=== PATIENT | male | born 1945 | race Caucasian/White ===

== ENCOUNTER 2024-07-29 13:04 | Inpatient (IN) | payer MEDICARE, SELFPAY ==
[2024-07-28] VITALS (9 sets, daily range): BP systolic 107–131; BP diastolic 69–103; BMI 25.0; BMI 24.4
[2024-07-28 13:55] LABS: % Basophils 0.5 % (0-2); % Eosinophils 0.5 % (0-6); % Immature Granulocytes 0.3 % (0-0.5); % Lymphocytes 13.1 % (20.5-51.1); % Monocytes 8.3 % (1.7-9.3); % Neutrophils 77.3 % (42.2-75.2); Absolute Lymphocytes 0.9 10^3/uL (1.2-3.4); Absolute Monocytes 0.6 10^3/uL (0.1-0.6); Absolute Neutrophils 5.1 10^3/uL (1.4-6.5); Hematocrit 48.7 % (39.0-52.0); Hemoglobin 15.8 g/dL (13.0-18.0); Mean Corp Hgb Conc. 32.4 g/dL (33.0-37.0); Mean Corpuscular Hgb 30.2 pg (27.0-31.0); Mean Corpuscular Volume 92.9 fL (80.0-94.0); Mean Platelet Volume 10.1 fL (7.4-10.4); Nucleated Red Blood Cells % 0 % (-); Platelet Count 141 10^3/uL (130-400); Red Blood Cell Count 5.24 10^6/uL (4.70-6.10); Red Cell Dist. Width 15.9 % (11.5-14.5); White Blood Cell Count 6.6 10^3/uL (4.8-10.8)
[2024-07-28 14:07] LABS: ALT (SGPT) 29 U/L (0-50); AST (SGOT) 38 U/L (17-59); Albumin 4.6 g/dl (3.5-5.0); Alkaline Phosphatase 102 U/L (38-126); Blood Urea Nitrogen 45 mg/dl (9-20); Calcium 9.7 mg/dl (8.4-10.2); Carbon Dioxide 32 mmol/L (22-30); Chloride 100 mmol/L (98-107); Estimated Creatinine Clearance 43 ml/min; Glucose 91 mg/dl (70-99); Potassium 4.6 mmol/L (3.5-5.1); Sodium 143 mmol/L (135-145); Total Bilirubin 2.6 mg/dl (0.2-1.3); Total Protein 7.2 g/dl (6.3-8.2); eGFR 51.13
[2024-07-28 14:10] LABS: Urine Albumin Trace (Neg - Trace); Urine Bilirubin Negative (Negative); Urine Character Slightly Cloudy (Clear); Urine Color Yellow; Urine Glucose Negative (Negative); Urine Ketone Negative (Negative); Urine Leukocyte 2+ (Negative); Urine Nitrite Negative (Negative); Urine Occult Blood 2+ (Negative); Urine Urobilinogen 1+ (Neg - 1+); Urine pH 6.5 (5.0-9.0)
[2024-07-28 14:17] LABS: Urine Bacteria Few (Negative); Urine Squamous Cell 0-2 /LPF (Few); Urine White Cell 60-70 /HPF (0-5)
--- NOTE | 2024-07-28 15:31 | ED.GENMED ---
History of Present Illness
General
Chief Complaint: Urinary Symptoms
Source: patient and physician
Exam Limitations: none
Time Seen by Provider: 07/28/24 13:41
History of Present Illness
History of Present Illness:
79-year-old male with a history of COPD, pulm hypertension who presents from his doctor after he has failed outpatient treatment with antibiotics for urinary tract infection. Patient states that he only has very minimal symptoms at rest and does
not really have symptoms when he urinates. He does have a little bit of discomfort in the genitourinary area. No fevers. No vomiting. No back pain. Patient has been on Keflex and amoxicillin without improvement. His urine culture tested
positive for Enterococcus. He was sent by his doctor for IV antibiotics
Past History
Past History
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
therapy.)
ED Past Surgical History: Other (Nephrectomy, hernia with mesh)
Patient has exhibited threatening behavior?: No
PSI?: No
Social History
Tobacco: Former smoker
Alcohol: Occasional
Personal:
Living: with roommate
Family History
Family History: Asthma
Phy Exam
Physical Exam
Physical Exam:
CONSTITUTIONAL Vital signs reviewed, Patient alert and oriented to person, place and time. Well-appearing
HEAD atraumatic, normocephalic.
EYES eyelids normal to inspection, Extraocular muscles intact, Conjunctiva normal, Sclera normal.
NECK normal range of motion, Trachea midline, no jugular venous distention.
RESP no respiratory distress
BACK No obvious deformities
Abdomen ventral hernia noted. Abdomen nontender
UPPER EXTREMITY Gross Range of motion normal, gross motor strength normal
LOWER EXTREMITY Gross range of motion normal, Gross motor strength normal
NEURO Speech normal, No focal motor deficits include, Isauro coma scale 15, Memory normal, Cranial Nerves intact to screening exam.
SKIN Skin warm, dry, and normal in color.
PSYCHIATRIC Patient oriented to person place and time, Normal affect.
Course
Orders/Labs/Results
Orders:
Orders
07/28/24 13:44
Complete Blood Count/With Diff Urgent
Comprehensive Metabolic Panel Urgent
Urinalysis Reflex To Culture Urgent
Date Specimen was Collected: 07/28/24
Time Specimen was Collected: 13:43
Urine Microscopic Reflex Cult Urgent
Urine Culture Urgent
ROYM Source: U
Specimen Description:
Date Specimen was Collected: 07/28/24
Time Specimen was Collected: 13:43
07/28/24 15:31
Vancomycin 1 Gram/200 ml [Vancocin] 1 gram in 200 ml IV NOW
Abnormal Lab Results
07/28/24
13:44
MCHC 32.4 L g/dL
(33.0-37.0)
RDW 15.9 H %
(11.5-14.5)
Absolute Lymphs (auto) 0.9 L 10^3/uL
(1.2-3.4)
Neutrophils % 77.3 H %
(42.2-75.2)
Lymphocytes % 13.1 L %
(20.5-51.1)
Carbon Dioxide 32 H mmol/L
(22-30)
BUN 45 H mg/dl
(9-20)
Creatinine 1.4 H mg/dL
(0.7-1.3)
Total Bilirubin 2.6 H mg/dl
(0.2-1.3)
Ur Occult Blood Reflex 2+ A
(Negative)
Leukocyte Esterase Rfl 2+ A
(Negative)
Urine RBC 3-6 A /HPF
(0-2)
Urine WBC (Reflex) 60-70 A /HPF
(0-5)
Urine Bacteria (Reflex) Few A
(Negative)
07/28/24 13:44
07/28/24 13:44
Vital Signs
Initial and Last Documented VS:
Initial Vital Signs
Temp Pulse Resp BP Pulse Ox
97.6 F 80 16 107/70 96
07/28/24 13:24 07/28/24 13:24 07/28/24 13:24 07/28/24 13:24 07/28/24 13:24
Last Documented Vital Signs
Temp Pulse Resp BP Pulse Ox
97.6 F 77 22 131/90 93
07/28/24 13:24 07/28/24 15:15 07/28/24 14:00 07/28/24 15:00 07/28/24 15:15
MDM/Problems Addressed
MDM/Problems Addressed:
Outpatient antibiotic failure, UTI
*Pulse Oximetry
Patient hypoxic: no
*Critical Care Note
Total Time (30-74mins, 75-104mins- exclusive of procedures): Not Applicable
Data Reviewed
Source: patient
Further Testing Considered But Not Given:
Consider blood cultures but does not appear septic
Patient Management
Discussion with other providers: Hospitalist
Escalation/DeEscalation of care consider admission/obs:
79-year-old male with persistence of genitourinary symptoms, albeit mild, with outpatient urinary culture positive for Enterococcus. Patient had Enterococcus in the past in his urine. PCP concerned because his culture still positive despite
outpatient oral antibiotics. Outpatient culture reviewed showing Enterococcus.
ED Attending Note
-
Portions of this chart may have been created with voice recognition software.� Occasional wrong word or��sound alike� substitutions may have occurred due to the inherent limitations of voice recognition software.
Discharge Plan
Departure
Patient Disposition: Home (Routine Discharge)
Date of Disposition: 07/28/24
Time of Disposition: 15:34
Admit to: Med/Surg
Patient with high blood pressure during this ER visit?: No
Discharge Problem:
Outpatient antibiotic failure, Urinary tract infection
Prescriptions:
No Action
fluticasone propionate 1 SPRAY spray,suspension
2 spray intranasal DAILY
loratadine 10 MG tablet
10 mg PO QPM
terazosin 1 MG capsule
1 mg PO HS
dofetilide 125 MCG capsule
125 mcg PO Q12H Qty: 60 3RF
budesonide-formoterol [Symbicort] 1 PUFF HFA aerosol inhaler
2 puff inhalation R BID
acetaminophen [Tylenol Extra Strength] 500 MG tablet
500 mg PO Q4HPRN PRN (Reason: mild pain)
magnesium oxide 500 MG capsule
500 mg PO DAILY
albuterol sulfate 1 PUFF HFA aerosol inhaler
2 puff inhalation R Q4HPRN PRN (Reason: sob)
furosemide [Lasix] 40 mg Tablet
40 mg PO BID
warfarin 2 mg Tablet
2 mg PO SUTUTH
warfarin 2 mg Tablet
4 mg PO MOWEFRSA
escitalopram oxalate [Lexapro] 20 mg Tablet
20 mg PO QPM
metoprolol tartrate 25 mg tablet
12.5 mg PO BID
Refresh Optive 0.5-0.9 % Drops
1 drp BOTH EYES BID
guaifenesin [Mucinex] 600 mg Tablet Extended Release 12hr
600 mg PO BID
montelukast 10 MG tablet
10 mg PO DAILY
Referrals:
Casey De Los Santos MD [Family Provider] -
Interventions
Interventions:
*Risk Screen - Suicide Last Done: 07/28/24 13:26
*General Assessment Last Done: 07/28/24 13:34
*Neglect/Abuse Screening Last Done: 07/28/24 13:26
ED- Fall Risk Assessment Last Done: 07/28/24 13:34
ED-Male Genitourinary Assessment Last Done: 07/28/24 13:34
Discharge Date and Time
Print Language: YORUBA
[2024-07-28] MEDS: VANCOCIN 200 IV ×2 (15:43→20:56)
--- NOTE | 2024-07-28 16:04 | HPS.HSE ---
Family Physician
-
Family Physician: Casey De Los Santos
Chief Complaint
-
Suprapubic discomfort
History of Present Illness
79-year-old male complaining of discomfort in lower suprapubic area. He was referred to the hospital by his PCP after failing 2 courses of antibiotics Keflex and amoxicillin for Enterococcus in his urine culture. He states his urine culture was
repeated 1 week ago after finishing amoxicillin. He currently denies discomfort in his suprapubic area states he does not want to stay overnight in the hospital. I did have a discussion with him that we need to repeat his urine culture and make
sure it is resolved. Given his history of CKD and Solo kidney I advised him we will consult infectious disease in the a.m. to look at oral antibiotic alternatives.
He denies fever, chills, flank pain, suprapubic tenderness chest pain, palpitations, shortness with, cough, nausea, vomiting, diarrhea.
He has past medical history of BPH, renal cancer with nephrectomy 2010, SVT, A-fib, duodenal ulcer bleed, GERD, diverticulosis, hemorrhoids asthma, chronic systolic CHF, COPD, chronic benign lung nodules pulm HTN, former smoker, ascending aorta 8.6
cm on echo 01/11/2023, endocarditis Hx, chronic ambulatory dysfunction, vitreous hemorrhage with transient blindness left eye March 2018, anxiety, depression, migraines optic with floaters claustrophobia, idiopathic hypersomnia per sleep study
Medical History
Past Medical History
Past Medical History: Reports Other
Additional Past Medical History:
BPH
renal cancer with nephrectomy 2010
SVT
A-fib/ablation Hx
chronic systolic CHF
Endocarditis Hx
COPD
Former smoker
Chronic benign lung nodules with biopsy 2018
Asthma
Pulm HTN
Ascending aorta 8.6 cm on echo 01/11/2023
Duodenal ulcer bleed Hx cauterizations
GERD
diverticulosis
hemorrhoids
Anxiety/ depression
Chronic ambulatory dysfunction
vitreous hemorrhage with transient blindness left eye March 2018,
migraines optic with floaters claustrophobia
idiopathic hypersomnia per sleep study
Past Surgical History: Reports Other
Additional Past Surgical History:
Umbilical hernia repair x 3
TURP
Left nephrectomy 2011 secondary to renal cancer
Tonsillectomy
Ventral hernia repair
Bilateral cataract extraction
Duodenal ulcer cauterization
Cataract surgery
AVR April 2018
Lung biopsy benign nodules 2018
Cardiac ablation�A-fib
Social History
Tobacco: Former Smoker (Quit age 40)
Alcohol: Occasional
Drug: None
Living: With Family
Employment: Retired
Family History
Family History: Not pertinent
Allergies / Home Medications
Allergies reflects when Allergies were last updated in [employer].
Home Medications with original date entered in [employer]
Allergy/Medication List:
Allergies
Allergy/AdvReac Type Severity Reaction Status Date / Time
adhesive Allergy Rash Verified 07/28/24 13:27
lisinopril Allergy Anaphylaxis Verified 07/28/24 13:27
/ANGIOEDEMA
morphine Allergy HALLUCINATI Verified 07/28/24 13:27
ONS
protamine Allergy Anaphylaxis/pulmonary Verified 07/28/24 13:27
HTN
Home Medications
fluticasone propionate 50 mcg/actuation nasal spray,suspension 2 spray intranasal DAILY Congestion 02/12/18
dofetilide 125 mcg capsule 125 mcg PO Q12H #60 caps 03/17/20
acetaminophen 500 mg tablet (Tylenol Extra Strength) 500 mg PO Q4HPRN PRN mild pain 07/08/20
albuterol sulfate 90 mcg/actuation aerosol inhaler 2 puff inhalation R Q4HPRN PRN sob 07/08/20
magnesium oxide 500 mg capsule 500 mg PO DAILY 07/08/20
carboxymethylcellulose 0.5 %-glycerin 0.9 % eye drops (Refresh Optive) 1 drp BOTH EYES BID 01/13/23
escitalopram oxalate 20 mg tablet (Lexapro) 20 mg PO QPM 01/13/23
furosemide 40 mg tablet (Lasix) 40 mg PO BID 01/13/23
montelukast 10 mg tablet 10 mg PO DAILY 01/13/23
budesonide-formoterol HFA 160 mcg-4.5 mcg/actuation aerosol inhaler (Symbicort) 2 puff inhalation R BID 07/28/24
lorazepam 0.5 mg tablet 0.5 mg PO HSPRN PRN sleep/anxiety 07/28/24
metolazone 2.5 mg tablet 2.5 mg PO DAILYPRN PRN swelling 07/28/24
metoprolol succinate 25 mg tablet,extended release 24 hr 25 mg PO DAILY 07/28/24
prednisone 10 mg tablet 5 mg PO DAILY 07/28/24
warfarin 4 mg tablet (Jantoven) 2 mg PO MOTUWEFRSA 07/28/24
warfarin 4 mg tablet (Jantoven) 4 mg PO SUTH 07/28/24
Review of Systems
-
History Source: Patient
A 12 point ROS was completed and negative except as noted: Yes
Constitutional: Denies Fever or Chills
EENT: Denies Sore Throat or Runny Nose
Respiratory: Denies Cough or Trouble Breathing
Cardiac: Denies Chest Pain, Diaphoresis, Palpitations or Syncope
Abdomen/GI: Denies Abdominal Pain, Nausea, Vomiting or Diarrhea
: Denies Dysuria, Frequency, Flank Pain, Incontinence, Difficulty Voiding, Urgency or Bleeding
Musculoskeletal: Reports Edema (+1-2); Denies Joint Pain
Skin: Denies Itching or Rash
Neurological: Denies Dizzy, Headache or Weakness
Endocrine: Reports No Symptoms
Hematologic/Lymphatic: Reports No Symptoms
Psych: Reports Calm
Physical Exam
Vital Signs
Vital Signs
Temp Pulse Resp BP Pulse Ox
97.6 F 80 16 131/90 93
07/28/24 13:24 07/28/24 15:30 07/28/24 16:00 07/28/24 15:00 07/28/24 15:45
Physical Exam
General: Comfortable and Conversant; No Fever or Chills
HEENT: NormoCephalic, Anicteric, Moist mucous membranes, PERRLA, [place] Conjunctivae and No Ptosis
Respiratory: Clear; No Wheezes or Rales
Cardiac: S1/S2, Murmur (Systolic 2/6) and Peripheral Edema (+1-2 lower extremities); No Rub or Gallop
Breast: Deferred by me
GI: Soft, Non Tender, Non Distended, Normal Bowel Sounds, No Hepatosplenomegaly and Other (Lower ventral hernia soft nontender)
Rectal: Deferred by Provider
Genito-urinary: No costovertebral tender
Musculoskeletal: No Clubbing, No Cyanosis, Edema, Left Lower Extremity (+1-2 lower ankles/feet) and Edema, Right Lower Extremity (+1-2 lower ankles/feet); No Edema, Left Upper Extremity or Edema, Right Upper Extremity
Skin: Warm and Dry; No Rash
Neuro: AO x 3, No Motor Deficits, Nonfocal/grossly intact and No Sensory Deficits; No Slurred Speech, Facial Droop or Tremors
Psych: Calm
Laboratory Results
-
07/28/24 13:44
07/28/24 13:44
Laboratory Results
Total Bilirubin 2.6 mg/dl (0.2-1.3) H 07/28/24 13:44
AST 38 U/L (17-59) 07/28/24 13:44
ALT 29 U/L (0-50) 07/28/24 13:44
Alkaline Phosphatase 102 U/L (38-126) 07/28/24 13:44
Data Reviewed
-
Lab Data: Labs Reviewed by me
Impression/Plan
-
Impression/plan:
Observation telemetry
#Symptomatic UTI(Enterococcus)�failed outpatient treatment
#Hx Enterococcus faecalis urine November 12, 2022
-Recent treatment with Keflex and amoxicillin as urine culture outpatient was positive for Enterococcus
-UA +2 leukocyte, WBC 60-70, few bacteria
-Follow repeat urine culture
-IV vancomycin
-Consult infectious disease given failure outpatient treatment, CKD, solo kidney, Tikosyn
#Chronic systolic CHF
-I/O, daily weights
-Follows with [facility]
2D echo 2022: EF 45 to 50%, apical lateral and anterolateral hypokinesis, severely dilated left and right atrium, bioprosthetic valve peak mean gradient 16/9 mmHg. Severe TR, pulm arterial pressure 40 mmHg, IVC severely dilated ascending aorta
measures 8.6 cm
#CKD 3B/ solo kidney LEFT
#Renal cancer with nephrectomy 2010
#BPH
Creat 1.4 his baseline from 2022
-Follow BMP
#SVT
#Afib/ablation Hx
cont Tikosyn 125 mcg Q12, metoprolol succinate 25 mg daily
-Continue Coumadin
-Check INR
#Chronic systolic CHF
i/o daily weight
-Continue Lasix 40 mg twice daily
#Endocarditis Hx
#COPD hx on chronic steroids
#Former smoker quit age 40
#Chronic benign lung nodules with biopsy 2018
-Continue prednisone 5 mg daily
#Asthma- no acute exacerbation
#Pulm HTN
#Ascending aorta 8.6 cm on echo 01/11/2023
#Duodenal ulcer bleed Hx cauterizations
#GERD
#Anxiety/ depression
-Continue Lexapro 20 mg every afternoon
#Chronic ambulatory dysfunction
Consult PT
#Idiopathic hypersomnia per sleep study
-Continue lorazepam 0.5 mg at bedtime as needed
Other PMH:
Diverticulosis
Hemorrhoids
Vitreous hemorrhage with transient blindness left eye March 2018,
Migraines optic with floaters claustrophobia
DVT prophylaxis
Continue GREY GOODS EXAMINER Coumadin
Full code patient's son David is his emergency contact
--- NOTE | 2024-07-28 17:01 | W.PN.UPDATE ---
Update Note
Progress Note Update
This is an addendum to the H&P written by Janette Santos on 07/28/2024. Patient seen and examined independently with PROJECT DEVELOPMENT ENGINEER.
79-year-old male past medical history of atrial fibrillation/flutter status post ablation, aortic stenosis status post bioprosthetic aortic valve replacement, severe mitral regurgitation, HFpEF, BPH, CKD, right renal cell carcinoma status post right
nephrectomy, aortic dissection, COPD, pulmonary hypertension, with recent urinary symptoms diagnosed with UTI treated with 2 failed courses of antibiotics with Keflex and amoxicillin for Enterococcus UTI. Urine culture repeated showed persistent
Enterococcus and he was advised to come to the hospital for IV antibiotics.
Patient denies any symptoms at this time. Vancomycin started. Check urine culture. ID consulted.
[2024-07-28 17:39] LABS: INR 2.74; PT 28.9 Sec (11.4-14.6)
[2024-07-28] MEDS: SYMBICORT 160/4.5 MCG INHALER 2 PUFF INH (20:36)
[2024-07-28] MEDS: COUMADIN 2 MG PO (20:44)
[2024-07-28] MEDS: LEXAPRO 20 MG PO (20:48)
[2024-07-28] MEDS: LASIX 40 MG PO (20:53)
[2024-07-28] MEDS: TIKOSYN 125 MCG PO (20:56)
[2024-07-28] MEDS: REFRESH EYE DROPS (PF) 1 DROPS BOTH EYES (20:56)
--- NOTE | 2024-07-28 22:25 | PHA.VAN.IN ---
Assessment
- Assessment
Renal Function: Appears similar to baseline (Baseline Scr 1.3-1.8)
AUC Dosing Plan
- Dosing Variables
Dosing Weight (kg): 75
Dosing CrCl (ml/min): 43
Vd coefficient (L/kg): 0.7
- Empiric Dosing
Initial / Loading Dose: Vancomycin 2000mg as split loading dose (1000mg at 1600,2100)
Maintenance Regimen: Vancomycin 1000mg IV Q24h- start 07/29 at 1200 and work back to 0600
Estimated AUC (mcg*h/mL): 489
Estimated Peak (mcg*h/mL): 30.8
Estimated Trough (mcg/ml): 12.5
Estimated Half Life (H): 17.3
- Monitoring
No levels ordered at this time: Will f/u and order levels closer to steady state.
Pharmacokinetics Vancomycin I
- -
Patient Age: 79
Patient Sex: Male
Vancomycin Day #: 1
Indication: Genito-Urinary Tract
Requesting Provider: SOURAV Multani
Pertinent Antimicrobial Allergies:
No pertinent antibiotic allergies
Height / Weight:
Height 5 ft 9 in
Actual Weight 75.041 kg
Pertinent Past Medical History: Recent course cephelexin and amox for enterococcal UTI, CKD-nephrectomy '11
- Vital Signs / Lab Results
Temp Pulse Resp BP Pulse Ox
97.7 F 81 16 107/69 96
07/28/24 19:00 07/28/24 20:53 07/28/24 20:41 07/28/24 20:53 07/28/24 20:41
Lab Results - Hematology
07/28/24
13:44
WBC 6.6
Lab Results - Chemistry
07/28/24
13:44
BUN 45 H
Creatinine 1.4 H
Estimated Creat Clear 43
Albumin 4.6
Lab Results - Urine
07/28/24
13:44
Urine Nitrite (Reflex) Negative
Leukocyte Esterase Rfl 2+ A
Urine WBC (Reflex) 60-70 A
Ur Squamous Epith Cells 0-2
Urine Bacteria (Reflex) Few A
[2024-07-28] MEDS: ATIVAN 0.5 MG PO (23:58)
[2024-07-29] VITALS (7 sets, daily range): BP systolic 97–121; BP diastolic 68–77; PULSE 80; BMI 24.4; BMI 24.5
[2024-07-29] MEDS: HYDROCORTISONE 1% CREAM 1 APPLIC TOPICAL (00:02)
[2024-07-29 07:00] LABS: % Basophils 1.1 % (0-2); % Eosinophils 1.7 % (0-6); % Immature Granulocytes 0.4 % (0-0.5); % Lymphocytes 23.9 % (20.5-51.1); % Monocytes 11.2 % (1.7-9.3); % Neutrophils 61.7 % (42.2-75.2); Absolute Basophils 0.1 10^3/uL (0-0.2); Absolute Eosinophils 0.1 10^3/uL (0-0.7); Absolute Lymphocytes 1.1 10^3/uL (1.2-3.4); Absolute Monocytes 0.5 10^3/uL (0.1-0.6); Absolute Neutrophils 2.9 10^3/uL (1.4-6.5); Hematocrit 43.8 % (39.0-52.0); Hemoglobin 14.2 g/dL (13.0-18.0); Mean Corp Hgb Conc. 32.4 g/dL (33.0-37.0); Mean Corpuscular Hgb 29.8 pg (27.0-31.0); Nucleated Red Blood Cells % 0 % (-); Platelet Count 121 10^3/uL (130-400); Red Blood Cell Count 4.76 10^6/uL (4.70-6.10); Red Cell Dist. Width 15.6 % (11.5-14.5); White Blood Cell Count 4.7 10^3/uL (4.8-10.8)
[2024-07-29 07:02] LABS: INR 2.54; PT 27.2 Sec (11.4-14.6)
[2024-07-29 07:24] LABS: ALT (SGPT) 25 U/L (0-50); AST (SGOT) 32 U/L (17-59); Albumin 3.7 g/dl (3.5-5.0); Alkaline Phosphatase 78 U/L (38-126); Blood Urea Nitrogen 37 mg/dl (9-20); Carbon Dioxide 29 mmol/L (22-30); Chloride 101 mmol/L (98-107); Estimated Creatinine Clearance 50 ml/min; Glucose 86 mg/dl (70-99); Potassium 4.1 mmol/L (3.5-5.1); Sodium 139 mmol/L (135-145); Total Protein 6.1 g/dl (6.3-8.2); eGFR > 60.00
[2024-07-29] MEDS: SYMBICORT 160/4.5 MCG INHALER 2 PUFF INH ×2 (08:01→18:19)
[2024-07-29] MEDS: TOPROL XL 25 MG PO (08:26)
[2024-07-29] MEDS: LASIX 40 MG PO ×2 (08:26→16:27)
[2024-07-29] MEDS: REFRESH EYE DROPS (PF) 1 DROPS BOTH EYES ×2 (08:27→20:05)
[2024-07-29] MEDS: TIKOSYN 125 MCG PO ×2 (08:27→20:05)
[2024-07-29] MEDS: DELTASONE 5 MG PO (08:30)
--- NOTE | 2024-07-29 08:38 | PHA.VAN.FU ---
Vancomycin Assessment / Plan
- Assessment
Renal Function: SCR Decreasing (1.4->1.2)
WBC's are: Trending Down
In the past 24 hrs, patient has been: Afebrile
Concomitant Antimicrobials: none
- Dosing Plan
Continue: vanc 1000 mg daily ( split LD 07/28 - start maint dose 07/29)
- Monitoring Plan
No level(s) ordered at this time: order levels closer to steady state
- Follow Up
Pharmacy will continue to follow.
Vancomycin Follow UP
- -
Patient Age: 79
Patient Sex: Male
Vancomycin Day #: 2
Indication: Genito-Urinary Tract
Requesting Provider: SOURAV Multani
Pertinent Antimicrobial Allergies:
No pertinent antibiotic allergies
Height / Weight:
Height 5 ft 9 in
Actual Weight 75.16 kg
Pertinent Past Medical History: Recent course cephelexin and amox for enterococcal UTI, CKD-nephrectomy '11
- Vital Signs / Lab Results
Temp Pulse Resp BP Pulse Ox
97.7 F 76 16 110/77 91
07/29/24 07:00 07/29/24 08:10 07/29/24 08:10 07/29/24 07:00 07/29/24 08:10
Lab Results - Hematology
07/28/24 07/29/24
13:44 06:10
WBC 6.6 4.7 L
Lab Results - Chemistry
07/28/24 07/29/24
13:44 06:10
BUN 45 H 37 H
Creatinine 1.4 H 1.2
Estimated Creat Clear 43 50
Albumin 4.6 3.7
Lab Results - Urine
07/28/24
13:44
Urine Nitrite (Reflex) Negative
Leukocyte Esterase Rfl 2+ A
Ur Squamous Epith Cells 0-2
--- NOTE | 2024-07-29 10:37 | W.PN.HOSP.TC ---
Today's Communication/Plan
-
c/w IV Abx
c/w Lasix BID
Assessment / Plan
Assessment / Plan
Physical Exam
General: Comfortable and Conversant; No Fever or Chills
HEENT: Normocephalic, Anicteric, Moist mucous membranes, PERRLA, [place] Conjunctivae and No Ptosis
Respiratory: Clear; No Wheezes or Rales
Cardiac: S1/S2, Murmur (Systolic 2/6) and Peripheral Edema (+1-2 lower extremities); No Rub or Gallop
GI: Soft, Non Tender, Non Distended, Normal Bowel Sounds, (Lower ventral hernia soft nontender)
Genito-urinary: No costovertebral tender
Musculoskeletal: No Clubbing, No Cyanosis, Edema, Lower Extremities.
Skin: Warm and Dry; No Rash
Neuro: AO x 3, No Motor Deficits, Nonfocal/grossly intact and No Sensory Deficits; No Slurred Speech, Facial Droop or Tremors
Psych: Calm
#Symptomatic UTI(Enterococcus)�failed outpatient treatment
#Hx Enterococcus faecalis urine November 12, 2022
-Recent treatment with Keflex and amoxicillin as urine culture outpatient was positive for Enterococcus
-UA +2 leukocyte, WBC 60-70, few bacteria
-Follow repeat urine culture
-IV vancomycin
-Consult infectious disease given failure outpatient treatment.
#Chronic systolic CHF
No sob
No hypoxia
-I/O, daily weights
-Follows with [facility] cardiology
2D echo 2022: EF 45 to 50%, apical lateral and anterolateral hypokinesis, severely dilated left and right atrium, bioprosthetic valve peak mean gradient 16/9 mmHg. Severe TR, pulm arterial pressure 40 mmHg, IVC severely dilated ascending aorta
measures 8.6 cm
#AIDA, resolving
CKD 3B/ solo kidney LEFT
#Renal cancer with nephrectomy 2010
#BPH
-Follow BMP
#SVT
#Afib/ablation Hx
cont Tikosyn 125 mcg Q12, metoprolol succinate 25 mg daily
-Continue Coumadin
-Check INR. 2.54
#Chronic systolic CHF
i/o daily weight
-Continue Lasix 40 mg twice daily
- PRN metolazone
#Endocarditis Hx
#COPD hx on chronic steroids
#Former smoker quit age 40
#Chronic benign lung nodules with biopsy 2018
-Continue prednisone 5 mg daily
#Asthma- no acute exacerbation
#Pulm HTN
#Ascending aorta 8.6 cm on echo 01/11/2023
#Duodenal ulcer bleed Hx cauterizations
#GERD
#Anxiety/ depression
-Continue Lexapro 20 mg every afternoon
#Chronic ambulatory dysfunction
Consult PT
#Idiopathic hypersomnia per sleep study
-Continue lorazepam 0.5 mg at bedtime as needed
Other PMH:
Diverticulosis
Hemorrhoids
Vitreous hemorrhage with transient blindness left eye March 2018,
Migraines optic with floaters claustrophobia
DVT prophylaxis
Continue CHIEF SCIENCE OFFICER Coumadin
Total time spent to see the patient, examine the patient on the floor, review data and lab results, discuss treatment plan with patient, nursing staff around 55 minutes
Anticipated Discharge: 24 - 48 hours
Subjective/Interval History
-
Date of Service: July 29, 2024
He feels less dysuria
No chest pain
No sob
Objective Data
-
Labs:
Laboratory Results
07/29/24
06:10
WBC 4.7 L
Hgb 14.2
Hct 43.8
Plt Count 121 L
PT 27.2 H
INR 2.54
Sodium 139
Potassium 4.1
Chloride 101
Carbon Dioxide 29
BUN 37 H
Creatinine 1.2
Glucose 86
Calcium 9.0
Total Bilirubin 3.0 H
AST 32
ALT 25
Alkaline Phosphatase 78
Vital Signs:
Vital Signs
Temp Pulse Resp BP Pulse Ox
97.7 F 76 16 110/77 91
07/29/24 07:00 07/29/24 08:10 07/29/24 08:10 07/29/24 07:00 07/29/24 08:10
I&O
07/28/24 07/29/24 07/30/24
06:59 06:59 06:59
Intake Total 1320 / 1320
Output Total 200 / 200
Balance 1120 / 1120
[2024-07-29] MEDS: VANCOCIN 200 IV (12:24)
--- NOTE | 2024-07-29 14:21 | CON.ID ---
Consultation
-
Date/Time Consultation Requested: 07/28/2024 1647
Date/Time Consultation Performed: 07/29/2024 1420
Requesting Provider: Dr. Renee Steel
Performing Provider: Dr. Alexa Lake
Reason for Consultation: UTI
Chief Complaint / Past History
Chief Complaint
Sent by PCP for UTI
History of Present Illness
History obtained from the patient as well as review of outside records. 79-year-old male with history of A-fib on Tikosyn, renal cancer status post left nephrectomy, BPH status post TURP, bladder neck contracture requiring dilation in the past who
was sent to the ER July 28 for UTI that 'failed' outpatient cephalexin and amoxicillin. Patient reports he has chronic intermittent slight discomfort sensation in the middle of the urethra not associated with voiding. 05/18/24 urine culture
grew 50-100K Enterococcus faecalis for which she was treated with 7 days of nitrofurantoin. He had repeat urine culture June 18 with urine culture positive for 10-49K Enterococcus faecium, sensitive to ampicillin for which he was treated with
amoxicillin 875 mg twice daily. Again he had repeat urine culture on July 23 which grew 50-100K Enterococcus faecalis. Patient sent to ED due to concern for abx failure. He is started on Vancomycin. Pt reports no urgency, pain with
urination, or flank pain. No supra-pubic pain. He reports able to urinate without difficulty. Denies urinary retention. He feels slightly better today.
Past History
Additional Past Medical History:
COPD/asthma
Afib s/p ablation, on Tikosyn
Renal cancer s/p left nephrectomy 2010
BPH/TURP
Bladder neck contracture s/p dilation x 1
HFrEF
bio-AVR
Lung nodules
pulm HTN
hx endocarditis
Anxiety/depression
Type A aortic dissection
Migraines
Claustrophobia
GIB s/p cauterization of duodenal ulcer
Left eye vitreous hemorrhage
Umbilical hernia repair
Ventral hernia repair
Allergy History:
adhesive Allergy (Verified 07/28/24 13:27)
Rash
lisinopril Allergy (Verified 07/28/24 13:27)
Anaphylaxis/ANGIOEDEMA
morphine Allergy (Verified 07/28/24 13:27)
HALLUCINATIONS
protamine Allergy (Verified 07/28/24 13:27)
Anaphylaxis/pulmonary HTN
Medications Reviewed: Yes
Current Antibiotics:
Vancomycin
Social History
Tobacco: Former Smoker
Alcohol: Occasional
Drug: None
Family History
Family History: Not Pertinent
Review of Systems
Review of Systems
General: Negative Fever, Chills or Change in Appetite
HEENT: Negative Stiff Neck, Sinus Problems or Pharyngitis
Cardiovascular: Negative Chest Pain or Dyspnea
Respiratory: Negative Dyspnea or Cough
Gasteroenterology: Other (no diarrhea); Negative Nausea or Vomiting
Genital / Urological: Negative Hematuria or Flank Pain
Endocrine: Negative Weakness
Skin / Hair / Nails: Negative Rash
Neurological: Negative Dizziness
All systems: All other systems were reviewed and were negative
Vital Signs
Temp Pulse Resp BP Pulse Ox
98.4 F 58 18 100/73 98
07/29/24 11:24 07/29/24 11:24 07/29/24 11:24 07/29/24 11:24 07/29/24 11:24
Physical Exam
Physical Exam
Constitutional: No Acute Distress and Comfortable
Eyes: No Conjunctival Hemorrhage and Sclera Anicteric
Cardiovascular: Regular Rate and S1/S2
Pulmonary: Clear
Gastrointestinal: Soft, Non Tender, Non Distended and Normal Bowel Sounds
Genito-Urinary: Negative [place], Suprapubic Tenderness or CVA Tenderness
Extremities: Negative Edema
Neurological: AO x 3
Lab / Diagnostic Study Results
07/29/24 06:10
07/29/24 06:10
Abs Immat Gran (auto) 0.0 10^3/uL (0-0.05) 07/29/24 06:10
Absolute Neuts (auto) 2.9 10^3/uL (1.4-6.5) 07/29/24 06:10
Absolute Lymphs (auto) 1.1 10^3/uL (1.2-3.4) L 07/29/24 06:10
Absolute Monos (auto) 0.5 10^3/uL (0.1-0.6) 07/29/24 06:10
Absolute Basos (auto) 0.1 10^3/uL (0-0.2) 07/29/24 06:10
Immature Gran % 0.4 % (0-0.5) 07/29/24 06:10
Neutrophils % 61.7 % (42.2-75.2) 07/29/24 06:10
Lymphocytes % 23.9 % (20.5-51.1) 07/29/24 06:10
Monocytes % 11.2 % (1.7-9.3) H 07/29/24 06:10
Eosinophils % 1.7 % (0-6) 07/29/24 06:10
Basophils % 1.1 % (0-2) 07/29/24 06:10
PT 27.2 Sec (11.4-14.6) H 07/29/24 06:10
INR 2.54 07/29/24 06:10
Ur Squamous Epith Cells 0-2 /LPF (Few) 07/28/24 13:44
Microbiology Results
Micro:
07/28/24 13:44 Urine Culture - Preliminary
Urine Enterococcus species
Assessment / Plan
# Recurrent Enterococcus bacteruria, tx'd with nitrofurantoin (sensitive) in 05/2024, then amoxicillin 06/18/24
# hx bladder neck contracture s/p dilation x 1
# hx BPH s/p TURP
- Pt's chronic symptoms of mid urethral discomfort unlikely UTI sxs. Symptoms occur at any time whether voiding or not.
-Ordered renal US with bladder to check anatomy.
-De-escalate Vancomycin to amoxicillin 500mg po tid x 10d
Pt did not 'fail' amoxicillin. His urine is colonized with Enterococcus which is difficult to eradicate completely.
One should never repeat UA/Ucx as test of cure.
In the future, check UA/Ucx and treat only if he has new urinary sxs.
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
COPD/asthma
Afib s/p ablation, on Tikosyn
Renal cancer s/p left nephrectomy 2010
BPH/TURP
Bladder neck contracture s/p dilation x 1
HFrEF
bio-AVR
Lung nodules
pulm HTN
hx endocarditis
Anxiety/depression
Type A aortic dissection
Migraines
Claustrophobia
GIB s/p cauterization of duodenal ulcer
Left eye vitreous hemorrhage
Umbilical hernia repair
Ventral hernia repair
--- NOTE | 2024-07-29 15:17 | CM ---
met with patient at bedside.patient lives with 2 friends(one is a nurse) in a house with 3 jaye,his bed and bath is on second level.he amb with a cane and is I with his adl.he has never had a vn or been to ip rehab in past.
PCP: [facility]
PMH: uti,afib,chf,bph,copd,htn,ckd stage 3,chronic dissection of thoracic aorta,endocarditis
DME: cane,home o2 with [employer] at 2 liters nc o2-use at night and prn during day.
Patient signed obs letter and form in chart.
Patient is adm with enteroccus uti,on po zithomax,iv vanco,cont 2 liters nc o2.patient has declined home care.Plan:home with no needs.
[2024-07-29] MEDS: AMOXIL 500 MG PO ×2 (16:27→23:04)
[2024-07-29] MEDS: ProAIR HFA INHALER 2 PUFF INH (18:19)
[2024-07-29] MEDS: LEXAPRO 20 MG PO (18:27)
[2024-07-29] MEDS: COUMADIN 4 MG PO (20:50)
[2024-07-29] MEDS: FLEET PHOSPHATE ENEMA-ADULT 118 ML RECTAL (20:50)
[2024-07-29] MEDS: ATIVAN 0.5 MG PO (22:15)
[2024-07-30 03:00] VITALS: BP 106/67
[2024-07-30 06:00] VITALS: BMI 24.4
[2024-07-30 06:35] LABS: % Basophils 0.8 % (0-2); % Eosinophils 1.7 % (0-6); % Immature Granulocytes 0.2 % (0-0.5); % Lymphocytes 23.6 % (20.5-51.1); % Monocytes 11.3 % (1.7-9.3); % Neutrophils 62.4 % (42.2-75.2); Absolute Eosinophils 0.1 10^3/uL (0-0.7); Absolute Lymphocytes 1.1 10^3/uL (1.2-3.4); Absolute Monocytes 0.5 10^3/uL (0.1-0.6); Hemoglobin 14.7 g/dL (13.0-18.0); Mean Corp Hgb Conc. 32.7 g/dL (33.0-37.0); Mean Corpuscular Hgb 30.1 pg (27.0-31.0); Mean Platelet Volume 9.8 fL (7.4-10.4); Nucleated Red Blood Cells % 0 % (-); Platelet Count 118 10^3/uL (130-400); Red Blood Cell Count 4.89 10^6/uL (4.70-6.10); Red Cell Dist. Width 15.3 % (11.5-14.5); White Blood Cell Count 4.8 10^3/uL (4.8-10.8)
[2024-07-30 06:41] LABS: INR 2.56; PT 27.4 Sec (11.4-14.6)
[2024-07-30 07:03] LABS: ALT (SGPT) 23 U/L (0-50); AST (SGOT) 30 U/L (17-59); Albumin 3.7 g/dl (3.5-5.0); Alkaline Phosphatase 73 U/L (38-126); Blood Urea Nitrogen 41 mg/dl (9-20); Calcium 8.9 mg/dl (8.4-10.2); Carbon Dioxide 26 mmol/L (22-30); Chloride 99 mmol/L (98-107); Estimated Creatinine Clearance 54 ml/min; Glucose 81 mg/dl (70-99); Potassium 3.9 mmol/L (3.5-5.1); Sodium 138 mmol/L (135-145); eGFR > 60.00
[2024-07-30] MEDS: SYMBICORT 160/4.5 MCG INHALER 2 PUFF INH (08:00)
[2024-07-30 08:11] VITALS: BP 117/81
[2024-07-30] MEDS: AMOXIL 500 MG PO ×2 (08:14→15:41)
[2024-07-30] MEDS: TOPROL XL 25 MG PO (08:14)
[2024-07-30] MEDS: LASIX 40 MG PO ×2 (08:14→15:41)
[2024-07-30] MEDS: DELTASONE 5 MG PO (08:14)
[2024-07-30] MEDS: TIKOSYN 125 MCG PO (08:14)
[2024-07-30] MEDS: REFRESH EYE DROPS (PF) 1 DROPS BOTH EYES (08:17)
--- NOTE | 2024-07-30 08:21 | W.PN.HOSP.TC ---
Today's Communication/Plan
-
Antibiotic. Renal ultrasound. Discharge planning in progress.
Assessment / Plan
Assessment / Plan
Physical Exam
General: Comfortable and Conversant; No Fever or Chills
HEENT: Normocephalic, Anicteric, Moist mucous membranes, PERRLA, [place] Conjunctivae and No Ptosis
Respiratory: Clear; No Wheezes or Rales
Cardiac: S1/S2, Murmur (Systolic 2/6) and Peripheral Edema (+1-2 lower extremities); No Rub or Gallop
GI: Soft, Non Tender, Non Distended, Normal Bowel Sounds, (Lower ventral hernia soft nontender)
Genito-urinary: No costovertebral tender
Musculoskeletal: No Clubbing, No Cyanosis, Edema, Lower Extremities.
Skin: Warm and Dry; No Rash
Neuro: AO x 3, No Motor Deficits, Nonfocal/grossly intact and No Sensory Deficits; No Slurred Speech, Facial Droop or Tremors
Psych: Calm
A/P:
Enterococcus urinary tract infection/bacteriuria:
ID consult appreciated
ID noticed chronic colonization
On amoxicillin 500 mg p.o. 3 times daily to complete a 10-day course
Kidney ultrasound pending
Plan to discharge home today if ultrasound unremarkable
#Chronic systolic CHF
No sob
No hypoxia
-I/O, daily weights
-Follows with [facility] cardiology
2D echo 2022: EF 45 to 50%, apical lateral and anterolateral hypokinesis, severely dilated left and right atrium, bioprosthetic valve peak mean gradient 16/9 mmHg. Severe TR, pulm arterial pressure 40 mmHg, IVC severely dilated ascending aorta
measures 8.6 cm
#AIDA, resolving
CKD 3B/ solo kidney LEFT
#Renal cancer with nephrectomy 2010
#BPH
-Follow BMP, creatinine 1.4--> 1.1
#SVT
#Afib/ablation Hx
cont Tikosyn 125 mcg Q12, metoprolol succinate 25 mg daily
-Continue Coumadin
-Check INR. 2.56
#Chronic systolic CHF
i/o daily weight
-Continue Lasix 40 mg twice daily
- PRN metolazone
#Endocarditis Hx
#COPD hx on chronic steroids
#Former smoker quit age 40
#Chronic benign lung nodules with biopsy 2018
-Continue prednisone 5 mg daily
#Asthma- no acute exacerbation
#Pulm HTN
#Ascending aorta 8.6 cm on echo 01/11/2023
#Duodenal ulcer bleed Hx cauterizations
#GERD
#Anxiety/ depression
-Continue Lexapro 20 mg every afternoon
#Chronic ambulatory dysfunction
Consult PT
#Idiopathic hypersomnia per sleep study
-Continue lorazepam 0.5 mg at bedtime as needed
Other PMH:
Diverticulosis
Hemorrhoids
Vitreous hemorrhage with transient blindness left eye March 2018,
Migraines optic with floaters claustrophobia
DVT prophylaxis
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
Anticipated Discharge: Today
Subjective/Interval History
-
Date of Service: July 30, 2024
Patient denies any new complaints. Afebrile
Objective Data
-
Labs:
Laboratory Results
07/30/24
06:21
WBC 4.8
Hgb 14.7
Hct 45.0
Plt Count 118 L
PT 27.4 H
INR 2.56
Sodium 138
Potassium 3.9
Chloride 99
Carbon Dioxide 26
BUN 41 H
Creatinine 1.1
Glucose 81
Calcium 8.9
Total Bilirubin 3.0 H
AST 30
ALT 23
Alkaline Phosphatase 73
Vital Signs:
Vital Signs
Temp Pulse Resp BP Pulse Ox
98.2 F 76 20 117/81 94
07/30/24 08:11 07/30/24 08:14 07/30/24 08:14 07/30/24 08:14 07/30/24 08:14
I&O
07/29/24 07/30/24 07/31/24
06:59 06:59 06:59
Intake Total 1320 / 1320 1600 / 1600
Output Total 200 / 200 1750 / 1750
Balance 1120 / 1120 -150 / -150
[2024-07-30 09:44] VITALS: BP 117/63; PULSE 73; O2SAT 93
--- NOTE | 2024-07-30 09:50 | PTOTSP ---
pt currently demonstrates ability to complete simple ADLs, functional transfers, ambulation with supervision to no assistance. no acute OT needs identified at this time, will sign off.
--- NOTE | 2024-07-30 11:00 | WOUNDNOTE ---
LEGS AND ANKLES
--- NOTE | 2024-07-30 11:00 | WOUNDNOTE ---
L MEDIAL ANKLE/HEEL
--- NOTE | 2024-07-30 11:01 | WOUNDNOTE ---
[facility] RN note: Patient admitted with UTI
See H&P for complete history.
PMH: COPD,AAA,CHF,HTN,GI bleed, renal cancer-nephrectomy 2010, cardiac ablation, ex smoker.
Wound Location and type/assessment: Patient admitted with: Healed suspected old venous ulcer on R lateral ankle, dry intact scab. L medial lower ankle/heel with dry crusty patch of skin, abrasion vs healed venous ulcer, no drainage. Skin on legs
and feet dry. + 1 edema mainly in feet-lower legs. Patient states he wears knee high compression stockings at home. Heels blanchable red.
Appetite: Good.
Pressure redistribution devices in place: Accumax, ad adolph.
Plan: applied A&D ointment to legs. Recommended to patient to moisturize legs daily then resume own compression stockings when home. Encouraged leg elevation when sitting. Also recommended to patient he follow up with a foot Dr. to manage toe nails.
Will confirm orders with hospitalist and updated nurse.
Updated care plan and will sign off unless needed.
Note to case management of equipment requested for discharge: None.
[2024-07-30 11:03] VITALS: BP 101/82
--- NOTE | 2024-07-30 12:14 | W.PN.ID1 ---
Date of Service
Date of Service: July 30, 2024
Today's Communication
- Continue amoxicillin 500mg po tid (d2) x 10d
- If Renal US unremarkable, can dc home.
Assessment / Plan
# Recurrent Enterococcus bacteruria, tx'd with nitrofurantoin (sensitive) in 05/2024, then amoxicillin 06/18/24. 07/23/24 Ucx E. faecalis, amp-sensitive
# hx bladder neck contracture s/p dilation x 1
# hx BPH s/p TURP
- Pt's chronic symptoms of mid urethral discomfort unlikely UTI sxs. Symptoms occur at any time whether voiding or not.
-Ordered renal US with bladder to check anatomy.
- Pt did not 'fail' amoxicillin. His urine is colonized with Enterococcus which is difficult to eradicate completely.
One should never repeat UA/Ucx as test of cure.
In the future, check UA/Ucx and treat only if he has new urinary sxs.
- Continue amoxicillin 500mg po tid (d2) x 10d
- If Renal US unremarkable, can dc home.
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
COPD/asthma
Afib s/p ablation, on Tikosyn
Renal cancer s/p left nephrectomy 2010
BPH/TURP
Bladder neck contracture s/p dilation x 1
HFrEF
bio-AVR
Lung nodules
pulm HTN
hx endocarditis
Anxiety/depression
Type A aortic dissection
Migraines
Claustrophobia
GIB s/p cauterization of duodenal ulcer
Left eye vitreous hemorrhage
Umbilical hernia repair
Ventral hernia repair
Subjective / Review of Systems
Feels better.
Urine flow better.
Chronic urethral discomfort present but slightly improved.
Vital Signs / Physical Exam
Vital Signs
Vital Signs
Temp Pulse Resp BP Pulse Ox
98.1 F 76 16 101/82 90
07/30/24 11:03 07/30/24 11:03 07/30/24 11:03 07/30/24 11:03 07/30/24 11:03
Physical Exam
Constitutional: No Acute Distress
Pulmonary: Clear
Gastrointestinal: Soft, Non Tender and Non Distended
Genito-Urinary: Negative CVA Tenderness
Neurological: AO x 3
Objective Data
Lab Data
Lab Results
07/30/24 06:21
07/30/24 06:21
PT 27.4 Sec (11.4-14.6) H 07/30/24 06:21
INR 2.56 07/30/24 06:21
Estimated Creat Clear 54 ml/min 07/30/24 06:21
Total Bilirubin 3.0 mg/dl (0.2-1.3) H 07/30/24 06:21
AST 30 U/L (17-59) 07/30/24 06:21
ALT 23 U/L (0-50) 07/30/24 06:21
Alkaline Phosphatase 73 U/L (38-126) 07/30/24 06:21
Most recent labs reviewed.
Micro Results:
07/28/24 13:44 Urine Culture - Preliminary
Urine Enterococcus species
[2024-07-30 15:00] VITALS: BP 147/76
--- NOTE | 2024-07-30 15:24 | W.DCSUMMARY ---
Discharge Summary
Discharge Data
Date of Admission: 07/29/24
Date of Discharge: 07/30/24
-
Pending Results: No
Hospital Course
Patient is 79 years old male with complicated past medical history some of which include COPD, A-fib, renal cancer status post left nephrectomy, BPH, CHF, pulmonary hypertension, type aortic dissection, among other, presented to the hospital with
UTI. Patient reports chronic intermittent sensation in the middle of the urethra not associated with voiding and his urine culture has grown Enterococcus faecalis multiple times. Last urine culture from July 23 grew Enterococcus faecalis and
due to concerns of antibiotic failure he was started on vancomycin and ID consulted. ID did not feel this was a failure from antibiotics. ID also felt that he was colonized with Enterococcus and recommended not to repeat urine and urine culture as
a test of cure and only test when he has new urinary symptoms. Patient had a renal ultrasound unremarkable for acute findings aside for some kidney cyst that can follow-up as outpatient. ID recommended to continue amoxicillin to complete a 10 days
course. He has been afebrile. He is hemodynamically stable. He will be discharged in stable condition today.
Discharge duration: 35 minutes
Discharge Plan
-
Patient Disposition: Home (Routine Discharge)
Discharge Diagnosis/Procedures: Enterococcus urinary tract infection. Acute kidney injury. Chronic systolic congestive heart failure.
Diet: Low Cholesterol
Activity: As tolerated
Blood Work: Please PCP to order CBC, BMP within 1 week.
Activity Restrictions/Additional Instructions:
Wound Care Instructions
legs: moisturize daily,(Aquaphor cream recommended)
resume compression stockings when home.
Leg elevation when sitting.
Referrals:
Casey De Los Santos MD [Family Provider] - in less than 1 week
Prescriptions:
New
amoxicillin 500 mg Capsule
500 mg PO Q8H 8 Days Qty: 24 0RF
Continued
fluticasone propionate 1 SPRAY spray,suspension
2 spray intranasal DAILY
dofetilide 125 MCG capsule
125 mcg PO Q12H Qty: 60 3RF
acetaminophen [Tylenol Extra Strength] 500 MG tablet
500 mg PO Q4HPRN PRN (Reason: mild pain)
magnesium oxide 500 MG capsule
500 mg PO DAILY
albuterol sulfate 1 PUFF HFA aerosol inhaler
2 puff inhalation R Q4HPRN PRN (Reason: sob)
furosemide [Lasix] 40 mg Tablet
40 mg PO BID@,16
escitalopram oxalate [Lexapro] 20 mg Tablet
20 mg PO QPM
Refresh Optive 0.5-0.9 % Drops
1 drp BOTH EYES BID
montelukast 10 MG tablet
10 mg PO DAILY
metolazone 2.5 mg tablet
2.5 mg PO DAILYPRN PRN (Reason: swelling)
prednisone 10 mg tablet
5 mg PO DAILY
warfarin [Jantoven] 4 mg tablet
4 mg PO SUTH
warfarin [Jantoven] 4 mg tablet
2 mg PO MOTUWEFRSA
lorazepam 0.5 mg tablet
0.5 mg PO HSPRN PRN (Reason: sleep/anxiety)
Patient Comments:
07/28/2024: last filled 06/19/24, 30 tabs for 30 days from [facility]
metoprolol succinate 25 mg tablet extended release 24 hr
25 mg PO DAILY
budesonide-formoterol [Symbicort] 160-4.5 mcg/actuation HFA aerosol inhaler
2 puff INHALATION R BID
Fleet Enema 19-7 gram/118 mL Enema
118 ml FL PRN PRN (Reason: constipation)
Discharge Orders:
Discharge Patient (As Directed); Ordered 07/30/24
Ordered By: Red Hancock
Discharge Date and Time
Discharge Date/Time: 07/30/24 17:40
Print Language: IRISH
[2024-07-30] MEDS: LEXAPRO 20 MG PO (17:11)
[2024-07-30] MEDS: COUMADIN 2 MG PO (17:11)
== END 2024-07-30 17:40 | disposition home or self-care (01) | DRG 690 ==
LOC: 3 WEST ACU 13:04
PROVIDERS: Clinical Nurse Specialist Family Health; Nurse Practitioner Family; ADMITTING PHYSICIAN Hospitalist; ATTENDING PHYSICIAN Hospitalist; CONSULT PHYSICIAN Internal Medicine Infectious Disease; EMERGENCY PHYSICIAN Emergency Medicine; FAMILY PHYSICIAN Family Medicine
DX: N39.0 Urinary tract infection, site not specified (principal); I50.22 Chronic systolic (congestive) heart failure; N17.9 Acute kidney failure, unspecified; I47.10 Supraventricular tachycardia, unspecified; N18.32 Chronic kidney disease, stage 3b; I48.91 Unspecified atrial fibrillation; J44.89 Other specified chronic obstructive pulmonary disease; F32.A Depression, unspecified; B95.2 Enterococcus as the cause of diseases classified elsewhere
CPT/HCPCS: 76770; 80053; 81003; 81015; 85025; 85610; 87077; 87086; 87186; 94640; 96365; 97162; 97165; 99284

== ENCOUNTER → 2024-08-21 10:45 | Outpatient (REF) | payer MEDICARE, SELFPAY | LOC: RCS 10:45 | PROVIDERS: ATTENDING PHYSICIAN Internal Medicine Cardiovascular Disease; FAMILY PHYSICIAN Family Medicine | DX: Z95.2 Presence of prosthetic heart valve (principal) | CPT/HCPCS: 93306 ==

== ENCOUNTER → 2024-08-23 10:03 | Outpatient (REF) | payer MEDICARE, SELFPAY | LOC: HWRAD 10:03 | PROVIDERS: ATTENDING PHYSICIAN Thoracic Surgery (Cardiothoracic Vascular Surgery); FAMILY PHYSICIAN Family Medicine | DX: I71.20 Thoracic aortic aneurysm, without rupture, unspecified (principal); Z81.0 Family history of intellectual disabilities | CPT/HCPCS: 71275; 74174; Q9967 ==

== ENCOUNTER 2024-12-03 23:21 | Inpatient (IN) | payer MEDICARE, SELFPAY ==
[2024-12-03] VITALS (7 sets, daily range): BP systolic 96–123; BP diastolic 65–97; BMI 23.1
[2024-12-03 17:29] LABS: % Basophils 0.7 % (0-2); % Eosinophils 0.2 % (0-6); % Immature Granulocytes 0.7 % (0-0.5); % Lymphocytes 10.8 % (20.5-51.1); % Neutrophils 75.6 % (42.2-75.2); Absolute Lymphocytes 0.6 10^3/uL (1.2-3.4); Absolute Monocytes 0.7 10^3/uL (0.1-0.6); Absolute Neutrophils 4.4 10^3/uL (1.4-6.5); Hematocrit 44.3 % (39.0-52.0); Hemoglobin 14.4 g/dL (13.0-18.0); Mean Corp Hgb Conc. 32.5 g/dL (33.0-37.0); Mean Corpuscular Hgb 30.8 pg (27.0-31.0); Mean Corpuscular Volume 94.9 fL (80.0-94.0); Mean Platelet Volume 10.6 fL (7.4-10.4); Nucleated Red Blood Cells % 0 % (-); Platelet Count 120 10^3/uL (130-400); Red Blood Cell Count 4.67 10^6/uL (4.70-6.10); Red Cell Dist. Width 14.4 % (11.5-14.5); White Blood Cell Count 5.8 10^3/uL (4.8-10.8)
[2024-12-03 17:43] LABS: ALT (SGPT) 18 U/L (0-50); AST (SGOT) 30 U/L (17-59); Albumin 4.2 g/dl (3.5-5.0); Alkaline Phosphatase 122 U/L (38-126); Blood Urea Nitrogen 59 mg/dl (9-20); Calcium 9.1 mg/dl (8.4-10.2); Carbon Dioxide 28 mmol/L (22-30); Chloride 96 mmol/L (98-107); Estimated Creatinine Clearance 32 ml/min; Glucose 114 mg/dl (70-99); Potassium 4.2 mmol/L (3.5-5.1); Sodium 135 mmol/L (135-145); Total Bilirubin 4.2 mg/dl (0.2-1.3); Total Protein 6.9 g/dl (6.3-8.2); eGFR 35.44
[2024-12-03 17:54] LABS: NT-proBNP 1920 pg/ml; Troponin I 0.033 ng/ml
--- NOTE | 2024-12-03 18:25 | ED.GENMED ---
History of Present Illness
General
Chief Complaint: Change in Mental Status
Source: patient
Time Seen by Provider: 12/03/24 17:57
History of Present Illness
History of Present Illness:
79-year-old male brought to the emergency room by EMS due to confusion. Patient noted by family to be hallucinating. Patient also noted to be hypoxic by paramedics. Patient has an extensive medical history including COPD for which he uses oxygen
on a as needed basis. Family states he typically does not use it at all during the day and just sometimes at night. He has had a left nephrectomy due to renal cell carcinoma. He had a extensive aortic dissection which was treated medically. He
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 Given his extensive COPD he is not a surgical candidate. Patient's had endocarditis in the past. Patient has not had a fever. He has a chronic cough which may be a
little bit more frequent than normal. He denies any abdominal pain, nausea vomiting or diarrhea. He denies any urinary symptoms. Patient has noticed that his peripheral neuropathy seems much more significant recently.
Past History
Past History
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
therapy.)
ED Past Surgical History: Other (Nephrectomy, hernia with mesh)
Patient has exhibited threatening behavior?: No
PSI?: No
Social History
Tobacco: Former smoker
Alcohol: Occasional
Personal:
Living: with roommate
Family History
Family History: Asthma
Phy Exam
Physical Exam
Physical Exam:
General: Awake, Alert, Oriented X3. Patient peers chronically ill with stigmata of COPD, no acute respiratory distress
Vitals: unremarkable
Head: Atraumatic
Eyes: Pupils equal, EOMI
Throat: Airway intact, no exudates, dry mucosa
Neck: Trachea midline
Lungs: Markedly decreased breath sounds throughout
Heart: Regular rate, no murmurs
Abd: Soft, Nontender, No pulsatile mass
Neuro: Nonfocal
Skin: Warm, dry, no rash
Extremities: pulses equal b/l, no edema, very sensitive to light palpation bilateral lower extremities
Sepsis
Sepsis Screening
Sepsis Assessment: Sepsis
Sepsis Screen
Sepsis Screen: Sepsis
Date: 12/03/24
Time: 22:38
Course
Orders/Labs/Results
Orders:
Orders
12/03/24 17:02
Electrocardiogram (*1) Urgent
Reason for Study: Other
Other Reason for Exam: Respiratory Distress
Cardiac Monitoring- Treatment ONCE
EKG- Treatment ONCE
IV Insert/Care/Rem.- Treatment PRN
CR Chest - 2 Views Urgent
Comment:
Reason For Exam: respiratory distress
O2 Therapy [RESP] Urgent
Titrate/Wean O2 to maintain O2 sat greater than (%): 93
Special Instructions: TO MAINTAIN CONTINUOUS O2 SATS >/= 93%
Pulse Ox/cont/shift [RESP] Urgent
Quantity: 1
Special Instructions: continuous pulse ox
12/03/24 17:10
Comprehensive Metabolic Panel Urgent
NT-proBNP Urgent
Troponin I Urgent
12/03/24 17:14
CBC/With Diff [Complete Blood Count/With Diff] Urgent
12/03/24 18:21
0.9% Sodium Chloride 500 ml [Nss] 500 ml IV BOLUS
12/03/24 18:24
CT Head W/o Iv Contrast Urgent
Comment:
Reason For Exam: altered mental status
12/03/24 19:01
COVID-19 Antigen Urgent
Source: Nasal Swab
Urinalysis Reflex To Culture Urgent
Date Specimen was Collected: 12/03/24
Time Specimen was Collected: 18:56
Urine Microscopic Reflex Cult Urgent
Influenza A+B Rapid Molecular Urgent
ROMY Source: Nasal Swab
Specimen Description:
Urine Culture Urgent
ROMY Source: U
Specimen Description:
Date Specimen was Collected: 12/03/24
Time Specimen was Collected: 18:56
12/03/24 19:03
Ondansetron Injectable [Zofran] 4 mg IV NOW STA
12/03/24 19:09
Venous Blood Gas Urgent
%Oxygen/Room Air: 32
12/03/24 20:46
Ipratropium/Albuterol Sulfate [Duoneb] 3 ml INH R NOW STA
12/03/24 20:48
Dexamethasone Sod Phosphate [Decadron] 10 mg IV NOW STA
LevoFLOXacin 500 MG/100 ML [Levaquin] 500 mg in 100 ml IV NOW
12/03/24 20:50
Prothrombin Time Urgent
Abnormal Lab Results
12/03/24 12/03/24 12/03/24
17:10 17:14 19:01
RBC 4.67 L 10^6/uL
(4.70-6.10)
MCV 94.9 H fL
(80.0-94.0)
MCHC 32.5 L g/dL
(33.0-37.0)
Plt Count 120 L 10^3/uL
(130-400)
MPV 10.6 H fL
(7.4-10.4)
Absolute Lymphs (auto) 0.6 L 10^3/uL
(1.2-3.4)
Absolute Monos (auto) 0.7 H 10^3/uL
(0.1-0.6)
Immature Gran % 0.7 H %
(0-0.5)
Neutrophils % 75.6 H %
(42.2-75.2)
Lymphocytes % 10.8 L %
(20.5-51.1)
Monocytes % 12.0 H %
(1.7-9.3)
PT
VBG pO2
VBG HCO3
Chloride 96 L mmol/L
(98-107)
BUN 59 H mg/dl
(9-20)
Creatinine 1.9 H mg/dL
(0.7-1.3)
Glucose 114 H mg/dl
(70-99)
Total Bilirubin 4.2 H mg/dl
(0.2-1.3)
Ur Occult Blood Reflex 3+ A
(Negative)
Leukocyte Esterase Rfl 2+ A
(Negative)
Urine RBC 3-6 A /HPF
(0-2)
Urine WBC (Reflex) 26-30 A /HPF
(0-5)
Urine Bacteria (Reflex) Many A
(Negative)
12/03/24 12/03/24
19:09 20:50
RBC
MCV
MCHC
Plt Count
MPV
Absolute Lymphs (auto)
Absolute Monos (auto)
Immature Gran %
Neutrophils %
Lymphocytes %
Monocytes %
PT 39.0 H Sec
(11.4-14.6)
VBG pO2 54 H mmHg
(30-50)
VBG HCO3 30.5 H mmol/L
(22-27)
Chloride
BUN
Creatinine
Glucose
Total Bilirubin
Ur Occult Blood Reflex
Leukocyte Esterase Rfl
Urine RBC
Urine WBC (Reflex)
Urine Bacteria (Reflex)
12/03/24 17:14
12/03/24 17:10
Vital Signs
Initial and Last Documented VS:
Initial Vital Signs
Temp Pulse Resp BP Pulse Ox
98.7 F 70 18 118/87 80
12/03/24 16:53 12/03/24 16:53 12/03/24 16:53 12/03/24 16:53 12/03/24 16:53
Last Documented Vital Signs
Temp Pulse Resp BP Pulse Ox
99.6 F 63 20 106/65 97
12/03/24 19:52 12/03/24 19:15 12/03/24 19:15 12/03/24 19:00 12/03/24 19:25
MDM/Problems Addressed
Differential Diagnosis Includes:
hypoxia, hypercarbia, copd exacerbation, pneumonia, renal failure, electrolyte abn, subdural
MDM/Problems Addressed:
Patient presents with multiple complaints including falls, confusion, hallucinating. Patient found to be hypoxic. Workup here reveals a normal white count and hemoglobin. Chemistries show an elevated BUN and creatinine above his baseline.
Bilirubin is significantly elevated at 4.2 though no other liver function tests are normal. Urinalysis is suggestive of a urinary tract infection with 26-30 WBCs per high-power field with no squames. There are many bacteria. Leukocyte Estrace is
positive. A venous blood gas shows a normal pCO2. CT of the head shows no acute abnormalities. Chest x-ray shows significant changes of the mediastinum due to a known thoracic aneurysm and thoracic dissection. This appears grossly unchanged to
my evaluation. However it is difficult to tell if there might be a subtle infiltrate given all the anatomical changes on the chest x-ray. Given increased work of breathing, hypoxia with known COPD as well as a urinary tract infection
broad-spectrum antibiotics initiated. I looked the patient's previous urine culture results which show that the patient grew Enterococcus that was sensitive to Levaquin, ampicillin, nitrofurantoin.
Chronic conditions affecting care: COPD and Other (CHF, A-fib, aortic aneurysm, thoracic aortic aneurysm and chronic thoracic aortic dissection)
*Radiology
Radiology exam reviewed: preliminary read by ED provider (Significant chronic changes that appear stable. No obvious infiltrate though ability to see an infiltrate limited given the anatomic variations) and radiology read reviewed (CT report)
*Pulse Oximetry
Patient hypoxic: no
*EKG
Interpreted by ED Provider?: Yes
Interpretation: abnormal
Heart Rate: 101
Rate: tachycardiac
Rhythm: sinus tachycardia
[place]: normal axis
Interval: normal interval
QRS Pattern: left vent hypertrophy
Ischemia: non-specific ST changes
*Customer Leader Interpretation
Rate: tachycardiac
Interpretation: abnormal
Rhythm: sinus tachycardia
*Critical Care Note
Total Time (30-74mins, 75-104mins- exclusive of procedures): Not Applicable
Patient Management
Social determinants of health affecting care: Living situation
Discussion with other providers: Hospitalist
ED Attending Note
-
Portions of this chart may have been created with voice recognition software.� Occasional wrong word or��sound alike� substitutions may have occurred due to the inherent limitations of voice recognition software.
Discharge Plan
Departure
Patient Disposition: Admit
Date of Disposition: 12/03/24
Time of Disposition: 20:53
Admit to: Med/Surg
Presentation/result/management discussed w/ accepting MD/DO: Hospitalist
Condition: Fair
Discharge Problem:
Acute UTI, Acute hypoxic respiratory failure, Altered mental state, Acute renal failure (ARF)
Prescriptions:
No Action
fluticasone propionate 1 SPRAY spray,suspension
2 spray intranasal DAILY
dofetilide 125 MCG capsule
125 mcg PO Q12H Qty: 60 3RF
acetaminophen [Tylenol Extra Strength] 500 MG tablet
500 mg PO Q4HPRN PRN (Reason: mild pain)
magnesium oxide 500 MG capsule
500 mg PO DAILY
albuterol sulfate 1 PUFF HFA aerosol inhaler
2 puff inhalation R Q4HPRN PRN (Reason: sob)
furosemide [Lasix] 40 mg Tablet
40 mg PO BID@08,16
escitalopram oxalate [Lexapro] 20 mg Tablet
20 mg PO QPM
Refresh Optive 0.5-0.9 % Drops
1 drp BOTH EYES BID
montelukast 10 MG tablet
10 mg PO DAILY
metolazone 2.5 mg tablet
2.5 mg PO DAILYPRN PRN (Reason: swelling)
prednisone 10 mg tablet
5 mg PO DAILY
warfarin [Jantoven] 4 mg tablet
4 mg PO SUTH
warfarin [Jantoven] 4 mg tablet
2 mg PO MOTUWEFRSA
lorazepam 0.5 mg tablet
0.5 mg PO HSPRN PRN (Reason: sleep/anxiety)
Patient Comments:
07/28/2024: last filled 06/19/24, 30 tabs for 30 days from [facility]
metoprolol succinate 25 mg tablet extended release 24 hr
25 mg PO DAILY
budesonide-formoterol [Symbicort] 160-4.5 mcg/actuation HFA aerosol inhaler
2 puff INHALATION R BID
Fleet Enema 19-7 gram/118 mL Enema
118 ml [place] PRN PRN (Reason: constipation)
amoxicillin 500 mg Capsule
500 mg PO Q8H 8 Days Qty: 24 0RF
Referrals:
Casey De Los Santos MD [Family Provider] -
Interventions
Interventions:
*Risk Screen - Suicide Last Done: 12/03/24 16:53
*General Assessment Last Done: 12/03/24 16:53
*Neglect/Abuse Screening Last Done: 12/03/24 16:53
ED- Fall Risk Assessment Last Done: 12/03/24 19:25
*ED COVID-19 Vaccine History Last Done: 12/03/24 16:53
ED- Pulmonary Assessment Last Done: 12/03/24 19:25
ED- Neurological Assessment Last Done: 12/03/24 19:25
ED- Cardiac Assessment Last Done: 12/03/24 19:25
ED Swallowing Screen Last Done: 12/03/24 19:25
Discharge Date and Time
Print Language: ANGUILLAN
[2024-12-03] MEDS: NSS 500 IV (18:59)
[2024-12-03 19:08] LABS: Urine Albumin Trace (Neg - Trace); Urine Bilirubin Negative (Negative); Urine Character Very Cloudy (Clear); Urine Color Yellow; Urine Glucose Negative (Negative); Urine Ketone Negative (Negative); Urine Leukocyte 2+ (Negative); Urine Nitrite Negative (Negative); Urine Occult Blood 3+ (Negative); Urine Specific Gravity 1.015 (<1.030); Urine Urobilinogen Negative (Neg - 1+)
[2024-12-03] MEDS: ZOFRAN 4 MG IV (19:12)
[2024-12-03 19:18] LABS: Urine Bacteria Many (Negative); Urine Squamous Cell 0-2 /LPF (Few); Urine White Cell 26-30 /HPF (0-5)
[2024-12-03 19:23] LABS: Venous Blood Gas HCO3 30.5 mmol/L (22-27); Venous Blood Gas O2 Sat % 88.9 %; Venous Blood Gas pCO2 47 mmHg (35-48); Venous Blood Gas pH 7.42 (7.32-7.43); Venous Blood Gas pO2 54 mmHg (30-50)
[2024-12-03 19:57] LABS: COVID-19 Antigen Negative (Negative)
[2024-12-03] MEDS: DUONEB 3 ML INH (20:48)
[2024-12-03 21:13] LABS: INR 4.05
--- NOTE | 2024-12-03 21:26 | HPS.HSE ---
Family Physician
-
Family Physician: Casey De Los Santos
Chief Complaint
-
Change in mental status
History of Present Illness
Patient is a 79-year-old male with past medical history for significant for hypertension, hypothyroidism, CKD III, atrial fibrillation, HFmEF, COPD, and depression who presented to [facility] ED for evaluation of change in mental status with
hallucinations. Patient is AAO with noted confusion, son at bedside who assisted with HPI. Patient with nausea for 2 days and today with reported slurred speech and visual hallucinations. EMS called to transfer for evaluation and patient found with
SpO2 80% on RA. Son states patient has seen people in room and walking around when not there. Patient denies any audible hallucinations. Patient utilizes home oxygen at bedtime and PRN at 2L. Patient and son denies fever, chills, shortness of
breath, cough, chest pain, vomiting, diarrhea or urinary symptoms.
Medical History
Past Medical History
Past Medical History: Reports Other
Additional Past Medical History:
hypertension
hypothyroidism
CKD III
atrial fibrillation
HFmEF
COPD
depression
asthma
pulmonary hypertension
anemia
moderate mitral regurgitation
Hx aortic dissection
Hx bacterial endocarditis
mitral valve regurgitation
Past Surgical History: Reports Other
Additional Past Surgical History:
DCCV
right eye cataract
aortic valve replacement (2018)
tonsillectomy
umbilical hernia repair
TURP
aortic valve replacement
cardiac ablation
Social History
Tobacco: Former Smoker (50 pack year history )
Alcohol: Occasional
Drug: None
Living: With Family
Employment: Retired
Family History
Family History: Not pertinent
Allergies / Home Medications
Allergies reflects when Allergies were last updated in [employer].
Home Medications with original date entered in [employer]
Allergy/Medication List:
Allergies
Allergy/AdvReac Type Severity Reaction Status Date / Time
adhesive Allergy Rash Verified 07/28/24 13:27
lisinopril Allergy Anaphylaxis Verified 07/28/24 13:27
/ANGIOEDEMA
morphine Allergy HALLUCINATI Verified 07/28/24 13:27
ONS
protamine Allergy Anaphylaxis/pulmonary Verified 07/28/24 13:27
HTN
Home Medications
fluticasone propionate 50 mcg/actuation nasal spray,suspension 2 spray intranasal DAILY Congestion 02/12/18
dofetilide 125 mcg capsule 125 mcg PO Q12H #60 caps 03/17/20
acetaminophen 500 mg tablet (Tylenol Extra Strength) 500 mg PO Q4HPRN PRN mild pain 07/08/20
albuterol sulfate 90 mcg/actuation aerosol inhaler 2 puff inhalation R Q4HPRN PRN sob 07/08/20
carboxymethylcellulose 0.5 %-glycerin 0.9 % eye drops (Refresh Optive) 1 drp BOTH EYES BID Eye Condition 01/13/23
escitalopram oxalate 20 mg tablet (Lexapro) 20 mg PO QPM Depression 01/13/23
furosemide 40 mg tablet (Lasix) 80 mg PO DAILY Fluid Retention/Swelling 01/13/23
budesonide-formoterol HFA 160 mcg-4.5 mcg/actuation aerosol inhaler (Symbicort) 2 puff inhalation R BID Lung/Breathing Issues 07/28/24
lorazepam 0.5 mg tablet 0.5 mg PO HSPRN PRN sleep/anxiety 07/28/24
metolazone 2.5 mg tablet 2.5 mg PO DAILYPRN PRN swelling 07/28/24
metoprolol succinate 25 mg tablet,extended release 24 hr 25 mg PO DAILY Blood Pressure 07/28/24
prednisone 10 mg tablet 5 mg PO DAILY Lung/Breathing Issues 07/28/24
warfarin 4 mg tablet (Jantoven) 2 mg PO SUTUTH Blood Clot Prevention/Tx 07/28/24
warfarin 4 mg tablet (Jantoven) 4 mg PO MOWEFRSA Blood Clot Prevention/Tx 07/28/24
sodium phosphates 19 gram-7 gram/118 mL enema (Fleet Enema) 118 ml MD PRN PRN constipation 07/29/24
ipratropium 0.5 mg-albuterol 3 mg (2.5 mg base)/3 mL nebulization soln 3 ml inhalation Q4H PRN wheezing/SOB 12/03/24
Review of Systems
-
History Source: Patient
Constitutional: Reports No Symptoms
EENT: Reports No Symptoms
Respiratory: Reports Trouble Breathing (hypoxia)
Cardiac: Reports No Symptoms
Abdomen/GI: Reports Nausea
: Reports No Symptoms
Musculoskeletal: Reports No Symptoms
Skin: Reports No Symptoms
Neurological: Reports No Symptoms
Endocrine: Reports No Symptoms
Hematologic/Lymphatic: Reports No Symptoms
Psych: Reports No Symptoms
Physical Exam
Vital Signs
Vital Signs
Temp Pulse Resp BP Pulse Ox
99.6 F 63 20 106/65 97
12/03/24 19:52 12/03/24 19:15 12/03/24 19:15 12/03/24 19:00 12/03/24 19:25
Physical Exam
General: Well Developed, No Apparent Distress, Comfortable and Conversant
HEENT: NormoCephalic, Moist mucous membranes, Atraumatic, [place] Conjunctivae, Nose Appears Normal and Ears Appear Normal
Respiratory: Clear, Non Labored Respirations and Decreased Breath Sounds
Cardiac: S1/S2 and Regular Rhythm; No Murmur, Rub or Gallop
Breast: Deferred by me
GI: Soft, Non Tender, Non Distended and Normal Bowel Sounds; No Organomegaly
Rectal: Deferred by Provider
Genito-urinary: Deferred by me
Musculoskeletal: No Clubbing, No Cyanosis, Edema, Left Lower Extremity (foot) and Edema, Right Lower Extremity (foot )
Skin: Warm; No Rash
Neuro: Awake, Alert and Nonfocal/grossly intact
Psych: Calm and Confused
Laboratory Results
-
12/03/24 17:14
12/03/24 17:10
Laboratory Results
PT 39.0 Sec (11.4-14.6) H 12/03/24 20:50
INR 4.05 12/03/24 20:50
Total Bilirubin 4.2 mg/dl (0.2-1.3) H 12/03/24 17:10
AST 30 U/L (17-59) 12/03/24 17:10
ALT 18 U/L (0-50) 12/03/24 17:10
Alkaline Phosphatase 122 U/L (38-126) 12/03/24 17:10
Troponin I 0.033 ng/ml 12/03/24 17:10
Data Reviewed
-
CT Scan: Report Reviewed by me (Head: No evidence of acute intracranial abnormality.)
Lab Data: Labs Reviewed by me (BUN 59, Creat 1.9, BNP 1920, trop 0.033, UA positive for UTI, )
Impression/Plan
-
IMPRESSION/PLAN:
#change in mental status with hallucinations
#Acute TME
UA: indicative of UTI
UA C&S: pending
Covid and Influenza: negative
Head CT: No evidence of acute intracranial abnormality.
Chest x-ray: pending
- admit to med/surg
- IVF NSS 80cc/hr for 1 L
- IV Levaquin
- supportive care
#AIDA
#CKD III
BUN 59, Creat 1.9
- monitor BMP
- NSS 80cc/hr for 1 Liter
#COPD
#asthma
#pulmonary hypertension
hypoxic for EMS to 80%
- oxygen to maintain SpO2 >93%
- DuoNeb PRN
- dexamethasone
#benign hypertension
- continue metoprolol
- hold furosemide
#atrial fibrillation
- continue metoprolol
- monitor PT/INR
- hold warfarin tonight for INR 4.05
#HFmEF
BNP 1920
- hold furosemide
- daily weights
#depression
- continue lorazepam PRN
- continue escitalopram
#anemia
hgb 14.4, hct 44.3
- monitor cbc
#moderate mitral regurgitation
#Hx aortic dissection
#Hx bacterial endocarditis
#mitral valve regurgitation
Code status: DNR
DVT Prophylaxis: heparin sq
[2024-12-03] MEDS: DECADRON 10 MG IV (21:47)
[2024-12-03] MEDS: LEVAQUIN 100 IV (21:50)
--- NOTE | 2024-12-03 22:51 | W.PN.UPDATE ---
Addendum entered and electronically signed by Stewart Hyatt MD 12/03/24 22:54:
INR of 4 so hold coumadin.
Original Note:
Update Note
Progress Note Update
This is an addendum to the H&P written by Cally Laughlin on 12/03/2024.� Patient seen and examined independently with OCCUPATIONAL HEALTH AND SAFETY MANAGER.
79-year-old male past medical history of Enterococcus UTI, CHF, CKD 3B, SVT, atrial fibrillation status post ablation, endocarditis, COPD on 2L baseline, former smoker, chronic lung nodules, asthma, pulmonary hypertension, dilated ascending aorta,
thoracic aortic aneurysm, aortic dissection medically treated, duodenal ulcer, GERD, anxiety/depression, chronic amatory dysfunction, peripheral neuropathy, idiopathic hypersomnia, renal cell carcinoma status post left nephrectomy, presenting with
hallucinations and confusion.� Noted to be hypoxic by paramedics slight worsening of chronic cough.
Urinalysis shows 26-30 WBC.� Very cloudy urine.� +2 leukocyte esterase.� COVID and influenza negative.� Chest x-ray pending.
CT head shows no acute abnormality.
Labs show AIDA.� Cardiac BNP of 1900.
Prior urine culture grew Enterococcus.
Patient appears to have metabolic encephalopathy secondary to UTI.� Gentle�IV fluids for AIDA.� Urine culture pending.� Levaquin.
DuoNebs dexamethasone given for COPD exacerbation.� Continue DuoNebs and dexamethasone.
[2024-12-04] VITALS (15 sets, daily range): BP systolic 90–135; BP diastolic 57–92; BMI 23.1
[2024-12-04] MEDS: DUONEB INH (02:35)
[2024-12-04] MEDS: DECADRON 4 MG IV ×3 (03:03→12:55)
[2024-12-04] MEDS: HEPARIN 5000 UNITS SC (03:06)
[2024-12-04] MEDS: DUONEB 3 ML INH ×5 (03:10→19:38)
[2024-12-04] MEDS: NSS 1000 IV (03:14)
[2024-12-04] MEDS: SYMBICORT 160/4.5 MCG INHALER 2 PUFF INH ×2 (07:09→19:38)
[2024-12-04 07:21] LABS: Hematocrit 41.2 % (39.0-52.0); Hemoglobin 13.5 g/dL (13.0-18.0); Mean Corp Hgb Conc. 32.8 g/dL (33.0-37.0); Mean Corpuscular Hgb 31.1 pg (27.0-31.0); Mean Corpuscular Volume 94.9 fL (80.0-94.0); Mean Platelet Volume 10.5 fL (7.4-10.4); Platelet Count 115 10^3/uL (130-400); Red Blood Cell Count 4.34 10^6/uL (4.70-6.10); Red Cell Dist. Width 14.3 % (11.5-14.5); White Blood Cell Count 3.6 10^3/uL (4.8-10.8)
[2024-12-04 07:22] LABS: INR 4.05
[2024-12-04 07:37] LABS: Blood Urea Nitrogen 53 mg/dl (9-20); Calcium 8.5 mg/dl (8.4-10.2); Carbon Dioxide 24 mmol/L (22-30); Chloride 100 mmol/L (98-107); Estimated Creatinine Clearance 40 ml/min; Glucose 141 mg/dl (70-99); Potassium 4.5 mmol/L (3.5-5.1); Sodium 138 mmol/L (135-145); eGFR 47.06
[2024-12-04] MEDS: TOPROL XL 25 MG PO (09:18)
[2024-12-04] MEDS: HEPARIN SC ×2 (09:18→12:57)
[2024-12-04] MEDS: TIKOSYN 125 MCG PO ×2 (09:19→20:27)
[2024-12-04] MEDS: REFRESH CELLUVISC GEL 1 DROPS BOTH EYES ×2 (09:19→20:50)
--- NOTE | 2024-12-04 11:51 | PTCARENOTE ---
Patient anxious and repeatedly calling nurse to call his son. RN tried multiple times to call son from patient's room. A voice mail was left. Patient also wanted his friend called. RN called friend and gave phone to patient. Patient concerned about
what happens next. RN explained plan of care: O2, Nebs, steroids. Patient verbalized understanding.
--- NOTE | 2024-12-04 13:24 | W.PN.HOSP.TC ---
Today's Communication/Plan
-
Monitor vitals
See plan
Decrease Decadron
Monitor renal function closely
Continue to hold Coumadin
Monitor renal function, hold Lasix at this time and monitor
Called son, left voicemail
Assessment / Plan
Assessment / Plan
General: Well Developed, No Apparent Distress, Comfortable and Conversant
HEENT: NormoCephalic, Moist mucous membranes, Atraumatic
Respiratory: Clear, Non Labored Respirations and Decreased Breath Sounds
Cardiac: S1/S2 and Regular Rhythm; No Murmur, Rub or Gallop
GI: Soft, Non Tender, Non Distended and Normal Bowel Sounds
Musculoskeletal: Edema, Left Lower Extremity (foot) and Edema, Right Lower Extremity (foot )
Neuro: Awake, Alert and Nonfocal/grossly intact
Psych: Calm and Confused
change in mental status with hallucinations suspect secondary to acute TME likely secondary to UTI
Urine culture previously with E faecalis sensitive to penicillin
Urine culture pending
Continue with Levaquin for now, monitor QTc
Covid and Influenza: negative
Head CT: No evidence of acute intracranial abnormality.
Chest x-ray with marked enlargement of ascending aorta which appears stable from previous examination compatible with ascending aortic aneurysm. Small right pleural effusion. No signs of pneumonia
Monitor mental status
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
Solo kidney left
Renal cancer with nephrectomy
BPH
Bladder scan
Monitor creatinine
Hold Lasix and metolazone at this time and closely monitor
#COPD
Asthma, appears to be in exacerbation
Continue Decadron, decrease to 4 every 12
Continue nebs
On chronic steroids
Thrombocytopenia
Monitor
Pulmonary hypertension
Monitor
#benign hypertension
- continue metoprolol
- hold furosemide
# Paroxysmal atrial fibrillation
Status post ablation
Continue Tikosyn
- continue metoprolol
- monitor PT/INR
- hold warfarin for INR 4
History of CHF with reduced EF, does not appear to be in exacerbation
Hold Lasix at this time
Monitor volume status closely
#depression
- continue lorazepam PRN
- continue escitalopram
History of duodenal ulcer
History GERD
Anxiety/depression
#moderate mitral regurgitation
#Hx aortic dissection
#Hx bacterial endocarditis
#mitral valve regurgitation
Code status: DNR
DVT Prophylaxis: SCD's
I spent a total of 52 minutes with the patient or on the floor. More than 50% of this time involved counseling and coordination of care.
Anticipated Discharge: > 48 hours
Subjective/Interval History
-
Date of Service: December 04, 2024
denies pain
Objective Data
-
Labs:
Laboratory Results
12/04/24
06:48
WBC 3.6 L
Hgb 13.5
Hct 41.2
Plt Count 115 L
PT 39.0 H
INR 4.05
Sodium 138
Potassium 4.5
Chloride 100
Carbon Dioxide 24
BUN 53 H
Creatinine 1.5 H
Glucose 141 H
Calcium 8.5
Vital Signs:
Vital Signs
Temp Pulse Resp BP Pulse Ox
99.6 F 72 20 105/83 92
12/03/24 19:52 12/04/24 10:58 12/04/24 10:58 12/04/24 06:50 12/04/24 10:58
I&O
12/03/24 12/04/24 12/05/24
06:59 06:59 06:59
Output Total 300 / 300
Balance -300 / -300
--- NOTE | 2024-12-04 15:49 | PTCARENOTE ---
Patient sitting up and repositioning self on stretcher. Patient states, 'I have not been able to stand. My legs are very painful.'
[2024-12-04] MEDS: LEXAPRO 20 MG PO (17:04)
--- NOTE | 2024-12-04 17:42 | PTCARENOTE ---
Patient arrived to unit. VSS. patient remains on 3LNC O2 sat 90% patient reports this is his baseline. Patient AAOx3. patient tolerated walking from stretcher to bed with walker and stand by assist. Patient free from falls. call barkley in reach.
safety maintained. will continue to monitor.
[2024-12-04] MEDS: LEVAQUIN 50 IV (21:25)
[2024-12-04] MEDS: TYLENOL 500 MG PO (22:09)
[2024-12-04] MEDS: MIRALAX 17 GRAMS PO (22:09)
[2024-12-04] MEDS: ATIVAN 0.5 MG PO (22:09)
[2024-12-04] MEDS: ANESTHETIC LOZENGE 1 LOZENGE PO (22:46)
[2024-12-04] MEDS: TESSALON PERLES 100 MG PO (22:46)
[2024-12-05] VITALS (10 sets, daily range): BP systolic 96–121; BP diastolic 57–83; PULSE 109–117; O2SAT 92–93
[2024-12-05] MEDS: DECADRON 4 MG IV ×2 (00:05→12:23)
[2024-12-05] MEDS: DUONEB 3 ML INH ×6 (00:42→19:29)
[2024-12-05 07:21] LABS: INR 4.92; PT 45.1 Sec (11.4-14.6)
--- NOTE | 2024-12-05 07:26 | PTCARENOTE ---
On rounds this am, pt noted to have bleeding from his LT hand, gushing blood. Multiple attempts to stop the bleeding, steri strips applied, adaptic, silicone border foam and then ABD and pressure dressing with ice pack. Shin wrap to be applied after
multiple attempts to stop bleeding. Dr to be made aware.
[2024-12-05 07:37] LABS: Blood Urea Nitrogen 59 mg/dl (9-20); Calcium 9.2 mg/dl (8.4-10.2); Carbon Dioxide 28 mmol/L (22-30); Chloride 98 mmol/L (98-107); Estimated Creatinine Clearance 40 ml/min; Glucose 152 mg/dl (70-99); Potassium 4.3 mmol/L (3.5-5.1); Sodium 136 mmol/L (135-145); eGFR 47.06
[2024-12-05 07:42] LABS: % Immature Granulocytes 0.6 % (0-0.5); % Lymphocytes 4.8 % (20.5-51.1); % Monocytes 5.8 % (1.7-9.3); % Neutrophils 88.8 % (42.2-75.2); Absolute Lymphocytes 0.2 10^3/uL (1.2-3.4); Absolute Monocytes 0.3 10^3/uL (0.1-0.6); Absolute Neutrophils 4.4 10^3/uL (1.4-6.5); Hematocrit 42.6 % (39.0-52.0); Hemoglobin 13.7 g/dL (13.0-18.0); Mean Corp Hgb Conc. 32.2 g/dL (33.0-37.0); Mean Corpuscular Hgb 30.5 pg (27.0-31.0); Mean Corpuscular Volume 94.9 fL (80.0-94.0); Mean Platelet Volume 10.2 fL (7.4-10.4); Nucleated Red Blood Cells % 0 % (-); Platelet Count 128 10^3/uL (130-400); Red Blood Cell Count 4.49 10^6/uL (4.70-6.10); Red Cell Dist. Width 14.4 % (11.5-14.5)
--- NOTE | 2024-12-05 08:05 | W.PN.UPDATE ---
Update Note
Progress Note Update
Asked by Dr. Ferguson to come see pt for ongoing bleeding. Brought Dr. Power, PGY-2 to observe. Patient apparently picked at scab which appeared to overlie a hand vein. Patient started bleeding since 7:05 and has not stopped. Arrived at bedside,
every time dressing removed, hand bleeds. Patient on Coumadin for atrial fibrillation. INR 4.9. Coumadin has been on hold. Ordered 10 mg of subcu vitamin K now. Placed general surgery consult to see if patient might need a stitch. However, may
need to correct coagulopathy first. Spoke with Dr. Rodriguez. He is on his way to see the patient. Hemoglobin stable at 13.7. Will check H&H at noon.
[2024-12-05] MEDS: AQUAMEPHYTON 10 MG SC (08:09)
[2024-12-05] MEDS: SYMBICORT 160/4.5 MCG INHALER 2 PUFF INH ×2 (08:21→19:29)
--- NOTE | 2024-12-05 08:23 | CON.GS ---
Consultation
-
Requesting Provider: Sylvia
Performing Provider: Jennifer
Reason for Consultation: bleeding wound left hand
Medical History
-
Chief Complaint: bleeding wound left hand
History of Present Illness:
79M admitted for AMS change with supratherapeutic INR of 4.92 picked a scab on left hand and developed bleeding. HD stable. His Hb was 13.7 this am. He has mild thrombocytopenia 128K. His pain is controlled.
Past Medical History
Past Medical History: Other (hypertension, hypothyroidism, CKD III, atrial fibrillation, HFmEF, COPD, and depression, pulmonary hypertension anemia moderate mitral regurgitation Hx aortic dissection Hx bacterial endocarditis mitral valve
regurgitation)
Past Surgical History: Other (DCCV right eye cataract aortic valve replacement (2018) tonsillectomy umbilical hernia repair TURP aortic valve replacement cardiac ablation)
Social History
Tobacco: Former Smoker
Alcohol: Occasional
Drug: None
Living: With Family
Employment: Retired
Family History
Family History: Reviewed & Noncontributory
Allergies / Home Medications
Allergy/AdvReac Type Severity Reaction Status Date / Time
adhesive Allergy Rash Verified 07/28/24 13:27
lisinopril Allergy Anaphylaxis Verified 07/28/24 13:27
/ANGIOEDEMA
morphine Allergy HALLUCINATI Verified 07/28/24 13:27
ONS
protamine Allergy Anaphylaxis/pulmonary Verified 07/28/24 13:27
HTN
�Medication �Instructions �Recorded �Confirmed �Type
fluticasone propionate 50 2 spray intranasal DAILY Congestion 02/12/18 12/03/24 History
mcg/actuation nasal
spray,suspension
dofetilide 125 mcg capsule 125 mcg PO Q12H #60 caps 03/17/20 12/03/24 Rx
acetaminophen 500 mg tablet 500 mg PO Q4HPRN PRN mild pain 07/08/20 12/03/24 History
(Tylenol Extra Strength)
albuterol sulfate 90 mcg/actuation 2 puff inhalation R Q4HPRN PRN sob 07/08/20 12/03/24 History
aerosol inhaler
carboxymethylcellulose 0.5 1 drp BOTH EYES BID Eye Condition 01/13/23 12/03/24 History
%-glycerin 0.9 % eye drops
(Refresh Optive)
escitalopram oxalate 20 mg tablet 20 mg PO QPM Depression 01/13/23 12/03/24 History
(Lexapro)
furosemide 40 mg tablet (Lasix) 80 mg PO DAILY Fluid 01/13/23 12/03/24 History
Retention/Swelling
budesonide-formoterol HFA 160 2 puff inhalation R BID 07/28/24 12/03/24 History
mcg-4.5 mcg/actuation aerosol Lung/Breathing Issues
inhaler (Symbicort)
lorazepam 0.5 mg tablet 0.5 mg PO HSPRN PRN sleep/anxiety 07/28/24 12/03/24 History
metolazone 2.5 mg tablet 2.5 mg PO DAILYPRN PRN swelling 07/28/24 12/03/24 History
metoprolol succinate 25 mg 25 mg PO DAILY Blood Pressure 07/28/24 12/03/24 History
tablet,extended release 24 hr
prednisone 10 mg tablet 5 mg PO DAILY Lung/Breathing Issues 07/28/24 12/03/24 History
warfarin 4 mg tablet (Jantoven) 2 mg PO SUTUTH Blood Clot 07/28/24 12/03/24 History
Prevention/Tx
warfarin 4 mg tablet (Jantoven) 4 mg PO MOWEFRSA Blood Clot 07/28/24 12/03/24 History
Prevention/Tx
sodium phosphates 19 gram-7 118 ml WV PRN PRN constipation 07/29/24 12/03/24 History
gram/118 mL enema (Fleet Enema)
ipratropium 0.5 mg-albuterol 3 mg 3 ml inhalation Q4H PRN 12/03/24 12/03/24 History
(2.5 mg base)/3 mL nebulization wheezing/SOB
soln
Review of Systems
-
A 10 point review of systems was completed, and was negative except as per HPI.
Physical Exam
Vital Signs
Temp Pulse Resp BP Pulse Ox
97.7 F 86 16 109/82 93
12/05/24 08:04 12/05/24 08:22 12/05/24 08:22 12/05/24 08:04 12/05/24 08:22
12/04/24 12/05/24 12/06/24
06:59 06:59 06:59
Actual Weight 71 kg
Body Mass Index (BMI) 23.1
Lab Results
12/05/24 06:45
12/05/24 06:45
WBC 5.0 10^3/uL (4.8-10.8) 12/05/24 06:45
Hgb 13.7 g/dL (13.0-18.0) 12/05/24 06:45
Hct 42.6 % (39.0-52.0) 12/05/24 06:45
Plt Count 128 10^3/uL (130-400) L 12/05/24 06:45
Abs Immat Gran (auto) 0.0 10^3/uL (0-0.05) 12/05/24 06:45
Neutrophils % 88.8 % (42.2-75.2) H 12/05/24 06:45
Physical Exam
General: Well Developed, Well Nourished and No Apparent Distress
Skin: Other (left hand 4mm skin tear with persistent slow ooze, no pulsatile bleeding)
Neuro: AO x 3
Psych: Calm
Data Reviewed
-
Labs: Labs Reviewed by me and Discussed with Physician
Assessment / Plan
-
79M with left hand bleeding wound in setting of supratherapeutic INR
AFVSS, pain controlled
4mm skin tear to dorsal left hand with slow ooze, no pulastile bleeding
Vit K given
INR 4.92
Hb 13.7
Plt 128K
Hemostatic gauze (surgicel) placed over wound and pressure dressing applied with 4x4 and rula wrap. After placement, good sensation and ROM in fingers and thumb, denies paraesthesias
Will re-assess in about 60 min. If bleeding continues this may require a suture.
Will follow
[2024-12-05] MEDS: TOPROL XL PO (09:23)
[2024-12-05] MEDS: TIKOSYN 125 MCG PO ×2 (09:23→19:43)
[2024-12-05] MEDS: REFRESH CELLUVISC GEL 1 DROPS BOTH EYES ×2 (09:23→19:42)
--- NOTE | 2024-12-05 13:32 | W.PN.UPDATE ---
Update Note
Progress Note Update
After about 40 mins with pressure dressing and no strikethrough, dressing taken down. No immediate signs of bleeding. Hand rewrapped without pressure. Received notice from nursing that about 5 mins later the wound was bleeding again.
Given his supratherapeutic INR, a suture may not prove hemostatic. I recommend reversing INR with FFP. D/w Hospitalist.
Plan to re-eval later today after FFP administered.
--- NOTE | 2024-12-05 13:38 | W.PN.HOSP.TC ---
Today's Communication/Plan
-
Monitor vital signs see plan
Switch antibiotics to amoxicillin
Vitamin K given this morning for bleeding, initially bleeding stopped however then restarted. Ordered FFP
Blood consented
Discussed with son at bedside
PT/OT, recommended SNF
Assessment / Plan
Assessment / Plan
General: Well Developed, No Apparent Distress, Comfortable and Conversant
HEENT: NormoCephalic, Moist mucous membranes, Atraumatic
Respiratory: Clear, Non Labored Respirations and Decreased Breath Sounds
Cardiac: S1/S2 and Regular Rhythm; No Murmur, Rub or Gallop
GI: Soft, Non Tender, Non Distended and Normal Bowel Sounds
Musculoskeletal: Edema, Left Lower Extremity (foot) and Edema, Right Lower Extremity (foot )
Neuro: Awake, Alert and Nonfocal/grossly intact
Psych: Calm and Confused
change in mental status with hallucinations suspect secondary to acute TME likely secondary to UTI
Urine culture previously with E faecalis sensitive to penicillin
Urine culture with Aerococcus. Switch antibiotics to amoxicillin
Covid and Influenza: negative
Head CT: No evidence of acute intracranial abnormality.
Chest x-ray with marked enlargement of ascending aorta which appears stable from previous examination compatible with ascending aortic aneurysm. Small right pleural effusion. No signs of pneumonia
Monitor mental status
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
Solo kidney left
Renal cancer with nephrectomy
BPH
Bladder scan
Monitor creatinine
Hold Lasix and metolazone at this time and closely monitor
Ongoing bleeding from scab
Supratherapeutic INR with coagulopathy
Vitamin K given, initially bleeding stopped however now continued to bleed again. Spoke with general surgery. Ordered FFP. Blood consented
Continue to monitor
Recheck hemoglobin and INR later today
#COPD
Asthma, appears to be in exacerbation
Continue Decadron, decrease to 4 every 12
Continue nebs
On chronic steroids
Thrombocytopenia
Monitor
Pulmonary hypertension
Monitor
#benign hypertension
- continue metoprolol
- hold furosemide
# Paroxysmal atrial fibrillation
Status post ablation
Continue Tikosyn
- continue metoprolol
- monitor PT/INR
- hold warfarin for INR 4.9
History of CHF with reduced EF, does not appear to be in exacerbation
Hold Lasix at this time
Monitor volume status closely
#depression
- continue lorazepam PRN
- continue escitalopram
History of duodenal ulcer
History GERD
Anxiety/depression
#moderate mitral regurgitation
#Hx aortic dissection
#Hx bacterial endocarditis
#mitral valve regurgitation
Code status: DNR
DVT Prophylaxis: SCD's
I spent a total of 53 minutes with the patient or on the floor. More than 50% of this time involved counseling and coordination of care.
Anticipated Discharge: 24 - 48 hours
Subjective/Interval History
-
Date of Service: December 05, 2024
had episode of bleeding after picked a scab this morning
Objective Data
-
Labs:
Laboratory Results
12/05/24 12/05/24
06:45 20:00
WBC 5.0
Hgb 13.7 Pending
Hct 42.6 Pending
Plt Count 128 L
PT 45.1 H Pending
INR 4.92 Pending
Sodium 136
Potassium 4.3
Chloride 98
Carbon Dioxide 28
BUN 59 H
Creatinine 1.5 H
Glucose 152 H
Calcium 9.2
Vital Signs:
Vital Signs
Temp Pulse Resp BP Pulse Ox
98 F 88 16 104/70 94
12/05/24 10:57 12/05/24 11:33 12/05/24 11:33 12/05/24 10:57 12/05/24 10:57
I&O
0112/05/24 12/06/24
06:59 06:59 06:59
Intake Total 930 / 930
Output Total 300 / 300 875 / 875
Balance -300 / -300
[2024-12-05] MEDS: AMOXIL 500 MG PO ×2 (15:11→21:17)
--- NOTE | 2024-12-05 16:08 | CM ---
Pt seen bedside. Initial assessment completed. Admitted for change in mental status.
Pt reports he lives w/ his son and [id number] in a 2STH w/ an attic- 4 steps to enter the home
Pt uses a cane but also has a walking stick that he uses more often
Denies SNF/VN/PT. Pt stated he engaged in OP therapy at
Address, point of contact and insurance verified
PCP: Dr. De Los Santos
Pharmacy: [facility]
PT/OT evaluated pt and is currently recommending skilled rehab at this time. Hospitalist stated pt's son is agreeable to rehab and anticipate a 24-48 hour d/c. Pt stated for CM to discuss SNF w/ son but would like options in [place].
CM spoke w/ son, David, regarding d/c plan for pt. Per David, pt has been living w/ him for the past 7 weeks as where he was prev living was not safe. David stated pt was living w/ someone, maybe significant other, of 25 years and she was not
taking care of him. David stated he didn't realize how bad pt was. David stated since pt has been residing w/ him for the past 7 weeks, it's gotten more 'dangerous' as pt has been falling, not taking his medication, unable to perform personal care
independently. 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 David stated he got the M-59 form completed for him to be able to be eligible to admit to
a SNF, David stated he is preferring [facility] and [facility] but is open to other facilities in the [place] and [place] areas. David stated he got pt approved for [facility] and [employer] (Medicaid), pt also has Medicare as well.
Referrals sent to [facility]
Plan: SNF w/ transition to LTC; pending accepting facility
--- NOTE | 2024-12-05 16:32 | W.PN.UPDATE ---
Update Note
Progress Note Update
Pt seen and re-evaluated at bedside. Now mild strikethrough bleeding to the left hand rula wrap. Pt reports it has been stable a few hours and is not increasing. He denies paraesthesias to his fingers and has good ROM and sensation. Would maintain
dressing for now, per Hospitalist plan for FFP for INR reversal. I expect this will ultimately provide hemostasis. GS will follow.
--- NOTE | 2024-12-05 16:46 | PN.CDI ---
CDI
- -
CDI:
Physician Documentation Request
Admit Date: 12/03/24 23:21
Dear Doctor Marty,
Please review the following and provide your response in the progress notes.
Clinical Indicators:
Pt admitted with TME 2/2 UTI/COPD exacerbation /Acute Hypoxic Respiratory failure
Pt was on levofloxacin now on amoxicillin
On admission HR 112, Respirations 25
Please clarify which of the following most accurately describes the status of the patient's infection:
Sepsis-POA
- Systemic manifestations of infection, with 2 or more SIRS criteria which include:
- Fever >100.4 degrees F or hypothermia < 96.8 degrees F
- Leukocytosis - WBC > 12,000 or leukopenia - WBC < 4,000 or > 10% bands
- Tachycardia > 90 beats per minute
- Tachypnea - RR > 20 breaths per minute or PaCO2 , 32mmHg
Source: Merck Manual 2013
UTI only , Without Systemic Illness
Other ( please specify)
Use of terms such as suspected, likely, concern for, or probable (associated with a specific diagnosis that is being evaluated, monitored, or treated as if it exists) are acceptable and can be coded in the inpatient setting, when documented at the
time of discharge.
Thank you,
Mila Tinsley RN
CDI Specialist
[place] [facility]
Please use your independent medical judgment in providing your response.
[2024-12-05] MEDS: LEXAPRO 20 MG PO (18:02)
[2024-12-05] MEDS: ANESTHETIC LOZENGE 1 LOZENGE PO ×2 (19:43→22:09)
[2024-12-05] MEDS: TESSALON PERLES 100 MG PO (19:43)
[2024-12-05 20:18] LABS: Hematocrit 41.5 % (39.0-52.0); Hemoglobin 13.5 g/dL (13.0-18.0)
[2024-12-05 20:35] LABS: INR 2.59; PT 28.2 Sec (11.4-14.6)
[2024-12-05] MEDS: TYLENOL 500 MG PO (21:17)
[2024-12-05] MEDS: ATIVAN 0.5 MG PO (21:17)
[2024-12-05] MEDS: DUONEB INH (23:30)
[2024-12-06] MEDS: ANESTHETIC LOZENGE 1 LOZENGE PO ×3 (00:17→10:52)
[2024-12-06] MEDS: DECADRON 4 MG IV ×2 (00:17→13:19)
[2024-12-06] MEDS: DUONEB INH (03:09)
[2024-12-06 03:10] VITALS: BP 105/67
[2024-12-06] MEDS: AMOXIL 500 MG PO ×2 (04:59→13:19)
[2024-12-06 06:00] VITALS: BMI 23.5
[2024-12-06 06:52] LABS: % Immature Granulocytes 0.7 % (0-0.5); % Lymphocytes 2.9 % (20.5-51.1); % Monocytes 6.5 % (1.7-9.3); % Neutrophils 89.9 % (42.2-75.2); Absolute Lymphocytes 0.2 10^3/uL (1.2-3.4); Absolute Monocytes 0.4 10^3/uL (0.1-0.6); Hematocrit 42.4 % (39.0-52.0); Hemoglobin 13.5 g/dL (13.0-18.0); Mean Corp Hgb Conc. 31.8 g/dL (33.0-37.0); Mean Corpuscular Hgb 30.4 pg (27.0-31.0); Mean Corpuscular Volume 95.5 fL (80.0-94.0); Mean Platelet Volume 10.3 fL (7.4-10.4); Nucleated Red Blood Cells % 0 % (-); Platelet Count 136 10^3/uL (130-400); Red Blood Cell Count 4.44 10^6/uL (4.70-6.10); Red Cell Dist. Width 14.4 % (11.5-14.5); White Blood Cell Count 5.5 10^3/uL (4.8-10.8)
[2024-12-06 07:00] LABS: INR 2.18; PT 24.7 Sec (11.4-14.6)
[2024-12-06 07:09] LABS: Blood Urea Nitrogen 57 mg/dl (9-20); Calcium 8.9 mg/dl (8.4-10.2); Carbon Dioxide 29 mmol/L (22-30); Chloride 98 mmol/L (98-107); Estimated Creatinine Clearance 46 ml/min; Glucose 143 mg/dl (70-99); Potassium 4.7 mmol/L (3.5-5.1); Sodium 136 mmol/L (135-145); eGFR 55.88
[2024-12-06] MEDS: SYMBICORT 160/4.5 MCG INHALER 2 PUFF INH ×2 (07:25→19:10)
[2024-12-06] MEDS: DUONEB 3 ML INH ×4 (07:25→19:09)
[2024-12-06] MEDS: TOPROL XL 25 MG PO (07:52)
[2024-12-06] MEDS: REFRESH CELLUVISC GEL 1 DROPS BOTH EYES ×2 (07:52→19:33)
[2024-12-06] MEDS: TIKOSYN 125 MCG PO ×2 (07:54→19:33)
[2024-12-06 07:55] VITALS: BP 118/76
[2024-12-06] MEDS: LASIX 80 MG PO (10:51)
--- NOTE | 2024-12-06 10:56 | W.PN.SURGUPD ---
Surgical Update
Surgical Update
Patient seen and examined
Left upper extremity wrap in place.
AFVSS
Dressing taken down. Some edema in the hand but neurovascularly intact.
Skin abrasion hemostatic. No hematoma. No oozing
Hemoglobin 13.5, INR down to 2.18
Assessment/plan: Bleeding right hand skin tear due to supratherapeutic INR now resolved.
Nonadherent gauze dressing over skin tag; wrapped with Shin just with provide support and avoid tape on thin skin which may cause new skin tears.
No further intervention expected to be required
Signing off, please call if can be of further assistance with care
[2024-12-06 11:10] VITALS: BP 121/75
--- NOTE | 2024-12-06 11:51 | CM ---
manager radiation reviewed patient's chart and met with patient this am, patient was sitting on edge of bed, oxygen 94% at 3 liters. Plan is for skilled placement, director of casework reached out to patient's son, David, and referral sent to [facility],
[place] completed in [facility] along with application form for [facility]. Son to drop off forms at [facility] today, director of casework reached out to June Cleveland in admissions at [facility] who will review referral.
Plan; Skilled placement hopefully at [facility].
[2024-12-06 12:02] LABS: NT-proBNP 2660 pg/ml
--- NOTE | 2024-12-06 12:22 | W.PN.HOSP.TC ---
Today's Communication/Plan
-
Monitor vital signs see plan
Restart Coumadin, bleeding stopped
Check chest x-ray
Restart Lasix
Continue antibiotics
Discharge planning
Assessment / Plan
Assessment / Plan
General: Well Developed, No Apparent Distress, Comfortable and Conversant
HEENT: NormoCephalic, Moist mucous membranes, Atraumatic
Respiratory: Clear, Non Labored Respirations and Decreased Breath Sounds
Cardiac: S1/S2 and Regular Rhythm; No Murmur, Rub or Gallop
GI: Soft, Non Tender, Non Distended and Normal Bowel Sounds
Musculoskeletal: Edema, Left Lower Extremity (foot) and Edema, Right Lower Extremity (foot )
Neuro: Awake, Alert and Nonfocal/grossly intact
Psych: Calm and Confused
change in mental status with hallucinations suspect secondary to acute TME likely secondary to UTI
Urine culture previously with E faecalis sensitive to penicillin
Urine culture with Aerococcus. Switched antibiotics to amoxicillin
Covid and Influenza: negative
Head CT: No evidence of acute intracranial abnormality.
Chest x-ray with marked enlargement of ascending aorta which appears stable from previous examination compatible with ascending aortic aneurysm. Small right pleural effusion. No signs of pneumonia
Monitor mental status
UTI only, without systemic illness
Suspect tachycardia and tachypnea was secondary to COPD/asthma
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
Solo kidney left
Renal cancer with nephrectomy
BPH
Bladder scan
Monitor creatinine
Restart Lasix, keep metolazone on hold
Chest x-ray pain
Ongoing bleeding from scab
likely 2/2 Supratherapeutic INR with coagulopathy
Vitamin K and FFP was given. INR now therapeutic. Restart Coumadin. Bleeding stopped. Surgery signed off
Continue to monitor
#COPD
Asthma, appears to be in exacerbation
Continue Decadron, decrease to every 12
Continue nebs
On chronic steroids
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
Thrombocytopenia
Monitor
Pulmonary hypertension
Monitor
#benign hypertension
- continue metoprolol
- hold furosemide
# Paroxysmal atrial fibrillation
Status post ablation
Continue Tikosyn
- continue metoprolol
- monitor PT/INR
- Restart Coumadin
History of CHF with reduced EF, does not appear to be in exacerbation
restart lasix
Monitor volume status closely
CXR pending
#depression
- continue lorazepam PRN
- continue escitalopram
History of duodenal ulcer
History GERD
Anxiety/depression
#moderate mitral regurgitation
#Hx aortic dissection
#Hx bacterial endocarditis
#mitral valve regurgitation
Code status: DNR
DVT Prophylaxis: SCD's, coumadin
I spent a total of 51 minutes with the patient or on the floor. More than 50% of this time involved counseling and coordination of care.
Anticipated Discharge: Within 24 hours
Subjective/Interval History
-
Date of Service: December 06, 2024
denies pain
Objective Data
-
Labs:
Laboratory Results
12/06/24
06:28
WBC 5.5
Hgb 13.5
Hct 42.4
Plt Count 136
PT 24.7 H
INR 2.18
Sodium 136
Potassium 4.7
Chloride 98
Carbon Dioxide 29
BUN 57 H
Creatinine 1.3
Glucose 143 H
Calcium 8.9
Vital Signs:
Vital Signs
Temp Pulse Resp BP Pulse Ox
97.9 F 72 18 121/75 94
12/06/24 11:10 12/06/24 11:37 12/06/24 11:37 12/06/24 11:10 12/06/24 11:37
I&O
12/05/24 12/06/24 12/07/24
06:59 06:59 06:59
Intake Total 930 / 930 1292 / 1292
Output Total 875 / 875 400 / 400
Balance 55 892 / 892
[2024-12-06 15:04] VITALS: BP 114/76
[2024-12-06] MEDS: MUCINEX 1200 MG PO (15:59)
[2024-12-06] MEDS: ZOSYN 50 IV ×2 (15:59→21:52)
[2024-12-06] MEDS: COUMADIN 3 MG PO (18:33)
[2024-12-06] MEDS: LEXAPRO 20 MG PO (18:33)
[2024-12-06 19:00] VITALS: BP 103/65
[2024-12-06] MEDS: MUCINEX PO ×2 (21:51→21:55)
[2024-12-06] MEDS: ATIVAN 0.5 MG PO (21:56)
[2024-12-06 23:05] VITALS: BP 118/69
[2024-12-07] VITALS (7 sets, daily range): BP systolic 93–118; BP diastolic 59–79; O2SAT 93–95
[2024-12-07] MEDS: DECADRON 4 MG IV ×2 (00:09→12:21)
[2024-12-07] MEDS: ZOSYN 50 IV ×4 (04:38→21:17)
[2024-12-07 06:50] LABS: % Immature Granulocytes 0.2 % (0-0.5); % Lymphocytes 3.9 % (20.5-51.1); % Monocytes 7.9 % (1.7-9.3); Absolute Lymphocytes 0.2 10^3/uL (1.2-3.4); Absolute Monocytes 0.4 10^3/uL (0.1-0.6); Absolute Neutrophils 4.5 10^3/uL (1.4-6.5); Hematocrit 43.1 % (39.0-52.0); Mean Corp Hgb Conc. 32.5 g/dL (33.0-37.0); Mean Corpuscular Hgb 31.1 pg (27.0-31.0); Mean Corpuscular Volume 95.8 fL (80.0-94.0); Nucleated Red Blood Cells % 0 % (-); Platelet Count 127 10^3/uL (130-400); Red Cell Dist. Width 14.4 % (11.5-14.5); White Blood Cell Count 5.1 10^3/uL (4.8-10.8)
[2024-12-07 06:57] LABS: INR 1.67; PT 20.2 Sec (11.4-14.6)
[2024-12-07 07:02] LABS: Blood Urea Nitrogen 59 mg/dl (9-20); Calcium 8.8 mg/dl (8.4-10.2); Carbon Dioxide 31 mmol/L (22-30); Chloride 98 mmol/L (98-107); Estimated Creatinine Clearance 46 ml/min; Glucose 137 mg/dl (70-99); Potassium 4.5 mmol/L (3.5-5.1); Sodium 138 mmol/L (135-145); eGFR 55.88
[2024-12-07] MEDS: SYMBICORT 160/4.5 MCG INHALER 2 PUFF INH ×2 (07:11→20:49)
[2024-12-07] MEDS: DUONEB 3 ML INH ×4 (07:11→20:49)
[2024-12-07 07:19] LABS: Procalcitonin 0.14 ng/ml (0.0-0.25)
[2024-12-07] MEDS: LASIX 80 MG PO (09:18)
[2024-12-07] MEDS: TIKOSYN 125 MCG PO ×2 (09:18→20:25)
[2024-12-07] MEDS: TOPROL XL 25 MG PO (09:19)
[2024-12-07] MEDS: REFRESH CELLUVISC GEL 1 DROPS BOTH EYES ×2 (09:19→20:25)
[2024-12-07] MEDS: MUCINEX 1200 MG PO (09:19)
--- NOTE | 2024-12-07 14:18 | W.PN.HOSP.TC ---
Today's Communication/Plan
-
Monitor vitals
See plan
Continue with Coumadin
Son updated at bedside
Continue with antibiotics
Continue Decadron
PT/OT; need SNF
Assessment / Plan
Assessment / Plan
General: Well Developed, No Apparent Distress, Comfortable and Conversant
HEENT: NormoCephalic, Moist mucous membranes, Atraumatic
Respiratory: Clear, Non Labored Respirations and Decreased Breath Sounds
Cardiac: S1/S2 and Regular Rhythm; No Murmur, Rub or Gallop
GI: Soft, Non Tender, Non Distended and Normal Bowel Sounds
Musculoskeletal: Edema, Left Lower Extremity (foot) and Edema, Right Lower Extremity (foot )
Neuro: Awake, Alert and Nonfocal/grossly intact
Psych: Calm and Confused
change in mental status with hallucinations suspect secondary to acute TME likely secondary to UTI
Urine culture previously with E faecalis sensitive to penicillin
Urine culture with Aerococcus.
Chest x-ray of 12/06 with possible pneumonia. Given his shortness of breath we will treat. Currently on Zosyn. Once improving then will transition to Augmentin.
Covid and Influenza: negative
Head CT: No evidence of acute intracranial abnormality.
Chest x-ray with marked enlargement of ascending aorta which appears stable from previous examination compatible with ascending aortic aneurysm. Small right pleural effusion. No signs of pneumonia
Monitor mental status
UTI only, without systemic illness
Suspect tachycardia and tachypnea was secondary to COPD/asthma
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
Solo kidney left
Renal cancer with nephrectomy
BPH
Bladder scan
Monitor creatinine
Restarted Lasix, keep metolazone on hold
Chest x-ray pain
Ongoing bleeding from scab
likely 2/2 Supratherapeutic INR with coagulopathy
Vitamin K and FFP was given. INR now therapeutic. Restart Coumadin. Bleeding stopped. Surgery signed off
Continue to monitor
#COPD
Asthma, appears to be in exacerbation
Continue Decadron, decrease to every 12
Continue nebs
On chronic steroids
CXR 12/06 noted
Thrombocytopenia
Monitor
Pulmonary hypertension
Monitor
#benign hypertension
- continue metoprolol
# Paroxysmal atrial fibrillation
Status post ablation
Continue Tikosyn
- continue metoprolol
- monitor PT/INR
- Restarted Coumadin
History of CHF with reduced EF, does not appear to be in exacerbation
restart lasix
Monitor volume status closely
#depression
- continue lorazepam PRN
- continue escitalopram
History of duodenal ulcer
History GERD
Anxiety/depression
#moderate mitral regurgitation
#Hx aortic dissection
#Hx bacterial endocarditis
#mitral valve regurgitation
Code status: DNR
DVT Prophylaxis: SCD's, coumadin
PT/OT rec SNF
Anticipated Discharge: Within 24 hours
Subjective/Interval History
-
Date of Service: December 07, 2024
Denies pain
Objective Data
-
Labs:
Laboratory Results
12/07/24
06:42
WBC 5.1
Hgb 14.0
Hct 43.1
Plt Count 127 L
PT 20.2 H
INR 1.67
Sodium 138
Potassium 4.5
Chloride 98
Carbon Dioxide 31 H
BUN 59 H
Creatinine 1.3
Glucose 137 H
Calcium 8.8
Vital Signs:
Vital Signs
Temp Pulse Resp BP Pulse Ox
97.8 F 124 18 110/76 96
12/07/24 11:05 12/07/24 11:05 12/07/24 11:05 12/07/24 11:05 12/07/24 11:05
I&O
0112/07/24 12/08/24
06:59 06:59 06:59
Intake Total 1292 / 1292 690 / 690
Output Total 400 / 400 1650 / 1650
Balance 892 / 892 -960 / -960
--- NOTE | 2024-12-07 15:08 | CM ---
Spoke w/ [facility], facility is still reviewing pt to see if he is appropriate.
CM will follow up regarding pt acceptance closer to d/c
Plan: SNF w/ transition to LTC; [facility]
[2024-12-07] MEDS: ROBITUSSIN 200 MG PO ×3 (15:14→21:16)
[2024-12-07 16:51] LABS: Glucose - Point of Care 155 mg/dl (70-99)
[2024-12-07] MEDS: COUMADIN 3 MG PO (17:23)
[2024-12-07] MEDS: LEXAPRO 20 MG PO (17:23)
[2024-12-07] MEDS: ATIVAN 0.5 MG PO (21:16)
[2024-12-08] MEDS: DECADRON 4 MG IV ×2 (01:24→11:57)
[2024-12-08 03:21] VITALS: BP 124/87
[2024-12-08] MEDS: ZOSYN 50 IV ×4 (03:38→21:59)
[2024-12-08 06:00] VITALS: BMI 23.1
[2024-12-08 07:38] VITALS: BP 128/94
[2024-12-08] MEDS: ROBITUSSIN 200 MG PO ×4 (07:43→21:59)
[2024-12-08] MEDS: TIKOSYN 125 MCG PO ×2 (07:44→21:58)
[2024-12-08] MEDS: TOPROL XL 25 MG PO (07:44)
[2024-12-08] MEDS: REFRESH CELLUVISC GEL 1 DROPS BOTH EYES ×2 (07:44→21:59)
[2024-12-08] MEDS: LASIX 80 MG PO (07:44)
[2024-12-08] MEDS: DUONEB 3 ML INH ×4 (07:50→20:01)
[2024-12-08] MEDS: SYMBICORT 160/4.5 MCG INHALER 2 PUFF INH ×2 (07:50→20:02)
[2024-12-08 08:40] LABS: % Immature Granulocytes 0.4 % (0-0.5); % Monocytes 6.5 % (1.7-9.3); % Neutrophils 89.1 % (42.2-75.2); Absolute Lymphocytes 0.2 10^3/uL (1.2-3.4); Absolute Monocytes 0.3 10^3/uL (0.1-0.6); Absolute Neutrophils 4.4 10^3/uL (1.4-6.5); Hematocrit 44.6 % (39.0-52.0); Hemoglobin 14.4 g/dL (13.0-18.0); Mean Corp Hgb Conc. 32.3 g/dL (33.0-37.0); Mean Corpuscular Hgb 30.8 pg (27.0-31.0); Mean Corpuscular Volume 95.5 fL (80.0-94.0); Mean Platelet Volume 10.2 fL (7.4-10.4); Nucleated Red Blood Cells % 0 % (-); Platelet Count 135 10^3/uL (130-400); Red Blood Cell Count 4.67 10^6/uL (4.70-6.10); Red Cell Dist. Width 14.5 % (11.5-14.5)
[2024-12-08 08:46] LABS: INR 1.54; PT 18.7 Sec (11.4-14.6)
[2024-12-08 09:20] LABS: Blood Urea Nitrogen 55 mg/dl (9-20); Calcium 9.2 mg/dl (8.4-10.2); Carbon Dioxide 31 mmol/L (22-30); Chloride 95 mmol/L (98-107); Estimated Creatinine Clearance 46 ml/min; Glucose 123 mg/dl (70-99); Potassium 4.4 mmol/L (3.5-5.1); Sodium 133 mmol/L (135-145); eGFR 55.88
[2024-12-08 11:52] VITALS: BP 96/66
--- NOTE | 2024-12-08 12:32 | W.PN.HOSP.TC ---
Today's Communication/Plan
-
Monitor vital signs see plan
Continue antibiotics
Continue Lasix
Wean oxygen as tolerated
Continue with Coumadin
Per RN, patient had bleeding this morning so would not do IV heparin at this time. Monitor INR with Coumadin
DC planning
Assessment / Plan
Assessment / Plan
General: Well Developed, No Apparent Distress, Comfortable and Conversant
HEENT: NormoCephalic, Moist mucous membranes, Atraumatic
Respiratory: Clear, Non Labored Respirations and Decreased Breath Sounds
Cardiac: S1/S2 and Regular Rhythm; No Murmur, Rub or Gallop
GI: Soft, Non Tender, Non Distended and Normal Bowel Sounds
Musculoskeletal: Edema, Left Lower Extremity (foot) and Edema, Right Lower Extremity (foot )
Neuro: Awake, Alert and Nonfocal/grossly intact
Psych: Calm and Confused
change in mental status with hallucinations suspect secondary to acute TME likely secondary to UTI
Urine culture previously with E faecalis sensitive to penicillin
Urine culture with Aerococcus.
Chest x-ray of 12/06 with possible pneumonia. Given his shortness of breath we will treat. Currently on Zosyn. Once improving then will transition to Augmentin.
Covid and Influenza: negative
Head CT: No evidence of acute intracranial abnormality.
Monitor mental status; now at baseline
UTI only, without systemic illness
Suspect tachycardia and tachypnea was secondary to COPD/asthma
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
Solo kidney left
Renal cancer with nephrectomy
BPH
Bladder scan
Monitor creatinine
Restarted Lasix, keep metolazone on hold
Chest x-ray pain
Ongoing bleeding from scab
Now bleeding stopped
likely 2/2 Supratherapeutic INR with coagulopathy
Vitamin K and FFP was given. INR now subtherapeutic. Restarted Coumadin. Bleeding stopped. Surgery signed off
Per RN, patient had bleeding this morning so will not do IV heparin at this time. Will continue with Coumadin. If patient has no further bleeding then will start IV heparin until INR is therapeutic
Continue to monitor
#COPD
Asthma, appears to be in exacerbation
Continue Decadron, decrease to every 12
Continue nebs
On chronic steroids
CXR 12/06 noted
Thrombocytopenia
Monitor
Pulmonary hypertension
Monitor
#benign hypertension
- continue metoprolol
# Paroxysmal atrial fibrillation
Status post ablation
Continue Tikosyn
- continue metoprolol
- monitor PT/INR
- Restarted Coumadin
History of CHF with reduced EF, does not appear to be in exacerbation
restart lasix
Monitor volume status closely
#depression
- continue lorazepam PRN
- continue escitalopram
History of duodenal ulcer
History GERD
Anxiety/depression
#moderate mitral regurgitation
#Hx aortic dissection
#Hx bacterial endocarditis
#mitral valve regurgitation
Code status: DNR
DVT Prophylaxis: SCD's, coumadin, heparin drip until INR is therapeutic
PT/OT rec SNF; behavioral health case manager working on placement
Anticipated Discharge: 24 - 48 hours
Subjective/Interval History
-
Date of Service: December 08, 2024
denies nausea
Objective Data
-
Labs:
Laboratory Results
12/08/24
06:50
WBC 5.0
Hgb 14.4
Hct 44.6
Plt Count 135
PT 18.7 H
INR 1.54
Sodium 133 L
Potassium 4.4
Chloride 95 L
Carbon Dioxide 31 H
BUN 55 H
Creatinine 1.3
Glucose 123 H
Calcium 9.2
Vital Signs:
Vital Signs
Temp Pulse Resp BP Pulse Ox
97.4 F 70 18 96/66 95
12/08/24 11:52 12/08/24 11:52 12/08/24 11:52 12/08/24 11:52 12/08/24 11:52
I&O
12/07/24 12/08/24 12/09/24
06:59 06:59 06:59
Intake Total 690 / 690 720 / 720
Output Total 1650 / 1650 1330 / 1330
Balance -960 / -960 -610 / -610
[2024-12-08 15:46] VITALS: BP 105/70
[2024-12-08] MEDS: LEXAPRO 20 MG PO (17:24)
[2024-12-08] MEDS: COUMADIN 3 MG PO (17:24)
[2024-12-08 19:15] VITALS: BP 103/65
[2024-12-08] MEDS: FLUSH (NSS) 2 FLUSH IV (22:00)
[2024-12-08] MEDS: ATIVAN 0.5 MG PO (22:12)
[2024-12-08 23:00] VITALS: BP 87/52
[2024-12-09] VITALS (7 sets, daily range): BP systolic 93–129; BP diastolic 60–87; O2SAT 96–98; BMI 23.1
[2024-12-09] MEDS: DECADRON 4 MG IV ×2 (01:43→12:13)
[2024-12-09] MEDS: ZOSYN 50 IV ×2 (03:50→09:52)
[2024-12-09] MEDS: FLUSH (NSS) 2 FLUSH IV (03:51)
[2024-12-09] MEDS: ProAIR HFA INHALER 2 PUFF INH (04:00)
[2024-12-09] MEDS: SYMBICORT 160/4.5 MCG INHALER 2 PUFF INH ×2 (07:35→21:03)
[2024-12-09] MEDS: DUONEB 3 ML INH ×4 (07:35→21:03)
[2024-12-09] MEDS: LASIX 80 MG PO (07:35)
[2024-12-09] MEDS: TIKOSYN 125 MCG PO ×2 (07:35→20:12)
[2024-12-09] MEDS: REFRESH CELLUVISC GEL 1 DROPS BOTH EYES ×2 (07:35→20:11)
[2024-12-09] MEDS: ROBITUSSIN 200 MG PO ×4 (07:35→21:54)
[2024-12-09] MEDS: TOPROL XL 25 MG PO (07:35)
[2024-12-09 08:19] LABS: % Lymphocytes 3.4 % (20.5-51.1); % Monocytes 6.4 % (1.7-9.3); % Neutrophils 89.2 % (42.2-75.2); Absolute Immature Granulocytes 0.1 10^3/uL (0-0.05); Absolute Lymphocytes 0.2 10^3/uL (1.2-3.4); Absolute Monocytes 0.4 10^3/uL (0.1-0.6); Absolute Neutrophils 5.5 10^3/uL (1.4-6.5); Hematocrit 43.5 % (39.0-52.0); Mean Corp Hgb Conc. 32.2 g/dL (33.0-37.0); Mean Corpuscular Hgb 30.7 pg (27.0-31.0); Mean Corpuscular Volume 95.4 fL (80.0-94.0); Nucleated Red Blood Cells % 0 % (-); Platelet Count 145 10^3/uL (130-400); Red Blood Cell Count 4.56 10^6/uL (4.70-6.10); Red Cell Dist. Width 14.3 % (11.5-14.5); White Blood Cell Count 6.1 10^3/uL (4.8-10.8)
[2024-12-09 08:21] LABS: INR 2.01; PT 22.9 Sec (11.4-14.6)
[2024-12-09 08:35] LABS: Blood Urea Nitrogen 52 mg/dl (9-20); Calcium 8.9 mg/dl (8.4-10.2); Carbon Dioxide 33 mmol/L (22-30); Chloride 94 mmol/L (98-107); Estimated Creatinine Clearance 50 ml/min; Glucose 126 mg/dl (70-99); Potassium 4.2 mmol/L (3.5-5.1); Sodium 137 mmol/L (135-145); eGFR > 60.00
--- NOTE | 2024-12-09 12:20 | W.PN.HOSP.TC ---
Addendum entered and electronically signed by Pedro Ferguson MD 12/09/24 14:15:
Switch Decadron to prednisone, decrease by 10 mg every 3 days until reach 5 mg oral daily which patient takes chronically
Original Note:
Today's Communication/Plan
-
Monitor vital signs see plan
Discharge planning, supportive employment case manager notified. Pending placement
INR now therapeutic, continue with Coumadin
Switch antibiotics to oral
Assessment / Plan
Assessment / Plan
General: Well Developed, No Apparent Distress, Comfortable and Conversant
HEENT: NormoCephalic, Moist mucous membranes, Atraumatic
Respiratory: Clear, Non Labored Respirations, + wheezing
Cardiac: S1/S2 and Regular Rhythm; No Murmur, Rub or Gallop
GI: Soft, Non Tender, Non Distended and Normal Bowel Sounds
Musculoskeletal: + edema LE
Neuro: Awake, Alert and Nonfocal/grossly intact
Psych: Calm and Confused
change in mental status with hallucinations suspect secondary to acute TME likely secondary to UTI
Urine culture with Aerococcus.
Chest x-ray of 12/06 with possible pneumonia. symptomatic. switch to PO abx to complete course
Covid and Influenza: negative
Head CT: No evidence of acute intracranial abnormality.
Monitor mental status; now at baseline
UTI only, without systemic illness
Suspect tachycardia and tachypnea was secondary to COPD/asthma
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
Solo kidney left
Renal cancer with nephrectomy
BPH
Bladder scan
Monitor creatinine
Restarted Lasix, keep metolazone on hold
Chest x-ray pain
Ongoing bleeding from scab
Now bleeding stopped
likely 2/2 Supratherapeutic INR with coagulopathy
Vitamin K and FFP was given. Bleeding stopped. Restarted Coumadin. Surgery signed off
INR therapeutic. continue with Coumadin
Continue to monitor
#COPD
Asthma, appears to be in exacerbation
Continue Decadron, decrease to every 12, still with mild wheezing
Continue nebs
On chronic steroids, can go back to 5mg daily once weaned off steroids
CXR 12/06 noted
Thrombocytopenia
Monitor
Pulmonary hypertension
Monitor
#benign hypertension
- continue metoprolol
# Paroxysmal atrial fibrillation
Status post ablation
Continue Tikosyn
- continue metoprolol
- monitor PT/INR
- Restarted Coumadin
History of CHF with reduced EF, does not appear to be in exacerbation
restarted lasix
Monitor volume status closely
#depression
- continue lorazepam PRN
- continue escitalopram
History of duodenal ulcer
History GERD
Anxiety/depression
#moderate mitral regurgitation
#Hx aortic dissection
#Hx bacterial endocarditis
#mitral valve regurgitation
Code status: DNR
DVT Prophylaxis: SCD's, coumadin
PT/OT rec SNF; supportive employment case manager working on placement
Anticipated Discharge: Today
Subjective/Interval History
-
Date of Service: December 09, 2024
Denies pain
Objective Data
-
Labs:
Laboratory Results
12/09/24 12/09/24
06:37 06:38
WBC 6.1
Hgb 14.0
Hct 43.5
Plt Count 145
PT 22.9 H
INR 2.01
Sodium 137
Potassium 4.2
Chloride 94 L
Carbon Dioxide 33 H
BUN 52 H
Creatinine 1.2
Glucose 126 H
Calcium 8.9
Vital Signs:
Vital Signs
Temp Pulse Resp BP Pulse Ox
97.4 F 65 18 116/77 98
12/09/24 11:41 12/09/24 11:41 12/09/24 11:41 12/09/24 11:41 12/09/24 11:56
I&O
12/08/24 12/09/24 12/10/24
06:59 06:59 06:59
Intake Total 720 / 720 420 / 420 340 / 340
Output Total 1330 / 1330 800 / 800 995 / 995
Balance -610 / -610 -380 / -380 -655 / -655
[2024-12-09] MEDS: AUGMENTIN 875 MG/125 MG 1 TABLET PO ×2 (13:32→20:12)
--- NOTE | 2024-12-09 13:57 | CM ---
Spoke w/ pt's son, David, regarding referrals placed for SNF/LTC placement. CM informed that [facility] is still reviewing, David stated he is open to [facility] as well as a back up.
At this time, [facility] not [facility]. CM will follow up w/ [facility] admissions tomorrow.
Updated hospitalist
Plan: SNF w/ transition to LTC; pending accepting facility and bed availability
[2024-12-09] MEDS: LEXAPRO 20 MG PO (17:15)
[2024-12-09] MEDS: COUMADIN 3 MG PO (17:15)
[2024-12-09] MEDS: FLEET PHOSPHATE ENEMA-ADULT RECTAL (17:16)
[2024-12-09] MEDS: FLEET PHOSPHATE ENEMA-ADULT 118 ML RECTAL (19:18)
[2024-12-09] MEDS: ATIVAN 0.5 MG PO (21:56)
[2024-12-10] VITALS (7 sets, daily range): BP systolic 78–110; BP diastolic 48–75; BMI 23.0
[2024-12-10] MEDS: SYMBICORT 160/4.5 MCG INHALER 2 PUFF INH ×2 (07:33→21:17)
[2024-12-10] MEDS: DUONEB 3 ML INH ×4 (07:33→21:17)
[2024-12-10] MEDS: REFRESH CELLUVISC GEL 1 DROPS BOTH EYES ×2 (07:56→19:35)
[2024-12-10] MEDS: AUGMENTIN 875 MG/125 MG 1 TABLET PO ×2 (07:56→19:36)
[2024-12-10] MEDS: TOPROL XL 25 MG PO (07:57)
[2024-12-10] MEDS: LASIX 80 MG PO (07:57)
[2024-12-10] MEDS: DELTASONE 40 MG PO (08:01)
[2024-12-10] MEDS: TIKOSYN 125 MCG PO ×2 (08:01→19:36)
[2024-12-10] MEDS: ROBITUSSIN 200 MG PO ×3 (08:01→17:05)
--- NOTE | 2024-12-10 08:56 | VATNOTE ---
Large ecchymotic area noted below pt's IV site. Pt stated bruising is from a few lab draws that were done earlier in his admission. Will continue to monitor.
[2024-12-10 09:17] LABS: INR 2.26; PT 25.1 Sec (11.4-14.6)
[2024-12-10 09:20] LABS: % Basophils 0.1 % (0-2); % Eosinophils 0.3 % (0-6); % Lymphocytes 7.4 % (20.5-51.1); % Monocytes 9.4 % (1.7-9.3); % Neutrophils 81.8 % (42.2-75.2); Absolute Immature Granulocytes 0.1 10^3/uL (0-0.05); Absolute Lymphocytes 0.6 10^3/uL (1.2-3.4); Absolute Monocytes 0.7 10^3/uL (0.1-0.6); Absolute Neutrophils 6.3 10^3/uL (1.4-6.5); Hematocrit 46.9 % (39.0-52.0); Hemoglobin 14.9 g/dL (13.0-18.0); Mean Corp Hgb Conc. 31.8 g/dL (33.0-37.0); Mean Corpuscular Hgb 30.3 pg (27.0-31.0); Mean Corpuscular Volume 95.5 fL (80.0-94.0); Nucleated Red Blood Cells % 0 % (-); Platelet Count 160 10^3/uL (130-400); Red Blood Cell Count 4.91 10^6/uL (4.70-6.10); Red Cell Dist. Width 14.3 % (11.5-14.5); White Blood Cell Count 7.7 10^3/uL (4.8-10.8)
[2024-12-10 10:03] LABS: Blood Urea Nitrogen 50 mg/dl (9-20); Calcium 9.1 mg/dl (8.4-10.2); Carbon Dioxide 35 mmol/L (22-30); Estimated Creatinine Clearance 46 ml/min; Glucose 75 mg/dl (70-99); eGFR 55.88
[2024-12-10 10:27] LABS: Chloride 93 mmol/L (98-107); Potassium 4.1 mmol/L (3.5-5.1); Sodium 137 mmol/L (135-145)
--- NOTE | 2024-12-10 12:20 | CM ---
Addendum entered by Elise Alonso 12/10/24 15:31:
CM spoke with patients son, David, additional referrals placed in [facility] for SNF.
Original Note:
CM reviewed chart, reached out to Admissions at [facility] to discuss ability to accept patient, awaiting bed availability. CM reviewed with Hospitalist, not stable for discharge at this time. CM will continue to follow for all discharge
planning needs.
Plan; SNF when stable, awaiting bed availability from [facility]
--- NOTE | 2024-12-10 12:52 | PTCARENOTE ---
Patient's BP decreased 78/48, Manual bp while resting in bed. Patient denied any lightheadedness or dizziness, asymptomatic. MD Leos notified. New orders placed. will continue to monitor.
[2024-12-10 14:03] LABS: NT-proBNP 1980 pg/ml
[2024-12-10 14:08] LABS: Procalcitonin 0.13 ng/ml (0.0-0.25)
[2024-12-10 14:48] LABS: D-Dimer 1.16 ug/mlFEU (0.00-0.50)
--- NOTE | 2024-12-10 14:56 | W.PN.HOSP.TC ---
Today's Communication/Plan
-
cont oral Abx - appropriate for d/c. CM is working on rehab
Assessment / Plan
Assessment / Plan
79yo M with PMHx of severe ascendign aortic aneurism, aortic dissection, medically manahed (previously considered high risk for surgical repair), COPD on chronic prednisone, pulmonary HTN, thrombocytopenai, paroxysmal Afib on Coumadin, HTN, HFrEF,
MDD, Hx of endocarditis, moderate MR came with b/l feet pain and swelling and generalized weakness, managed for CAP
Significant comorbidities with gradual deterioration - hospice appropriate.
A/P:
#Acute hypoxic respiratory failure
#RLL pneumonia
#COPD with mild exacerbation on chronic prednisone
#UTI
#Acute metabolic encephalopathy 2/2 infection
Previouslty on 2-3 L nocturmnal O2 only, now 24h
Abx - switched to oral, procal 0.13 - cont augmentin
proBNP 3602-2800 - no concern for worsening CHF
aerococcus in urine - cont amoxicillin
#recurrrent thrombocytopenia
since at least 2016
most likely reactive
#AIDA on CKD 3b
resolved
#Hx of renal CA s/p nephrectomy
#BPH
watch for retention
#bleeding from scab
Now bleeding stopped
likely 2/2 Supratherapeutic INR with coagulopathy
Vitamin K and FFP was given. Bleeding stopped. Restarted Coumadin. Surgery signed off
INR therapeutic. continue with Coumadin
Continue to monitor
#Afib, paroxysmal
#Essential HTN
#MDD
#Moderate MR
#Hx of aortic dissection
#Ascending aortic aneurism
#Pulmonary HTN
cont hoem meds
daily INR
DVT ppx warfarin
DNR/DNI
I have spent at least 38min reviewing chart, test results, communication with consultants and direct patient care
Anticipated Discharge: Within 24 hours
Subjective/Interval History
-
Date of Service: December 10, 2024
Objective Data
-
Labs:
Laboratory Results
12/10/24
06:55
WBC 7.7
Hgb 14.9
Hct 46.9
Plt Count 160
PT 25.1 H
INR 2.26
Sodium 137
Potassium 4.1
Chloride 93 L
Carbon Dioxide 35 H
BUN 50 H
Creatinine 1.3
Glucose 75
Calcium 9.1
Vital Signs:
Vital Signs
Temp Pulse Resp BP Pulse Ox
97.2 F 85 20 107/68 94
12/10/24 12:48 12/10/24 13:33 12/10/24 12:48 12/10/24 13:33 12/10/24 12:48
I&O
12/09/24 12/10/24 12/11/24
06:59 06:59 06:59
Intake Total 420 / 420 1640 / 1640
Output Total 800 / 800 2845 / 2845
Balance -380 / -380 -1205 / -1205
Review of Systems
-
History Source: Patient
All other systems: Reviewed and negative
Physical Exam
-
General: No Apparent Distress
HEENT: Normocephalic
Cardiac: Regular Rhythm
GI: Soft, Nontender and Nondistended
Musculoskeletal: No Clubbing, No Cyanosis, Edema, Right Lower Extrem and Edema, Left Lower Extrem
Skin: Warm
Neuro: Awake, Alert, Oriented and AO x 3
Psych: Calm
[2024-12-10] MEDS: COUMADIN 3 MG PO (17:05)
[2024-12-10] MEDS: LEXAPRO 20 MG PO (17:05)
[2024-12-10] MEDS: TYLENOL 500 MG PO (17:12)
[2024-12-10] MEDS: ROBITUSSIN PO (23:01)
[2024-12-11 03:18] VITALS: BP 112/69
[2024-12-11 06:00] VITALS: BMI 23.0
[2024-12-11] MEDS: SYMBICORT 160/4.5 MCG INHALER 2 PUFF INH (07:24)
[2024-12-11] MEDS: DUONEB 3 ML INH ×2 (07:24→11:09)
[2024-12-11 07:28] VITALS: BP 121/81
[2024-12-11] MEDS: ROBITUSSIN 200 MG PO ×2 (07:47→12:06)
[2024-12-11] MEDS: DELTASONE 40 MG PO (07:49)
[2024-12-11] MEDS: LASIX 80 MG PO (07:49)
[2024-12-11] MEDS: TOPROL XL 25 MG PO (07:49)
[2024-12-11] MEDS: AUGMENTIN 875 MG/125 MG 1 TABLET PO (07:50)
[2024-12-11] MEDS: TIKOSYN 125 MCG PO (07:50)
[2024-12-11] MEDS: REFRESH CELLUVISC GEL 1 DROPS BOTH EYES (07:50)
[2024-12-11 08:18] LABS: INR 2.63; PT 28.1 Sec (11.4-14.6)
--- NOTE | 2024-12-11 09:49 | CM ---
Addendum entered by Luis Garcia 12/11/24 12:33:
Call from [facility], pt has been accepted for both rehab and LTC. Pt is able to d/c today, hospitalist agreeable.
Pt will d/c on 24hr O2, prev only used at night
Pt is WC van appropriate. CM attempted call to son to inform of d/c today and private pay for WC, left message
Transport arranged for 1:30 pm
IMM reviewed, copy provided to pt, copy on chart
June/Marquez updated
[facility]
Report: [phone]

Plan: [facility] w/ transition to LTC
Addendum entered by Luis Garcia 12/11/24 11:07:
Per [facility] is interested in offering pt a bed but will need to speak w/ pt's son to ask some questions
CM updated son, David. David stated he will give June a call today
Original Note:
Spoke w/ Tyler/[facility], requested updated clinicals and PASRR assessment to review and present to her team for poss. acceptance. CM assured when questioned that pt is not experiencing any hallucinations and that pt is AAO x3 at
this time. Tyler stated pt's son dropped off paperwork and wants to review pt w/ her team and follow up w/ CM
[2024-12-11 10:04] LABS: Blood Urea Nitrogen 48 mg/dl (9-20); Calcium 8.9 mg/dl (8.4-10.2); Carbon Dioxide 35 mmol/L (22-30); Chloride 92 mmol/L (98-107); Estimated Creatinine Clearance 50 ml/min; Glucose 89 mg/dl (70-99); Potassium 3.8 mmol/L (3.5-5.1); Sodium 136 mmol/L (135-145); eGFR > 60.00
[2024-12-11] MEDS: FLEET PHOSPHATE ENEMA-ADULT 118 ML RECTAL (10:19)
[2024-12-11 10:55] VITALS: BP 100/67
--- NOTE | 2024-12-11 14:49 | W.PN.HOSP.TC ---
Today's Communication/Plan
-
d/c snf rehab
Assessment / Plan
Assessment / Plan
79yo M with PMHx of severe ascendign aortic aneurism, aortic dissection, medically manahed (previously considered high risk for surgical repair), COPD on chronic prednisone, pulmonary HTN, thrombocytopenai, paroxysmal Afib on Coumadin, HTN, HFrEF,
MDD, Hx of endocarditis, moderate MR came with b/l feet pain and swelling and generalized weakness, managed for CAP
Significant comorbidities with gradual deterioration - hospice appropriate.
#Acute hypoxic respiratory failure
#RLL pneumonia
#COPD with mild exacerbation on chronic prednisone
#UTI
#Acute metabolic encephalopathy 2/2 infection
Previouslty on 2-3 L nocturmnal O2 only, now 24h
Abx - switched to oral, procal 0.13 - cont Augmentin
proBNP [id number] - no concern for worsening CHF
Aerococcus in urine - cont amoxicillin for another 48hrs
#Recurrent thrombocytopenia
since at least 2016
most likely reactive
#AIDA on CKD 3b
resolved
#Hx of renal CA s/p nephrectomy
#BPH
watch for retention
#bleeding from scab
Now bleeding stopped
likely 2/2 Supratherapeutic INR with coagulopathy
Vitamin K and FFP was given. Bleeding stopped. Restarted Coumadin. Surgery signed off
INR therapeutic. continue with Coumadin
Continue to monitor
#Afib, paroxysmal
#Essential HTN
#MDD
#Moderate MR
#Hx of aortic dissection
#Ascending aortic aneurism
#Pulmonary HTN
cont hoem meds
daily INR
DVT ppx warfarin
DNR/DNI
More than 30 minutes spent in discharge including
Final examination of the patient
Summarizing hospital stay
Instructions for continuing care to all relevant caregivers
Preparation of discharge records, prescriptions, and referral forms
Total time spent (in minutes): 40 mins
Anticipated Discharge: Today
Subjective/Interval History
-
Date of Service: December 11, 2024
No new issues overnight
Remains on oxygen through NC
Objective Data
-
Labs:
Laboratory Results
12/11/24 12/11/24
07:06 09:00
PT 28.1 H
INR 2.63
Sodium Cancelled 136
Potassium Cancelled 3.8
Chloride Cancelled 92 L
Carbon Dioxide Cancelled 35 H
BUN Cancelled 48 H
Creatinine Cancelled 1.2
Glucose Cancelled 89
Calcium Cancelled 8.9
Vital Signs:
Vital Signs
Temp Pulse Resp BP Pulse Ox
97.4 F 75 15 100/67 94
12/11/24 10:55 12/11/24 11:12 12/11/24 11:12 12/11/24 10:55 12/11/24 11:12
I&O
12/10/24 12/11/24 12/12/24
06:59 06:59 06:59
Intake Total 1640 / 1640 480 / 480
Output Total 2845 / 2845 1175 / 1175 125 / 125
Balance -1205 / -1205 -695 / -695 -125 / -125
Review of Systems
-
Respiratory: Reports No Symptoms
Cardiac: Reports No Symptoms
Abdomen/GI: Reports No Symptoms
Physical Exam
-
General: No Apparent Distress
HEENT: Oxygen (3L NC)
Cardiac: Regular Rhythm
GI: Soft, Nontender and Nondistended
Musculoskeletal: No Clubbing, No Cyanosis, Edema, Right Lower Extrem and Edema, Left Lower Extrem
Skin: Warm
Neuro: Awake, Alert, Oriented and AO x 3
Psych: Calm
== END 2024-12-11 14:05 | DRG 190 ==
LOC: 4 WEST ACU 23:21
PROVIDERS: General Practice; Internal Medicine; Nurse Practitioner Family; ADMITTING PHYSICIAN Hospitalist; ATTENDING PHYSICIAN Hospitalist; CONSULT PHYSICIAN Surgery; EMERGENCY PHYSICIAN Emergency Medicine; FAMILY PHYSICIAN Family Medicine
PROC: 30233K1 Transfusion of Nonautologous Frozen Plasma into Peripheral Vein, Percutaneous Approach (ICD-10-PCS; 2024-12-05)
DX: J44.1 Chronic obstructive pulmonary disease with (acute) exacerbation (principal); J18.1 Lobar pneumonia, unspecified organism; J18.9 Pneumonia, unspecified organism; J96.01 Acute respiratory failure with hypoxia; N39.0 Urinary tract infection, site not specified; N17.9 Acute kidney failure, unspecified; I13.0 Hypertensive heart and chronic kidney disease with heart failure and stage 1 through stage 4 chronic kidney disease, or unspecified chronic kidney disease; Z87.891 Personal history of nicotine dependence; R41.82 Altered mental status, unspecified; R44.1 Visual hallucinations; N18.30 Chronic kidney disease, stage 3 unspecified; I27.20 Pulmonary hypertension, unspecified; I48.91 Unspecified atrial fibrillation; F32.A Depression, unspecified; D64.9 Anemia, unspecified; Z66 Do not resuscitate; J44.89 Other specified chronic obstructive pulmonary disease; J44.0 Chronic obstructive pulmonary disease with (acute) lower respiratory infection; Z11.52 Encounter for screening for COVID-19
CPT/HCPCS: 70450; 71046; 71275; 80048; 80053; 81003; 81015; 82805; 82962; 83880; 84145; 84484; 85014; 85018; 85025; 85027; 85379; 85610; 86850; 86900; 86901; 87086; 87502; 87811; 93005; 94640; 96365; 96375; 97163; 97167; 97530; 99285; P9059; Q9967

== ENCOUNTER → 2024-12-17 10:25 | Outpatient (REF) | payer MEDICARE, SELFPAY ==
[2024-12-17 11:19] LABS: % Basophils 0.2 % (0-2); % Eosinophils 0.2 % (0-6); % Immature Granulocytes 1.1 % (0-0.5); % Lymphocytes 11.9 % (20.5-51.1); % Monocytes 9.1 % (1.7-9.3); % Neutrophils 77.5 % (42.2-75.2); Absolute Immature Granulocytes 0.1 10^3/uL (0-0.05); Absolute Monocytes 0.7 10^3/uL (0.1-0.6); Absolute Neutrophils 6.2 10^3/uL (1.4-6.5); Hematocrit 44.3 % (39.0-52.0); Hemoglobin 14.4 g/dL (13.0-18.0); Mean Corp Hgb Conc. 32.5 g/dL (33.0-37.0); Mean Corpuscular Hgb 30.6 pg (27.0-31.0); Mean Corpuscular Volume 94.1 fL (80.0-94.0); Mean Platelet Volume 9.9 fL (7.4-10.4); Nucleated Red Blood Cells % 0 % (-); Platelet Count 188 10^3/uL (130-400); Red Blood Cell Count 4.71 10^6/uL (4.70-6.10); Red Cell Dist. Width 14.1 % (11.5-14.5)
[2024-12-17 11:38] LABS: ALT (SGPT) 33 U/L (0-50); AST (SGOT) 31 U/L (17-59); Albumin 3.5 g/dl (3.5-5.0); Alkaline Phosphatase 93 U/L (38-126); Blood Urea Nitrogen 50 mg/dl (9-20); Calcium 8.7 mg/dl (8.4-10.2); Carbon Dioxide 33 mmol/L (22-30); Chloride 92 mmol/L (98-107); Glucose 79 mg/dl (70-99); Magnesium 2.4 mg/dl (1.6-2.3); Potassium 3.9 mmol/L (3.5-5.1); Sodium 130 mmol/L (135-145); Total Bilirubin 2.3 mg/dl (0.2-1.3); Total Protein 5.7 g/dl (6.3-8.2); eGFR > 60.00
== END ==
LOC: OLABN 10:25
PROVIDERS: ATTENDING PHYSICIAN Student in an Organized Health Care Education/Training Program
DX: I10 Essential (primary) hypertension (principal); J18.9 Pneumonia, unspecified organism; E83.42 Hypomagnesemia
CPT/HCPCS: 36415; 80053; 83735; 85025

== ENCOUNTER → 2024-12-29 07:36 | Outpatient (REF) | payer OTHER, MEDICARE, SELFPAY ==
[2024-12-29 10:02] LABS: % Basophils 0.7 % (0-2); % Eosinophils 3.9 % (0-6); % Immature Granulocytes 0.5 % (0-0.5); % Lymphocytes 27.3 % (20.5-51.1); % Monocytes 11.1 % (1.7-9.3); % Neutrophils 56.5 % (42.2-75.2); Absolute Eosinophils 0.2 10^3/uL (0-0.7); Absolute Lymphocytes 1.1 10^3/uL (1.2-3.4); Absolute Monocytes 0.5 10^3/uL (0.1-0.6); Absolute Neutrophils 2.3 10^3/uL (1.4-6.5); Hematocrit 40.6 % (39.0-52.0); Hemoglobin 13.4 g/dL (13.0-18.0); Mean Corpuscular Hgb 31.1 pg (27.0-31.0); Mean Corpuscular Volume 94.2 fL (80.0-94.0); Mean Platelet Volume 10.2 fL (7.4-10.4); Nucleated Red Blood Cells % 0 % (-); Platelet Count 114 10^3/uL (130-400); Red Blood Cell Count 4.31 10^6/uL (4.70-6.10); Red Cell Dist. Width 14.4 % (11.5-14.5); White Blood Cell Count 4.1 10^3/uL (4.8-10.8)
[2024-12-29 10:39] LABS: ALT (SGPT) 25 U/L (0-50); AST (SGOT) 25 U/L (17-59); Albumin 3.2 g/dl (3.5-5.0); Alkaline Phosphatase 97 U/L (38-126); Blood Urea Nitrogen 54 mg/dl (9-20); Calcium 8.2 mg/dl (8.4-10.2); Carbon Dioxide 35 mmol/L (22-30); Chloride 93 mmol/L (98-107); Glucose 85 mg/dl (70-99); Potassium 3.2 mmol/L (3.5-5.1); Sodium 133 mmol/L (135-145); Total Protein 5.4 g/dl (6.3-8.2); eGFR > 60.00
== END ==
LOC: OLABN 07:36
PROVIDERS: ATTENDING PHYSICIAN Student in an Organized Health Care Education/Training Program
DX: N18.32 Chronic kidney disease, stage 3b (principal); I50.22 Chronic systolic (congestive) heart failure
CPT/HCPCS: 36415; 80053; 85025

== ENCOUNTER → 2025-03-22 11:55 | Outpatient (REF) | payer MEDICARE, SELFPAY ==
[2025-03-22 13:06] LABS: % Basophils 1.1 % (0-2); % Eosinophils 1.9 % (0-6); % Immature Granulocytes 0.3 % (0-0.5); % Lymphocytes 30.2 % (20.5-51.1); % Monocytes 11.6 % (1.7-9.3); % Neutrophils 54.9 % (42.2-75.2); Absolute Eosinophils 0.1 10^3/uL (0-0.7); Absolute Lymphocytes 1.1 10^3/uL (1.2-3.4); Absolute Monocytes 0.4 10^3/uL (0.1-0.6); Hematocrit 41.2 % (39.0-52.0); Hemoglobin 13.2 g/dL (13.0-18.0); Mean Corpuscular Hgb 30.6 pg (27.0-31.0); Mean Corpuscular Volume 95.6 fL (80.0-94.0); Mean Platelet Volume 10.7 fL (7.4-10.4); Nucleated Red Blood Cells % 0 % (-); Platelet Count 134 10^3/uL (130-400); Red Blood Cell Count 4.31 10^6/uL (4.70-6.10); Red Cell Dist. Width 13.9 % (11.5-14.5); White Blood Cell Count 3.7 10^3/uL (4.8-10.8)
[2025-03-22 13:30] LABS: Blood Urea Nitrogen 33 mg/dl (9-20); Calcium 9.1 mg/dl (8.4-10.2); Carbon Dioxide 30 mmol/L (22-30); Chloride 107 mmol/L (98-107); Glucose 78 mg/dl (70-99); Magnesium 2.5 mg/dl (1.6-2.3); Potassium 3.9 mmol/L (3.5-5.1); Sodium 142 mmol/L (135-145); eGFR 55.53
== END ==
LOC: OLABN 11:55
PROVIDERS: ATTENDING PHYSICIAN Student in an Organized Health Care Education/Training Program
DX: J44.9 Chronic obstructive pulmonary disease, unspecified (principal)
CPT/HCPCS: 36415; 80048; 83735; 85025

== ENCOUNTER → 2025-03-26 09:47 | Outpatient (REF) | payer MEDICARE, SELFPAY ==
[2025-03-26 10:35] LABS: Magnesium 1.9 mg/dl (1.6-2.3)
== END ==
LOC: OLABN 09:47
PROVIDERS: ATTENDING PHYSICIAN Student in an Organized Health Care Education/Training Program
DX: J44.9 Chronic obstructive pulmonary disease, unspecified (principal)
CPT/HCPCS: 36415; 83735

== ENCOUNTER → 2025-04-22 11:11 | Outpatient (REF) | payer MEDICARE, SELFPAY ==
[2025-04-22 13:34] LABS: ALT (SGPT) 19 U/L (0-50); AST (SGOT) 23 U/L (17-59); Albumin 3.8 g/dl (3.5-5.0); Alkaline Phosphatase 88 U/L (38-126); Blood Urea Nitrogen 28 mg/dl (9-20); Calcium 9.1 mg/dl (8.4-10.2); Carbon Dioxide 25 mmol/L (22-30); Chloride 109 mmol/L (98-107); Glucose 75 mg/dl (70-99); Potassium 3.9 mmol/L (3.5-5.1); Sodium 140 mmol/L (135-145); Total Bilirubin 2.1 mg/dl (0.2-1.3); eGFR > 60.00
[2025-04-22 14:00] LABS: NT-proBNP 1350 pg/ml
== END ==
LOC: OLABN 11:11
PROVIDERS: ATTENDING PHYSICIAN Student in an Organized Health Care Education/Training Program
DX: J44.9 Chronic obstructive pulmonary disease, unspecified (principal)
CPT/HCPCS: 36415; 80053; 83880

== ENCOUNTER → 2025-04-25 09:32 | Outpatient (REF) | payer MEDICARE, SELFPAY ==
[2025-04-25 10:51] LABS: NT-proBNP 1800 pg/ml
== END ==
LOC: OLABN 09:32
PROVIDERS: ATTENDING PHYSICIAN Student in an Organized Health Care Education/Training Program
DX: J44.9 Chronic obstructive pulmonary disease, unspecified (principal)
CPT/HCPCS: 36415; 83880

== ENCOUNTER → 2025-04-26 09:38 | Outpatient (REF) | payer MEDICARE, SELFPAY ==
[2025-04-26 11:13] LABS: ALT (SGPT) 16 U/L (0-50); AST (SGOT) 22 U/L (17-59); Albumin 4.1 g/dl (3.5-5.0); Alkaline Phosphatase 85 U/L (38-126); Blood Urea Nitrogen 24 mg/dl (9-20); Calcium 9.6 mg/dl (8.4-10.2); Carbon Dioxide 26 mmol/L (22-30); Chloride 109 mmol/L (98-107); Glucose 82 mg/dl (70-99); Potassium 4.3 mmol/L (3.5-5.1); Sodium 143 mmol/L (135-145); Total Bilirubin 2.1 mg/dl (0.2-1.3); Total Protein 6.5 g/dl (6.3-8.2); eGFR > 60.00
== END ==
LOC: OLABN 09:38
PROVIDERS: ATTENDING PHYSICIAN Student in an Organized Health Care Education/Training Program
DX: J18.9 Pneumonia, unspecified organism (principal)
CPT/HCPCS: 36415; 80053

== ENCOUNTER → 2025-06-04 10:12 | Outpatient (REF) | payer MEDICARE, SELFPAY ==
[2025-06-04 10:51] LABS: Hematocrit 39.2 % (39.0-52.0); Hemoglobin 12.5 g/dL (13.0-18.0); Mean Corp Hgb Conc. 31.9 g/dL (33.0-37.0); Mean Corpuscular Volume 92.0 fL (80.0-94.0); Nucleated Red Blood Cells % 0 % (-); Platelet Count 128 10^3/uL (130-400); Red Cell Dist. Width 14.7 % (11.5-14.5)
[2025-06-04 10:58] LABS: ALT (SGPT) 21 U/L (0-50); AST (SGOT) 24 U/L (17-59); Albumin 3.8 g/dl (3.5-5.0); Alkaline Phosphatase 171 U/L (38-126); Blood Urea Nitrogen 31 mg/dl (9-20); Calcium 9.1 mg/dl (8.4-10.2); Carbon Dioxide 28 mmol/L (22-30); Chloride 104 mmol/L (98-107); Glucose 71 mg/dl (70-99); Potassium 3.9 mmol/L (3.5-5.1); Sodium 138 mmol/L (135-145); Total Protein 6.1 g/dl (6.3-8.2); eGFR > 60.00
== END ==
LOC: OLABN 10:12
PROVIDERS: ATTENDING PHYSICIAN Student in an Organized Health Care Education/Training Program
DX: I50.32 Chronic diastolic (congestive) heart failure (principal)
CPT/HCPCS: 36415; 80053; 83880; 85025

== ENCOUNTER → 2025-06-12 09:26 | Outpatient (REF) | payer MEDICARE, SELFPAY ==
[2025-06-12 13:01] LABS: ALT (SGPT) 19 U/L (0-50); AST (SGOT) 25 U/L (17-59); Albumin 4.2 g/dl (3.5-5.0); Alkaline Phosphatase 161 U/L (38-126); Blood Urea Nitrogen 25 mg/dl (9-20); Calcium 9.4 mg/dl (8.4-10.2); Carbon Dioxide 28 mmol/L (22-30); Chloride 105 mmol/L (98-107); Glucose 79 mg/dl (70-99); Magnesium 2.4 mg/dl (1.6-2.3); Potassium 4.1 mmol/L (3.5-5.1); Sodium 141 mmol/L (135-145); Total Protein 6.6 g/dl (6.3-8.2); eGFR > 60.00
== END ==
LOC: OLABN 09:26
PROVIDERS: ATTENDING PHYSICIAN Student in an Organized Health Care Education/Training Program
DX: I50.32 Chronic diastolic (congestive) heart failure (principal)
CPT/HCPCS: 36415; 80053; 83735; 83880

== ENCOUNTER 2025-06-30 17:57 | Inpatient (IN) | payer MEDICARE, SELFPAY ==
[2025-06-30] VITALS (8 sets, daily range): BP systolic 101–141; BP diastolic 63–105; BMI 23.4
[2025-06-30 16:06] LABS: INR 2.34; PT 25.7 Sec (11.4-14.6)
[2025-06-30 16:10] LABS: ALT (SGPT) 22 U/L (0-50); AST (SGOT) 25 U/L (17-59); Albumin 4.4 g/dl (3.5-5.0); Alkaline Phosphatase 110 U/L (38-126); Blood Urea Nitrogen 27 mg/dl (9-20); Calcium 9.2 mg/dl (8.4-10.2); Carbon Dioxide 25 mmol/L (22-30); Chloride 109 mmol/L (98-107); Estimated Creatinine Clearance 49 ml/min; Glucose 125 mg/dl (70-99); Potassium 4.3 mmol/L (3.5-5.1); Sodium 141 mmol/L (135-145); Total Protein 6.7 g/dl (6.3-8.2); eGFR > 60.00
[2025-06-30 16:11] LABS: Hematocrit 42.3 % (39.0-52.0); Hemoglobin 13.6 g/dL (13.0-18.0); Mean Corp Hgb Conc. 32.2 g/dL (33.0-37.0); Mean Corpuscular Volume 92.2 fL (80.0-94.0); Nucleated Red Blood Cells % 0 % (-); Platelet Count 144 10^3/uL (130-400); Red Cell Dist. Width 15.2 % (11.5-14.5)
--- NOTE | 2025-06-30 16:20 | ED.GENMED ---
History of Present Illness
General
Chief Complaint: Breathing Problem
Source: patient
Time Seen by Provider: 06/30/25 16:06
History of Present Illness
History of Present Illness:
80-year-old male brought to the emergency room for evaluation of shortness of breath palpitations. Found to be in A-fib with rapid ventricular response by medics who gave IV Cardizem. Heart rate improved significantly. Patient denies fever or
chills. He does feel significant short of breath. He continues to feel short of breath even with a better heart rate. Patient does use oxygen at but typically only at night. He states his oxygen levels are good during the day. Patient is
anticoagulated and has been compliant with his anticoagulation.
Past History
Past History
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
therapy.)
ED Past Surgical History: Other (Nephrectomy, hernia with mesh)
Patient has exhibited threatening behavior?: No
PSI?: No
Social History
Tobacco: Former smoker
Alcohol: Occasional
Personal:
Living: with roommate
Family History
Family History: Asthma
Phy Exam
Physical Exam
Physical Exam:
General: Awake, Alert, Oriented X3. Mild-moderate increased work of breathing. Patient appears stated age. Somewhat cachectic
Vitals: unremarkable
Head: Atraumatic
Eyes: Pupils equal, EOMI
Throat: Airway intact, no exudates
Neck: Trachea midline
Lungs: Decreased breath sounds throughout
Heart: Regular rate, no murmurs
Abd: Soft, Nontender, No pulsatile mass
Neuro: Nonfocal
Skin: Warm, dry, no rash
Extremities: pulses equal b/l, no edema
Scores
Heart Failure Risk
Heart Failure Risk Score: Yes
History of Stroke or TIA: No
History of intubation for respiratory distress: No
Heart rate on ED arrival >/= 110: Yes
SaO2 <90% on arrival on room air: Yes
HR >/=110 during 3min walk test (or too ill to perform test): Yes
ECG has acute ischemic changes: No
Urea >/=12mmol/L (BUN 33.6mg/dL): No
Serum CO2>/=35mmol/L: No
Troponin I or T elevated to NE Level (0.4mg/dL): No
NT-proBNP >/=5,000ng/L (5,000pg/ml): No
HF Risk Score: 3
Admission Status: HIGH RISK 15.9% Consider SNF treatment or admission to hospital
Course
Orders/Labs/Results
Orders:
Orders
06/30/25 15:35
Electrocardiogram (*1) Urgent
Reason for Study: Chest Pain
Cardiac Monitoring- Treatment ONCE
EKG- Treatment ONCE
06/30/25 15:44
BNP [NT-proBNP] Urgent
Complete Blood Count/With Diff Urgent
Comprehensive Metabolic Panel Urgent
PT/INR [Prothrombin Time] Urgent
Troponin I Urgent
06/30/25 15:53
CXR2 [CR Chest - 2 Views ] Urgent
Comment:
Reason For Exam: SHORT OF BREATH
06/30/25 16:55
Furosemide [Lasix] 40 mg IV NOW STA
Abnormal Lab Results
06/30/25
15:44
WBC 4.6 L 10^3/uL
(4.8-10.8)
RBC 4.59 L 10^6/uL
(4.70-6.10)
MCHC 32.2 L g/dL
(33.0-37.0)
RDW 15.2 H %
(11.5-14.5)
Absolute Lymphs (auto) 0.7 L 10^3/uL
(1.2-3.4)
Neutrophils % 75.7 H %
(42.2-75.2)
Lymphocytes % 14.7 L %
(20.5-51.1)
PT 25.7 H Sec
(11.4-14.6)
Chloride 109 H mmol/L
(98-107)
BUN 27 H mg/dl
(9-20)
Glucose 125 H mg/dl
(70-99)
Total Bilirubin 2.4 H mg/dl
(0.2-1.3)
06/30/25 15:44
06/30/25 15:44
Vital Signs
Initial and Last Documented VS:
Initial Vital Signs
Pulse Resp BP Pulse Ox
71 28 121/87 91
06/30/25 15:38 06/30/25 15:38 06/30/25 15:38 06/30/25 15:38
Last Documented Vital Signs
Temp Pulse Resp BP Pulse Ox
98.1 F 87 24 135/105 94
06/30/25 15:42 06/30/25 17:00 06/30/25 17:22 06/30/25 17:00 06/30/25 17:22
MDM/Problems Addressed
Differential Diagnosis Includes:
Atrial fibrillation with RVR, congestive heart failure, pneumothorax
MDM/Problems Addressed:
Patient presents with shortness of breath and palpitations. Medics found the patient to have A-fib with a rapid ventricular sponsor 140s. He was given 10 of Cardizem with a significant drop in his heart rate to the 70s. Patient continues to be
short of breath however.
Chest x-ray shows significantly abnormal mediastinum. Review of a CT from May shows that the patient has a known aortic aneurysm and chronic dissection. He is not a surgical candidate. The lungs themselves show hyperaeration with a right pleural
effusion. Suspect there is increased interstitial markings though interpretation limited by COPD changes. BNP however is quite elevated. Suspect he is having shortness of breath due to at least some component of heart failure. Obviously his
baseline COPD contributes. I believe the patient would benefit from from hospitalization and IV diuresis to see if this will help his heart rate. Considered giving inhaled nebs but considering he just had an episode of A-fib with rapid ventricular
response I think I will hold off at this point
Chronic conditions affecting care: Cardiomyopathy, Arrhythmia (Atrial fibrillation) and COPD
*Radiology
Radiology exam reviewed: preliminary read by ED provider
*Pulse Oximetry
SaO2: 86
Oxygen Mode of Delivery: Room air
Patient hypoxic: yes
*EKG
Interpreted by ED Provider?: Yes
Interpretation: abnormal
Heart Rate: 76
Rate: normal
Rhythm: a-fib
QRS Pattern: wide non-specific
Ischemia: non-specific ST changes
*[employer] Supervisor Interpretation
Rate: normal
Interpretation: abnormal
Rhythm: a-fib
*Critical Care Note
Total Time (30-74mins, 75-104mins- exclusive of procedures): Not Applicable
ED Attending Note
-
Portions of this chart may have been created with voice recognition software.� Occasional wrong word or��sound alike� substitutions may have occurred due to the inherent limitations of voice recognition software.
Discharge Plan
Departure
Patient Disposition: Admit
Date of Disposition: 06/30/25
Time of Disposition: 16:59
Admit to: Med/Surg
Presentation/result/management discussed w/ accepting MD/DO: Hospitalist
Patient with high blood pressure during this ER visit?: No
Condition: Good
Discharge Problem:
CHF (congestive heart failure)
Prescriptions:
No Action
fluticasone propionate 1 SPRAY spray,suspension
2 spray intranasal DAILY
dofetilide 125 MCG capsule
125 mcg PO Q12H Qty: 60 3RF
acetaminophen [Tylenol Extra Strength] 500 MG tablet
650 mg PO Q4HPRN PRN (Reason: mild pain)
albuterol sulfate 1 PUFF HFA aerosol inhaler
2 puff inhalation R Q4HPRN PRN (Reason: sob)
furosemide [Lasix] 40 mg Tablet
30 mg PO .DAILYEVERYTDAY
escitalopram oxalate [Lexapro] 20 mg Tablet
10 mg PO QPM
Refresh Optive 0.5-0.9 % Drops
1 drp BOTH EYES BID
metoprolol succinate 25 mg tablet extended release 24 hr
12.5 mg PO DAILY
Patient Comments:
hold is SBP is less than 110, hold if heart rate less than 65
budesonide-formoterol [Symbicort] 160-4.5 mcg/actuation HFA aerosol inhaler
2 puff INHALATION R BID
Fleet Enema 19-7 gram/118 mL Enema
118 ml DE PRN PRN (Reason: constipation)
ipratropium-albuterol 0.5 mg-3 mg(2.5 mg base)/3 mL Solution For Nebulization
3 ml INHALATION BID
warfarin [Jantoven] 3 mg Tablet
3 mg PO QPM Qty: 30 0RF
metolazone 2.5 mg tablet
2.5 mg PO DAILYPRN PRN (Reason: leg swelling) Qty: 0 0RF
prednisone 5 mg Tablet
5 mg PO DAILY
midodrine 5 mg Tablet
5 mg PO TID
montelukast [Singulair] 10 mg Tablet
10 mg PO HS
furosemide 20 mg Tablet
20 mg PO .[id number]
Referrals:
Noble Camarena DO [Family Provider, Family Practice]
Interventions
Interventions:
*Risk Screen - Suicide Last Done: 06/30/25 15:51
*General Assessment Last Done: 06/30/25 15:51
*Neglect/Abuse Screening Last Done: 06/30/25 15:51
*ED- Fall Risk Assessment Last Done: 06/30/25 15:51
*ED COVID-19 Vaccine History Last Done: 06/30/25 15:51
ED- Cardiac Assessment Last Done: 06/30/25 16:00
ED- Pulmonary Assessment Last Done: 06/30/25 16:00
Discharge Date and Time
Print Language: KHMER
[2025-06-30 16:27] LABS: Troponin I < 0.012 ng/ml
[2025-06-30] MEDS: LASIX 40 MG IV (17:24)
--- NOTE | 2025-06-30 17:31 | HPS.HSE ---
Addendum entered and electronically signed by Stewart Hyatt MD 06/30/25 18:04:
Patient wants to be full code.
Original Note:
Family Physician
-
Family Physician: Noble Camarena DO
Chief Complaint
-
palpitations
History of Present Illness
80-year-old male past medical history of past medical history of Enterococcus UTI, CHF, CKD 3B, SVT, paroxysmal atrial fibrillation status post ablation, moderate mitral regurgitation, Hx of endocarditis, COPD on 2L baseline, former smoker, chronic
lung nodules, asthma, pulmonary hypertension, dilated ascending aorta, thoracic aortic aneurysm, aortic dissection medically treated, duodenal ulcer, GERD, anxiety/depression, chronic amatory dysfunction, peripheral neuropathy, idiopathic
hypersomnia, renal cell carcinoma status post left nephrectomy, BPH, anxiety/depression, presenting with strong heartbeat palpitations and shortness of breath for past few days. Sometimes dizzy. Denies any chest pain. He has chronic cough at
baseline. Denies any weight gain. Denies any worsening swelling. No fevers or chills.
His INR was 3.33 days ago and his Coumadin has been held for the past 2 days.
He was found to be in atrial fibrillation with RVR for medics. Was given IV Cardizem and heart rate slowed down to 70s with sinus rhythm with PACs.
He is a former smoker. He drinks alcohol occasionally.
Medical History
Past Medical History
Past Medical History: Reports Other (Enterococcus UTI, CHF, CKD 3B, SVT, paroxysmal atrial fibrillation status post ablation, moderate mitral regurgitation, COPD on 2L baseline, former smoker, chronic lung nodules, asthma, pulmonary hypertension,
dilated ascending aorta, thoracic aortic aneurysm, aortic dissection medically treated, du)
Past Surgical History: Reports Other ((Nephrectomy, hernia with mesh))
Social History
Tobacco: Former Smoker
Alcohol: Occasional
Drug: None
Family History
Family History: Not pertinent
Allergies / Home Medications
Allergies reflects when Allergies were last updated in [facility].
Home Medications with original date entered in [facility]
Allergy/Medication List:
Allergies
Allergy/AdvReac Type Severity Reaction Status Date / Time
adhesive Allergy Rash Verified 06/30/25 15:42
lisinopril Allergy Anaphylaxis Verified 06/30/25 15:42
/ANGIOEDEMA
morphine Allergy HALLUCINATI Verified 06/30/25 15:42
ONS
protamine Allergy Anaphylaxis/pulmonary Verified 06/30/25 15:42
HTN
Home Medications
fluticasone propionate 50 mcg/actuation nasal spray,suspension 2 spray intranasal DAILY Congestion 02/12/18
dofetilide 125 mcg capsule 125 mcg PO Q12H #60 caps 03/17/20
acetaminophen 500 mg tablet (Tylenol Extra Strength) 650 mg PO Q4HPRN PRN mild pain 07/08/20
albuterol sulfate 90 mcg/actuation aerosol inhaler 2 puff inhalation R Q4HPRN PRN sob 07/08/20
carboxymethylcellulose 0.5 %-glycerin 0.9 % eye drops (Refresh Optive) 1 drp BOTH EYES BID Eye Condition 01/13/23
escitalopram oxalate 20 mg tablet (Lexapro) 10 mg PO QPM Depression 01/13/23
furosemide 40 mg tablet (Lasix) 30 mg PO .DAILYEVERYTUESDAY Fluid Retention/Swelling 01/13/23
budesonide-formoterol HFA 160 mcg-4.5 mcg/actuation aerosol inhaler (Symbicort) 2 puff inhalation R BID Lung/Breathing Issues 07/28/24
metoprolol succinate 25 mg tablet,extended release 24 hr 12.5 mg PO DAILY Blood Pressure 07/28/24
sodium phosphates 19 gram-7 gram/118 mL enema (Fleet Enema) 118 ml DE PRN PRN constipation 07/29/24
ipratropium 0.5 mg-albuterol 3 mg (2.5 mg base)/3 mL nebulization soln 3 ml inhalation BID 12/03/24
metolazone 2.5 mg tablet 2.5 mg PO DAILYPRN PRN leg swelling #0 tabs 12/11/24
warfarin 3 mg tablet (Jantoven) 3 mg PO QPM #30 tabs 12/11/24
furosemide 20 mg tablet 20 mg PO .QSUNMONWEDTHUFRISAT 06/30/25
midodrine 5 mg tablet 5 mg PO TID 06/30/25
montelukast 10 mg tablet (Singulair) 10 mg PO HS 06/30/25
prednisone 5 mg tablet 5 mg PO DAILY 06/30/25
Review of Systems
-
Constitutional: Reports No Symptoms
EENT: Reports No Symptoms
Respiratory: Reports See HPI
Cardiac: Reports See HPI
Abdomen/GI: Reports No Symptoms
: Reports No Symptoms
Musculoskeletal: Reports No Symptoms
Skin: Reports No Symptoms
Neurological: Reports No Symptoms
Endocrine: Reports No Symptoms
Hematologic/Lymphatic: Reports No Symptoms
Psych: Reports No Symptoms
Physical Exam
Vital Signs
Vital Signs
Temp Pulse Resp BP Pulse Ox
98.1 F 93 24 140/101 86
06/30/25 15:42 06/30/25 17:24 06/30/25 17:22 06/30/25 17:24 06/30/25 17:29
Physical Exam
General: Well Developed, Well Nourished and No Apparent Distress
HEENT: NormoCephalic, Moist mucous membranes and Atraumatic
Respiratory: Clear
Cardiac: S1/S2 and Regular Rhythm; No Murmur or Rub
GI: Soft, Non Tender, Non Distended and Normal Bowel Sounds; No Organomegaly
Rectal: Deferred by Provider
Musculoskeletal: No Clubbing, No Cyanosis and No Edema
Skin: No Rash
Neuro: Nonfocal/grossly intact
Laboratory Results
-
06/30/25 15:44
06/30/25 15:44
Laboratory Results
PT 25.7 Sec (11.4-14.6) H 06/30/25 15:44
INR 2.34 06/30/25 15:44
Total Bilirubin 2.4 mg/dl (0.2-1.3) H 06/30/25 15:44
AST 25 U/L (17-59) 06/30/25 15:44
ALT 22 U/L (0-50) 06/30/25 15:44
Alkaline Phosphatase 110 U/L (38-126) 06/30/25 15:44
Troponin I < 0.012 ng/ml 06/30/25 15:44
Data Reviewed
-
Lab Data: Labs Reviewed by me
Old Records: Reviewed
Impression/Plan
-
IMPRESSION:
PLAN:
# Acute CHF exacerbation
-Crackles on examination
- Requiring 5 L oxygen from 2 L normally
- Cardiac BNP 3700 from 1500
- Chest x-ray does not appear to show any overt pulmonary edema
- Check I's and O's, daily weights
- 40 IV Lasix daily
-Continue metolazone
- Cardiology consulted
# Symptomatic atrial fibrillation with RVR
#History of paroxysmal atrial fibrillation status post ablation
- EKG shows atrial fibrillation heart rate now controlled
-INR of 2.34 today
- Continue dofetilide
- Resume Coumadin tonight
- Recheck INR in morning
Moderate mitral regurgitation
History of endocarditis
History of SVT
- Continue metoprolol
Pulmonary hypertension
Orthostatic hypotension
- Continue midodrine
History of dilated ascending aorta
Thoracic aortic aneurysm
History of aortic dissection
- Medically treated previously
CKD 3B
- Renal function at baseline creatinine 1.2
COPD/asthma
- 2 L baseline
- Continue albuterol, Symbicort
- Continue montelukast
- Continue prednisone
Former smoker
Lung nodules
Renal cell carcinoma status post left nephrectomy
BPH
History of Enterococcus/Aerococcus UTI
History of duodenal ulcer/GERD
Anxiety/depression
- Continue Lexapro
Chronic amatory dysfunction
Peripheral neuropathy
Idiopathic hypersomnia
DNR/DNI
DVT prophylaxis�Coumadin
Cardiac diet
--- NOTE | 2025-06-30 17:53 | EDRN ---
this ELECTROENCEPHALOGRAPH TECHNOLOGIST attempted to place a DNR wristband on this pt (per admission code status orders) and the pt questioned his DNR code status stating 'did I agree to this?' the pt is asking to speak to the admitting provider again. Dr Hyatt was notified
of above via tigertext
--- NOTE | 2025-06-30 17:54 | CM ---
CM reviewed chart and met with pt bedside in ED. Pt states he has been at [facility] in LTC for about 3 months. Prior to that he lived with son but needed more assistance. He is happy at [facility] and states they provide good support.
He needs assistance with ADLs and personal care. Ambulates with rollator, wears O2 2L at night only.
PCP: Noble Camarena
Meds supplied by [facility]
Discharge plan: Return to [facility] LT when medically stable
[2025-06-30] MEDS: DUONEB 3 ML INH (19:44)
[2025-06-30] MEDS: SYMBICORT 160/4.5 MCG INHALER 2 PUFF INH (19:44)
[2025-06-30] MEDS: REFRESH EYE DROPS (PF) BOTH EYES ×2 (20:00→20:37)
[2025-06-30] MEDS: TIKOSYN 125 MCG PO (20:37)
[2025-06-30] MEDS: LEXAPRO 10 MG PO (20:37)
[2025-06-30] MEDS: COUMADIN 3 MG PO (20:37)
[2025-06-30] MEDS: CARDIZEM 10 MG IV (21:27)
[2025-06-30] MEDS: SINGULAIR 10 MG PO (23:34)
[2025-07-01 03:05] VITALS: BP 129/88
[2025-07-01 05:39] VITALS: BMI 21.6
[2025-07-01] MEDS: SYMBICORT 160/4.5 MCG INHALER 2 PUFF INH ×2 (07:05→19:42)
[2025-07-01] MEDS: DUONEB 3 ML INH ×2 (07:05→19:42)
[2025-07-01 07:33] LABS: Hematocrit 42.3 % (39.0-52.0); Hemoglobin 13.6 g/dL (13.0-18.0); Mean Corp Hgb Conc. 32.2 g/dL (33.0-37.0); Mean Corpuscular Volume 91.0 fL (80.0-94.0); Nucleated Red Blood Cells % 0 % (-); Platelet Count 131 10^3/uL (130-400); Red Cell Dist. Width 15.3 % (11.5-14.5)
--- NOTE | 2025-07-01 07:38 | PTCARENOTE ---
Pt aaox3 able to make his needs known.Pt c/o palpitations over night& [id number] ,EKG was done on pt, showed Afibb with RVR. [employer] psychiatric nurse practitioner made aware.VSS.Pt was provided with IV cardizem one time push. Pt HR down in 90's.Pt states he feels better.No
other complaints noted overnight. Plan of care continued.
[2025-07-01 07:41] LABS: INR 1.94; PT 22.3 Sec (11.4-14.6)
[2025-07-01 07:46] VITALS: BP 120/86
[2025-07-01] MEDS: REFRESH EYE DROPS (PF) 1 DROPS BOTH EYES ×2 (08:10→21:13)
[2025-07-01] MEDS: DELTASONE 5 MG PO (08:10)
[2025-07-01] MEDS: TIKOSYN 125 MCG PO ×2 (08:15→21:12)
[2025-07-01] MEDS: LASIX 40 MG IV (08:16)
[2025-07-01] MEDS: TOPROL XL 12.5 MG PO ×2 (08:16→09:49)
[2025-07-01 08:23] LABS: ALT (SGPT) 22 U/L (0-50); AST (SGOT) 23 U/L (17-59); Albumin 4.3 g/dl (3.5-5.0); Alkaline Phosphatase 108 U/L (38-126); Blood Urea Nitrogen 25 mg/dl (9-20); Calcium 9.5 mg/dl (8.4-10.2); Carbon Dioxide 26 mmol/L (22-30); Chloride 106 mmol/L (98-107); Estimated Creatinine Clearance 55 ml/min; Glucose 81 mg/dl (70-99); Potassium 4.0 mmol/L (3.5-5.1); Sodium 141 mmol/L (135-145); Total Protein 6.8 g/dl (6.3-8.2); eGFR > 60.00
--- NOTE | 2025-07-01 09:18 | CON.CAR ---
Addendum entered and electronically signed by Ko Palomo MD 07/01/25 18:06:
I saw and evaluated the patient with the resident, Martita Power MD. I saw and evaluated the patient with the resident. I was present for the camara portions of the history and exam and personally performed the MDM, including reviewing
labs, assessing his AFib with RVR and acute on chronic heart failure, and directing management plan. I agree with the residents note with my comments/adjustments below:
Imp
AF with RVR: I reviewed multiple EKG tracings. His P waves are quite small and rhythm analysis is challenging. Some tracings suggest chronic 2-1 flutter, atypical. I suspect his current rhythm is atrial fibrillation although I admit that without a
catheter in the atrium and it is hard to be 100% certain. His INR fell just below 2. He is hoping for another cardioversion. He may be having paroxysmal arrhythmia and a cardioversion will perform/provide only short-term benefit. We agreed to push
rate control and see how he does. A long-term monitor such as a 14 d Bardy (preferred over others because of excellent P wave assessmet) may allow us to assess arrhythmia burden. I do not think he would tolerate more dofetilide given his QTc. We
might need to move to amiodarone or even potentially another ablation. His heart failure may be exacerbated by worsened arrhythmia but gentle diuresis is appropriate. Will update an echo given his remote aortic valve replacement. His thoracic aorta
is continuing to enlarge and he is not a good candidate for prolonged anesthesia so I am not in favor of another ablation and amiodarone would be challenging given his compromised lung function. This is a high risk situation. I hope that he does
well with rate control.
Original Note:
Consultation
Consultation Request
Date/Time Consultation Requested: 06/30/2025, 22:55
Date/Time Consultation Performed: 07/01/2025, 10:00
Requesting Provider: Dr. William
Performing Provider: Dr. Palomo, Dr. Anders.
Reason for Consultation: Afib and acute CHF exacerbation
Medical History
-
Chief Complaint: Dyspnea and palpitations
History of Present Illness:
80-year-old male with past medical history of CHF, paroxysmal A-fib s/p ablation on Coumadin, moderate mitral regurgitation, pulmonary hypertension, dilated ascending aorta, thoracic aortic aneurysm, aortic dissection, CKD stage IIIb, RCC s/p left
nephrectomy, history of endocarditis,duodenal ulcer, GERD, anxiety/depression presents to the ER with shortness of breath and palpitations. He has been having the symptoms for the past week and they have worsened, he is he is on home oxygen at
night�2L.Patient is compliant with his home medications. He is a resident of [facility], and and the staff has called EMS. He was found to be in A-fib with RVR by medics and was given IV Cardizem. On arrival in the ER, HR�71, RR�28,
BP�121/87, pulse ox 91%. BUN�27, creatinine�1.2. BNP�3760 (baseline : 1300�1500). Chest x-ray with evidence of right pleural effusion, cardiomegaly, thoracic aortic aneurysm. Cardiology consulted for further management of A-fib and CHF.
Past Medical History
Past Medical History: Arrhythmias, CHF, COPD, GERD and Other (CKD-3B, RCC s/p left nephrectomy, dilated ascending aorta, thoracic aortic aneurysm, aortic dissection.)
Social History
Tobacco: Former Smoker
Alcohol: Occasional
Drug: None
Living: [facility]
Employment: Not Employed
Family History
Family History: Reviewed & Not Pertinent
Allergies / Home Medications
Allergy/AdvReac Type Severity Reaction Status Date / Time
adhesive Allergy Rash Verified 06/30/25 15:42
lisinopril Allergy Anaphylaxis Verified 06/30/25 15:42
/ANGIOEDEMA
morphine Allergy HALLUCINATI Verified 06/30/25 15:42
ONS
protamine Allergy Anaphylaxis/pulmonary Verified 06/30/25 15:42
HTN
�Medication �Instructions �Recorded �Confirmed �Type
fluticasone propionate 50 2 spray intranasal DAILY Congestion 02/12/18 06/30/25 History
mcg/actuation nasal
spray,suspension
dofetilide 125 mcg capsule 125 mcg PO Q12H #60 caps 03/17/20 06/30/25 Rx
acetaminophen 500 mg tablet 650 mg PO Q4HPRN PRN mild pain 07/08/20 06/30/25 History
(Tylenol Extra Strength)
albuterol sulfate 90 mcg/actuation 2 puff inhalation R Q4HPRN PRN sob 07/08/20 06/30/25 History
aerosol inhaler
carboxymethylcellulose 0.5 1 drp BOTH EYES BID Eye Condition 01/13/23 06/30/25 History
%-glycerin 0.9 % eye drops
(Refresh Optive)
escitalopram oxalate 20 mg tablet 10 mg PO QPM Depression 01/13/23 06/30/25 History
(Lexapro)
furosemide 40 mg tablet (Lasix) 30 mg PO .DAILYEVERYTUESDAY Fluid 01/13/23 06/30/25 History
Retention/Swelling
budesonide-formoterol HFA 160 2 puff inhalation R BID 07/28/24 06/30/25 History
mcg-4.5 mcg/actuation aerosol Lung/Breathing Issues
inhaler (Symbicort)
metoprolol succinate 25 mg 12.5 mg PO DAILY Blood Pressure 07/28/24 06/30/25 History
tablet,extended release 24 hr
sodium phosphates 19 gram-7 118 ml [place] PRN PRN constipation 07/29/24 06/30/25 History
gram/118 mL enema (Fleet Enema)
ipratropium 0.5 mg-albuterol 3 mg 3 ml inhalation BID Lung/Breathing 12/03/24 06/30/25 History
(2.5 mg base)/3 mL nebulization Issues
soln
metolazone 2.5 mg tablet 2.5 mg PO DAILYPRN PRN leg 12/11/24 06/30/25 Rx
swelling #0 tabs
warfarin 3 mg tablet (Jantoven) 3 mg PO QPM #30 tabs 12/11/24 06/30/25 Rx
furosemide 20 mg tablet 20 mg PO .QSUNMONWEDTHUFRISAT 06/30/25 06/30/25 History
Fluid Retention/Swelling
midodrine 5 mg tablet 5 mg PO TID Blood Pressure 06/30/25 06/30/25 History
montelukast 10 mg tablet 10 mg PO HS Allergies 06/30/25 06/30/25 History
(Singulair)
prednisone 5 mg tablet 5 mg PO DAILY Anti-Inflammatory 06/30/25 06/30/25 History
Review of Systems
-
History Source: Patient
All other systems: Negative unless noted
Physical Exam
Vital Signs
Temp Pulse Resp BP Pulse Ox
98.8 F 109 16 120/81 96
07/01/25 07:46 07/01/25 08:16 07/01/25 07:46 07/01/25 08:16 07/01/25 09:17
Lab Results
07/01/25 06:31
07/01/25 06:31
Troponin I < 0.012 ng/ml 06/30/25 15:44
Unc-I-Pubiavyuvco Pept 3760 pg/ml 06/30/25 15:44
Physical Exam
General: No Apparent Distress
HEENT: Other (On 3 L nasal cannula)
Respiratory: Clear
Cardiac: S1/S2, Irregular Rhythm, Peripheral Edema and Other (Tachycardic)
Musculoskeletal: Edema (1+ pedal edema)
Skin: Warm and Dry
Neuro: Awake, Alert, Oriented and AO x 3
Psych: Calm
Impression / Plan
-
80-year-old male with history of paroxysmal A-fib on Coumadin presenting with shortness of breath and palpitations.
#A-fib with RVR
Patient has history of ablation.
Reviewed telemetry
Rates ranging in 130s- 140s.
Continue Coumadin, monitor INR
Continue dofetilide 125 mcg, twice daily.
Patient has history of CKD�3B, may need to change to amiodarone as outpatient if there is any compromise in the renal function in future.
Monitor QTc, renal function.
Will increase Toprol to 25 mg twice daily.
Monitor EKG daily/as needed for rhythm change.
Continue telemetry
No indication for cardioversion at this point
#Acute on chronic CHF exacerbation
BNP�3760
Echo�08/21/2024�mildly reduced ejection fraction 45-50%.
Will continue Lasix 40 mg IV daily, metolazone 2.5mg as needed
Monitor I/os
Daily weights
Monitor BMP
On 3 L nasal cannula, wean as tolerated.
Will check echo
[2025-07-01 10:26] LABS: Magnesium 2.1 mg/dl (1.6-2.3)
--- NOTE | 2025-07-01 11:04 | CM ---
Spoke with attending regarding patient. He stated that patient is not yet ready for discharge. Will update [facility] once more information becomes available.
Plan: Case management will continue to follow and assist with discharge planning. Back to [facility] for ltc or SNF if needed.
[2025-07-01 11:42] VITALS: BP 112/77
--- NOTE | 2025-07-01 13:46 | W.PN.HOSP.TC ---
Today's Communication/Plan
-
Assessment / Plan
Assessment / Plan
Atrial fibrillation with RVR, paroxysmal
S/p ablation many years ago
Over the last 3 months has been in and out of atrial fibrillation
On Coumadin for anticoagulation, follow INR, goal 2-3
Beta-blockade has been titrated up
Continue dofetilide
Cardiology to evaluate
Monitor on telemetry
2D echo ordered
Acute on chronic heart failure mildly reduced EF, NYHA class II-IV, EF 45-50
IV diuretics
Likely tach and induced
Repeat 2D echocardiogram
Follow cardiology recommendations
Monitor on telemetry
Monitor urinary output
Follow renal function
Keep K greater than 4, magnesium greater than 2
History of SVT
Continue metoprolol
Pulmonary hypertension
Outpatient pulmonary hypertension clinic follow-up/outpatient cardiology
Mitral regurgitation
Moderate
Outpatient valvular heart disease clinic follow-up/outpatient cardiology
History of aortic dissection
Medically treated
CKD stage IIIb
Renal function baseline creat 1.2
COPD/asthma
2 L nasal cannula at night
Continue montelukast albuterol Symbicort prednisone
Lung nodules
Continue outpatient screening CTs with PCP
Renal cell carcinoma s/p left nephrectomy
Follow renal function
Anticipated Discharge: 24 - 48 hours
Subjective/Interval History
-
Date of Service: July 01, 2025
Seen and examined. No new complaints. No acute overnight events.
Telemetry reviewed atrial fibrillation with RVR 110s 120s
Asking if you would go for cardioversion
States he uses 2 L of oxygen at night
Admits to palpitations and chest tightness
Objective Data
-
Labs:
Laboratory Results
07/01/25
06:31
WBC 3.7 L
Hgb 13.6
Hct 42.3
Plt Count 131
PT 22.3 H
INR 1.94
Sodium 141
Potassium 4.0
Chloride 106
Carbon Dioxide 26
BUN 25 H
Creatinine 1.0
Glucose 81
Calcium 9.5
Total Bilirubin 3.0 H
AST 23
ALT 22
Alkaline Phosphatase 108
Vital Signs:
Vital Signs
Temp Pulse Resp BP Pulse Ox
97.7 F 142 16 112/77 96
07/01/25 11:42 07/01/25 11:42 07/01/25 11:42 07/01/25 11:42 07/01/25 11:42
I&O
06/30/25 07/01/25 07/02/25
06:59 06:59 06:59
Intake Total 480 / 480
Output Total 1900 / 1900
Balance -1420 / -1420
Physical Exam
-
General: No Apparent Distress and Comfortable
HEENT: Normocephalic and Atraumatic
Respiratory: Clear to Auscultation
Cardiac: S1/S2 and Irregular Rhythm
GI: Soft, Nontender, Nondistended and Normal Bowel Sounds
Musculoskeletal: No Clubbing and No Cyanosis
Skin: Warm and Dry
Neuro: Awake and AO x 3
[2025-07-01 16:23] VITALS: BP 128/89
[2025-07-01] MEDS: COUMADIN 3 MG PO (17:00)
[2025-07-01] MEDS: LEXAPRO 10 MG PO (17:01)
[2025-07-01] MEDS: TOPROL XL 25 MG PO (17:02)
[2025-07-01] MEDS: TYLENOL 650 MG PO (18:26)
[2025-07-01 19:44] VITALS: BP 107/68
[2025-07-01] MEDS: ANESTHETIC LOZENGE 1 LOZENGE PO (21:13)
[2025-07-01] MEDS: SINGULAIR 10 MG PO (21:13)
[2025-07-01 23:52] VITALS: BP 115/80
[2025-07-02] MEDS: TOPROL XL 25 MG PO ×5 (00:26→23:37)
[2025-07-02 03:50] VITALS: BP 131/89
[2025-07-02 06:00] VITALS: BMI 21.3
[2025-07-02 07:00] VITALS: BP 124/89
[2025-07-02] MEDS: SYMBICORT 160/4.5 MCG INHALER 2 PUFF INH ×2 (08:05→19:14)
[2025-07-02] MEDS: DUONEB 3 ML INH ×2 (08:05→19:14)
[2025-07-02] MEDS: REFRESH EYE DROPS (PF) 1 DROPS BOTH EYES ×2 (08:39→19:52)
[2025-07-02] MEDS: LASIX 40 MG IV (08:40)
[2025-07-02] MEDS: DELTASONE 5 MG PO (08:40)
[2025-07-02] MEDS: TIKOSYN 125 MCG PO ×2 (08:40→19:52)
[2025-07-02 11:00] VITALS: BP 116/82
--- NOTE | 2025-07-02 11:49 | CON.PUL ---
Consultation
Consultation Request
Date/Time Consultation Requested: 07/02/25
Date/Time Consultation Performed: 07/02/25
Performing Provider: Lilo
Reason for Consultation: PH
Medical History
-
History of Present Illness:
Patient is an 80-year-old male with previous history of CHF, chronic kidney disease, paroxysmal atrial fibrillation, COPD stage IV, pulmonary hypertension presenting to ER with complaints of shortness of breath, acute on chronic. He also notes
palpitations, dizziness. He was found to be in atrial fibrillation with RVR given IV Cardizem with improvement of his heart rate. He feels his symptoms improved following cessation of his palpitations and tachycardia. He does have a history of
stage IV COPD with moderate pulmonary hypertension, repeat echocardiogram demonstrating stable findings.
Past Medical History
Past Medical History: Other (see list below)
Social History
Tobacco: Former Smoker
Alcohol: None
Drug: None
Family History
Family History: Reviewed & Not Pertinent
Allergies / Home Medications
Allergies
Allergy/AdvReac Type Severity Reaction Status Date / Time
adhesive Allergy Rash Verified 06/30/25 15:42
lisinopril Allergy Anaphylaxis Verified 06/30/25 15:42
/ANGIOEDEMA
morphine Allergy HALLUCINATI Verified 06/30/25 15:42
ONS
protamine Allergy Anaphylaxis/pulmonary Verified 06/30/25 15:42
HTN
Home Medications
�Medication �Instructions �Recorded �Confirmed �Last Taken �Type
fluticasone propionate 50 2 spray intranasal DAILY Congestion 02/12/18 06/30/25 07/28/24 History
mcg/actuation nasal
spray,suspension
dofetilide 125 mcg capsule 125 mcg PO Q12H #60 caps 03/17/20 06/30/25 07/28/24 Rx
acetaminophen 500 mg tablet 650 mg PO Q4HPRN PRN mild pain 07/08/20 06/30/25 07/07/20 20:00 History
(Tylenol Extra Strength)
albuterol sulfate 90 mcg/actuation 2 puff inhalation R Q4HPRN PRN sob 07/08/20 06/30/25 07/06/20 20:00 History
aerosol inhaler
carboxymethylcellulose 0.5 1 drp BOTH EYES BID Eye Condition 01/13/23 06/30/25 07/28/24 History
%-glycerin 0.9 % eye drops
(Refresh Optive)
escitalopram oxalate 20 mg tablet 10 mg PO QPM Depression 01/13/23 06/30/25 07/27/24 History
(Lexapro)
furosemide 40 mg tablet (Lasix) 30 mg PO .DAILYEVERYTUESDAY Fluid 01/13/23 06/30/25 07/28/24 History
Retention/Swelling
budesonide-formoterol HFA 160 2 puff inhalation R BID 07/28/24 06/30/25 07/28/24 History
mcg-4.5 mcg/actuation aerosol Lung/Breathing Issues
inhaler (Symbicort)
metoprolol succinate 25 mg 12.5 mg PO DAILY Blood Pressure 07/28/24 06/30/25 07/28/24 History
tablet,extended release 24 hr
sodium phosphates 19 gram-7 118 ml AR PRN PRN constipation 07/29/24 06/30/25 07/23/24 History
gram/118 mL enema (Fleet Enema)
ipratropium 0.5 mg-albuterol 3 mg 3 ml inhalation BID Lung/Breathing 12/03/24 06/30/25 Unknown History
(2.5 mg base)/3 mL nebulization Issues
soln
metolazone 2.5 mg tablet 2.5 mg PO DAILYPRN PRN leg 12/11/24 06/30/25 Unknown Rx
swelling #0 tabs
warfarin 3 mg tablet (Jantoven) 3 mg PO QPM #30 tabs 12/11/24 06/30/25 Unknown Rx
furosemide 20 mg tablet 20 mg PO .QSUNMONWEDTHUFRISAT 06/30/25 06/30/25 Unknown History
Fluid Retention/Swelling
midodrine 5 mg tablet 5 mg PO TID Blood Pressure 06/30/25 06/30/25 Unknown History
montelukast 10 mg tablet 10 mg PO HS Allergies 06/30/25 06/30/25 Unknown History
(Singulair)
prednisone 5 mg tablet 5 mg PO DAILY Anti-Inflammatory 06/30/25 06/30/25 Unknown History
Review of Systems
-
History Source: Patient
All other systems: Negative unless noted
Vitals / Labs / Diagnostic Testing
Vital Signs
Temp Pulse Resp BP Pulse Ox
97.6 F 80 12 116/82 97
07/02/25 11:00 07/02/25 11:00 07/02/25 11:00 07/02/25 11:00 07/02/25 11:00
Lab Data
07/01/25 06:31
07/01/25 06:31
Microbiology
06/30/25 21:05 Nose MRSA Screen - Final
No Methicillin Resistant Staphylococcus aureus isolated.
Diagnostic Testing:
Physical Exam
-
HEENT: Normocephalic, Anicteric and Moist Mucous Membranes
Cardiovascular: S1/S2 and Regular Rhythm
Respiratory: Clear (overall decreased) and Non-Labored Respirations
GI: Soft, Non Distended and Non Tender
Neurology: Awake, Alert, Oriented and No Motor Deficits
Skin: Warm, Dry and Good Color
General: Comfortable and Other (NAD)
Assessment
-
Patient is an 80-year-old male with previous history of CHF, chronic kidney disease, paroxysmal atrial fibrillation, COPD stage IV, pulmonary hypertension presenting to ER with complaints of shortness of breath, acute on chronic. He also notes
palpitations, dizziness. He was found to be in atrial fibrillation with RVR given IV Cardizem with improvement of his heart rate. He feels his symptoms improved following cessation of his palpitations and tachycardia. He does have a history of
stage IV COPD with moderate pulmonary hypertension, repeat echocardiogram demonstrating stable findings.
Afib w/ RVR, resolved with IV dilt
Acute on chronic SOB
Acute on chronic CHF exacerbation, proBNP�3760
Leukopenia
Condition present [employer]
Multiple pulmonary nodules, waxing and waning, s/p CT needle biopsy 07/11/2018 of RLL nodule w/ noncaseating granuloma with focal giant cells and negative for fungal and AFB.
c/b pneumothorax/Chest tube placement
Bilateral pulmonary infiltrates, negative bronchoscopy 1999 with decreased size in nodules.
COPD/asthma, with a 25-pack year smoking history and severely reduced FEV1 with significant bronchodilator response.
Follows with Dr Turcios, recent spirometry reveals severe obstruction and restriction. He has stage IV COPD, maintained on 5mg prednisone daily.
Nocturnal hypoxemia, Oxygen 2 L at night
Former smoker, quit age 40
Status post Strep viridans aortic valve endocarditis
ACC/AHA stage C chronic systolic heart failure
AVR bioprosthetic, currently on chronic Coumadin, 04/2018.
History of renal cell carcinoma, status post nephrectomy left side 2010.
Hypertension.
Paroxysmal atrial fibrillation.
GERD.
BPH, status post TURP.
Obstructive sleep apnea resolved with weight loss.
Allergies.
History of duodenal ulcer.
Idiopathic hypersomnia.
Depression
Moderate MR
Stage 3b chronic kidney disease
Plan
Currently saturating 95% on 3L
Baseline use of 2L at night, stable at rest on RA
Home O2 evaluation eventually
Prior history of lung disease is noted including stage IV COPD, moderate PH (PASP about 40-45 on prior ECHO)
Follows with Dr Turcios as OP, extensive records reviewed
He is well known to our office, has been stable on his last chavo but still with severe obstruction, maintained on prednisone 5mg
CXR/CT obtained indicating no significant changes from prior testing
Other imaging reviewed
Afib with RVR likely causing exacerbation in SOB--feels improvement post rate control with IV Dilt
Cards following with further plans for medical management
ECHO results reviewed showing improvement in EF compared to prior, PASP remains stable 40-45 range, chronic RV dysfunction noted
Prior ECHO results are reviewed as well
He is maintained on coumadin as OP, VTE is less likely an issue
He feels almost back to baseline since rate control
proBNP elevated, component of decompensated HF noted, can diuresis until O2 requirements are decreased, optimize volume status prior to d/c
Will need outpatient pulmonary evaluation in our office for PFTs and 6MWT
Reviewed with patient, we will arrange appt with [employer] in 2-3 weeks for check-in post discharge
There does not seem to be anything to do out of usual care
Resume home inhalers, prednisone dosing
Discharge planning can be reviewed pending cardiac management
We will follow
Diagnostic Data
CXR 06/30/25- There is a slightly increased small right pleural effusion with adjacent airspace opacity, likely chronic atelectasis. Cardiomegaly with known thoracic aortic aneurysm, similar to prior.
CT CHEST 12/10/24: No evidence of pulmonary embolus. Known aortic dissection. Stable. Known ascending aortic aneurysm measuring 9.4 cm. Stable. Small right pleural effusion. Progressed. Oval hypodense splenic lesion likely a cyst or hemangioma. Stable
ECHO 07/01/25- 1. Normal left ventricular function. 2. Ejection fraction is 50-55% by visual assessment. 3. Diastolic flattening of the interventricular septum consistent with right ventricular volume overload. 4. Right ventricular cavity size is
moderately dilated. 5. Right ventricular systolic function is mildly decreased.
6. Moderately dilated left atrium left atrium. 7. Severely dilated right atrium. 8. Bioprosthetic aortic valve prosthesis is noted. Aortic prosthesis appears to be functioning normally. Aortic prosthesis is stable and well seated. 9. Severe
tricuspid regurgitation. 10. Ascending Aorta 9.1-9.8cm. 11. Tricuspid valve opens normally. Severe tricuspid regurgitation. Estimated pulmonary artery pressure of 45 mmHg assuming a right atrial pressure of 15 mmHg. 12. Severely dilated IVC with
absent inspiratory collapse. 13. Compared to a prior transthoracic echocardiogram study from 08/21/2024 The ascending aorta has become further dilated from 8.9 cm to 9.1-9.8 cm.
08/21/24- Normal LV size with mildly reduced systolic function. LVEF is 45-50% by visual estimation. Mild global hypokinesis. Moderate concentric LVH. Severely dilated right ventricle with mildly reduced systolic function. Severely dilated right
atrium. Mild mitral regurgitation. Bioprosthetic aortic valve replacement with peak/mean gradients of 18/9 mmHg. No aortic regurgitation is seen. Severe tricuspid regurgitation. Estimated pulmonary artery pressure of 40 mmHg assuming a right
atrial pressure of 15 mmHg (likely underestimated due to severity of tricuspid regurgitation). Severely dilated ascending aorta. (8.9 cm) The IVC is severely dilated and does not collapse. Compared to prior echo from January 11, 2023, ascending aorta
now measures 8.9 cm previously 8.6 cm.
Reports and relevant images were personally reviewed.
Total time spent on this consultation/encounter __75__ minutes which includes review of history, physical exam, medications, laboratory data, personal review of imaging, extensive review of outpatient records, discussion with care team and
respiratory therapy.
--- NOTE | 2025-07-02 14:43 | W.PN.HOSP.TC ---
Today's Communication/Plan
-
Assessment / Plan
Assessment / Plan
General: No Apparent Distress and Comfortable
HEENT: Normocephalic and Atraumatic
Respiratory: Clear to Auscultation
Cardiac: S1/S2 and RRR
GI: Soft, Nontender, Nondistended and Normal Bowel Sounds
Musculoskeletal: No Clubbing and No Cyanosis
Skin: Warm and Dry
Neuro: Awake and AO x 3
Atrial fibrillation with RVR, paroxysmal
S/p ablation many years ago
Over the last 3 months has been in and out of atrial fibrillation
On Coumadin for anticoagulation, follow INR, goal 2-3
Beta-blockade has been titrated up
Continue dofetilide
Cardiology following
Monitor on telemetry
2D echo EF 50-55%
Acute on chronic heart failure mildly reduced EF, NYHA class II-IV, EF 45-50
IV diuretics
Likely tachy induced
Repeat 2D echocardiogram
Follow cardiology recommendations
Monitor on telemetry
Monitor urinary output
Follow renal function
Keep K greater than 4, magnesium greater than 2
History of SVT
Continue metoprolol
Pulmonary hypertension
Outpatient pulmonary hypertension clinic follow-up/outpatient cardiology
Chronic hypoxic respiratory failrue
Mitral regurgitation
Moderate
Outpatient valvular heart disease clinic follow-up/outpatient cardiology
History of aortic dissection
Medically treated
CKD stage IIIb
Renal function baseline creat 1.2
COPD/asthma
2 L nasal cannula at night
Continue montelukast albuterol Symbicort prednisone
Lung nodules
Continue outpatient screening CTs with PCP
Renal cell carcinoma s/p left nephrectomy
Follow renal function
Anticipated Discharge: 24 - 48 hours
Subjective/Interval History
-
Date of Service: July 02, 2025
Seen and examined. No new complaints. No acute overnight events.
States his heart rates feel better. No chest pressure palpitation chest pain
Shortness of breath still present
Objective Data
-
Vital Signs:
Vital Signs
Temp Pulse Resp BP Pulse Ox
97.6 F 80 12 116/82 97
07/02/25 11:00 07/02/25 11:56 07/02/25 11:00 07/02/25 11:56 07/02/25 11:00
I&O
07/01/25 07/02/25 07/03/25
06:59 06:59 06:59
Intake Total 480 / 480 860 / 860
Output Total 1900 / 1900 1825 / 1825
Balance -1420 / -1420 -965 / -965
--- NOTE | 2025-07-02 14:53 | W.PN.CD ---
Today's Communication / Plan
-
Continue Metoprolol, at discharge convert to once daily succinate formulation
- I do not want to adjust rate control meds more as we just went up on them on 07/01/2025
Can consider cardioversion once INR >/= 2 for 21 or more days
Not a great candidate for Amio as a pulmonary insult may not be tolerated with his significant lung disease
Not a good candidate to push dofetilide dose, I do not want a longer QTc
Given age, enlarging TAA, lung disease a repeat ablation seems to be a significant risk
We will arrange followup.
Impression / Plan
-
80-year-old male with history of paroxysmal A-fib on Coumadin presenting with shortness of breath and palpitations.
AFib/ATach vs atypical flutter
- I suspect most of his recent rhythms have been/are ATach with variable AV conduction
- INR a bit to low for cardioversion w/o SASHA and he feels better with more rate control
- Hx of AFib ablation
HF is improved with rate control
- See echo below
- in at time of afib ablation LA pressure was 18 mmHg (mild elevation c/w heart failure)
COPD
Prior AVR, good on echo
COPD, stage 4, pulmonary now involved
Very large thoracic aortic aneurysm, no plans for intervention
Pulm is mild/moderate and could be from HF or lung disease or combination
Hx of hypotension
- BP tolerating metoprolol at increased dose well so far
Subjective:
Feels well now.
Echo 07/01/2025:
SUMMARY
1. Normal left ventricular function.
2. Ejection fraction is 50-55% by visual assessment.
3. Diastolic flattening of the interventricular septum consistent with right ventricular volume overload.
4. Right ventricular cavity size is moderately dilated.
5. Right ventricular systolic function is mildly decreased.
6. Moderately dilated left atrium left atrium.
7. Severely dilated right atrium.
8. Bioprosthetic aortic valve prosthesis is noted. Aortic prosthesis appears to be functioning normally. Aortic prosthesis is stable and well seated.
9. Severe tricuspid regurgitation.
10. Ascending Aorta 9.1-9.8cm.
11. Tricuspid valve opens normally. Severe tricuspid regurgitation. Estimated pulmonary artery pressure of 45 mmHg assuming a right atrial pressure of 15 mmHg.
12. Severely dilated IVC with absent inspiratory collapse.
13. Compared to a prior transthoracic echocardiogram study from 08/21/2024 The ascending aorta has become further dilated from 8.9 cm to 9.1-9.8 cm.
Physical Exam
Vital Signs/Labs
Vital Signs
Temp Pulse Resp BP Pulse Ox
97.6 F 80 12 116/82 97
07/02/25 11:00 07/02/25 11:56 07/02/25 11:00 07/02/25 11:56 07/02/25 11:00
07/01/25 07/02/25 07/03/25
06:59 06:59 06:59
Actual Weight 66.224 kg 65.346 kg
07/01/25 06:31
07/01/25 06:31
PT 22.3 Sec (11.4-14.6) H 07/01/25 06:31
INR 1.94 07/01/25 06:31
Magnesium 2.1 mg/dl (1.6-2.3) 07/01/25 06:31
06/30/25
15:44
[id number] Pept 3760
LAB Results
06/30/25
15:44
Troponin I < 0.012
Physical Exam
Constitutional: No acute distress
EENT: Anicteric
Cardiovascular: Rhythm/rate is irregular and S1S2 is normal
Respiratory: Respiratory effort normal and Lungs clear to auscul.
GI: Soft and Distention absent
Neuro/Psych: AO x 3
Data Reviewed
-
Date of Service: July 02, 2025
[2025-07-02 15:00] VITALS: BP 103/69
--- NOTE | 2025-07-02 15:25 | PN.CDI ---
CDI
- -
CDI:
Physician Documentation Request
Admit Date: 06/30/25 17:57
Dear Doctor Jose Luis,
Please review the following and provide your response in the progress notes.
Clinical Indicators:
Pt admitted with CHF exacerbation
Documented per progress note 07/02, ' ...2D echo EF 50-55%....Acute on chronic heart failure mildly reduced EF, NYHA class II-IV, EF 45-50 IV diuretics....'
ECHO 07/01 Ejection fraction is 50-55%
Please provide further specificity regarding the most likely type and acuity of CHF you are evaluating, treating or monitoring.
Acute Diastolic CHF
Acute on Chronic Systolic CHF ( no change in documentation)
Other ( please specify)
Use of terms such as suspected, likely, concern for, or probable (associated with a specific diagnosis that is being evaluated, monitored, or treated as if it exists) are acceptable and can be coded in the inpatient setting, when documented at the
time of discharge.
Thank you,
Mila Tinsley RN
CDI Specialist
[place] [facility]
Please use your independent medical judgment in providing your response.
--- NOTE | 2025-07-02 15:30 | PN.CDI ---
CDI
- -
CDI:
Physician Documentation Request
Admit Date: 06/30/25 17:57
Dear Doctor Jose Luis,
Please review the following and provide your response in the progress notes.
Clinical Indicators:
Pt admitted with CHF
Documented per ED, ' Mild-moderate increased work of breathing..Patient presents with shortness of breath and palpitations. Medics found the patient to have A-fib with a rapid ventricular sponsor 140s....'
Documented per H&P, ' COPD on 2L baseline...-Crackles on examination Requiring 5 L oxygen from 2 L normally..'
Progress note 07/02 ,' Chronic hypoxic respiratory failure..'
06/30/25
15:38 06/30/25
15:42 06/30/25
15:45
Resp Rate 28 26
SaO2 89
Nasal Cannula flow liters per minute 4
06/30/25
15:55 06/30/25
16:15 06/30/25
16:43
Resp Rate 29
SaO2 86
Nasal Cannula flow liters per minute 6
06/30/25
16:47 06/30/25
17:22 06/30/25
17:29
Nasal Cannula flow liters per minute 6 5 6
06/30/25
18:00 06/30/25
19:49 07/01/25
03:05
Resp Rate 31
Nasal Cannula flow liters per minute 4 4
07/01/25
07:06 07/01/25
08:30 07/02/25
09:00
Nasal Cannula flow liters per minute 4 3 3
Clarify which of the following accurately represents the patient's respiratory status:
Acute on chronic hypoxic respiratory failure
Chronic hypoxic respiratory failure only
Other ( please specify)
Additional information for Respiratory Failure:
Recognized criteria for Respiratory Failure (Source: Agustin Madsen. 2018September 26.
Documentation tips: Acute Respiratory Failure, The Hospitalist.)
ABGs: (1 or more) Symptoms Please indicate type if known
1. p)2 <60 or RA SPO2 <91% on RA 1. Tachypnea, SOB, dyspnea Hypoxic
2. pCO2 >45 and pH <7.35 2. Use of accessory muscles Hypercapnic
3. pO2 decrease of pCO2 increase by 3. Pallor or cyanosis Hypoxic and Hypercapnic
10 mmHg from baseline if known 4. Anxiety or restlessness Unable to determine
4. P/F Ratio (pO2/FiO2)nless than 300 5. Unable to speak in full sentences
Use of terms such as suspected, likely, concern for, or probable (associated with a specific diagnosis that is being evaluated, monitored, or treated as if it exists) are acceptable and can be coded in the inpatient setting, when documented at the
time of discharge.
Thank you,
Mila Tinsley RN
CDI Specialist
[place] [facility]
Please use your independent medical judgment in providing your response.
[2025-07-02] MEDS: COUMADIN 3 MG PO (17:07)
[2025-07-02] MEDS: LEXAPRO 10 MG PO (17:07)
[2025-07-02 19:47] VITALS: BP 108/71
[2025-07-02] MEDS: SINGULAIR 10 MG PO (21:55)
[2025-07-02] MEDS: ANESTHETIC LOZENGE 1 LOZENGE PO (22:03)
[2025-07-02 23:55] VITALS: BP 101/71
[2025-07-03 03:40] VITALS: BP 115/76
[2025-07-03 06:00] VITALS: BMI 21.3
[2025-07-03] MEDS: TOPROL XL 25 MG PO ×2 (06:27→11:13)
[2025-07-03 07:00] VITALS: BP 118/82
[2025-07-03 07:20] VITALS: BP 122/84
[2025-07-03] MEDS: DUONEB 3 ML INH (08:02)
[2025-07-03] MEDS: SYMBICORT 160/4.5 MCG INHALER 2 PUFF INH (08:02)
[2025-07-03] MEDS: DELTASONE 5 MG PO (08:34)
[2025-07-03] MEDS: TIKOSYN 125 MCG PO (08:34)
[2025-07-03] MEDS: REFRESH EYE DROPS (PF) 1 DROPS BOTH EYES (08:34)
--- NOTE | 2025-07-03 09:24 | W.PN.PUL3 ---
Today's Communication / Plan
-
Doing well, he feels back to baseline, now on room air
No new complaints, resume on home inhalers/prednisone dosing
Encouraged OOB, PT, ambulate
Discharge planning per team
OP FU to be arranged in 2-3 weeks/reviewed with patient
We will sign off at this time, please call with questions
Assessment
-
Patient is an 80-year-old male with previous history of CHF, chronic kidney disease, paroxysmal atrial fibrillation, COPD stage IV, pulmonary hypertension presenting to ER with complaints of shortness of breath, acute on chronic. He also notes
palpitations, dizziness. He was found to be in atrial fibrillation with RVR given IV Cardizem with improvement of his heart rate. He feels his symptoms improved following cessation of his palpitations and tachycardia. He does have a history of
stage IV COPD with moderate pulmonary hypertension, repeat echocardiogram demonstrating stable findings.
Afib w/ RVR, resolved with IV dilt
Acute on chronic SOB
Acute on chronic CHF exacerbation, proBNP�3760
Leukopenia
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
Multiple pulmonary nodules, waxing and waning, s/p CT needle biopsy 07/11/2018 of RLL nodule w/ noncaseating granuloma with focal giant cells and negative for fungal and AFB.
c/b pneumothorax/Chest tube placement
Bilateral pulmonary infiltrates, negative bronchoscopy 2000 with decreased size in nodules.
COPD/asthma, with a 25-pack year smoking history and severely reduced FEV1 with significant bronchodilator response.
Follows with Dr Turcios, recent spirometry reveals severe obstruction and restriction. He has stage IV COPD, maintained on 5mg prednisone daily.
Nocturnal hypoxemia, Oxygen 2 L at night
Former smoker, quit age 40
Status post Strep viridans aortic valve endocarditis
ACC/AHA stage C chronic systolic heart failure
AVR bioprosthetic, currently on chronic Coumadin, 04/2018.
History of renal cell carcinoma, status post nephrectomy left side 2010.
Hypertension.
Paroxysmal atrial fibrillation.
GERD.
BPH, status post TURP.
Obstructive sleep apnea resolved with weight loss.
Allergies.
History of duodenal ulcer.
Idiopathic hypersomnia.
Depression
Moderate MR
Stage 3b chronic kidney disease
Plan
Previously saturating 95% on 3L--weaned to RA
Baseline use of 2L at night, stable at rest on RA
Prior history of lung disease is noted including stage IV COPD, moderate PH (PASP about 40-45 on prior ECHO)
Follows with Dr Turcios as OP, extensive records reviewed
He is well known to our office, has been stable on his last chavo but still with severe obstruction, maintained on prednisone 5mg
CXR/CT obtained indicating no significant changes from prior testing
Other imaging reviewed
Afib with RVR likely causing exacerbation in SOB--feels improvement post rate control with IV Dilt
Cards following with further plans for medical management
ECHO results reviewed showing improvement in EF compared to prior, PASP remains stable 40-45 range, chronic RV dysfunction noted
Prior ECHO results are reviewed as well
He is maintained on coumadin as OP, VTE is less likely an issue
He feels almost back to baseline since rate control
proBNP elevated, component of decompensated HF noted, can diuresis until O2 requirements are decreased, optimize volume status prior to d/c
Will need outpatient pulmonary evaluation in our office for PFTs and 6MWT
Reviewed with patient, we will arrange appt with MONORAIL HOOKER in 2-3 weeks for check-in post discharge
There does not seem to be anything to do out of usual care
Resume home inhalers, prednisone dosing
Discharge planning
Diagnostic Data
CXR 06/30/25- There is a slightly increased small right pleural effusion with adjacent airspace opacity, likely chronic atelectasis. Cardiomegaly with known thoracic aortic aneurysm, similar to prior.
CT CHEST 12/10/24: No evidence of pulmonary embolus. Known aortic dissection. Stable. Known ascending aortic aneurysm measuring 9.4 cm. Stable. Small right pleural effusion. Progressed. Oval hypodense splenic lesion likely a cyst or hemangioma. Stable
ECHO 07/01/25- 1. Normal left ventricular function. 2. Ejection fraction is 50-55% by visual assessment. 3. Diastolic flattening of the interventricular septum consistent with right ventricular volume overload. 4. Right ventricular cavity size is
moderately dilated. 5. Right ventricular systolic function is mildly decreased.
6. Moderately dilated left atrium left atrium. 7. Severely dilated right atrium. 8. Bioprosthetic aortic valve prosthesis is noted. Aortic prosthesis appears to be functioning normally. Aortic prosthesis is stable and well seated. 9. Severe
tricuspid regurgitation. 10. Ascending Aorta 9.1-9.8cm. 11. Tricuspid valve opens normally. Severe tricuspid regurgitation. Estimated pulmonary artery pressure of 45 mmHg assuming a right atrial pressure of 15 mmHg. 12. Severely dilated IVC with
absent inspiratory collapse. 13. Compared to a prior transthoracic echocardiogram study from 08/21/2024 The ascending aorta has become further dilated from 8.9 cm to 9.1-9.8 cm.
08/21/24- Normal LV size with mildly reduced systolic function. LVEF is 45-50% by visual estimation. Mild global hypokinesis. Moderate concentric LVH. Severely dilated right ventricle with mildly reduced systolic function. Severely dilated right
atrium. Mild mitral regurgitation. Bioprosthetic aortic valve replacement with peak/mean gradients of 18/9 mmHg. No aortic regurgitation is seen. Severe tricuspid regurgitation. Estimated pulmonary artery pressure of 40 mmHg assuming a right
atrial pressure of 15 mmHg (likely underestimated due to severity of tricuspid regurgitation). Severely dilated ascending aorta. (8.9 cm) The IVC is severely dilated and does not collapse. Compared to prior echo from January 11, 2023, ascending aorta
now measures 8.9 cm previously 8.6 cm.
Reports and relevant images were personally reviewed.
Total time spent on this consultation/encounter __50__ minutes which includes review of history, physical exam, medications, laboratory data, personal review of imaging, extensive review of outpatient records, discussion with care team and
respiratory therapy.
Subjective Data
-
Date of Service:
Date of Service: July 03, 2025
Chief Complaint: Pulmonary Follow Up
Subjective:
Feels back to baseline, no new complaints
Now on room air
Objective Data
Data Reviewed
Vital Signs / I&O / Oxygen:
Vital Signs
Temp Pulse Resp BP Pulse Ox
97.7 F 79 18 91/59 92
07/03/25 07:20 07/03/25 08:40 07/03/25 08:06 07/03/25 08:40 07/03/25 08:06
Intake and Output
07/02/25 07/03/25 07/04/25
06:59 06:59 06:59
Intake Total 860 / 860 900 / 900
Output Total 1825 / 1825 1175 / 1175
Balance -965 / -965 -275 / -275
SaO2 92
Nasal Cannula flow liters per 3
minute
Physical Exam
General: Comfortable and Other (NAD)
HEENT: Normocephalic, Anicteric and Moist Mucous Membranes
Cardiovascular: S1-S2 and Regular Rhythm
Respiratory: Clear and Non-Labored Respirations
GI: Soft, Non Distended and Non Tender
Neurology: Awake, Alert, Oriented and No Motor Deficits
Skin: Warm, Dry and Good Color
Labs/Micro/Reports
Microbiology
06/30/25 21:05 Nose MRSA Screen - Final
No Methicillin Resistant Staphylococcus aureus isolated.
[2025-07-03 09:28] VITALS: BP 99/64
[2025-07-03 09:39] LABS: Blood Urea Nitrogen 32 mg/dl (9-20); Calcium 9.2 mg/dl (8.4-10.2); Carbon Dioxide 32 mmol/L (22-30); Chloride 102 mmol/L (98-107); Estimated Creatinine Clearance 55 ml/min; Glucose 119 mg/dl (70-99); Potassium 3.8 mmol/L (3.5-5.1); Sodium 140 mmol/L (135-145); eGFR > 60.00
[2025-07-03 09:39] LABS: INR 2.04; PT 23.5 Sec (11.4-14.6)
[2025-07-03 09:40] LABS: Hematocrit 43.5 % (39.0-52.0); Hemoglobin 13.6 g/dL (13.0-18.0); Mean Corp Hgb Conc. 31.3 g/dL (33.0-37.0); Mean Corpuscular Volume 93.5 fL (80.0-94.0); Platelet Count 151 10^3/uL (130-400); Red Cell Dist. Width 15.1 % (11.5-14.5)
[2025-07-03] MEDS: LASIX IV (10:04)
--- NOTE | 2025-07-03 10:42 | W.PN.CD ---
Addendum entered and electronically signed by Ko Palomo MD 07/03/25 11:15:
I saw and evaluated the patient, and I provided the substantive portion of the medical decision making.
I reviewed and agree with the note by SOURAV Duncan and it accurately reflects our care.
I personally performed the medical decision making of the this encounter and my assessment and plan is below:
80 yo with persistent AT post ablation despite max dofetilide I would want for him doing better on larger metoprolol dose. The complexity is added to hypotension needing midodrine at home. His large thoracic aneurysm adds to high risk but
anticoagulation is typically continued. HF better with rate control of AT. Options for intermittent cardioversions or even AV Node ablation and pacer reviewed. I would not favor complex repeat left sided ablation or amiodarone given advanced COPD.
Home today from our perspective.
Original Note:
Today's Communication / Plan
-
Okay for d/c from cardiac standpoint. Would go back to his typical home Lasix dosing. Continue warfarin with INR's per protocol. Transition from metoprolol tartrate 25 mg PO Q6 H to metoprolol succinate 100 mg PO daily. We will arrange cardiac
follow-up.
Impression / Plan
-
80-year-old male with history of paroxysmal A-fib on Coumadin presenting with shortness of breath and palpitations.
AFib/ATach vs atypical flutter
- most of his recent rhythms suspected to be ATach with variable AV conduction
- INR a bit to low for cardioversion w/o SASHA and he feels better with more rate control; Can consider cardioversion once INR >/= 2 for 21 or more days.
- Hx of AFib ablation
-Continue Metoprolol. He has been getting 25 mg Q6 hours. I will transition to long acting dose - 100 mg metoprolol succinate.
-Not a great candidate for Amio as a pulmonary insult may not be tolerated with his significant lung disease. Not a good candidate to push dofetilide dose, we do not want a longer QTc . Given age, enlarging TAA, lung disease a repeat ablation seems
to be a significant risk
HF is improved with rate control
-See echo below
-in 07/2020 at time of afib ablation LA pressure was 18 mmHg (mild elevation c/w heart failure)
-has been getting IV Lasix- transition to PO
COPD
Prior AVR, good on echo
COPD, stage 4, pulmonary now involved
Very large thoracic aortic aneurysm, no plans for intervention
Pulm is mild/moderate and could be from HF or lung disease or combination
Hx of hypotension
- BP tolerating metoprolol at increased dose so far, though on lower end this AM
Subjective:
Feeling quite well, hopeful for d/c
Echo 07/01/2025:
SUMMARY
1. Normal left ventricular function.
2. Ejection fraction is 50-55% by visual assessment.
3. Diastolic flattening of the interventricular septum consistent with right ventricular volume overload.
4. Right ventricular cavity size is moderately dilated.
5. Right ventricular systolic function is mildly decreased.
6. Moderately dilated left atrium left atrium.
7. Severely dilated right atrium.
8. Bioprosthetic aortic valve prosthesis is noted. Aortic prosthesis appears to be functioning normally. Aortic prosthesis is stable and well seated.
9. Severe tricuspid regurgitation.
10. Ascending Aorta 9.1-9.8cm.
11. Tricuspid valve opens normally. Severe tricuspid regurgitation. Estimated pulmonary artery pressure of 45 mmHg assuming a right atrial pressure of 15 mmHg.
12. Severely dilated IVC with absent inspiratory collapse.
13. Compared to a prior transthoracic echocardiogram study from 08/21/2024 The ascending aorta has become further dilated from 8.9 cm to 9.1-9.8 cm.
Physical Exam
Vital Signs/Labs
Vital Signs
Temp Pulse Resp BP Pulse Ox
97.7 F 79 18 99/64 92
07/03/25 07:20 07/03/25 09:28 07/03/25 08:06 07/03/25 09:28 07/03/25 08:06
07/02/25 07/03/25 07/04/25
06:59 06:59 06:59
Actual Weight 65.346 kg 65.516 kg
07/03/25 09:00
07/03/25 09:00
PT 23.5 Sec (11.4-14.6) H 07/03/25 09:07
INR 2.04 07/03/25 09:07
Magnesium 2.1 mg/dl (1.6-2.3) 07/01/25 06:31
06/30/25
15:44
Bnf-[id number] Pept 3760
LAB Results
06/30/25
15:44
Troponin I < 0.012
Physical Exam
Constitutional: No acute distress
EENT: Anicteric
Cardiovascular: Rhythm/rate is irregular
Respiratory: Respiratory effort normal and Lungs clear to auscul.
Neuro/Psych: AO x 3
Data Reviewed
-
Date of Service: July 03, 2025
EKG: Other (AT -rate controlled)
Labs: Labs Reviewed by me
[2025-07-03 11:19] VITALS: BP 124/84
--- NOTE | 2025-07-03 12:15 | W.DCSUMMARY ---
Addendum entered and electronically signed by Rebel Amaya MD 07/03/25 14:24:
Acute on chronic hypoxic respiratory failure
Acute on chronic heart failure with improved ejection fraction
Original Note:
Discharge Summary
Discharge Data
Date of Admission: 06/30/25
Date of Discharge: 07/03/25
-
Pending Results: No
Hospital Course
80-year-old male past medical history of past medical history of Enterococcus UTI, CHF, CKD 3B, SVT, paroxysmal atrial fibrillation status post ablation, moderate mitral regurgitation, Hx of endocarditis, COPD on 2L baseline, former smoker, chronic
lung nodules, asthma, pulmonary hypertension, dilated ascending aorta, thoracic aortic aneurysm, aortic dissection medically treated, duodenal ulcer, GERD, anxiety/depression, chronic amatory dysfunction, peripheral neuropathy, idiopathic
hypersomnia, renal cell carcinoma status post left nephrectomy, BPH, anxiety/depression
Presented with palpitation shortness of breath associated dizziness. Started on IV Cardizem in the ED found to be in atrial fibrillation RVR. Was started on IV Cardizem with improved rate and converted to sinus rhythm with PACs. Evaluated by
cardiology. Findings consistent with symptomatic atrial fibrillation with RVR with and acute HFmrEF. Continue on IV Lasix which was converted back to home oral dosing. In terms of atrial fibrillation with RVR dofetilide was continued, metoprolol
was uptitrated and converted to Toprol 100 mg daily. Will need continued outpatient cardiology follow-up.
As required continue supplemental oxygen was seen by pulmonary which recommended continued IV diuresis. Was able to wean oxygen back to home nocturnal needs with resolution of shortness of breath. And will need continued outpatient pulmonary
follow-up
2d echo
SUMMARY
1. Normal left ventricular function.
2. Ejection fraction is 50-55% by visual assessment.
3. Diastolic flattening of the interventricular septum consistent with right ventricular volume overload.
4. Right ventricular cavity size is moderately dilated.
5. Right ventricular systolic function is mildly decreased.
6. Moderately dilated left atrium left atrium.
7. Severely dilated right atrium.
8. Bioprosthetic aortic valve prosthesis is noted. Aortic prosthesis appears to be functioning normally. Aortic prosthesis is stable and well seated.
9. Severe tricuspid regurgitation.
10. Ascending Aorta 9.1-9.8cm.
11. Tricuspid valve opens normally. Severe tricuspid regurgitation. Estimated pulmonary artery pressure of 45 mmHg assuming a right atrial pressure of 15 mmHg.
12. Severely dilated IVC with absent inspiratory collapse.
13. Compared to a prior transthoracic echocardiogram study from 08/21/2024 The ascending aorta has become further dilated from 8.9 cm to 9.1-9.8 cm.
Cxr
IMPRESSION:
There is a slightly increased small right pleural effusion with adjacent airspace opacity, likely chronic atelectasis.
Cardiomegaly with known thoracic aortic aneurysm, similar to prior.
Seen and examined on the day of discharge which was 07/03/2025. No new complaints. No acute overnight events.
Feeling significantly better. On room air. Pulse ox 9091% on room air. No shortness of breath.
NAD, temporal wasting, comfortable sitting in bedside chair
Scleral Anicteric
MMM
No JVD
CTABL
RRR, S1/S2
Soft, NT, ND, BS+
Warm, Dry
AAOx3
Calm
More than 30 minutes spent in discharge including
Final examination of the patient
Summarizing hospital stay
Instructions for continuing care to all relevant caregivers
Preparation of discharge records, prescriptions, and referral forms
Total time spent (in minutes): 33
Discharge Plan
-
Patient Disposition: Fdc/SNF
Discharge Diagnosis/Procedures: Afib rvr
HFmrEF
Condition: Good
Diet: As tolerated
Activity: As tolerated
Blood Work: INR monitoring per protocol for patient on warfarin
Activity Restrictions/Additional Instructions:
Presented with palpitation shortness of breath associated dizziness. Started on IV Cardizem in the ED found to be in atrial fibrillation RVR. Was started on IV Cardizem with improved rate and converted to sinus rhythm with PACs. Evaluated by
cardiology. Findings consistent with symptomatic atrial fibrillation with RVR with and acute HFmrEF. Continue on IV Lasix which was converted back to home oral dosing. In terms of atrial fibrillation with RVR dofetilide was continued, metoprolol
was uptitrated and converted to Toprol 100 mg daily. Will need continued outpatient cardiology follow-up.
As required continue supplemental oxygen was seen by pulmonary which recommended continued IV diuresis. Was able to wean oxygen back to home nocturnal needs with resolution of shortness of breath. And will need continued outpatient pulmonary
follow-up
2d echo
SUMMARY
1. Normal left ventricular function.
2. Ejection fraction is 50-55% by visual assessment.
3. Diastolic flattening of the interventricular septum consistent with right ventricular volume overload.
4. Right ventricular cavity size is moderately dilated.
5. Right ventricular systolic function is mildly decreased.
6. Moderately dilated left atrium left atrium.
7. Severely dilated right atrium.
8. Bioprosthetic aortic valve prosthesis is noted. Aortic prosthesis appears to be functioning normally. Aortic prosthesis is stable and well seated.
9. Severe tricuspid regurgitation.
10. Ascending Aorta 9.1-9.8cm.
11. Tricuspid valve opens normally. Severe tricuspid regurgitation. Estimated pulmonary artery pressure of 45 mmHg assuming a right atrial pressure of 15 mmHg.
12. Severely dilated IVC with absent inspiratory collapse.
13. Compared to a prior transthoracic echocardiogram study from 08/21/2024 The ascending aorta has become further dilated from 8.9 cm to 9.1-9.8 cm.
Cxr
IMPRESSION:
There is a slightly increased small right pleural effusion with adjacent airspace opacity, likely chronic atelectasis.
Cardiomegaly with known thoracic aortic aneurysm, similar to prior.
Referrals:
Darlyn Rain CRNP [Specified Professional Personl, Cardiology] - 07/18/25 1:00 pm
Referral Note: Your original cardiology appointment was on 07/25/24, but we moved that up to 07/18/25 to see you sooner after hospitalization.
Noble Camarena DO [Family Provider, Family Practice]
Ita Nagy DO [Active, Pulmonary Medicine] - in one to two weeks
Prescriptions:
New
metoprolol succinate 100 mg Tablet Extended Release 24 Hr
100 mg PO DAILY Qty: 30 0RF
Continued
fluticasone propionate 1 SPRAY spray,suspension
2 spray intranasal DAILY
dofetilide 125 MCG capsule
125 mcg PO Q12H Qty: 60 3RF
acetaminophen [Tylenol Extra Strength] 500 MG tablet
650 mg PO Q4HPRN PRN (Reason: mild pain)
albuterol sulfate 1 PUFF HFA aerosol inhaler
2 puff inhalation R Q4HPRN PRN (Reason: sob)
furosemide [Lasix] 40 mg Tablet
30 mg PO .DAILYEVERYT
escitalopram oxalate [Lexapro] 20 mg Tablet
10 mg PO QPM
Refresh Optive 0.5-0.9 % Drops
1 drp BOTH EYES BID
metoprolol succinate 25 mg tablet extended release 24 hr
12.5 mg PO DAILY
Patient Comments:
hold is SBP is less than 110, hold if heart rate less than 65
budesonide-formoterol [Symbicort] 160-4.5 mcg/actuation HFA aerosol inhaler
2 puff INHALATION R BID
Fleet Enema 19-7 gram/118 mL Enema
118 ml AK PRN PRN (Reason: constipation)
ipratropium-albuterol 0.5 mg-3 mg(2.5 mg base)/3 mL Solution For Nebulization
3 ml INHALATION BID
warfarin [Jantoven] 3 mg Tablet
3 mg PO QPM Qty: 30 0RF
metolazone 2.5 mg tablet
2.5 mg PO DAILYPRN PRN (Reason: leg swelling) Qty: 0 0RF
prednisone 5 mg Tablet
5 mg PO DAILY
midodrine 5 mg Tablet
5 mg PO TID
montelukast [Singulair] 10 mg Tablet
10 mg PO HS
furosemide 20 mg Tablet
20 mg PO .[id number]
Discharge Orders:
Discharge Patient (As Directed); Ordered 07/03/25
Ordered By: Rebel Amaya
Discharge Date and Time
Print Language: SAMI
--- NOTE | 2025-07-03 14:02 | CM ---
Received notification that patient has been medically cleared for discharge. Placed a call to Tyler in admissions at [facility] who confirmed ability to accept patient back, today, # For report [phone] and fax # [phone].
Patient was under the impression that he was going to be picked up by [facility]. Called Tyler and June in admissions who stated that hospital sets up w/c van and will bill Medicaid so that it is covered.
Plan: Case management will continue to follow and assist with discharge planning. W/C Van to [facility]
[2025-07-03 15:30] VITALS: BP 115/81
== END 2025-07-03 16:42 | DRG 291 ==
LOC: 4 EAST ACU 17:57
PROVIDERS: ADMITTING PHYSICIAN Hospitalist; ATTENDING PHYSICIAN Hospitalist; CONSULT PHYSICIAN Internal Medicine; EMERGENCY PHYSICIAN Emergency Medicine; FAMILY PHYSICIAN Student in an Organized Health Care Education/Training Program; OTHER PHYSICIAN Internal Medicine Cardiovascular Disease
DX: I13.0 Hypertensive heart and chronic kidney disease with heart failure and stage 1 through stage 4 chronic kidney disease, or unspecified chronic kidney disease (principal); I50.33 Acute on chronic diastolic (congestive) heart failure; J96.21 Acute and chronic respiratory failure with hypoxia; I47.10 Supraventricular tachycardia, unspecified; R64 Cachexia; J98.11 Atelectasis; I48.4 Atypical atrial flutter; I48.0 Paroxysmal atrial fibrillation; I07.1 Rheumatic tricuspid insufficiency; K21.9 Gastro-esophageal reflux disease without esophagitis; N40.0 Benign prostatic hyperplasia without lower urinary tract symptoms; I35.1 Nonrheumatic aortic (valve) insufficiency; J44.89 Other specified chronic obstructive pulmonary disease; N18.32 Chronic kidney disease, stage 3b; I34.0 Nonrheumatic mitral (valve) insufficiency; I27.20 Pulmonary hypertension, unspecified; F41.9 Anxiety disorder, unspecified; F32.A Depression, unspecified; G62.9 Polyneuropathy, unspecified; G47.11 Idiopathic hypersomnia with long sleep time; I95.1 Orthostatic hypotension; I71.20 Thoracic aortic aneurysm, without rupture, unspecified; D72.819 Decreased white blood cell count, unspecified; G47.33 Obstructive sleep apnea (adult) (pediatric); Z66 Do not resuscitate; Z60.2 Problems related to living alone; Z99.81 Dependence on supplemental oxygen; Z87.891 Personal history of nicotine dependence; Z90.5 Acquired absence of kidney; Z85.528 Personal history of other malignant neoplasm of kidney; Z87.440 Personal history of urinary (tract) infections; Z88.5 Allergy status to narcotic agent; Z88.8 Allergy status to other drugs, medicaments and biological substances; Z91.048 Other nonmedicinal substance allergy status; Z79.51 Long term (current) use of inhaled steroids; Z79.52 Long term (current) use of systemic steroids; Z79.01 Long term (current) use of anticoagulants; Z68.21 Body mass index [BMI] 21.0-21.9, adult; Z95.3 Presence of xenogenic heart valve; Z90.79 Acquired absence of other genital organ(s); Z86.79 Personal history of other diseases of the circulatory system
CPT/HCPCS: 71046; 80048; 80053; 83735; 83880; 84484; 85025; 85027; 85610; 87070; 93005; 93306; 94640; 96374; 99285

== ENCOUNTER → 2025-07-16 09:00 | Outpatient (REF) | payer MEDICARE, SELFPAY ==
[2025-07-16 09:49] LABS: Hematocrit 43.2 % (39.0-52.0); Hemoglobin 13.3 g/dL (13.0-18.0); Mean Corp Hgb Conc. 30.8 g/dL (33.0-37.0); Mean Corpuscular Volume 92.7 fL (80.0-94.0); Nucleated Red Blood Cells % 0 % (-); Platelet Count 139 10^3/uL (130-400); Red Cell Dist. Width 15.0 % (11.5-14.5)
[2025-07-16 13:48] LABS: Blood Urea Nitrogen 36 mg/dl (9-20); Calcium 9.4 mg/dl (8.4-10.2); Carbon Dioxide 29 mmol/L (22-30); Chloride 106 mmol/L (98-107); Glucose 72 mg/dl (70-99); Potassium 4.4 mmol/L (3.5-5.1); Sodium 140 mmol/L (135-145); eGFR > 60.00
== END ==
LOC: OLABN 09:00
PROVIDERS: ATTENDING PHYSICIAN Student in an Organized Health Care Education/Training Program
DX: I48.0 Paroxysmal atrial fibrillation (principal); J44.9 Chronic obstructive pulmonary disease, unspecified
CPT/HCPCS: 36415; 80048; 83880; 85025

== ENCOUNTER → 2025-07-25 11:29 | Outpatient (REF) | payer OTHER, MEDICARE, SELFPAY ==
[2025-07-25 11:57] LABS: Hematocrit 40.9 % (39.0-52.0); Hemoglobin 12.6 g/dL (13.0-18.0); Mean Corp Hgb Conc. 30.8 g/dL (33.0-37.0); Mean Corpuscular Volume 91.7 fL (80.0-94.0); Nucleated Red Blood Cells % 0 % (-); Platelet Count 118 10^3/uL (130-400); Red Cell Dist. Width 15.1 % (11.5-14.5)
[2025-07-25 12:16] LABS: Blood Urea Nitrogen 21 mg/dl (9-20); Calcium 9.1 mg/dl (8.4-10.2); Carbon Dioxide 29 mmol/L (22-30); Chloride 101 mmol/L (98-107); Glucose 80 mg/dl (70-99); Potassium 4.0 mmol/L (3.5-5.1); Sodium 137 mmol/L (135-145); eGFR > 60.00
== END ==
LOC: OLABN 11:29
PROVIDERS: ATTENDING PHYSICIAN Student in an Organized Health Care Education/Training Program
DX: R05.9 Cough, unspecified (principal)
CPT/HCPCS: 36415; 80048; 85025

== ENCOUNTER 2025-08-16 09:22 | Day surgery (SDC) | payer MEDICARE, SELFPAY ==
[2025-08-16 10:00] LABS: INR 2.95; PT 30.6 Sec (11.4-14.6)
== END 2025-08-16 12:00 | disposition home or self-care (01) ==
LOC: CATH 09:22
PROVIDERS: ATTENDING PHYSICIAN Student in an Organized Health Care Education/Training Program; FAMILY PHYSICIAN Student in an Organized Health Care Education/Training Program; OTHER PHYSICIAN Internal Medicine Cardiovascular Disease
DX: I48.0 Paroxysmal atrial fibrillation (principal); I50.9 Heart failure, unspecified; R91.8 Other nonspecific abnormal finding of lung field; I71.20 Thoracic aortic aneurysm, without rupture, unspecified; I13.0 Hypertensive heart and chronic kidney disease with heart failure and stage 1 through stage 4 chronic kidney disease, or unspecified chronic kidney disease; N18.32 Chronic kidney disease, stage 3b; I27.20 Pulmonary hypertension, unspecified; Z87.891 Personal history of nicotine dependence; I44.0 Atrioventricular block, first degree; I45.4 Nonspecific intraventricular block
CPT/HCPCS: 85610; 92960; 93005

== ENCOUNTER → 2025-08-17 07:24 | Outpatient (REF) | payer MEDICARE, SELFPAY ==
[2025-08-17 10:16] LABS: Urine Character Clear (Clear)
== END ==
LOC: OLABN 07:24
PROVIDERS: ATTENDING PHYSICIAN Student in an Organized Health Care Education/Training Program
DX: R82.90 Unspecified abnormal findings in urine (principal)
CPT/HCPCS: 81003; 81015; 87086

== ENCOUNTER → 2025-08-27 10:30 | Outpatient (REF) | payer MEDICARE, SELFPAY ==
[2025-08-27 11:47] LABS: ALT (SGPT) 19 U/L (0-50); AST (SGOT) 26 U/L (17-59); Albumin 3.7 g/dl (3.5-5.0); Alkaline Phosphatase 75 U/L (38-126); Blood Urea Nitrogen 32 mg/dl (9-20); Calcium 9.2 mg/dl (8.4-10.2); Carbon Dioxide 32 mmol/L (22-30); Chloride 102 mmol/L (98-107); Glucose 74 mg/dl (70-99); Magnesium 2.3 mg/dl (1.6-2.3); Potassium 4.1 mmol/L (3.5-5.1); Sodium 137 mmol/L (135-145); Total Protein 6.3 g/dl (6.3-8.2); eGFR > 60.00
== END ==
LOC: OLABN 10:30
PROVIDERS: ATTENDING PHYSICIAN Student in an Organized Health Care Education/Training Program
DX: I50.9 Heart failure, unspecified (principal)
CPT/HCPCS: 36415; 80053; 83735

== ENCOUNTER 2025-09-27 14:41 | Inpatient (IN) | payer MEDICARE, SELFPAY ==
[2025-09-27] VITALS (10 sets, daily range): BP systolic 105–126; BP diastolic 67–107; BMI 23.3; BMI 21.4
[2025-09-27 11:45] LABS: Hematocrit 43.0 % (39.0-52.0); Hemoglobin 13.1 g/dL (13.0-18.0); Mean Corp Hgb Conc. 30.5 g/dL (33.0-37.0); Mean Corpuscular Volume 94.1 fL (80.0-94.0); Nucleated Red Blood Cells % 0 % (-); Platelet Count 109 10^3/uL (130-400); Red Cell Dist. Width 16.0 % (11.5-14.5)
--- NOTE | 2025-09-27 11:46 | ED.GENMED ---
History of Present Illness
<Diamond Moreno PA-C - Last Filed: 09/27/25 16:38>
General
Chief Complaint: Breathing Problem
Source: patient
Exam Limitations: none
Time Seen by Provider: 09/27/25 11:35
History of Present Illness
History of Present Illness:
80yoM with a history of COPD on 2.5L NC, CHF, atrial fibrillation, hypertension, aortic valve replacement, large thoracic aortic aneurysm, and prior nephrectomy from renal cell carcinoma presenting via EMS for evaluation of shortness of breath.
Patient is a resident at [facility]. He underwent cardioversion on 08/16 for atrial fibrillation. He felt like he went back [facility] shortly afterwards. He has been increasing short of breath for over a week now. The staff at the nursing
facility increased his oxygen up to 3 L without any improvement. He feels a sensation of his heart racing. His dyspnea has been worsening over the past 3 days and prompted EMS call today. He was treated for pneumonia 6 weeks ago and some cough.
No chest pain.
Past History
<Diamond Moreno PA-C - Last Filed: 09/27/25 16:38>
Past History
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
therapy.)
ED Past Surgical History: Other (Nephrectomy, hernia with mesh)
Patient has exhibited threatening behavior?: No
PSI?: No
Social History
Tobacco: Former smoker
Alcohol: Occasional
Personal:
Living: with roommate
Family History
Family History: Asthma
Phy Exam
<Diamond Moreno PA-C - Last Filed: 09/27/25 16:38>
General Physical Exam
General Presentation: mild distress
General Skin: warm and dry
General Habitus: cachetic and elderly
General Mental: alert
ENT Exam
ENT Exam: normocephalic
Cardiovascular Exam
Cardiovascular Exam: irregularly irregular, tachycardia and other (3+ pitting edema in bilateral lower extremities)
Pulmonary Exam
Pulmonary Exam: decreased breath sounds and other (Fine crackles at baseline. Mild increased WOB with conversational dyspnea)
Respirations: mild increase in effort
Neurological Exam
Neurological Exam: alert
[place] Coma Scale
Eye Opening: Spontaneous
Verbal Response: Oriented
Motor Response: Obeys Commands
GCS Total Score: 15
Skin Exam
Skin Exam: normal color and warm/dry
Psychiatric Exam
Psychiatric Exam: normal mood/affect
Scores
<ROME YoungC - Last Filed: 09/27/25 16:38>
Heart Failure Risk
Heart Failure Risk Score: Not Applicable
Sepsis
<ROME YoungC - Last Filed: 09/27/25 16:38>
Sepsis Screening
Sepsis Assessment: Sepsis Ruled Out
Sepsis Screen
Sepsis Screen: Sepsis Ruled Out
Date: 09/27/25
Time: 16:32
Course
<ROME YoungC - Last Filed: 09/27/25 16:38>
Orders/Labs/Results
Orders:
Orders
09/27/25 11:13
Electrocardiogram (*1) Urgent
Reason for Study: Shortness of Breath
EKG- Treatment ONCE
09/27/25 11:23
CR Chest - 2 Views Urgent
Comment:
Reason For Exam: shortness of breath
09/27/25 11:24
COVID-19 Antigen Urgent
Source: Nasal Swab
Complete Blood Count/With Diff Urgent
Comprehensive Metabolic Panel Urgent
Pro-BNP [NT-proBNP] Urgent
Influenza A+B Rapid Molecular Urgent
ROMY Source: Nasal Swab
Specimen Description:
09/27/25 11:57
Diltiazem HCl [Cardizem] 10 mg IV NOW STA
09/27/25 12:00
Diltiazem 125 mg/125 ml Nss [Cardizem] 125 mg in 125 ml IV PER PROTOCOL
Continuous dose without titration in mg/hr:: 5
Additional Titration Instructions:: Do not titrate. Rate change by provider order only.
09/27/25 12:32
Prothrombin Time Urgent
09/27/25 12:49
Electrocardiogram (*1) Urgent
Reason for Study: Shortness of Breath
EKG- Treatment ONCE
09/27/25 13:11
Dexamethasone Sod Phosphate [Decadron] 10 mg IV NOW STA
Furosemide [Lasix] 20 mg IV NOW STA
09/27/25 13:59
Furosemide [Lasix] 40 mg IV NOW STA
09/27/25 14:06
Ipratropium/Albuterol Sulfate [Duoneb] 3 ml INH R NOW ONE
09/27/25 14:07
Ipratropium/Albuterol Sulfate [Duoneb] 3 ml .ROUTE .STK-MED ONE
09/27/25 14:10
Admit/Transfer Patient As Directed
Co-Sign Provider:
Level of Care: Inpatient admission
Assign to:: Telemetry
Physician / Group: Htay
Diagnosis: CHF
Reason for Telemetry: Acute Heart Failure
Date to Stop Telemetry: 09/30/25
Time to Stop Telemetry: 11:00
Reason for Hospitalization: IV diuretics
Expected length of stay greater than two midnights?: Yes
ELOS- Estimated Length of Stay in days: 3
I certify the patient meets the requirements for IP care: Yes
PRN Pain Medication Management As Directed
May give lesser potent ordered pain med per pt: Yes
preference::
Protocol:: Medication orders for pain may be administered in a
manner that supports deferring to patient preference
when the pt is:
- Requesting an ordered lesser potent pain medication.
Least to most potent pain medications are defined
as: acetaminophen < NSAID < tramadol < opioids
(morphine, oxycodone, hydromorphone).
- Requesting a lesser dose of the same medication IF
ORDERED.
- Requesting a less intrusive route of administration
if both routes are prescribed by the provider (PO <
IV).
09/27/25 14:15
Code Status As Directed
Resuscitation Status: Do not resuscitate
Reached after discussion with pt or family/Healthcare POA: Yes
DNR Bracelet Application ONCE
09/27/25 Dinner
Sodium, 2 Gram
At Your Request: Limited Participation
Does patient need a safe tray?: No
Fluid Restriction: 1440 mL/day (48 oz)
09/27/25 15:58
Ipratropium/Albuterol Sulfate [Duoneb] 3 ml INH R Q4HPRN PRN
09/27/25 15:58
CARDIOLOGY CONSULT Routine
Consulting Provider: Tiffany Mayfield
Was physician already notified: Yes
HF DIETARY CONSULT Routine
HF EDUCATOR CONSULT Routine
Comment:
Activity As Directed
Activity Level: Out of Bed-Early Mobility
Intake/ Output As Directed
Frequency: Per unit guidelines
Patient Education As Directed
Type: CHF folder
Comment: give on admission. Document in Interdisciplinary Education record
Sleep Apnea Assessment by RN As Directed
Comment:
Physician Instructions:
Vital Signs As Directed
Frequency: Other
Additional Instructions:: Q12 or per unit guidelines if more frequent.
Weight As Directed
Frequency: Daily
Type of Scale: Standing Scale
Comment: Daily morning weight. If unable to stand, use balanced bed scale.
Weight As Directed
Frequency: Once
Type of Scale: Standing Scale
Comment: Upon Admission. If unable to stand, use balanced bed scale.
O2 Therapy [RESP] Routine
Titrate/Wean O2 to maintain O2 sat greater than (%): 90
Pulse Ox/cont/shift [RESP] Routine
Quantity: 1
Special Instructions: Daily pulse oximetry at rest. If greater than 92% at rest also obtain pulse oximetry
while ambulating as tolerated.
09/27/25 16:00
Ipratropium/Albuterol Sulfate [Duoneb] 3 ml INH R QID
09/27/25 16:01
Acetaminophen [Tylenol] 650 mg PO Q4HPRN PRN mild pain
09/27/25 17:00
Midodrine [ProAmatine] 5 mg PO TID @ 0800,1200,1700
09/27/25 18:00
Escitalopram Oxalate [Lexapro] 10 mg PO QPM
Warfarin [Coumadin] 2.5 mg PO QPM
09/27/25 20:00
Dofetilide [Tikosyn] 125 mcg PO Q12H
Fluticasone/Salmeterol 115/21 [Advair Hfa 115/21 Mcg Inhaler] 2 puff INH R BID
09/27/25 22:00
Montelukast Sodium [Singulair] 10 mg PO HS
09/28/25 06:00
Basic Metabolic Panel IN AM
Complete Blood Count/No Diff IN AM
Magnesium IN AM
Prothrombin Time IN AM
TSH Reflex To Free T4 IN AM
09/28/25 08:00
Furosemide [Lasix] 40 mg IV DAILY
Metoprolol Xl [Toprol Xl] 50 mg PO DAILY
Prednisone [Deltasone] 5 mg PO DAILY
09/29/25 06:00
Basic Metabolic Panel IN AM
Prothrombin Time IN AM
09/30/25 06:00
Basic Metabolic Panel IN AM
Prothrombin Time IN AM
09/30/25 11:00
DC Protocol for Telemetry ONCE
10/01/25 06:00
Prothrombin Time IN AM
10/02/25 06:00
Prothrombin Time IN AM
Abnormal Lab Results
09/27/25 09/27/25
12:32
WBC 4.4 L 10^3/uL
(4.8-10.8)
RBC 4.57 L 10^6/uL
(4.70-6.10)
MCV 94.1 H fL
(80.0-94.0)
MCHC 30.5 L g/dL
(33.0-37.0)
RDW 16.0 H %
(11.5-14.5)
Plt Count 109 L 10^3/uL
(130-400)
Absolute Lymphs (auto) 0.7 L 10^3/uL
(1.2-3.4)
Lymphocytes % 15.8 L %
(20.5-51.1)
Monocytes % 11.8 H %
(1.7-9.3)
PT 26.1 H Sec
(11.4-14.6)
BUN 33 H mg/dl
(9-20)
Total Bilirubin 2.9 H mg/dl
(0.2-1.3)
09/27/25 11:24
09/27/25 11:24
Vital Signs
Initial and Last Documented VS:
Initial Vital Signs
Temp Pulse Resp BP Pulse Ox
97.5 F 144 30 126/97 94
09/27/25 11:15 09/27/25 11:15 09/27/25 11:15 09/27/25 11:15 09/27/25 11:15
Last Documented Vital Signs
Temp Pulse Resp BP Pulse Ox
97.6 F 80 20 117/83 96
09/27/25 16:21 09/27/25 16:21 09/27/25 16:21 09/27/25 16:21 09/27/25 16:21
<Dedrick Kearney MD - Last Filed: 09/27/25 13:17>
Orders/Labs/Results
Orders:
Orders
09/27/25 11:13
Electrocardiogram (*1) Urgent
Reason for Study: Shortness of Breath
EKG- Treatment ONCE
09/27/25 11:23
CR Chest - 2 Views Urgent
Comment:
Reason For Exam: shortness of breath
09/27/25 11:24
COVID-19 Antigen Urgent
Source: Nasal Swab
Complete Blood Count/With Diff Urgent
Comprehensive Metabolic Panel Urgent
Pro-BNP [NT-proBNP] Urgent
Influenza A+B Rapid Molecular Urgent
ROMY Source: Nasal Swab
Specimen Description:
09/27/25 11:57
Diltiazem HCl [Cardizem] 10 mg IV NOW STA
09/27/25 12:00
Diltiazem 125 mg/125 ml Nss [Cardizem] 125 mg in 125 ml IV PER PROTOCOL
Continuous dose without titration in mg/hr:: 5
Additional Titration Instructions:: Do not titrate. Rate change by provider order only.
09/27/25 12:32
Prothrombin Time Urgent
09/27/25 12:49
Electrocardiogram (*1) Urgent
Reason for Study: Shortness of Breath
EKG- Treatment ONCE
09/27/25 13:11
Dexamethasone Sod Phosphate [Decadron] 10 mg IV NOW STA
Furosemide [Lasix] 20 mg IV NOW STA
09/27/25 13:59
Furosemide [Lasix] 40 mg IV NOW STA
09/27/25 14:06
Ipratropium/Albuterol Sulfate [Duoneb] 3 ml INH R NOW ONE
09/27/25 14:07
Ipratropium/Albuterol Sulfate [Duoneb] 3 ml .ROUTE .STK-MED ONE
09/27/25 14:10
Admit/Transfer Patient As Directed
Co-Sign Provider:
Level of Care: Inpatient admission
Assign to:: Telemetry
Physician / Group: Htay
Diagnosis: CHF
Reason for Telemetry: Acute Heart Failure
Date to Stop Telemetry: 09/30/25
Time to Stop Telemetry: 11:00
Reason for Hospitalization: IV diuretics
Expected length of stay greater than two midnights?: Yes
ELOS- Estimated Length of Stay in days: 3
I certify the patient meets the requirements for IP care: Yes
PRN Pain Medication Management As Directed
May give lesser potent ordered pain med per pt: Yes
preference::
Protocol:: Medication orders for pain may be administered in a
manner that supports deferring to patient preference
when the pt is:
- Requesting an ordered lesser potent pain medication.
Least to most potent pain medications are defined
as: acetaminophen < NSAID < tramadol < opioids
(morphine, oxycodone, hydromorphone).
- Requesting a lesser dose of the same medication IF
ORDERED.
- Requesting a less intrusive route of administration
if both routes are prescribed by the provider (PO <
IV).
09/27/25 14:15
Code Status As Directed
Resuscitation Status: Do not resuscitate
Reached after discussion with pt or family/Healthcare POA: Yes
DNR Bracelet Application ONCE
09/27/25 Dinner
Sodium, 2 Gram
At Your Request: Limited Participation
Does patient need a safe tray?: No
Fluid Restriction: 1440 mL/day (48 oz)
09/27/25 15:58
Ipratropium/Albuterol Sulfate [Duoneb] 3 ml INH R Q4HPRN PRN
09/27/25 15:58
CARDIOLOGY CONSULT Routine
Consulting Provider: Tiffany Mayfield
Was physician already notified: Yes
HF DIETARY CONSULT Routine
HF EDUCATOR CONSULT Routine
Comment:
Activity As Directed
Activity Level: Out of Bed-Early Mobility
Intake/ Output As Directed
Frequency: Per unit guidelines
Patient Education As Directed
Type: CHF folder
Comment: give on admission. Document in Interdisciplinary Education record
Sleep Apnea Assessment by RN As Directed
Comment:
Physician Instructions:
Vital Signs As Directed
Frequency: Other
Additional Instructions:: Q12 or per unit guidelines if more frequent.
Weight As Directed
Frequency: Daily
Type of Scale: Standing Scale
Comment: Daily morning weight. If unable to stand, use balanced bed scale.
Weight As Directed
Frequency: Once
Type of Scale: Standing Scale
Comment: Upon Admission. If unable to stand, use balanced bed scale.
O2 Therapy [RESP] Routine
Titrate/Wean O2 to maintain O2 sat greater than (%): 90
Pulse Ox/cont/shift [RESP] Routine
Quantity: 1
Special Instructions: Daily pulse oximetry at rest. If greater than 92% at rest also obtain pulse oximetry
while ambulating as tolerated.
09/27/25 16:00
Ipratropium/Albuterol Sulfate [Duoneb] 3 ml INH R QID
09/27/25 16:01
Acetaminophen [Tylenol] 650 mg PO Q4HPRN PRN mild pain
09/27/25 17:00
Midodrine [ProAmatine] 5 mg PO TID @ 0800,1200,1700
09/27/25 18:00
Escitalopram Oxalate [Lexapro] 10 mg PO QPM
Warfarin [Coumadin] 2.5 mg PO QPM
09/27/25 20:00
Dofetilide [Tikosyn] 125 mcg PO Q12H
Fluticasone/Salmeterol 115/21 [Advair Hfa 115/21 Mcg Inhaler] 2 puff INH R BID
09/27/25 22:00
Montelukast Sodium [Singulair] 10 mg PO HS
09/28/25 06:00
Basic Metabolic Panel IN AM
Complete Blood Count/No Diff IN AM
Magnesium IN AM
Prothrombin Time IN AM
TSH Reflex To Free T4 IN AM
09/28/25 08:00
Furosemide [Lasix] 40 mg IV DAILY
Metoprolol Xl [Toprol Xl] 50 mg PO DAILY
Prednisone [Deltasone] 5 mg PO DAILY
09/29/25 06:00
Basic Metabolic Panel IN AM
Prothrombin Time IN AM
09/30/25 06:00
Basic Metabolic Panel IN AM
Prothrombin Time IN AM
09/30/25 11:00
DC Protocol for Telemetry ONCE
10/01/25 06:00
Prothrombin Time IN AM
10/02/25 06:00
Prothrombin Time IN AM
Abnormal Lab Results
09/27/25 09/27/25
12:32
WBC 4.4 L 10^3/uL
(4.8-10.8)
RBC 4.57 L 10^6/uL
(4.70-6.10)
MCV 94.1 H fL
(80.0-94.0)
MCHC 30.5 L g/dL
(33.0-37.0)
RDW 16.0 H %
(11.5-14.5)
Plt Count 109 L 10^3/uL
(130-400)
Absolute Lymphs (auto) 0.7 L 10^3/uL
(1.2-3.4)
Lymphocytes % 15.8 L %
(20.5-51.1)
Monocytes % 11.8 H %
(1.7-9.3)
PT 26.1 H Sec
(11.4-14.6)
BUN 33 H mg/dl
(9-20)
Total Bilirubin 2.9 H mg/dl
(0.2-1.3)
09/27/25 11:24
09/27/25 11:24
Vital Signs
Initial and Last Documented VS:
Initial Vital Signs
Temp Pulse Resp BP Pulse Ox
97.5 F 144 30 126/97 94
09/27/25 11:15 09/27/25 11:15 09/27/25 11:15 09/27/25 11:15 09/27/25 11:15
Last Documented Vital Signs
Temp Pulse Resp BP Pulse Ox
97.6 F 80 20 117/83 96
09/27/25 16:21 09/27/25 16:21 09/27/25 16:21 09/27/25 16:21 09/27/25 16:21
<Diamond Moreno PA-C - Last Filed: 09/27/25 16:38>
MDM/Problems Addressed
Differential Diagnosis Includes:
80yoM here with SOB. Ongoing >1 week, worsening for the past few days. Hx of CHF, afib, and COPD on chronic oxygen. Oxygen increased from 2.5L to 3L by [facility] staff. HR 144 on arrival. Rapid afib noted on monitor. Peripheral edema noted.
Decreased breath sounds with conversational dyspnea. Differential diagnosis includes: symptomatic afib, CHF exacerbation, COPD exacerbation, pneumonia
Initial ED plan: Check cardiac labs, EKG, and CXR. IV Cardizem bolus and drip ordered.
<Diamond Moreno PA-C - Last Filed: 09/27/25 16:38>
*Pulse Oximetry
SaO2: 94
Nasal Cannula flow liters per minute: 4
Patient hypoxic: no
*EKG
Interpreted by ED Provider?: Yes
EKG Intrepretation Date: 09/27/25
Heart Rate: 135
Rate: tachycardiac
Rhythm: a-fib
[place]: left axis deviation
QRS Pattern: wide non-specific
Ischemia: non-specific ST changes
*Critical Care Note
Total Time (30-74mins, 75-104mins- exclusive of procedures): Not Applicable
<Diamond Moreno PA-C - Last Filed: 09/27/25 16:38>
Update Note
Update Note:
BNP 5160. CXR shows small to moderate R pleural effusion with associated atelectasis and/or pneumonia, slightly progressed. Heart rate controlled on Cardizem gtt. 20mg IV Lasix ordered. Will also cover with IV Decadron for possible COPD component.
Patient admitted for further management.
ED Attending Note
<Diamond Moreno PA-C - Last Filed: 09/27/25 16:38>
-
Portions of this chart may have been created with voice recognition software.� Occasional wrong word or��sound alike� substitutions may have occurred due to the inherent limitations of voice recognition software.
<Dedrick Kearney MD - Last Filed: 09/27/25 13:17>
ED Attending Note
Patient seen and examined by attending physician: Yes
I performed the substantive portion of visit, reviewed & personally made and approve the management plan that is documented in note by myself or HOWIE.: Yes
ED Attending Note:
80-year-old male complaining of increased shortness of breath last 2 to 3 days. He feels it is likely from atrial fibrillation. No fever no cough. Chronic 3 L nasal cannula. Currently feels better with rate control.
On exam patient is nontoxic no distress. A few dry crackles and distant breath sounds diffusely. Mild tachypnea at rest. Mildly breathless with speaking. Irregular irregular irregular with mild midsystolic murmur. +1 edema peripherally.
Patient with moderate 6 kg weight gain over the last few months. proBNP mildly elevated. Some small effusions on x-ray. This may be multifactorial with some component of CHF but also COPD issues. Warrants inpatient management and rate control
Discharge Plan
Departure
Patient Disposition: Admit
Date of Disposition: 09/27/25
Time of Disposition: 13:29
Presentation/result/management discussed w/ accepting MD/DO: Hospitalist
Discharge Problem:
Atrial fibrillation with RVR, Acute exacerbation of CHF (congestive heart failure)
Interventions
Interventions:
*Risk Screen - Suicide Last Done: 09/27/25 11:15
*General Assessment Last Done: 09/27/25 11:15
*Neglect/Abuse Screening Last Done: 09/27/25 11:15
*ED- Fall Risk Assessment Last Done: 09/27/25 11:15
*ED COVID-19 Vaccine History Last Done: 09/27/25 11:15
*ED Influenza Vaccine History Last Done: 09/27/25 11:15
*Nursing Disposition Last Done: 09/27/25 15:54
ED- Cardiac Assessment Last Done: 09/27/25 12:18
ED- Pulmonary Assessment Last Done: 09/27/25 12:18
Discharge Date and Time
Discharge Date/Time: 09/27/25 15:55
[2025-09-27 11:54] LABS: ALT (SGPT) 23 U/L (0-50); AST (SGOT) 26 U/L (17-59); Albumin 4.4 g/dl (3.5-5.0); Alkaline Phosphatase 81 U/L (38-126); Blood Urea Nitrogen 33 mg/dl (9-20); Calcium 9.5 mg/dl (8.4-10.2); Carbon Dioxide 29 mmol/L (22-30); Chloride 102 mmol/L (98-107); Estimated Creatinine Clearance 59 ml/min; Glucose 82 mg/dl (70-99); Potassium 4.0 mmol/L (3.5-5.1); Sodium 137 mmol/L (135-145); Total Protein 7.3 g/dl (6.3-8.2); eGFR > 60.00
[2025-09-27 11:55] LABS: COVID-19 Antigen Negative (Negative)
[2025-09-27] MEDS: CARDIZEM 10 MG IV (12:11)
[2025-09-27] MEDS: CARDIZEM 125 IV (12:13)
[2025-09-27 12:53] LABS: INR 2.39; PT 26.1 Sec (11.4-14.6)
--- NOTE | 2025-09-27 13:35 | HPS.HSE ---
Family Physician
-
Family Physician: NOT KNOW UNKNOWN - PT DOES
Chief Complaint
-
Shortness of Breath and Tachycardia
History of Present Illness
Patient is an 80 y/o male past medical history of CHF, AVR, A-fib, COPD on supplemental oxygen, pulmonary hypertension, orthostatic hypotension, BPH and depression who presents with tachycardia and shortness of breath. Patient reports orthopnea for
that past three nights. Today his nurse noted that his heart rate was very elevated and he was sent to the emergency department for evaluation. Review of records indicates that patient has gained 12 lb since his admission in June. He denies any
chest pain or palpitations.
Medical History
Past Medical History
Past Medical History: Reports Other
Additional Past Medical History:
Chronic HFpEF
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
Paroxysmal Atrial Fibrillation s/p Ablation
SVT
Dilated Ascending Aorta
Thoracic Aortic Aneurysm
Aortic Dissection (treated medically)
Chronic Hypoxic Respiratory Failure / COPD
Renal Cell Carcinoma s/p Left Nephrectomy
Pulmonary Hypertension
Orthostatic Hypotension
BPH
PUD / GI Bleed
Anxiety / Depression
Past Surgical History: Reports Other
Additional Past Surgical History:
Bioprosthetic Aortic Valve Replacement
Left Nephrectomy
TURP
Hernia with Mesh
Social History
Tobacco: Former Smoker
Living: [facility]
Family History
Family History: Not pertinent
Allergies / Home Medications
Allergies reflects when Allergies were last updated in [facility].
Home Medications with original date entered in [facility]
Allergy/Medication List:
Allergies
Allergy/AdvReac Type Severity Reaction Status Date / Time
adhesive Allergy Rash Verified 09/27/25 11:14
lisinopril Allergy Anaphylaxis Verified 09/27/25 11:14
/ANGIOEDEMA
morphine Allergy HALLUCINATI Verified 09/27/25 11:14
ONS
protamine Allergy Anaphylaxis/pulmonary Verified 09/27/25 11:14
HTN
Home Medications
fluticasone propionate 50 mcg/actuation nasal spray,suspension 2 spray intranasal DAILY Congestion 02/12/18
acetaminophen 500 mg tablet (Tylenol Extra Strength) 650 mg PO Q4HPRN PRN mild pain 07/08/20
escitalopram oxalate 20 mg tablet (Lexapro) 10 mg PO QPM Depression 01/13/23
ipratropium 0.5 mg-albuterol 3 mg (2.5 mg base)/3 mL nebulization soln 3 ml inhalation R TID Lung/Breathing Issues 12/03/24
furosemide 20 mg tablet 30 mg PO DAILY Fluid Retention/Swelling 06/30/25
midodrine 5 mg tablet 5 mg PO TID Blood Pressure 06/30/25
montelukast 10 mg tablet (Singulair) 10 mg PO HS Allergies 06/30/25
prednisone 5 mg tablet 5 mg PO DAILY Anti-Inflammatory 06/30/25
albuterol sulfate 90 mcg/actuation aerosol inhaler 2 puff inhalation R Q6HPRN PRN sob 09/27/25
benzocaine 15 mg-menthol 10 mg lozenges (Chloraseptic Max) 1 pavithra mucous membrane Q6HPRN PRN cough 09/27/25
carboxymethylcellulose 0.5 %-glycerin 0.9 % eye drops (Refresh Optive) 1 drp BOTH EYES BID Eye Condition 09/27/25
dofetilide 125 mcg capsule 125 mcg PO Q12H Heart Disease/Condition 09/27/25
fluticasone 250 mcg-salmeterol 50 mcg/dose blistr powdr for inhalation (Advair Diskus) 1 inh inhalation R BID Lung/Breathing Issues 09/27/25
hydrocortisone 2.5 % topical cream with perineal applicator (Proctozone-HC) 1 applic MO Q4HPRN PRN hemorrhiods 09/27/25
magnesium hydroxide 400 mg/5 mL oral suspension (Milk of Magnesia) 2,400 mg PO HSPRN PRN constipation 09/27/25
metolazone 2.5 mg tablet 2.5 mg PO DAILYPRN PRN wt gain >3 pds 09/27/25
metoprolol succinate 100 mg tablet,extended release 24 hr 50 mg PO DAILY Heart Disease/Condition 09/27/25
sodium phosphates 19 gram-7 gram/118 mL enema (Fleet Enema) 118 ml MO [id number] PRN if no bm aftr mom 09/27/25
warfarin 2.5 mg tablet 2.5 mg PO QPM Blood Clot Prevention/Tx 09/27/25
Review of Systems
-
History Source: Patient
A 12 point ROS was completed and negative except as noted: Yes
Constitutional: Denies Fever or Chills
Respiratory: Reports Trouble Breathing; Denies Cough
Cardiac: Denies Chest Pain or Palpitations
Abdomen/GI: Denies Abdominal Pain, Nausea, Vomiting, Diarrhea or Constipated
Physical Exam
Vital Signs
Vital Signs
Temp Pulse Resp BP Pulse Ox
97.5 F 126 29 120/100 93
09/27/25 11:15 09/27/25 12:15 09/27/25 12:15 09/27/25 12:11 09/27/25 12:18
Physical Exam
General: Well Developed, Well Nourished and No Apparent Distress
HEENT: NormoCephalic, Anicteric, Moist mucous membranes and Atraumatic
Respiratory: Other (Decreased breath sounds particularly at the right base; Bilateral rales; Non-Labored )
Cardiac: S1/S2, Regular Rhythm and Murmur
GI: Soft, Non Tender, Non Distended and Normal Bowel Sounds
Rectal: Deferred by Provider
Musculoskeletal: No Clubbing, No Cyanosis and Other (+2 pitting edema bilateral lower extremities)
Skin: Warm and Dry; No Rash
Neuro: Awake, Alert, Oriented and Nonfocal/grossly intact
Psych: Calm
Laboratory Results
-
09/27/25 11:24
09/27/25 11:24
Laboratory Results
PT 26.1 Sec (11.4-14.6) H 09/27/25 12:32
INR 2.39 09/27/25 12:32
Total Bilirubin 2.9 mg/dl (0.2-1.3) H 09/27/25 11:24
AST 26 U/L (17-59) 09/27/25 11:24
ALT 23 U/L (0-50) 09/27/25 11:24
Alkaline Phosphatase 81 U/L (38-126) 09/27/25 11:24
Data Reviewed
-
Diagnostic Radiology: Report Reviewed by me
Lab Data: Labs Reviewed by me
Impression/Plan
-
Acute on Chronic HFpEF
-Consult Cardiology
-Echo Jun 2025: Normal left ventricular function with EF 50-55%. Bioprosthetic aortic valve. Severe tricuspid regurgitation with estimated pulmonary pressure 45 mmHg
-Continue Lasix 40mg IV Daily
-Monitor Daily Weights
Paroxysmal Atrial Fibrillation
-Patient initially with rapid ventricular response on arrival to ED. Patient received diltiazem 10mg IV Push and was started on diltiazem infusion
-Rate has now improved and appears to be back in normal rhythm
-Consider stopping diltiazem infusion - defer to Cardiology
-Continue Tikosyn
-Continue metoprolol
-Coumadin Coumadin - INR currently in range
Chronic Hypoxic Respiratory Failure / COPD
-Continue supplemental oxygen - 2L at baseline
-Continue Advair
-Continue DuoNeb
-Continue prednisone 5mg Daily as prior to admission
Orthostatic Hypotension
-Continue midodrine
Anxiety / Depression
-Continue Lexapro
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
Hx Dilated Ascending Aorta, Thoracic Aortic Aneurysm and Aortic Dissection (treated medically)
Hx Renal Cell Carcinoma s/p Left Nephrectomy
DVT Proph: Coumadin
Code Status: DNR
--- NOTE | 2025-09-27 13:39 | W.PN.UPDATE ---
Update Note
Progress Note Update
This note serves as an addendum to the H&P by gas meter checker HOWIE�
Sherley DIETERICK
HPI�
80M [place] [facility] Res HX Prox AF on chr warfarin, HX 2.5 L O2 dependent COPD, HX chr HFpEF, LVEF 50-55, hypertension, AoVR, , large thoracic aortic aneurysm, and prior nephrectomy from renal cell carcinoma seen at ER: for evaluation of shortness of breath.
- progressive dyspnea for 1 week and worsening over last 3 days
- associated with racing heart sensation
- Increase O2 demand 3L NC but no relief of SoB
Baseline : chronic 2.5 L O2 dependent chr RF
- s/p CV 08/16 for atrial fibrillation- like he went back into A-fib shortly afterwards.
- The staff at the nursing facility increased his oxygen up to 3 L without any improvement.
ROS
No chest pain.
At ER :
Diltiazem gtt
IV lasix 20 x 1
IV Decadron - Not given
PHX
HX Enterococcus UTI
HX CHF
CKD3B ? - Current Cr is 1.0 + eGFR is > 60
HX SVT
Paroxysmal atrial fibrillation status post ablation, moderate mitral regurgitation
HX of endocarditis
HX COPD on 2L baseline, former smoker, chronic lung nodules, asthma
HX pulmonary hypertension
dilated ascending aorta, thoracic aortic aneurysm, aortic dissection medically treated
HX duodenal ulcer, GERD
HX anxiety/depression
chronic amatory dysfunction
peripheral neuropathy
Idiopathic hypersomnia
HX renal cell carcinoma status post left nephrectomy, BPH
Relevant VS
WT 07/02/25
06:00 07/03/25
06:00 09/27/25
11:15
Actual Weight 65.346 kg 65.516 kg + 4 kg = 71.5 kg
Temp Pulse Resp BP Pulse Ox
97.5 F 126 29 120/100 93
09/27/25 11:15 09/27/25 12:15 09/27/25 12:15 09/27/25 12:11 09/27/25 12:18
PE
Gen: thin , orthopneic, wearing Mask
HEENT:anicteric
Neck: suple
Lungs: symmetric AE. Basilar rales both chest. No wheeze. No rhonchi.
Cor: fast irregular
Abdomen:�soft benign
CONSULTING PROPERTY MANAGER: AAO3 NFND
MS: distal peripheral trace edema
Psych: Normal mood and affect
Relevant Data
07/25/25 08/16/25 08/27/25
05:35 09:35 05:35
WBC
Hgb 12.6 L
Plt Count 118 L
INR 2.95
BUN 32 H
Creatinine
eGFR > 60.00
Total Bilirubin 2.5 H
AST
ALT
Alkaline Phosphatase
09/27/25 09/27/25
11:24 12:32
WBC 4.4 L
Hgb 13.1
Plt Count 109 L
INR 2.39
BUN 33 H
Creatinine 1.0
eGFR > 60.00
Total Bilirubin 2.9 H
AST 26
ALT 23
Alkaline Phosphatase 81
07/16/25 09/27/25
05:20 11:24
Hsq-A-Skzurogxkfg Pept 3450 5160
EKG @ 1249P report:
WIDE QRS RHYTHM
RIGHT BUNDLE BRANCH BLOCK
LEFT ANTERIOR FASCICULAR BLOCK
BIFASCICULAR BLOCK
T WAVE ABNORMALITY, CONSIDER LATERAL ISCHEMIA
ABNORMAL ECG
WHEN COMPARED WITH ECG OF 27-Sep-2025 11:15,
PREVIOUS ECG HAS UNDETERMINED RHYTHM, NEEDS REVIEW
EKG @ 1113AM report
UNDETERMINED RHYTHM
LEFT AXIS DEVIATION
NON-SPECIFIC INTRA-VENTRICULAR CONDUCTION BLOCK
MINIMAL VOLTAGE CRITERIA FOR LVH, MAY BE NORMAL VARIANT ( [place] product )
NONSPECIFIC T WAVE ABNORMALITY
ABNORMAL ECG
WHEN COMPARED WITH ECG OF 16-Aug-2025 10:50,
CURRENT UNDETERMINED RHYTHM PRECLUDES RHYTHM COMPARISON, NEEDS REVIEW
CXR
Small to moderate right pleural effusion with associated atelectasis and/or pneumonia, slightly progressed.
07/01/25 TTE
1. Normal left ventricular function.
2. Ejection fraction is 50-55% by visual assessment.
3. Diastolic flattening of the interventricular septum consistent with right ventricular volume overload.
4. Right ventricular cavity size is moderately dilated.
5. Right ventricular systolic function is mildly decreased.
6. Moderately dilated left atrium left atrium.
7. Severely dilated right atrium.
8. Bioprosthetic aortic valve prosthesis is noted. Aortic prosthesis appears to be functioning normally. Aortic prosthesis is stable and well seated.
9. Severe tricuspid regurgitation.
10. Ascending Aorta 9.1-9.8cm.
11. Tricuspid valve opens normally. Severe tricuspid regurgitation. Estimated pulmonary artery pressure of 45 mmHg assuming a right atrial pressure of 15 mmHg.
12. Severely dilated IVC with absent inspiratory collapse.
13. Compared to a prior transthoracic echocardiogram study from 08/21/2024 The ascending aorta has become fu
Last hospitalist admission: 06/30/25 - 07/03/25
DC Dxs:
Acute on chronic hypoxic respiratory failure
Acute on chronic heart failure with improved ejection fraction
ASSESSMENT & PLAN
Progressive Dyspnea and acute on chr hypoxic RF due to following : acute HF, Fast AF > COPD flare
- Expanded volume about 4 kg
- Decompensated chr HFpEF - associated progressive Dyspnea and acute on chr hypoxic RF
- Fast A Fib - A Tach vs atypical flutter : in AF with HR 70s on Diltiazem gtt, Normotesion
- HX paroxysmal A-fib on chronic Coumadin, HX A Fib ablation
- Hemodynamically stable
- Highest proBNP
- IV Lasix 40 mg daily ( at home on PO 30 mg daily plus Metolazone 2.5 mg PRN)
- AC: on Warfarin with Rxtic INR @ 2.9 ( upper limit of normal Rxtic range)
- Rate control: Diltiazem low dose gtt @ 5mg /H ( No titration)
- CBC card consult
HX COPD stage IV - stable
- clinically not bronchospastic
- acute on chr hypoxic RF
- avoid over correction of POx > 94
- cont. all OP Meds
- Clinically doubt indication for IV Steroids
Prior AVR, good on echo
Very large thoracic aortic aneurysm, no plans for intervention
HX hypotension
- BP tolerating metoprolol at increased dose well so far
DVT Px: on chr warfarin
Code: Full
IP TLM
[2025-09-27] MEDS: LASIX 40 MG IV (14:11)
[2025-09-27] MEDS: DUONEB 3 ML INH ×2 (14:12→20:36)
--- NOTE | 2025-09-27 15:13 | CON.CAR ---
Addendum entered and electronically signed by Tiffany Mayfield MD 09/27/25 17:07:
I saw and evaluated the patient, and I provided the substantive portion of the medical decision making.
I reviewed and agree with the note by [ ] and it accurately reflects our care.
I personally performed the medical decision making of the this encounter and my assessment and plan is below:
80-year-old male with chronic HFpEF, infective endocarditis status post bio AVR in 2018, thoracic aortic aneurysm with DeBakey type I aortic dissection (not thought to be surgical candidate it was managed conservatively), COPD, HTN, paroxysmal
atrial fibrillation status post ablation on dofetilide and OAC with Warfarin, and atrial tachycardia versus atypical atrial flutter, who presents from [facility] with c/o SOB for 3 days within orthopnea and palpitations found to be
in A-fib with RVR, subsequently started on IV Cardizem and converted to normal sinus rhythm. Additionally, chest x-ray showed small to moderate right pleural effusion that had progressed, weight is up and he has noted lower extremity edema. The
only other change he tells me is that he is taking metoprolol alternating days with midodrine.
Currently he is feeling a bit better.
He is quite dyspneic still with conversation. He has a regular rate and rhythm with a normal S1-S2, lungs were decreased bilaterally prolonged expiratory rate. Extremities had 1+ pitting edema up to mid leg.
Telemetry shows runs of atrial fibrillation/atrial tachycardia that are rate controlled with sinus and PACs also seen intermittently.
Chest x-ray on my review shows right pleural effusion with a right sided hilar prominence in the right midlung field, with cephalization but left lung is hyperexpanded.
EKG shows sinus rhythm.
Labs show proBNP up to 5160 from 3450 on 07/16/2025. BUN 33 creatinine 1.0 potassium 4.0.
Assessment:
Acute heart failure with preserved EF: EF 50 to 55%, volume overloaded on exam. Agree with twice daily IV diuresis with intensive monitoring.
A-fib with RVR on presentation but currently in sinus, still having paroxysms. Not a candidate for Amio due to severe lung distal disease. Not a candidate for repeat ablation for same reason. Recent cardioversion 08/16/2025. For now we will
cautiously continue dofetilide and metoprolol, we will see if he can tolerate a higher dose of metoprolol. Midodrine for blood pressure support so this may not be helpful. Stop IV Dilt drip.
Hypertension: Appears to have issues with hypotension now given midodrine.
COPD on oxygen: Chronic, monitor for worsening with increased beta-sania.
Original Note:
Consultation
Consultation Request
Date/Time Consultation Requested: 09/27/25 2p
Date/Time Consultation Performed: 09/27/25 3p
Requesting Provider: Angie Hernandez PA-C
Performing Provider: SOURAV Layton for Dr. Mayfield
Reason for Consultation: Afib and HFpEF
Medical History
-
Chief Complaint: palpitations, Afib
History of Present Illness:
Mr. Kirk is an 80-year-old male with chronic HFpEF, infective endocarditis status post bio AVR in 2018, thoracic aortic aneurysm with DeBakey type I aortic dissection (not thought to be surgical candidate it was managed conservatively), COPD, HTN,
paroxysmal atrial fibrillation status post ablation on dofetilide and OAC with Warfarin, and atrial tachycardia versus atypical atrial flutter, who presents from [facility] with c/o SOB for 3 days and palpitations noted to be in
rapid A-fib, treated with IV Cardizem and converted to normal sinus rhythm. He had an outpatient cardioversion 08/16/2025 restoring normal sinus rhythm at that time. He also complains of increased shortness of breath, weight gain and LE edema.
ProBNP 5160, CXR: small to moderate right pleural effusion with associated atelectasis and/or pneumonia, slightly progressed.
Past Medical History
Past Medical History: Other (as above)
Past Surgical History: Cardiac (AVR 2018, Afbi ablation)
Social History
Tobacco: Non-Smoker
Alcohol: None
Living: [facility] ([facility])
Family History
Family History: Reviewed & Not Pertinent
Allergies / Home Medications
Allergy/AdvReac Type Severity Reaction Status Date / Time
adhesive Allergy Rash Verified 09/27/25 11:14
lisinopril Allergy Anaphylaxis Verified 09/27/25 11:14
/ANGIOEDEMA
morphine Allergy HALLUCINATI Verified 09/27/25 11:14
ONS
protamine Allergy Anaphylaxis/pulmonary Verified 09/27/25 11:14
HTN
�Medication �Instructions �Recorded �Confirmed �Type
fluticasone propionate 50 2 spray intranasal DAILY Congestion 02/12/18 09/27/25 History
mcg/actuation nasal
spray,suspension
acetaminophen 500 mg tablet 650 mg PO Q4HPRN PRN mild pain 07/08/20 09/27/25 History
(Tylenol Extra Strength)
escitalopram oxalate 20 mg tablet 10 mg PO QPM Depression 01/13/23 09/27/25 History
(Lexapro)
ipratropium 0.5 mg-albuterol 3 mg 3 ml inhalation R TID 12/03/24 09/27/25 History
(2.5 mg base)/3 mL nebulization Lung/Breathing Issues
soln
furosemide 20 mg tablet 30 mg PO DAILY Fluid 06/30/25 09/27/25 History
Retention/Swelling
midodrine 5 mg tablet 5 mg PO TID Blood Pressure 06/30/25 09/27/25 History
montelukast 10 mg tablet 10 mg PO HS Allergies 06/30/25 09/27/25 History
(Singulair)
prednisone 5 mg tablet 5 mg PO DAILY Anti-Inflammatory 06/30/25 09/27/25 History
albuterol sulfate 90 mcg/actuation 2 puff inhalation R Q6HPRN PRN sob 09/27/25 09/27/25 History
aerosol inhaler
benzocaine 15 mg-menthol 10 mg 1 pavithra mucous membrane Q6HPRN PRN 09/27/25 09/27/25 History
lozenges (Chloraseptic Max) cough
carboxymethylcellulose 0.5 1 drp BOTH EYES BID Eye Condition 09/27/25 09/27/25 History
%-glycerin 0.9 % eye drops
(Refresh Optive)
dofetilide 125 mcg capsule 125 mcg PO Q12H Heart 09/27/25 09/27/25 History
Disease/Condition
fluticasone 250 mcg-salmeterol 50 1 inh inhalation R BID 09/27/25 09/27/25 History
mcg/dose blistr powdr for Lung/Breathing Issues
inhalation (Advair Diskus)
hydrocortisone 2.5 % topical cream 1 applic NE Q4HPRN PRN hemorrhiods 09/27/25 09/27/25 History
with perineal applicator
(Proctozone-HC)
magnesium hydroxide 400 mg/5 mL 2,400 mg PO HSPRN PRN constipation 09/27/25 09/27/25 History
oral suspension (Milk of Magnesia)
metolazone 2.5 mg tablet 2.5 mg PO DAILYPRN PRN wt gain >3 09/27/25 09/27/25 History
pds
metoprolol succinate 100 mg 50 mg PO DAILY Heart 09/27/25 09/27/25 History
tablet,extended release 24 hr Disease/Condition
sodium phosphates 19 gram-7 118 ml NE [id number] PRN if no bm 09/27/25 09/27/25 History
gram/118 mL enema (Fleet Enema) aftr mom
warfarin 2.5 mg tablet 2.5 mg PO QPM Blood Clot 09/27/25 09/27/25 History
Prevention/Tx
Review of Systems
-
History Source: Patient
All other systems: Negative unless noted
Physical Exam
Vital Signs
Temp Pulse Resp BP Pulse Ox
97.5 F 84 26 121/107 95
09/27/25 11:15 09/27/25 14:30 09/27/25 14:30 09/27/25 14:11 09/27/25 14:30
Lab Results
09/27/25 11:24
09/27/25 11:24
Fkj-Z-Ofstzcywkfl Pept 5160 pg/ml 09/27/25 11:24
Physical Exam
General: Well Developed
HEENT: Normocephalic, Anicteric and Moist Mucous Membranes
Respiratory: Clear and Non Labored Respirations
Cardiac: S1/S2 and Regular Rhythm
Breast: Deferred by me
GI: Soft, Non Tender and Normal Bowel Sounds
Rectal: Deferred by Provider
Genito-urinary: No Costovertebral Tender
Musculoskeletal: No Clubbing, No Cyanosis and No Edema
Skin: Warm and Dry
Neuro: AO x 3
Psych: Calm
Impression / Plan
-
Afib - rapid ventricular response.
- NSR after IV Cardizem, continue.
- on chronic Warfarin, continue. INR
- s/p DCCV 08/16/25.
- on Dofetilide 125mcg Q12h and Toprol, continue.
- not a good candidate for Amiodarone due to pulmonary insult and may not tolerate it well with severe COPD.
- repeat ablation is a significant risk.
HFpEF - acute on chronic.
- agree with IV Lasix, which requires intensive monitoring.
- daily weights, I&O.
- dry weight is around 146 lbs.
HTN - stable on meds, continue to monitor with diuresis.
COPD - oxygen dependent 3L NC.
Data Reviewed
-
EKG: Tracing Personally Visualized and interpreted (A-fib, then sinus rhythm.)
Radiology: Report Reviewed by me (CXR: Small to moderate right pleural effusion with associated atelectasis and/or pneumonia, slightly progressed.)
Medical Tests (Nuc Med, Echo etc): Report Reviewed by me (Echo 07/01/2025: EF 50-55%, diastolic flattening of the interventricular septum consistent with RV volume overload, RV size is mod dilated with mildly decreased function, mod dilated left
atrium, severely dilated right atrium, bio AV prosthesis noted with normal function, severe TR, PASP 45mmHg)
Labs: Labs Reviewed by me
Old Records: Reviewed
--- NOTE | 2025-09-27 15:54 | CM ---
Chart reviewed. Patient is a [place] [facility]
Spoke with Adalid RN at [facility]
He is alert and oriented x3
Needs 1 assist with all ADLs and ambulates with RW
DCP is to [place] [facility] ready
Cm will continue to follow up for any dcp needs
[2025-09-27] MEDS: DUONEB INH (16:00)
--- NOTE | 2025-09-27 16:00 | CM ---
Chart reviewed and patient a LTC [facility]
Spoke with Adalid at [facility]
PLOF needs 1 person assist ambulating with RW
alert and oriented
DCP is to return back [place]
CM will continue to follow up for any dcp needs
[2025-09-27] MEDS: COUMADIN 2.5 MG PO (17:47)
[2025-09-27] MEDS: TOPROL XL 25 MG PO (17:47)
[2025-09-27] MEDS: FLUSH (NSS) 1 FLUSH IV (17:48)
[2025-09-27] MEDS: LEXAPRO 10 MG PO (17:48)
[2025-09-27] MEDS: ADVAIR HFA 115/21 MCG INHALER 2 PUFF INH (20:36)
[2025-09-27] MEDS: TIKOSYN 125 MCG PO (20:41)
[2025-09-27] MEDS: SINGULAIR 10 MG PO (20:41)
[2025-09-27] MEDS: ATIVAN 0.5 MG PO (23:37)
[2025-09-27] MEDS: MELATONIN 3 MG PO (23:37)
[2025-09-28 03:58] VITALS: BP 130/90
[2025-09-28 06:00] VITALS: BMI 21.1
[2025-09-28 06:50] LABS: Hematocrit 41.4 % (39.0-52.0); Hemoglobin 13.2 g/dL (13.0-18.0); Mean Corp Hgb Conc. 31.9 g/dL (33.0-37.0); Mean Corpuscular Volume 92.8 fL (80.0-94.0); Platelet Count 111 10^3/uL (130-400); Red Cell Dist. Width 16.0 % (11.5-14.5)
[2025-09-28 06:59] LABS: INR 2.62; PT 28.0 Sec (11.4-14.6)
[2025-09-28] MEDS: DUONEB 3 ML INH ×4 (07:18→19:29)
[2025-09-28] MEDS: ADVAIR HFA 115/21 MCG INHALER 2 PUFF INH ×2 (07:19→19:29)
[2025-09-28 07:36] VITALS: BP 119/82
[2025-09-28 07:52] LABS: Blood Urea Nitrogen 31 mg/dl (9-20); Calcium 9.2 mg/dl (8.4-10.2); Carbon Dioxide 31 mmol/L (22-30); Chloride 101 mmol/L (98-107); Estimated Creatinine Clearance 54 ml/min; Glucose 82 mg/dl (70-99); Magnesium 2.3 mg/dl (1.6-2.3); Potassium 3.8 mmol/L (3.5-5.1); Sodium 138 mmol/L (135-145); eGFR > 60.00
[2025-09-28] MEDS: DELTASONE 5 MG PO (07:53)
[2025-09-28] MEDS: TIKOSYN 125 MCG PO ×2 (07:54→22:31)
[2025-09-28] MEDS: TOPROL XL 75 MG PO (07:57)
[2025-09-28] MEDS: LASIX 40 MG IV (07:58)
--- NOTE | 2025-09-28 10:59 | W.PN.HOSP.TC ---
Today's Communication/Plan
-
continue diuresis
Assessment / Plan
Assessment / Plan
Initial presentation:
80 y/o man presents with tachycardia and shortness of breath. Patient reports orthopnea for that past three nights. On admit his nurse noted that his heart rate was very elevated and he was sent to the emergency department for evaluation. Review
of records indicates that patient has gained 12 lb since his admission in June. He denies any chest pain or palpitations.
Diagnosis present on admission:
Chronic HFpEF
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
Paroxysmal Atrial Fibrillation s/p Ablation
SVT
Dilated Ascending Aorta
Thoracic Aortic Aneurysm
Aortic Dissection (treated medically)
Chronic Hypoxic Respiratory Failure / COPD
Renal Cell Carcinoma s/p Left Nephrectomy
Pulmonary Hypertension
Orthostatic Hypotension
BPH
PUD / GI Bleed
Anxiety / Depression
Hospital course and A/P by problem:
1. Cardiovascular - multiple issues
Acute on Chronic HFpEF
-Consulted Cardiology, they stated:
'HFpEF - acute on chronic.
- agree with IV Lasix, which requires intensive monitoring.
- daily weights, I&O.
- dry weight is around 146 lbs.'
-Echo Jun 2025: Normal left ventricular function with EF 50-55%.
Bioprosthetic aortic valve.
Severe tricuspid regurgitation with estimated pulmonary pressure 45 mmHg
-Continue Lasix 40mg IV Daily
-Monitor Daily Weights
Paroxysmal Atrial Fibrillation
-Patient initially with rapid ventricular response on arrival to ED.
Patient received diltiazem 10mg IV Push and was started on diltiazem infusion
-Rate has now improved and appears to be back in normal rhythm
-Consider stopping diltiazem infusion - defer to Cardiology
Cardiology stated:
'Afib - rapid ventricular response.
- NSR after IV Cardizem, continue.
- on chronic Warfarin, continue. INR
- s/p DCCV 08/16/25.
- on Dofetilide 125mcg Q12h and Toprol, continue.
- not a good candidate for Amiodarone due to pulmonary insult and may not tolerate it well with severe COPD.
- repeat ablation is a significant risk.'
-Continue Tikosyn
-Continue metoprolol
-Chronic Coumadin - INR currently in range
HTN - stable on meds, continue to monitor with diuresis.
2. Chronic Hypoxic Respiratory Failure / COPD
-Continue supplemental oxygen - 2L at baseline
-Continue Advair
-Continue DuoNeb
-Continue prednisone 5mg Daily as prior to admission
3. Orthostatic Hypotension
-Continue midodrine
4. Anxiety / Depression
-Continue Lexapro
DVT Proph: Coumadin
Code Status: DNR
Anticipated Discharge: > 48 hours
Subjective/Interval History
-
Date of Service: September 28, 2025
Still complaining of swollen feet.
Objective Data
-
Labs:
Laboratory Results
09/28/25
06:01
WBC 4.0 L
Hgb 13.2
Hct 41.4
Plt Count 111 L
PT 28.0 H
INR 2.62
Sodium 138
Potassium 3.8
Chloride 101
Carbon Dioxide 31 H
BUN 31 H
Creatinine 1.0
Glucose 82
Calcium 9.2
Vital Signs:
Vital Signs
Temp Pulse Resp BP Pulse Ox
97.6 F 73 20 119/82 95
09/28/25 07:36 09/28/25 07:58 09/28/25 07:36 09/28/25 07:58 09/28/25 07:36
I&O
09/27/25 09/28/25 09/29/25
06:59 06:59 06:59
Intake Total 540 / 540
Output Total 1849 / 1849
Balance -1310 / -1310
Review of Systems
-
History Source: Patient
All other systems: Reviewed and negative
Physical Exam
-
General: Well Developed, Well Nourished, No Apparent Distress, Comfortable and Appears Chronically Ill
HEENT: Normocephalic, Atraumatic, Moist Mucous Membranes, Nose Appears Normal and Ears Appear Normal
Respiratory: Decreased Breath Sounds
Cardiac: Regular Rhythm and S1/S2
GI: Soft, Nontender and Nondistended
Musculoskeletal: No Clubbing, No Cyanosis, Edema, Right Lower Extrem and Edema, Left Lower Extrem
Neuro: Awake and Alert
Psych: Calm
Data Reviewed
-
Labs: Labs Reviewed by me
[2025-09-28 11:45] VITALS: BP 127/65
[2025-09-28 14:59] VITALS: BP 110/72
[2025-09-28] MEDS: COUMADIN 2.5 MG PO (17:25)
[2025-09-28] MEDS: LEXAPRO 10 MG PO (17:25)
[2025-09-28] MEDS: TYLENOL 650 MG PO (17:28)
--- NOTE | 2025-09-28 17:34 | W.PN.CD ---
Today's Communication / Plan
-
continue diuresis
wrap legs
d/c planning
Impression / Plan
-
Afib -paroxysmal while here, asymptomatic
- on chronic Warfarin, continue. INR therapuetic
- s/p DCCV 08/16/25.
- on Dofetilide 125mcg Q12h and Toprol, continue.
- not a good candidate for Amiodarone due to pulmonary insult and may not tolerate it well with severe COPD.
- repeat ablation is a significant risk.
HFpEF - acute on chronic.
- agree with IV Lasix, which requires intensive monitoring.
-improving
- daily weights, I&O.
- dry weight is around 146 lbs, but tolerating lower.
Lymphedema:
-Lt>rt
-rula wraps
HTN - stable on meds, continue to monitor with diuresis.
COPD - oxygen dependent 3L NC.
Subjective:
he is feeling much better, breathing is better.
Physical Exam
Vital Signs/Labs
Vital Signs
Temp Pulse Resp BP Pulse Ox
97.7 F 69 16 110/72 95
09/28/25 16:00 09/28/25 15:30 09/28/25 15:30 09/28/25 14:59 09/28/25 15:30
09/27/25 09/28/25 09/29/25
06:59 06:59 06:59
Actual Weight 143 lb 1 oz
09/28/25 06:01
09/28/25 06:01
PT 28.0 Sec (11.4-14.6) H 09/28/25 06:01
INR 2.62 09/28/25 06:01
Magnesium 2.3 mg/dl (1.6-2.3) 09/28/25 06:01
09/27/25
11:24
Nuf-Q-Vzhyfmlaimz Pept 5160
Physical Exam
Constitutional: No acute distress
Cardiovascular: JVD pressure is normal, Systolic murmur absent, Diastolic murmur absent and Pedal edema present (LT>Rt, toes also edematous)
Respiratory: Respiratory effort normal, Lungs clear to auscul., Wheeze Absent, Crackles Absent and Rhonchi Absent
Neuro/Psych: AO x 3
Data Reviewed
-
Date of Service: September 28, 2025
Medical Decision Making: Review of Case with other Provider (continue iv diuresis , wrap legs)
[2025-09-28 19:44] VITALS: BP 110/77
[2025-09-28] MEDS: MELATONIN 3 MG PO (22:31)
[2025-09-28] MEDS: SINGULAIR 10 MG PO (22:31)
[2025-09-28] MEDS: ATIVAN 0.5 MG PO (22:31)
[2025-09-28 23:03] VITALS: BP 114/70
[2025-09-28] MEDS: SENOKOT-S 1 TABLET PO (23:15)
[2025-09-29 06:00] VITALS: BMI 21.2
[2025-09-29 06:10] LABS: INR 3.27; PT 33.1 Sec (11.4-14.6)
[2025-09-29 06:26] LABS: Blood Urea Nitrogen 30 mg/dl (9-20); Calcium 9.1 mg/dl (8.4-10.2); Carbon Dioxide 32 mmol/L (22-30); Chloride 103 mmol/L (98-107); Estimated Creatinine Clearance 54 ml/min; Glucose 78 mg/dl (70-99); Potassium 4.1 mmol/L (3.5-5.1); Sodium 142 mmol/L (135-145); eGFR > 60.00
[2025-09-29 06:42] LABS: Hematocrit 41.9 % (39.0-52.0); Hemoglobin 12.8 g/dL (13.0-18.0); Mean Corp Hgb Conc. 30.5 g/dL (33.0-37.0); Mean Corpuscular Volume 92.5 fL (80.0-94.0); Platelet Count 115 10^3/uL (130-400); Red Cell Dist. Width 15.8 % (11.5-14.5)
[2025-09-29 07:20] VITALS: BP 107/68
[2025-09-29] MEDS: DUONEB 3 ML INH ×4 (07:22→19:42)
[2025-09-29] MEDS: ADVAIR HFA 115/21 MCG INHALER 2 PUFF INH ×2 (07:22→19:42)
[2025-09-29] MEDS: TIKOSYN 125 MCG PO ×2 (08:34→20:01)
[2025-09-29] MEDS: SENOKOT-S 1 TABLET PO ×2 (08:34→20:03)
[2025-09-29] MEDS: TOPROL XL 75 MG PO (08:34)
[2025-09-29] MEDS: DELTASONE 5 MG PO (08:34)
[2025-09-29] MEDS: FLUSH (NSS) 1 FLUSH IV (08:36)
[2025-09-29] MEDS: LASIX 40 MG IV (08:36)
[2025-09-29 11:40] VITALS: BP 114/78
[2025-09-29 12:00] VITALS: BMI 21.2
--- NOTE | 2025-09-29 12:35 | W.PN.HOSP.TC ---
Today's Communication/Plan
-
Assessment / Plan
Assessment / Plan
General: No Apparent Distress, Comfortable and Conversant
HEENT: NormoCephalic, Moist mucous membranes, Atraumatic
Respiratory: Clear and Non Labored Respirations
Cardiac: Regular rhythm, Heart rate 70
GI: Soft, Non Tender, Non Distended and Normal Bowel Sounds
Musculoskeletal: Bilateral lower extremity edema, no deformity
: NO [place]
Neuro: Awake, Alert, Nonfocal/grossly intact
Psych: Calm and cooperative
Initial presentation:
80 y/o man presents with tachycardia and shortness of breath. Patient reports orthopnea for that past three nights. On admit his nurse noted that his heart rate was very elevated and he was sent to the emergency department for evaluation. Review
of records indicates that patient has gained 12 lb since his admission in June. He denies any chest pain or palpitations.
Diagnosis present on admission:
Chronic HFpEF
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
Paroxysmal Atrial Fibrillation s/p Ablation
SVT
Dilated Ascending Aorta
Thoracic Aortic Aneurysm
Aortic Dissection (treated medically)
Chronic Hypoxic Respiratory Failure / COPD
Renal Cell Carcinoma s/p Left Nephrectomy
Pulmonary Hypertension
Orthostatic Hypotension
BPH
PUD / GI Bleed
Anxiety / Depression
Hospital course and A/P by problem:
1. Cardiovascular - multiple issues
Acute on Chronic HFpEF
- Continuing diuresis with IV Lasix, appears to be at his dry weight which is reportedly around 66 kg, appreciate cardiology guidance
-Consulted Cardiology, they stated:
'HFpEF - acute on chronic.
- agree with IV Lasix, which requires intensive monitoring.
- daily weights, I&O.
- dry weight is around 146 lbs.'
-Echo Jun 2025: Normal left ventricular function with EF 50-55%.
Bioprosthetic aortic valve.
Severe tricuspid regurgitation with estimated pulmonary pressure 45 mmHg
-Continue Lasix 40mg IV Daily
-Monitor Daily Weights
Paroxysmal Atrial Fibrillation
-Patient initially with rapid ventricular response on arrival to ED.
Patient received diltiazem 10mg IV Push and was started on diltiazem infusion
-Rate has now improved and appears to be back in normal rhythm
-Consider stopping diltiazem infusion - defer to Cardiology
Cardiology stated:
'Afib - rapid ventricular response.
- NSR after IV Cardizem, continue.
- on chronic Warfarin, continue. INR
- s/p DCCV 08/16/25.
- on Dofetilide 125mcg Q12h and Toprol, continue.
- not a good candidate for Amiodarone due to pulmonary insult and may not tolerate it well with severe COPD.
- repeat ablation is a significant risk.'
-Continue Tikosyn
-Continue metoprolol
-Chronic Coumadin - INR goal 2.0-3.0
HTN - stable on meds, continue to monitor with diuresis.
2. Chronic Hypoxic Respiratory Failure / COPD
-Continue supplemental oxygen - 2L at baseline
-Continue Advair
-Continue DuoNeb
-Continue prednisone 5mg Daily as prior to admission
3. Orthostatic Hypotension
-Continue midodrine
4. Anxiety / Depression
-Continue Lexapro
DVT Proph: Coumadin
Code Status: DNR
Anticipated Discharge: 24 - 48 hours
Subjective/Interval History
-
Date of Service: September 29, 2025
Patient was seen and examined at bedside. No acute distress. Continues diuresing well on IV Lasix.
Objective Data
-
Labs:
Laboratory Results
09/29/25
05:21
WBC 4.0 L
Hgb 12.8 L
Hct 41.9
Plt Count 115 L
PT 33.1 H
INR 3.27
Sodium 142
Potassium 4.1
Chloride 103
Carbon Dioxide 32 H
BUN 30 H
Creatinine 1.0
Glucose 78
Calcium 9.1
Vital Signs:
Vital Signs
Temp Pulse Resp BP Pulse Ox
97.5 F 72 18 114/78 96
09/29/25 11:40 09/29/25 11:40 09/29/25 11:40 09/29/25 11:40 09/29/25 11:40
I&O
09/28/25 09/29/25 09/30/25
06:59 06:59 06:59
Intake Total 540 / 540 1120 / 1120
Output Total 1850 / 1850 1325 / 1325
Balance -1310 / -1310 -205 / -205
Review of Systems
-
History Source: Patient
All other systems: Reviewed and negative
Physical Exam
-
General: No Apparent Distress
--- NOTE | 2025-09-29 13:10 | CM ---
patient chart reviewed
[facility]
referral entered in [facility]
PLAN: Yaquelin Mccallum when stable
--- NOTE | 2025-09-29 14:54 | W.PN.CD ---
Today's Communication / Plan
-
transition to po lasix
warfarin 1.25mg tonight
Impression / Plan
-
Afib -paroxysmal while here, asymptomatic
- on chronic Warfarin, continue. INR slightly supratherapuetic and climbing, will decrease to 1.25mg tonight and repeat INR in am
- s/p DCCV 08/16/25.
- on Dofetilide 125mcg Q12h and Toprol, continue.
- not a good candidate for Amiodarone due to pulmonary insult and may not tolerate it well with severe COPD.
- repeat ablation is a significant risk.
HFpEF - acute on chronic.
- agree with IV Lasix, which requires intensive monitoring.
-will transition to po lasix tomorrow
-improving
- daily weights, I&O.
- dry weight is around 146 lbs, but tolerating lower.
Lymphedema:
-Lt>rt,improving
-rula wraps
HTN - stable on meds, continue to monitor with diuresis.
COPD - oxygen dependent 3L NC.
Subjective:
he is feeling much better, breathing is better.
Physical Exam
Vital Signs/Labs
Vital Signs
Temp Pulse Resp BP Pulse Ox
97.5 F 72 18 114/78 96
09/29/25 11:40 09/29/25 12:54 09/29/25 11:40 09/29/25 12:54 09/29/25 11:40
09/28/25 09/29/25 09/30/25
06:59 06:59 06:59
Actual Weight 143 lb 1 oz 143 lb 2 oz
09/29/25 05:21
09/29/25 05:21
PT 33.1 Sec (11.4-14.6) H 09/29/25 05:21
INR 3.27 09/29/25 05:21
Magnesium 2.3 mg/dl (1.6-2.3) 09/28/25 06:01
09/27/25
11:24
Xic-I-Tvhblsueyyd Pept 5160
Physical Exam
Constitutional: No acute distress
Cardiovascular: Rhythm & rate is regular, JVD pressure is normal, Systolic murmur absent, Diastolic murmur absent, Rhythm/rate is irregular and Pedal edema present (lt>rt rula wrap)
Respiratory: Respiratory effort normal, Lungs clear to auscul., Wheeze Absent, Crackles Absent and Rhonchi Absent
Neuro/Psych: AO x 3
Data Reviewed
-
Date of Service: September 29, 2025
Medical Decision Making: Review of Case with other Provider (sinus pvcs)
[2025-09-29 15:07] VITALS: BP 98/68
--- NOTE | 2025-09-29 15:52 | PTCARENOTE ---
Pt AAO x3, [place]; anxious,irritable at times. Speech soft. ÁLVAREZ well, occ arm tremors noted. OOB in chair for most of shift; no c/o weakness/dizziness. VSS. Telemetry:NSR. Knee high BREANNE wraps intact BLE. maintained on nc 3 lpm- pulse ox 95%; pt
with (+) slight WHITESIDE. Abd soft, corey PO well. Voids clear yellow urine in urinal. Resting in chair at present, no c/o. Will continue to monitor.
--- NOTE | 2025-09-29 16:26 | PTCARENOTE ---
Pt's telemetry currently showing Afib HR 90's, BP 98/58; pt asymptomatic. Emperatriz Beard notified. Will continue to monitor
[2025-09-29] MEDS: COUMADIN 1.25 MG PO (18:09)
[2025-09-29] MEDS: LEXAPRO 10 MG PO (18:09)
[2025-09-29 19:52] VITALS: BP 114/65
[2025-09-29] MEDS: SINGULAIR 10 MG PO (20:03)
[2025-09-29 23:30] VITALS: BP 121/83
[2025-09-30 03:07] VITALS: BP 116/81
[2025-09-30 06:00] VITALS: BMI 21.1
[2025-09-30] MEDS: DUONEB 3 ML INH ×2 (07:29→11:09)
[2025-09-30] MEDS: ADVAIR HFA 115/21 MCG INHALER 2 PUFF INH (07:29)
[2025-09-30 08:00] VITALS: BP 94/58
[2025-09-30 08:09] LABS: INR 3.61; PT 35.7 Sec (11.4-14.6)
[2025-09-30 08:15] LABS: Blood Urea Nitrogen 28 mg/dl (9-20); Calcium 9.1 mg/dl (8.4-10.2); Carbon Dioxide 31 mmol/L (22-30); Chloride 103 mmol/L (98-107); Estimated Creatinine Clearance 60 ml/min; Glucose 134 mg/dl (70-99); Potassium 3.7 mmol/L (3.5-5.1); Sodium 137 mmol/L (135-145); eGFR > 60.00
[2025-09-30] MEDS: LASIX IV (08:19)
--- NOTE | 2025-09-30 08:50 | W.PN.CD ---
Today's Communication / Plan
-
Stop dofetilide
Discuss GDMT with his wire winder
Impression / Plan
-
Card: Ayad
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
- Still with dyspnea
- Goal weight had been 146 pound but now today 142.8 kg (64.9 kg)
- On Lasix (now PO), metoprolol ER 75 mg daily
- Midodrine for BP support
- Can retry GDMT (perhaps SGLT2-i or low dose MRA, will review with his wire winder, Dr. Lion
AFib and AT (perhaps an atypical flutter
- My review suggests persistent arrhythmia during this admit, sometimes 2:1 and sometimes variable => no more rhythm control attempts
- Will stop dofetilide
- Last cardioversion just 08/16/2025 => no more cardioversions
- Warfarin, continue
S/p AVR, good fxn on echo 07/01/2025
Severe TR
Lymphedema:
-Lt>rt,improving
-rula wraps
HTN - stable on meds, continue to monitor with diuresis.
COPD - oxygen dependent 3L NC. SEVERE
Aortic aneurysm with dissection, Asc Ao 9.4 cm => med rx
DNR
Subjective:
he is feeling much better, breathing is better.
Physical Exam
Vital Signs/Labs
Vital Signs
Temp Pulse Resp BP Pulse Ox
98 F 62 20 94/58 95
09/30/25 08:00 09/30/25 08:00 09/30/25 08:00 09/30/25 08:00 09/30/25 08:00
09/29/25 09/30/25 10/01/25
06:59 06:59 06:59
Actual Weight 64.92 kg 64.892 kg
09/29/25 05:21
09/30/25 07:05
PT 35.7 Sec (11.4-14.6) H 09/30/25 07:05
INR 3.61 09/30/25 07:05
Magnesium 2.3 mg/dl (1.6-2.3) 09/28/25 06:01
09/27/25
11:24
Aee-C-Iorykajszfv Pept 5160
Physical Exam
Constitutional: No acute distress
EENT: Anicteric
Cardiovascular: Rhythm/rate is irregular and Systolic murmur present
Respiratory: Respiratory effort normal and Lungs clear to auscul.
GI: Soft and Distention absent
Neuro/Psych: AO x 3
Data Reviewed
-
Date of Service: September 30, 2025
[2025-09-30] MEDS: TIKOSYN 125 MCG PO (08:55)
[2025-09-30] MEDS: TOPROL XL 75 MG PO (08:55)
[2025-09-30] MEDS: SENOKOT-S 1 TABLET PO (08:56)
[2025-09-30] MEDS: DELTASONE 5 MG PO (08:56)
[2025-09-30 11:46] VITALS: BP 98/67
--- NOTE | 2025-09-30 11:56 | W.DCSUMMARY ---
Discharge Summary
Discharge Data
Date of Admission: 09/27/25
Date of Discharge: 09/30/25
Total time spent discharging patient (in min): 45
-
Pending Results: No
Hospital Course
Mr. Kirk is a 80-year-old male with a medical history of HFpEF, strep endocarditis (status post bioprosthetic AVR), paroxysmal A-fib (status post cardioversion and ablation, on warfarin), COPD, chronic hypoxic respiratory failure, pulmonary
hypertension, thoracic aortic aneurysm, aortic dissection (treated medically), and orthostatic hypotension who presented with shortness of breath and tachycardia. He was found to have acute on chronic HFpEF. He was treated with IV diuretics with
significant improvement in his symptoms. He was able to be transitioned back to oral Lasix. He was monitored closely by cardiology while inpatient and his dofetilide was discontinued. He will need outpatient follow-up with his primary care
physician and cardiology after discharge. He was given a lower dose of warfarin (1.25 mg) on the day prior to discharge due to an elevated INR of 3.6. He should skip his dose of warfarin on the evening of 09/30 and resume his regular dose of 2.5
on 10/01. He will need to have his INRs monitored closely this week with additional dosage adjustments as needed
General: No Apparent Distress, Comfortable and Conversant
HEENT: NormoCephalic, Moist mucous membranes, Atraumatic
Respiratory: Clear and Non Labored Respirations
Cardiac: Regular rhythm, Heart rate 70
GI: Soft, Non Tender, Non Distended and Normal Bowel Sounds
Musculoskeletal: Bilateral lower extremity edema, no deformity
: NO [place]
Neuro: Awake, Alert, Nonfocal/grossly intact
Psych: Calm and cooperative
Discharge Plan
-
Patient Disposition: Halfway/SNF
Discharge Diagnosis/Procedures: Acute on chronic HFpEF
Activity Restrictions/Additional Instructions:
You were admitted for treatment of heart failure. You were found to be volume overloaded and so you were treated with IV diuretic. This medication helped improve a lot of your swelling and ultimately helped you to to be able to breathe much
better. You will be discharged on an oral dose of diuretic. You were monitored closely by the cardiology team and one of your home medications, dofetilide, was discontinued. You will be continued on your other home medications. Your warfarin
dose was decreased slightly due to a slightly higher than normal INR. You will need to monitor your INR with ongoing warfarin use with additional dosage adjustments as necessary.
Referrals:
UNKNOWN - PT DOES,NOT KNOW [Family Provider]
Prescriptions:
Continued
fluticasone propionate 1 SPRAY spray,suspension
2 spray intranasal DAILY
acetaminophen [Tylenol Extra Strength] 500 MG tablet
650 mg PO Q4HPRN PRN (Reason: mild pain)
escitalopram oxalate [Lexapro] 20 mg Tablet
10 mg PO QPM
ipratropium-albuterol 0.5 mg-3 mg(2.5 mg base)/3 mL Solution For Nebulization
3 ml INHALATION R TID
prednisone 5 mg Tablet
5 mg PO DAILY
midodrine 5 mg Tablet
5 mg PO TID
montelukast [Singulair] 10 mg Tablet
10 mg PO HS
furosemide 20 mg Tablet
30 mg PO DAILY
metolazone 2.5 mg Tablet
2.5 mg PO DAILYPRN PRN (Reason: wt gain >3 pds)
fluticasone propion-salmeterol [Advair Diskus] 250-50 mcg/dose Blister With Device
1 inh INHALATION R BID
hydrocortisone [Proctozone-HC] 2.5 % Cream With Perineal Applicator
1 applic AK Q4HPRN PRN (Reason: hemorrhiods)
magnesium hydroxide [Milk of Magnesia] 400 mg/5 mL Suspension
2,400 mg PO HSPRN PRN (Reason: constipation)
Fleet Enema 19-7 gram/118 mL Enema
118 ml AK M19LIGN PRN (Reason: if no bm aftr mom)
albuterol sulfate [ProAir HFA] 90 mcg/actuation Hfa Aerosol Inhaler
2 puff INHALATION R Q6HPRN PRN (Reason: sob)
Refresh Optive 0.5-0.9 % Drops
1 drp BOTH EYES BID
Chloraseptic Max 15-10 mg Lozenge
1 pavithra mucous membrane Q6HPRN PRN (Reason: cough)
metoprolol succinate 100 mg tablet extended release 24 hr
50 mg PO DAILY
Held
warfarin 2.5 mg Tablet
2.5 mg PO QPM
Hold Instructions: Resume on 10/01/25.
INR was rising during this admission, was 3.61 on the day of discharge, decreased dose of warfarin 1.25 mg was given on the day prior to discharge, hold warfarin dose on the evening of 09/30 and restart regular dose of
2.5 mg nightly on the evening of 10/01, monitor INR closely with dosage adjustments as needed
Discontinued
dofetilide 125 MCG capsule
125 mcg PO Q12H
Discharge Date and Time
Print Language: SLOVAK
--- NOTE | 2025-09-30 12:53 | CM ---
MD entered order for discharge .
spoke with Antoine Jamison she accepted him back referral in care port.
Spoke with son David he agrees with dc to SNF . Reviewed IMM he agreed with dc to SNF today .
He requested ambulance . Medical nec form completed.
Yaquelin
report [phone]

PLAN To Yaquelin
[2025-09-30] MEDS: FLEET MINERAL OIL ENEMA 133 ML RECTAL (13:06)
[2025-09-30] MEDS: DUONEB INH (15:26)
[2025-09-30 15:27] VITALS: BP 121/80
[2025-09-30] MEDS: PREPARATION H MAX STRENGTH PAIN RELIEF CREAM 1 APPLIC RECTAL (15:44)
[2025-09-30] MEDS: LEXAPRO 10 MG PO (17:21)
--- NOTE | 2025-10-01 11:15 | W.HF.CON ---
Heart Failure
- LV Function
Left ventricular function study result: LV Ejection fraction >/= 50%
Ejection Fraction Percentage: 50-55
- ARNI
Patient already on ARNI: No
- ACEI/ARB
Patient already on ACEI/ARB: No
- Beta Terry
Patient already on Evidence Based Beta Terry: Yes
- Mineralocorticord Receptor Antagonist
Patient already on MRA: No
Heart Failure MRA Not Indicated: LV Ejection Fraction > 40%
- SGLT-2 Inhibitor
Patient already on SGLT-2 Inhibitor: No
Heart Failure SGLT-2 Inhibitor Not Indicated: LV Ejection Fraction >40%
- Afib Anticoagulation
Patient already on Anticoagulation for Afib: Yes
- NYHA CHF Classification
NYHA CHF Classification Level: Class III - Symptoms w/ min exertion, interferes w/ nml daily activity
- ACC/AHA Stage
ACC/AHA Stage: Stage C: Symptomatic Heart Failure
== END 2025-09-30 18:45 | DRG 291 ==
LOC: 4 EAST ACU 14:41
PROVIDERS: Internal Medicine; Physician Assistant; Physician Assistant Medical; ADMITTING PHYSICIAN Internal Medicine; ATTENDING PHYSICIAN Internal Medicine; CONSULT PHYSICIAN Internal Medicine Cardiovascular Disease; EMERGENCY PHYSICIAN Emergency Medicine
DX: I11.0 Hypertensive heart disease with heart failure (principal); I50.33 Acute on chronic diastolic (congestive) heart failure; J96.11 Chronic respiratory failure with hypoxia; I47.10 Supraventricular tachycardia, unspecified; R64 Cachexia; I48.0 Paroxysmal atrial fibrillation; J44.89 Other specified chronic obstructive pulmonary disease; I27.20 Pulmonary hypertension, unspecified; Z95.3 Presence of xenogenic heart valve; I95.1 Orthostatic hypotension; N40.0 Benign prostatic hyperplasia without lower urinary tract symptoms; F32.A Depression, unspecified; I07.1 Rheumatic tricuspid insufficiency; Z85.528 Personal history of other malignant neoplasm of kidney; Z87.891 Personal history of nicotine dependence; Z88.8 Allergy status to other drugs, medicaments and biological substances; Z88.5 Allergy status to narcotic agent; Z79.01 Long term (current) use of anticoagulants; Z66 Do not resuscitate; R79.1 Abnormal coagulation profile; K21.9 Gastro-esophageal reflux disease without esophagitis; Z79.899 Other long term (current) drug therapy; Z87.01 Personal history of pneumonia (recurrent); Z90.5 Acquired absence of kidney; Z99.81 Dependence on supplemental oxygen; Z11.52 Encounter for screening for COVID-19
CPT/HCPCS: 71046; 80048; 80053; 81003; 81015; 83735; 83880; 84443; 85025; 85027; 85610; 87070; 87086; 87502; 87811; 93005; 94640; 96365; 96366; 96375; 99285

== ENCOUNTER → 2025-09-27 16:55 | Outpatient (REF) | payer MEDICARE, SELFPAY ==
[2025-09-27 17:51] LABS: Urine Character Clear (Clear)
[2025-09-27 18:13] LABS: Urine Red Blood Cell 0-2 /HPF (0-2)
== END ==
LOC: OLABN 16:55
PROVIDERS: ATTENDING PHYSICIAN Student in an Organized Health Care Education/Training Program
DX: R35.0 Frequency of micturition (principal)
CPT/HCPCS: 81003; 81015; 87086

== ENCOUNTER 2025-10-12 16:58 | Inpatient (IN) | payer MEDICARE, SELFPAY ==
[2025-10-12] VITALS (16 sets, daily range): BP systolic 102–131; BP diastolic 76–100; PULSE 2–88; BMI 21.6
--- NOTE | 2025-10-12 13:51 | ED.GENMED ---
History of Present Illness
<Diamond Moreno PA-C - Last Filed: 10/12/25 20:50>
General
Chief Complaint: Breathing Problem
Source: patient, records and ambulance crew
Exam Limitations: clinical condition
Time Seen by Provider: 10/12/25 13:45
History of Present Illness
History of Present Illness:
80yoM with a history of CHF, atrial fibrillation on Coumadin, COPD on 2.5L NC, and large thoracic aortic aneurysm, and prior nephrectomy for renal cell carcinoma presenting via EMS for evaluation of shortness of breath. History is obtained by EMS
personnel. [facility] called due to hypoxia and increasing shortness of breath. He was given 3 neb treatments prior to EMS arrival and EMS gave him another DuoNeb and route. He was hypoxic to 82% on EMS arrival and was placed on a
nonrebreather. He was recently hospitalized for an acute CHF exacerbation and was discharged on 10/01. He denies any chest pain currently.
Past History
<Diamond Moreno PA-C - Last Filed: 10/12/25 20:50>
Past History
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
therapy.)
ED Past Surgical History: Other (Nephrectomy, hernia with mesh)
Patient has exhibited threatening behavior?: No
PSI?: No
Social History
Tobacco: Former smoker
Alcohol: Occasional
Personal:
Living: with roommate
Family History
Family History: Asthma
Phy Exam
<Diamond Moreno PA-C - Last Filed: 10/12/25 20:50>
General Physical Exam
General Presentation: moderate distress
General Skin: warm and dry
General Habitus: elderly
General Mental: alert
ENT Exam
ENT Exam: normocephalic
Cardiovascular Exam
Cardiovascular Exam: irregularly irregular and other (2+ pitting edema in bilateral lower extremities. +JVD.)
Pulmonary Exam
Pulmonary Exam: decreased breath sounds and other (Mild-moderate respiratory distress noted. Breath sounds decreased with crackles at bases.)
Neurological Exam
Neurological Exam: alert
Skin Exam
Skin Exam: normal color and warm/dry
Psychiatric Exam
Psychiatric Exam: anxious
Scores
<Diamond Moreno PA-C - Last Filed: 10/12/25 20:50>
Heart Failure Risk
Heart Failure Risk Score: Not Applicable
Course
<Diamond Moreno PA-C - Last Filed: 10/12/25 20:50>
Orders/Labs/Results
Orders:
Orders
10/12/25 13:47
Cardiac Monitoring- Treatment ONCE
CXR Port [CR Chest Portable - 1 View] Stat
Comment:
Reason For Exam: SOB
Reason Study Needs to be Portable: Patient Unstable
Bipap [RESP] Urgent
Patient to use own unit?: No
Inspiratory Pressure (cm H2O): 12
Expiratory Pressure (cm H2O): 5
10/12/25 13:48
Electrocardiogram (*1) Urgent
Reason for Study: Shortness of Breath
EKG- Treatment ONCE
10/12/25 13:53
Complete Blood Count/With Diff Urgent
Comprehensive Metabolic Panel Urgent
NT-proBNP Urgent
Troponin I Urgent
10/12/25 13:59
COVID-19 Antigen Urgent
Source: Nasal Swab
Prothrombin Time Urgent
Influenza A+B Rapid Molecular Urgent
ROMY Source: Nasal Swab
Specimen Description:
10/12/25 14:04
Venous Blood Gas Urgent
%Oxygen/Room Air: 15L non rebreather
10/12/25 14:43
Furosemide [Lasix] 40 mg IV NOW STA
10/12/25 16:32
Admit/Transfer Patient As Directed
Co-Sign Provider:
Level of Care: Inpatient admission
Assign to:: IMU- Intermediate Care
Physician / Group: Htay
Diagnosis: Hypoxia
Reason for Hospitalization: BIPAP
Expected length of stay greater than two midnights?: Yes
ELOS- Estimated Length of Stay in days: 3
I certify the patient meets the requirements for IP care: Yes
10/12/25 16:33
PRN Pain Medication Management As Directed
May give lesser potent ordered pain med per pt: Yes
preference::
Protocol:: Medication orders for pain may be administered in a
manner that supports deferring to patient preference
when the pt is:
- Requesting an ordered lesser potent pain medication.
Least to most potent pain medications are defined
as: acetaminophen < NSAID < tramadol < opioids
(morphine, oxycodone, hydromorphone).
- Requesting a lesser dose of the same medication IF
ORDERED.
- Requesting a less intrusive route of administration
if both routes are prescribed by the provider (PO <
IV).
10/12/25 16:38
Code Status As Directed
Resuscitation Status: Do not resuscitate
Reached after discussion with pt or family/Healthcare POA: Yes
DNR Bracelet Application ONCE
10/12/25 18:00
Procalcitonin Urgent
If negative, will antibiotics be d/c'd or not started: Yes
Does the patient have renal or hepatic impairment?: No
Any recent (w/in 48 hrs) physiologic stress (CPR, rhabdo): No
Abnormal Lab Results
10/12/25 10/12/25 10/12/25
13:53 13:59 14:04
RBC 4.67 L 10^6/uL
(4.70-6.10)
MCHC 31.5 L g/dL
(33.0-37.0)
RDW 15.9 H %
(11.5-14.5)
Plt Count 128 L 10^3/uL
(130-400)
MPV 10.5 H fL
(7.4-10.4)
Absolute Lymphs (auto) 0.7 L 10^3/uL
(1.2-3.4)
Neutrophils % 76.3 H %
(42.2-75.2)
Lymphocytes % 12.8 L %
(20.5-51.1)
PT 28.9 H Sec
(11.4-14.6)
VBG pH 7.30 L
(7.32-7.43)
VBG pCO2 62 H mmHg
(35-48)
VBG pO2 53 H mmHg
(30-50)
VBG HCO3 30.5 H mmol/L
(22-27)
BUN 30 H mg/dl
(9-20)
Total Bilirubin 3.1 H mg/dl
(0.2-1.3)
10/12/25 13:53
10/12/25 13:53
Vital Signs
Initial and Last Documented VS:
Initial Vital Signs
Pulse Resp BP Pulse Ox
79 24 113/93 86
10/12/25 13:40 10/12/25 13:40 10/12/25 13:40 10/12/25 13:40
Last Documented Vital Signs
Temp Pulse Resp BP Pulse Ox
98.6 F 81 20 102/76 93
10/12/25 14:10 10/12/25 19:45 10/12/25 19:45 10/12/25 19:00 10/12/25 19:45
<Marilia Mckeon MD - Last Filed: 10/12/25 14:31>
Orders/Labs/Results
Orders:
Orders
10/12/25 13:47
Cardiac Monitoring- Treatment ONCE
CXR Port [CR Chest Portable - 1 View] Stat
Comment:
Reason For Exam: SOB
Reason Study Needs to be Portable: Patient Unstable
Bipap [RESP] Urgent
Patient to use own unit?: No
Inspiratory Pressure (cm H2O): 12
Expiratory Pressure (cm H2O): 5
10/12/25 13:48
Electrocardiogram (*1) Urgent
Reason for Study: Shortness of Breath
EKG- Treatment ONCE
10/12/25 13:53
Complete Blood Count/With Diff Urgent
Comprehensive Metabolic Panel Urgent
NT-proBNP Urgent
Troponin I Urgent
10/12/25 13:59
COVID-19 Antigen Urgent
Source: Nasal Swab
Prothrombin Time Urgent
Influenza A+B Rapid Molecular Urgent
ROMY Source: Nasal Swab
Specimen Description:
10/12/25 14:04
Venous Blood Gas Urgent
%Oxygen/Room Air: 15L non rebreather
10/12/25 14:43
Furosemide [Lasix] 40 mg IV NOW STA
10/12/25 16:32
Admit/Transfer Patient As Directed
Co-Sign Provider:
Level of Care: Inpatient admission
Assign to:: IMU- Intermediate Care
Physician / Group: Htay
Diagnosis: Hypoxia
Reason for Hospitalization: BIPAP
Expected length of stay greater than two midnights?: Yes
ELOS- Estimated Length of Stay in days: 3
I certify the patient meets the requirements for IP care: Yes
10/12/25 16:33
PRN Pain Medication Management As Directed
May give lesser potent ordered pain med per pt: Yes
preference::
Protocol:: Medication orders for pain may be administered in a
manner that supports deferring to patient preference
when the pt is:
- Requesting an ordered lesser potent pain medication.
Least to most potent pain medications are defined
as: acetaminophen < NSAID < tramadol < opioids
(morphine, oxycodone, hydromorphone).
- Requesting a lesser dose of the same medication IF
ORDERED.
- Requesting a less intrusive route of administration
if both routes are prescribed by the provider (PO <
IV).
10/12/25 16:38
Code Status As Directed
Resuscitation Status: Do not resuscitate
Reached after discussion with pt or family/Healthcare POA: Yes
DNR Bracelet Application ONCE
10/12/25 18:00
Procalcitonin Urgent
If negative, will antibiotics be d/c'd or not started: Yes
Does the patient have renal or hepatic impairment?: No
Any recent (w/in 48 hrs) physiologic stress (CPR, rhabdo): No
Abnormal Lab Results
10/12/25 10/12/25 10/12/25
13:53 13:59 14:04
RBC 4.67 L 10^6/uL
(4.70-6.10)
MCHC 31.5 L g/dL
(33.0-37.0)
RDW 15.9 H %
(11.5-14.5)
Plt Count 128 L 10^3/uL
(130-400)
MPV 10.5 H fL
(7.4-10.4)
Absolute Lymphs (auto) 0.7 L 10^3/uL
(1.2-3.4)
Neutrophils % 76.3 H %
(42.2-75.2)
Lymphocytes % 12.8 L %
(20.5-51.1)
PT 28.9 H Sec
(11.4-14.6)
VBG pH 7.30 L
(7.32-7.43)
VBG pCO2 62 H mmHg
(35-48)
VBG pO2 53 H mmHg
(30-50)
VBG HCO3 30.5 H mmol/L
(22-27)
BUN 30 H mg/dl
(9-20)
Total Bilirubin 3.1 H mg/dl
(0.2-1.3)
10/12/25 13:53
10/12/25 13:53
Vital Signs
Initial and Last Documented VS:
Initial Vital Signs
Pulse Resp BP Pulse Ox
79 24 113/93 86
10/12/25 13:40 10/12/25 13:40 10/12/25 13:40 10/12/25 13:40
Last Documented Vital Signs
Temp Pulse Resp BP Pulse Ox
98.6 F 81 20 102/76 93
10/12/25 14:10 10/12/25 19:45 10/12/25 19:45 10/12/25 19:00 10/12/25 19:45
<Diamond Moreno PA-C - Last Filed: 10/12/25 20:50>
MDM/Problems Addressed
Differential Diagnosis Includes:
80yoM presenting from his alf for SOB and hypoxia. Hypoxic to 82% on EMS arrival. Hx of COPD and CHF. Patient in moderate respiratory distress on arrival. Leg swelling, JVD, and bibasilar rales noted. Differential diagnosis includes but is
not limited to: CHF exacerbation, COPD exacerbation, pneumonia, aspiration
Initial ED plan: Check cardiac labs, COVID/flu swab, EKG, and portable CXR. Respiratory called to place patient on BiPAP.
<Diamond Moreno PA-C - Last Filed: 10/12/25 20:50>
*Pulse Oximetry
SaO2: 86
Oxygen Mode of Delivery: Room air
Patient hypoxic: yes
*EKG
Interpreted by ED Provider?: Yes
EKG Intrepretation Date: 10/12/25
Heart Rate: 96
Rate: normal
Rhythm: a-fib
[place]: left axis deviation
QRS Pattern: normal QRS
Ischemia: non-specific ST changes
*Critical Care Note
Total Time (30-74mins, 75-104mins- exclusive of procedures): 35
<Diamond Moreno PA-C - Last Filed: 10/12/25 20:50>
Update Note
Update Note:
CXR stable from prior. BNP 4200. Troponin WNL. 40mg IV Lasix ordered for suspected CHF exacerbation. Patient trialed off of BiPAP but had to be put back on after a few minutes due to increasing work of breathing. Patient admitted for further
management.
ED Attending Note
<Diamond Moreno PA-C - Last Filed: 10/12/25 20:50>
-
Portions of this chart may have been created with voice recognition software.� Occasional wrong word or��sound alike� substitutions may have occurred due to the inherent limitations of voice recognition software.
<Marilia Mckeon MD - Last Filed: 10/12/25 14:31>
ED Attending Note
Patient seen and examined by attending physician: Yes
I performed the substantive portion of visit, reviewed & personally made and approve the management plan that is documented in note by myself or HOWIE.: Yes
ED Attending Note:
Patient appears tachypneic with decreased breath sounds bilaterally and mild crackles. Patient has 1+ edema in bilateral lower extremities. Patient started on BiPAP shortly after arrival. Appears as though he is having CHF exacerbation.
Discharge Plan
Departure
Patient Disposition: Admit
Date of Disposition: 10/12/25
Time of Disposition: 15:12
Presentation/result/management discussed w/ accepting MD/DO: Hospitalist
Discharge Problem:
Acute exacerbation of CHF (congestive heart failure), Acute and chronic respiratory failure with hypoxia
Interventions
Interventions:
*Risk Screen - Suicide Last Done: 10/12/25 13:40
*General Assessment Last Done: 10/12/25 13:40
*Neglect/Abuse Screening Last Done: 10/12/25 13:40
*ED COVID-19 Vaccine History Last Done: 10/12/25 14:10
*ED Influenza Vaccine History Last Done: 10/12/25 14:10
[facility] Risk Assessment Tool Last Done: 10/12/25 14:10
*Nursing Disposition Last Done: 10/12/25 17:04
ED- Cardiac Assessment Last Done: 10/12/25 14:10
ED- Pulmonary Assessment Last Done: 10/12/25 14:10
--- NOTE | 2025-10-12 13:55 | EDRN ---
the pt is currently on 15 non rebreather Sp02 93%, respiratory was called to place the pt on a Bipap
--- NOTE | 2025-10-12 14:00 | EDRN ---
respiratory currently at the pts bedside
--- NOTE | 2025-10-12 14:09 | EDRN ---
respiratory placecd the pt on Bipap 12/5 at 15L, Sp02 currently 93%, portable cxr completed, EKG completed, labs drawn and sent
[2025-10-12 14:20] LABS: Venous Blood Gas B.E. 2.3 mmol/L (-4 to +4); Venous Blood Gas O2 Sat % 83.1 %
[2025-10-12 14:22] LABS: Hematocrit 43.2 % (39.0-52.0); Hemoglobin 13.6 g/dL (13.0-18.0); Mean Corp Hgb Conc. 31.5 g/dL (33.0-37.0); Mean Corpuscular Volume 92.5 fL (80.0-94.0); Nucleated Red Blood Cells % 0 % (-); Platelet Count 128 10^3/uL (130-400); Red Cell Dist. Width 15.9 % (11.5-14.5)
--- NOTE | 2025-10-12 14:25 | EDRN ---
this RN notified the provider Diaomnd SZYMANSKI that the pts diastolic pressure is elevated, no new orders at this time
[2025-10-12 14:28] LABS: INR 2.70; PT 28.9 Sec (11.4-14.6)
[2025-10-12 14:29] LABS: ALT (SGPT) 21 U/L (0-50); AST (SGOT) 26 U/L (17-59); Albumin 4.4 g/dl (3.5-5.0); Alkaline Phosphatase 89 U/L (38-126); Blood Urea Nitrogen 30 mg/dl (9-20); Calcium 9.5 mg/dl (8.4-10.2); Carbon Dioxide 27 mmol/L (22-30); Chloride 103 mmol/L (98-107); Glucose 98 mg/dl (70-99); Potassium 4.6 mmol/L (3.5-5.1); Sodium 138 mmol/L (135-145); Total Protein 7.5 g/dl (6.3-8.2); eGFR > 60.00
--- NOTE | 2025-10-12 14:31 | EDRN ---
respiratory currently at the pts bedside and adjusted Bipap settings, now 12/ at 10L, Sp02 95%
[2025-10-12 14:41] LABS: COVID-19 Antigen Negative (Negative)
[2025-10-12 14:41] LABS: Troponin I 0.024 ng/ml
[2025-10-12] MEDS: LASIX 40 MG IV (14:50)
--- NOTE | 2025-10-12 15:43 | EDRN ---
per the provider Diamond SZYMANSKI, this RN removed Bipap and placed the pt on 6L NC, Sp02 96%, will continue to monitor the pt closely
--- NOTE | 2025-10-12 16:02 | EDRN ---
the pt started to desat to the 80's on 6L NC, this RN notified the provider and respiratory and this RN placed the pt back on Bipap, Sp02 coming back up to the 90's, the pt also was changed due to urinating
--- NOTE | 2025-10-12 16:17 | HPS.HSE ---
Family Physician
-
Family Physician: Noble Camarena DO
Chief Complaint
-
Hypoxia
History of Present Illness
Patient is an 80 y/o male past medical history of CHF, AVR, A-fib, COPD on supplemental oxygen, pulmonary hypertension, orthostatic hypotension, BPH and depression who presents with hypoxia. Patient resides at [facility][1]. Today he was noted
by staff to be hypoxic. Patient received multiple nebulizer treatments at the facility. Upon EMS arrival patient's pulse ox was 82% and he was placed on a non-rebreather. He was placed on BiPAP in the emergency department for continued increased
work of breath. Patient is unable to provide much history in this acute setting as he is having difficulty speaking with the BiPAP.
Medical History
Past Medical History
Past Medical History: Reports Other
Additional Past Medical History:
Chronic HFpEF
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
Paroxysmal Atrial Fibrillation s/p Ablation
SVT
Dilated Ascending Aorta
Thoracic Aortic Aneurysm
Aortic Dissection (treated medically)
Chronic Hypoxic Respiratory Failure / COPD
Renal Cell Carcinoma s/p Left Nephrectomy
Pulmonary Hypertension
Orthostatic Hypotension
BPH
PUD / GI Bleed
Anxiety / Depression
Past Surgical History: Reports Other
Additional Past Surgical History:
Bioprosthetic Aortic Valve Replacement
Left Nephrectomy
TURP
Hernia with Mesh
Social History
Tobacco: Former Smoker
Living: [facility]
Family History
Family History: Not pertinent
Allergies / Home Medications
Allergies reflects when Allergies were last updated in [facility].
Home Medications with original date entered in [facility]
Allergy/Medication List:
Allergies
Allergy/AdvReac Type Severity Reaction Status Date / Time
adhesive Allergy Rash Verified 09/27/25 11:14
lisinopril Allergy Anaphylaxis Verified 09/27/25 11:14
/ANGIOEDEMA
morphine Allergy HALLUCINATI Verified 09/27/25 11:14
ONS
protamine Allergy Anaphylaxis/pulmonary Verified 09/27/25 11:14
HTN
Home Medications
fluticasone propionate 50 mcg/actuation nasal spray,suspension 2 spray intranasal DAILY Congestion 02/12/18
acetaminophen 500 mg tablet (Tylenol Extra Strength) 650 mg PO Q4HPRN PRN mild pain 07/08/20
escitalopram oxalate 20 mg tablet (Lexapro) 20 mg PO QPM Depression 01/13/23
ipratropium 0.5 mg-albuterol 3 mg (2.5 mg base)/3 mL nebulization soln 3 ml inhalation R TID Lung/Breathing Issues 12/03/24
furosemide 20 mg tablet 40 mg PO DAILY Fluid Retention/Swelling 06/30/25
midodrine 5 mg tablet 5 mg PO TID Blood Pressure 06/30/25
montelukast 10 mg tablet (Singulair) 10 mg PO HS Allergies 06/30/25
prednisone 5 mg tablet 5 mg PO DAILY Anti-Inflammatory 06/30/25
albuterol sulfate 90 mcg/actuation aerosol inhaler 2 puff inhalation R Q6HPRN PRN sob 09/27/25
benzocaine 15 mg-menthol 10 mg lozenges (Chloraseptic Max) 1 pavithra mucous membrane Q6HPRN PRN cough 09/27/25
carboxymethylcellulose 0.5 %-glycerin 0.9 % eye drops (Refresh Optive) 1 drp BOTH EYES BID Eye Condition 09/27/25
fluticasone 250 mcg-salmeterol 50 mcg/dose blistr powdr for inhalation (Advair Diskus) 1 inh inhalation R BID Lung/Breathing Issues 09/27/25
hydrocortisone 2.5 % topical cream with perineal applicator (Proctozone-HC) 1 applic WV Q4HPRN PRN hemmorriods 09/27/25
magnesium hydroxide 400 mg/5 mL oral suspension (Milk of Magnesia) 2,400 mg PO HSPRN PRN constipation 09/27/25
metolazone 2.5 mg tablet 2.5 mg PO DAILYPRN PRN wt gain >3 pds 09/27/25
metoprolol succinate 100 mg tablet,extended release 24 hr 50 mg PO DAILY Heart Disease/Condition 09/27/25
sodium phosphates 19 gram-7 gram/118 mL enema (Fleet Enema) 118 ml WV [id number] PRN if no bm aftr mom 09/27/25
warfarin 2.5 mg tablet 2.5 mg PO QPM 10/12/25
Review of Systems
-
Unable to obtain full review of systems at this time due to: Acuity
Physical Exam
Vital Signs
Vital Signs
Temp Pulse Resp BP Pulse Ox
98.6 F 91 21 131/94 95
10/12/25 14:10 10/12/25 15:45 10/12/25 15:45 10/12/25 15:12 10/12/25 16:04
Physical Exam
General: Other (Elderly male appears slightly tachypneic )
HEENT: Anicteric and Oxygen (BiPAP)
Respiratory: Rales (Bilaterally) and Decreased Breath Sounds (Bases, poor inspiratory effort)
Cardiac: S1/S2, Irregular Rhythm and Tachycardia (Slightly)
GI: Soft and Non Tender
Rectal: Deferred by Provider
Genito-urinary: Clear Urine
Musculoskeletal: No Clubbing and Other (+2 pitting edema bilateral lower extremity; Toes are slightly cyanotic)
Skin: Dry; No Rash or Jaundice
Neuro: Awake, Alert and Nonfocal/grossly intact
Psych: Calm
Laboratory Results
-
10/12/25 13:53
10/12/25 13:53
Laboratory Results
PT 28.9 Sec (11.4-14.6) H 10/12/25 13:59
INR 2.70 10/12/25 13:59
Total Bilirubin 3.1 mg/dl (0.2-1.3) H 10/12/25 13:53
AST 26 U/L (17-59) 10/12/25 13:53
ALT 21 U/L (0-50) 10/12/25 13:53
Alkaline Phosphatase 89 U/L (38-126) 10/12/25 13:53
Troponin I 0.024 ng/ml 10/12/25 13:53
Chest X-Ray:
Stable small right pleural effusion with associated atelectasis and/or pneumonia.
Data Reviewed
-
Diagnostic Radiology: Report Reviewed by me
Lab Data: Labs Reviewed by me
Old Records: Reviewed
Impression/Plan
-
Acute on Chronic Hypoxic Respiratory Failure
-Possibly related to acute heart failure as BNP remains elevated, though not as elevated as previously
-Patient received Lasix 40mg IV in ED - Monitor for response
-CXR raises concern for possible pneumonia, therefore will check Procalcitonin and if elevated plan to start antibiotics
-Admit to IMU
-Continue BiPAP
-Consult Pulmonary and Cardiology
Chronic HFpEF, possible acute exacerbation
-Monitor for response from Lasix
-Monitor Is&Os and Daily Weighs
Persistent Atrial Fibrillation
-Continue Metoprolol for rate control
-Continue warfarin for anticoagulation - INR currently in range
COPD
-Change Advair to Pulmicort and DuoNeb during hospitalization
-Continue prednisone as prior to admission
Orthostatic Hypotension
-Continue midodrine
Anxiety / Depression
-Continue Lexapro
DVT proph: Coumadin
Code Status: DNR
--- NOTE | 2025-10-12 16:25 | EDRN ---
hospitalist currently at the pts bedside
--- NOTE | 2025-10-12 16:49 | CM ---
Chart reviewed
Pt is a LTC resident at [facility]
alert and 1 person assist with ADLs and ambulation
Using RW
DCP is to return back to [facility]
phone number [phone]
fax number [phone]
CM will continue to follow up for dcp needs
--- NOTE | 2025-10-12 17:02 | EDRN ---
the pt has ripped off purer wick catheter, the pt ripped off cardiac monitoring and is attempting to remove Bipap, this RN educated the pt on the importance of monitoring specialist and the Bipap, this RN placed new male pure wick
--- NOTE | 2025-10-12 17:13 | EDRN ---
the pt again is attempting to pull off Bipap and is ripping cardiac monitoring off as well as Sp02 monitor, the pt is also attempting to remove PIV's, this RN placed the pt back on Bipap and educated the pt on the importance of keeping the Bipap on,
the pt verbally stated that he understands, attempted to call IMU for report
--- NOTE | 2025-10-12 17:29 | EDRN ---
this RN called the receiving IMU nurse Sue and gave verbal report, paper report was also tubed up as well as the pts paper work
--- NOTE | 2025-10-12 18:12 | W.PN.UPDATE ---
Update Note
Progress Note Update
Patient is unable to provide much history in this acute setting as he is having difficulty speaking with the BiPAP.
This note serves as an addendum to the H&P by focusing machine operator Wanda ORTIZ
HPI
80M Res of Yaquelin Mccallum PA
PMHX: CHF, AVR, A-fib, COPD on supplemental oxygen, PHT, orthostatic hypotension, BPH and depression
- eval at ER for hypoxia noted by staff
- received multiple nebulizer treatments at the facility.
- Upon EMS arrival: POx 82% and then placed on a NRM
- At ER BiPAP was placed for increased work of breath. P
Relevant VS
Temp Pulse Resp BP Pulse Ox
98.6 F 94 17 120/79 96
10/12/25 14:10 10/12/25 17:45 10/12/25 17:45 10/12/25 17:00 10/12/25 17:45
PE
Gen:wearing BiPAP , follow commands, tremulous
Neck: supple
Lungs:Bilaterally basilar rales
Cor:Irregular Rhythm and Tachycardia
Abdomen:�Soft and Non Tender
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
MS: +2 pitting edema bilateral lower extremity; Toes are slightly cyanotic
Psych: suspect slightly confuse
Relevant Data
10/12/25 10/12/25 10/12/25
13:53 13:59 14:04
RBC 4.67 L
MCHC 31.5 L
RDW 15.9 H
Plt Count 128 L
MPV 10.5 H
Absolute Lymphs (auto) 0.7 L
Neutrophils % 76.3 H
Lymphocytes % 12.8 L
PT 28.9 H
VBG pH 7.30 L
VBG pCO2 62 H
VBG pO2 53 H
VBG HCO3 30.5 H
BUN 30 H
Total Bilirubin 3.1 H
07/16/25 09/27/25 10/12/25
05:20 11:24 13:53
[id number] Pept 3450 5160 4200
10/12/25
18:00
Procalcitonin Pending
EKG report
ATRIAL FIBRILLATION
LEFT ANTERIOR FASCICULAR BLOCK
MINIMAL VOLTAGE CRITERIA FOR LVH, MAY BE NORMAL VARIANT ( Jerry product )
T WAVE ABNORMALITY, CONSIDER LATERAL ISCHEMIA
ABNORMAL ECG
WHEN COMPARED WITH ECG OF 28-Sep-2025 07:30,
ATRIAL FIBRILLATION HAS REPLACED SINUS RHYTHM
ST NO LONGER DEPRESSED IN INFERIOR LEADS
T WAVE INVERSION NO LONGER EVIDENT IN LATERAL LEADS
CXR
Stable small right pleural effusion with associated atelectasis and/or pneumonia.
07/01/25 TTE
1. Normal left ventricular function.
2. Ejection fraction is 50-55% by visual assesment.
3. Diastolic flattening of the interventricular septum consistent with right ventricular volume overload.
4. Right ventricular cavity size is moderately dialted.
5. Right ventricular systolic function is mildly decreased.
6. Moderately dilated left atrium left atrium.
7. Severely dilated right atrium.
8. Bioprosthetic aortic valve prosthesis is noted. Aortic prosthesis appears to be functioning normally. Aortic prosthesis is stable and well seated.
9. Severe tricuspid regurgitation.
10. Ascending Aorta 9.1-9.8cm.
11. Tricuspid valve opens normally. Severe tricuspid regurgitation. Estimated pulmonary artery pressure of 45 mmHg assuming a right atrial pressure of 15 mmHg.
12. Severely dilated IVC with absent inspiratory collapse.
13. Compared to a prior transthoracic echocardiogram study from 08/21/2024 The ascending aorta has become further dilated from 8.9 cm to 9.1-9.8 cm.
ASSESSMENT & PLAN
Acute on Chronic Hypoxic RF
- element of acute HF as BNP remains elevated, though not as elevated as previously
- received Lasix 40mg IV in ED - Monitor for response
- CXR raises concern for possible PNA
- pending PCTif elevated plan to start ABx
- c/w BiPAP
- Consult Pulmonary and CBC Cardiology
Chronic HFpEF, possible acute flare
- Hold further IV alsix till Card eval in AM
- r Is&Os and Daily Weighs
Persistent AF
- on ADVISOR TO COMMAND IN COMBAT Metoprolol XL
- on ADVISOR TO COMMAND IN COMBAT chr warfarin- INR currently in range
COPD HX
- usually on 2 L Home NC O2
- Pulmicort and DuoNeb during hospitalization
- on ADVISOR TO COMMAND IN COMBAT PO prednisone
Orthostatic Hypotension
- on midodrine
Anxiety / Depression
- on ADVISOR TO COMMAND IN COMBAT Lexapro
DVT Px - chr warfarin
DNR
IMU
[2025-10-12] MEDS: VALIUM INJECTION 2 MG IV (18:30)
--- NOTE | 2025-10-12 18:39 | EDRN ---
the pt began ripping off Bipap and started to swing right fist at this RN, this RN asked the pt if he was okay, the pt stated, 'Get me out of here', the pt was able to get a hold of this RN's right wrist while this RN was attempting to place the pt
back on Bipap due to the pts Sp02 dropping to the 80's and the pt dug his fingernails into this RN's right wrist, a second nurse Deysi RN helped this RN calm the pt down, this RN notified Angie SZYMANSKI and Valium was ordered for agitation,
the pt is now sleeping in stretcher in the lowest position, side rails up x2, call barkley within reach, HOB elevated, Bipap on 12 10L and Sp02 is 95%, will continue to monitor the pt closely, waiting for IMU bed to be cleaned
[2025-10-12 18:50] LABS: Procalcitonin < 0.05 ng/ml (0.0-0.25)
--- NOTE | 2025-10-12 19:30 | EDRN ---
Report received, patient waiting for his bed to be clean, when observed, looks like he's trying to climb out of bed, went in asked him if he needed to use the restroom, said yes, helped with urinal, patient was incontinent to urine, changed nirmal
and pulled up in bed
--- NOTE | 2025-10-12 21:23 | PTCARENOTE ---
pt received from ED on stretcher and transferred to the bed. Bipap in place 12/5 with 8 L O2; pox 96%. Resp rate 20 and non-labored. A-fib rhythm on telemetry with rates in 70's. He is nodding appropriately and following commands. Oriented to the
room and call barklye in reach. Bed in lowest position and bed alarm enabled. See fully documented assessment. Continuing to monitor
[2025-10-12] MEDS: DUONEB 3 ML INH (21:53)
[2025-10-12] MEDS: PULMICORT 0.5 MG INH (21:53)
[2025-10-12] MEDS: SINGULAIR PO (23:30)
--- NOTE | 2025-10-12 23:46 | PTCARENOTE ---
pt took bipap mask off and making guestures with his hands indicating that he wants to get up. Attempting to swing legs out of the bed; pox dropping to 86%. Nasal canula applied at 6L; pox 94%. Advised pt that he needs to stay in the bed overnight
due to resp status. He nods appropriately and is now resting. Resp therapy notified. Continuing to monitor.
[2025-10-13] VITALS (12 sets, daily range): BP systolic 93–167; BP diastolic 65–149; BMI 21.6
[2025-10-13] MEDS: COUMADIN 2.5 MG PO ×2 (00:01→17:06)
[2025-10-13] MEDS: LEXAPRO 20 MG PO ×2 (00:03→17:06)
--- NOTE | 2025-10-13 00:17 | PTCARENOTE ---
pt assisted to stand to urinate in the urinal at his request. Steady standing with one assist and voided in urinal. Pox dropping to 86% on 6 L with standing; tachypneic to 33 rpm. He is oriented to himself and confused to place and time.
Re-oriented, somewhat agitated but mostly cooperative with reinforcement. Able to swallow water and pills without issue. Pox returning to 93% on 6L after sitting 1-2 mins.
--- NOTE | 2025-10-13 04:19 | PTCARENOTE ---
pt requesting to sit in the chair. Assisted to the chair with one assist. Chair alarm placed. pox dropping to 88% on 6L with the transfer and then recovering to 96% after resting 2 mins in the chair. Call barkley in reach and demonstrated use, but pt
continues to call out for assistance when needed. Continuing to monitor
[2025-10-13 05:34] LABS: Hematocrit 42.1 % (39.0-52.0); Hemoglobin 13.2 g/dL (13.0-18.0); Mean Corp Hgb Conc. 31.4 g/dL (33.0-37.0); Mean Corpuscular Volume 92.3 fL (80.0-94.0); Platelet Count 117 10^3/uL (130-400); Red Cell Dist. Width 15.8 % (11.5-14.5)
[2025-10-13 05:40] LABS: Blood Urea Nitrogen 30 mg/dl (9-20); Calcium 9.3 mg/dl (8.4-10.2); Carbon Dioxide 28 mmol/L (22-30); Chloride 102 mmol/L (98-107); Estimated Creatinine Clearance 55 ml/min; Glucose 100 mg/dl (70-99); Potassium 4.5 mmol/L (3.5-5.1); Sodium 138 mmol/L (135-145); eGFR > 60.00
[2025-10-13] MEDS: TYLENOL 650 MG PO (05:59)
[2025-10-13] MEDS: DUONEB 3 ML INH ×4 (07:33→19:51)
[2025-10-13] MEDS: PULMICORT 0.5 MG INH ×2 (07:33→19:51)
[2025-10-13] MEDS: TOPROL XL 50 MG PO (08:11)
[2025-10-13] MEDS: DELTASONE 5 MG PO (08:12)
--- NOTE | 2025-10-13 08:18 | PTCARENOTE ---
Pt O2 to 4l pt stood by bedside and used urinal.
--- NOTE | 2025-10-13 10:03 | CON.PUL ---
Consultation
Consultation Request
Date/Time Consultation Requested: 10/13/25
Date/Time Consultation Performed: 10/13/25
Performing Provider: Lilo
Reason for Consultation: CHF
Medical History
-
History of Present Illness:
Patient is an 80 year old male past medical history of CHF, AVR, A-fib, COPD on supplemental oxygen, pulmonary hypertension, orthostatic hypotension, BPH and depression who presents with hypoxia. Patient resides at [facility]. Today he was
noted by staff to be hypoxic. Patient received multiple nebulizer treatments at the facility. Upon EMS arrival patient's pulse ox was 82% and he was placed on a non-rebreather. He was placed on BiPAP in the emergency department for continued
increased work of breath. He has had recent history of frequent admission for similar. Admitted to IMU for CHF on BIPAP.
Past Medical History
Past Medical History: Other (see list below)
Social History
Tobacco: Non-smoker
Alcohol: None
Drug: None
Allergies / Home Medications
Allergies
Allergy/AdvReac Type Severity Reaction Status Date / Time
adhesive Allergy Rash Verified 09/27/25 11:14
lisinopril Allergy Anaphylaxis Verified 09/27/25 11:14
/ANGIOEDEMA
morphine Allergy HALLUCINATI Verified 09/27/25 11:14
ONS
protamine Allergy Anaphylaxis/pulmonary Verified 09/27/25 11:14
HTN
Home Medications
�Medication �Instructions �Recorded �Confirmed �Last Taken �Type
fluticasone propionate 50 2 spray intranasal DAILY Congestion 02/12/18 10/12/25 08/16/25 06:30 History
mcg/actuation nasal
spray,suspension
acetaminophen 500 mg tablet 650 mg PO Q4HPRN PRN mild pain 07/08/20 10/12/25 08/15/25 08:30 History
(Tylenol Extra Strength)
escitalopram oxalate 20 mg tablet 20 mg PO QPM Depression 01/13/23 10/12/25 08/15/25 18:30 History
(Lexapro)
ipratropium 0.5 mg-albuterol 3 mg 3 ml inhalation R TID 12/03/24 10/12/25 08/15/25 06:30 History
(2.5 mg base)/3 mL nebulization Lung/Breathing Issues
soln
furosemide 20 mg tablet 40 mg PO DAILY Fluid 06/30/25 10/12/25 08/15/25 08:30 History
Retention/Swelling
midodrine 5 mg tablet 5 mg PO TID Blood Pressure 06/30/25 10/12/25 08/16/25 06:30 History
montelukast 10 mg tablet 10 mg PO HS Allergies 06/30/25 10/12/25 08/15/25 20:30 History
(Singulair)
prednisone 5 mg tablet 5 mg PO DAILY Anti-Inflammatory 06/30/25 10/12/25 08/15/25 08:30 History
albuterol sulfate 90 mcg/actuation 2 puff inhalation R Q6HPRN PRN sob 09/27/25 10/12/25 Unknown History
aerosol inhaler
benzocaine 15 mg-menthol 10 mg 1 pavithra mucous membrane Q6HPRN PRN 09/27/25 10/12/25 Unknown History
lozenges (Chloraseptic Max) cough
carboxymethylcellulose 0.5 1 drp BOTH EYES BID Eye Condition 09/27/25 10/12/25 Unknown History
%-glycerin 0.9 % eye drops
(Refresh Optive)
fluticasone 250 mcg-salmeterol 50 1 inh inhalation R BID 09/27/25 10/12/25 Unknown History
mcg/dose blistr powdr for Lung/Breathing Issues
inhalation (Advair Diskus)
hydrocortisone 2.5 % topical cream 1 applic ID Q4HPRN PRN hemmorriods 09/27/25 10/12/25 Unknown History
with perineal applicator
(Proctozone-HC)
magnesium hydroxide 400 mg/5 mL 2,400 mg PO HSPRN PRN constipation 09/27/25 10/12/25 Unknown History
oral suspension (Milk of Magnesia)
metolazone 2.5 mg tablet 2.5 mg PO DAILYPRN PRN wt gain >3 09/27/25 10/12/25 Unknown History
pds
metoprolol succinate 100 mg 50 mg PO DAILY Heart 09/27/25 10/12/25 Unknown History
tablet,extended release 24 hr Disease/Condition
sodium phosphates 19 gram-7 118 ml ID [id number] PRN if no bm 09/27/25 10/12/25 Unknown History
gram/118 mL enema (Fleet Enema) aftr mom
warfarin 2.5 mg tablet 2.5 mg PO QPM 10/12/25 10/12/25 Unknown History
Review of Systems
-
History Source: Patient
All other systems: Negative unless noted
Vitals / Labs / Diagnostic Testing
Vital Signs
Temp Pulse Resp BP Pulse Ox
98.7 F 73 16 112/98 93
10/13/25 07:00 10/13/25 08:11 10/13/25 07:51 10/13/25 08:11 10/13/25 07:51
Lab Data
10/13/25 04:49
10/13/25 04:49
Laboratory Results
10/12/25
13:59
PT 28.9 H
INR 2.70
Microbiology
10/12/25 13:59 Nasal Swab Influenza Types A & B (PRESTON) - Final
Negative for Influenza A & B, NAAT
Negative results must be combined with clinical observations
and patient history.
Nucleic Acid Amplification test (NAAT)performed on the
[employer] platform.
Diagnostic Testing:
Physical Exam
-
HEENT: Normocephalic, Anicteric and Moist Mucous Membranes
Cardiovascular: S1/S2 and Regular Rhythm
Respiratory: Rales and Accessory Resp Muscle Use (mild-mod)
GI: Soft, Non Distended and Non Tender
Neurology: Awake, Alert, Oriented and No Motor Deficits
Skin: Warm and Dry
General: Other (chronically ill appearing)
Assessment
-
Patient is an 80 year old male past medical history of CHF, AVR, A-fib, COPD on supplemental oxygen, pulmonary hypertension, orthostatic hypotension, BPH and depression who presents with hypoxia. Patient resides at [facility]. Today he was
noted by staff to be hypoxic. Patient received multiple nebulizer treatments at the facility. Upon EMS arrival patient's pulse ox was 82% and he was placed on a non-rebreather. He was placed on BiPAP in the emergency department for continued
increased work of breath. He has had recent history of frequent admission for similar. Admitted to IMU for CHF on BIPAP.
Acute hypoxic respiratory failure
Acute on chronic SOB
Acute on chronic CHF exacerbation, proBNP�4200
Leukopenia
Thrombocytopenia
Condition present [employer]ICAL TECH[employer]OLOG[employer]
Multiple pulmonary nodules, waxing and waning, s/p CT needle biopsy 07/11/2018 of RLL nodule w/ noncaseating granuloma with focal giant cells and negative for fungal and AFB.
c/b pneumothorax/Chest tube placement
Bilateral pulmonary infiltrates, negative bronchoscopy 2000 with decreased size in nodules.
COPD/asthma, with a 25-pack year smoking history and severely reduced FEV1 with significant bronchodilator response.
Follows with Dr Turcios, recent spirometry reveals severe obstruction and restriction. He has stage IV COPD, maintained on 5mg prednisone daily.
Nocturnal hypoxemia, Oxygen 2 L at night
Former smoker, quit age 40
Status post Strep viridans aortic valve endocarditis
ACC/AHA stage C chronic systolic heart failure
AVR bioprosthetic, currently on chronic Coumadin, 04/2018.
History of renal cell carcinoma, status post nephrectomy left side 2010.
Hypertension.
Paroxysmal atrial fibrillation.
GERD.
BPH, status post TURP.
Obstructive sleep apnea resolved with weight loss.
Allergies.
History of duodenal ulcer.
Idiopathic hypersomnia.
Depression
Moderate MR
Stage 3b chronic kidney disease
Plan
Currently saturating 93% on 4L
Baseline use of 2L at night, stable at rest on RA
Frequent admission for AE CHF-- prior discharge dates: 09/30/25, 07/03/25, 12/12/24
Goal weight had been 146 pound but now today 142.8 kg (64.9 kg)
He is 66.2kg, proBNP 4200
I reviewed records from prior admissions
Prior history of lung disease is noted including stage IV COPD, moderate PH (PASP about 40-45 on prior ECHO)
Follows with Dr Turcios as OP, extensive records reviewed
He is well known to our office, has been stable on his last chavo but still with severe obstruction
Maintained on prednisone 5mg
CXR/CT obtained indicating no significant changes from prior testing
Other imaging reviewed
Afib history on Coumadin
Cards following with further plans for medical management
ECHO results reviewed showing improvement in EF compared to prior, PASP remains stable 40-45 range, chronic RV dysfunction noted
Prior ECHO results are reviewed as well
He is maintained on coumadin as OP, VTE is less likely an issue
He feels almost back to baseline since rate control
proBNP elevated, component of decompensated HF noted, can diuresis until O2 requirements are decreased, optimize volume status prior to d/c
Will need outpatient pulmonary evaluation in our office for PFTs and 6MWT
Reviewed with patient, we will arrange appt with [facility] in 2-3 weeks for check-in post discharge
Due to his conditions and frequent admissions, we discussed GOC. He confirms he would not want aggressive measures
We discussed palliative care, he will consider this
Will follow
Diagnostic Data
CXR 06/30/25- There is a slightly increased small right pleural effusion with adjacent airspace opacity, likely chronic atelectasis. Cardiomegaly with known thoracic aortic aneurysm, similar to prior.
CT CHEST 12/10/24: No evidence of pulmonary embolus. Known aortic dissection. Stable. Known ascending aortic aneurysm measuring 9.4 cm. Stable. Small right pleural effusion. Progressed. Oval hypodense splenic lesion likely a cyst or hemangioma. Stable
ECHO 07/01/25- 1. Normal left ventricular function. 2. Ejection fraction is 50-55% by visual assessment. 3. Diastolic flattening of the interventricular septum consistent with right ventricular volume overload. 4. Right ventricular cavity size is
moderately dilated. 5. Right ventricular systolic function is mildly decreased.
6. Moderately dilated left atrium left atrium. 7. Severely dilated right atrium. 8. Bioprosthetic aortic valve prosthesis is noted. Aortic prosthesis appears to be functioning normally. Aortic prosthesis is stable and well seated. 9. Severe
tricuspid regurgitation. 10. Ascending Aorta 9.1-9.8cm. 11. Tricuspid valve opens normally. Severe tricuspid regurgitation. Estimated pulmonary artery pressure of 45 mmHg assuming a right atrial pressure of 15 mmHg. 12. Severely dilated IVC with
absent inspiratory collapse. 13. Compared to a prior transthoracic echocardiogram study from 08/21/2024 The ascending aorta has become further dilated from 8.9 cm to 9.1-9.8 cm.
08/21/24- Normal LV size with mildly reduced systolic function. LVEF is 45-50% by visual estimation. Mild global hypokinesis. Moderate concentric LVH. Severely dilated right ventricle with mildly reduced systolic function. Severely dilated right
atrium. Mild mitral regurgitation. Bioprosthetic aortic valve replacement with peak/mean gradients of 18/9 mmHg. No aortic regurgitation is seen. Severe tricuspid regurgitation. Estimated pulmonary artery pressure of 40 mmHg assuming a right
atrial pressure of 15 mmHg (likely underestimated due to severity of tricuspid regurgitation). Severely dilated ascending aorta. (8.9 cm) The IVC is severely dilated and does not collapse. Compared to prior echo from January 11, 2023, ascending aorta
now measures 8.9 cm previously 8.6 cm.
Reports and relevant images were personally reviewed.
Total time spent on this consultation/encounter __75__ minutes which includes review of history, physical exam, medications, laboratory data, personal review of imaging, extensive review of outpatient records, discussion with care team and
respiratory therapy.
--- NOTE | 2025-10-13 12:53 | CON.CAR ---
Consultation
Consultation Request
Date/Time Consultation Requested: 10/13/2025
Reason for Consultation: Atrial fibrillation and heart failure
Medical History
-
Chief Complaint: Shortness of breath
History of Present Illness:
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
Carcinoma s/p Left Nephrectomy, BPH, GI bleeds, HTN, A-fib status post ablation on 07/17/2020 (PVI and CTI), previously on dofetilide with currently permanent A-fib / flutter without plan for rhythm control, anticoagulated with warfarin, atypical
atrial flutters presented from [facility] with shortness of breath for few days and was noted to be in A-fib. He was admitted with COPD/pneumonia. Sign of significant fluid overload noted. He appears to be euvolemic. He is severely lethargic
and fatigued.
He presented with proBNP of 4200 but is less than but his normal BNP is which is around 4 - 5000. His lowest BNP was 1500 back in June 2025.
Echo 07/01/2025
1. Normal left ventricular function.
2. Ejection fraction is 50-55% by visual assesment.
3. Diastolic flattening of the interventricular septum consistent with right ventricular volume overload.
4. Right ventricular cavity size is moderately dialted.
5. Right ventricular systolic function is mildly decreased.
6. Moderately dilated left atrium left atrium.
7. Severely dilated right atrium.
8. Bioprosthetic aortic valve prosthesis is noted. Aortic prosthesis appears to be functioning normally. Aortic prosthesis is stable and well seated.
9. Severe tricuspid regurgitation.
10. Ascending Aorta 9.1-9.8cm.
11. Tricuspid valve opens normally. Severe tricuspid regurgitation. Estimated pulmonary artery pressure of 45 mmHg assuming a right atrial pressure of 15 mmHg.
12. Severely dilated IVC with absent inspiratory collapse.
13. Compared to a prior transthoracic echocardiogram study from 08/21/2024 The ascending aorta has become further dilated from 8.9 cm to 9.1-9.8 cm.
Past Medical History
Past Medical History: Arrhythmias (A-fib PVI, CTI flutter 2019 -radiofrequency (Joel)), Valvular Disease (AVR 2017) and Other (chronic HFpEF, infective endocarditis status post bio AVR in 2018, thoracic aortic aneurysm with DeBakey type I aortic
dissection (not thought to be surgical candidate it was managed conservatively), COPD, HTN, paroxysmal atrial fibrillation status post ablation on dofetilide and OAC with Warfarin, )
Social History
Tobacco: Non-Smoker
Alcohol: None
Drug: None
Family History
Family History: Reviewed & Not Pertinent
Allergies / Home Medications
Allergy/AdvReac Type Severity Reaction Status Date / Time
adhesive Allergy Rash Verified 09/27/25 11:14
lisinopril Allergy Anaphylaxis Verified 09/27/25 11:14
/ANGIOEDEMA
morphine Allergy HALLUCINATI Verified 09/27/25 11:14
ONS
protamine Allergy Anaphylaxis/pulmonary Verified 09/27/25 11:14
HTN
�Medication �Instructions �Recorded �Confirmed �Type
fluticasone propionate 50 2 spray intranasal DAILY Congestion 02/12/18 10/12/25 History
mcg/actuation nasal
spray,suspension
acetaminophen 500 mg tablet 650 mg PO Q4HPRN PRN mild pain 07/08/20 10/12/25 History
(Tylenol Extra Strength)
escitalopram oxalate 20 mg tablet 20 mg PO QPM Depression 01/13/23 10/12/25 History
(Lexapro)
ipratropium 0.5 mg-albuterol 3 mg 3 ml inhalation R TID 12/03/24 10/12/25 History
(2.5 mg base)/3 mL nebulization Lung/Breathing Issues
soln
furosemide 20 mg tablet 40 mg PO DAILY Fluid 06/30/25 10/12/25 History
Retention/Swelling
midodrine 5 mg tablet 5 mg PO TID Blood Pressure 06/30/25 10/12/25 History
montelukast 10 mg tablet 10 mg PO HS Allergies 06/30/25 10/12/25 History
(Singulair)
prednisone 5 mg tablet 5 mg PO DAILY Anti-Inflammatory 06/30/25 10/12/25 History
albuterol sulfate 90 mcg/actuation 2 puff inhalation R Q6HPRN PRN sob 09/27/25 10/12/25 History
aerosol inhaler
benzocaine 15 mg-menthol 10 mg 1 pavithra mucous membrane Q6HPRN PRN 09/27/25 10/12/25 History
lozenges (Chloraseptic Max) cough
carboxymethylcellulose 0.5 1 drp BOTH EYES BID Eye Condition 09/27/25 10/12/25 History
%-glycerin 0.9 % eye drops
(Refresh Optive)
fluticasone 250 mcg-salmeterol 50 1 inh inhalation R BID 09/27/25 10/12/25 History
mcg/dose blistr powdr for Lung/Breathing Issues
inhalation (Advair Diskus)
hydrocortisone 2.5 % topical cream 1 applic HI Q4HPRN PRN hemmorriods 09/27/25 10/12/25 History
with perineal applicator
(Proctozone-HC)
magnesium hydroxide 400 mg/5 mL 2,400 mg PO HSPRN PRN constipation 09/27/25 10/12/25 History
oral suspension (Milk of Magnesia)
metolazone 2.5 mg tablet 2.5 mg PO DAILYPRN PRN wt gain >3 09/27/25 10/12/25 History
pds
metoprolol succinate 100 mg 50 mg PO DAILY Heart 09/27/25 10/12/25 History
tablet,extended release 24 hr Disease/Condition
sodium phosphates 19 gram-7 118 ml HI [id number] PRN if no bm 09/27/25 10/12/25 History
gram/118 mL enema (Fleet Enema) aftr mom
warfarin 2.5 mg tablet 2.5 mg PO QPM 10/12/25 10/12/25 History
Review of Systems
-
History Source: Patient
All other systems: Negative unless noted
Physical Exam
Vital Signs
Temp Pulse Resp BP Pulse Ox
97.7 F 73 18 114/79 92
10/13/25 11:00 10/13/25 11:21 10/13/25 11:21 10/13/25 10:00 10/13/25 11:21
Lab Results
10/13/25 04:49
10/13/25 04:49
Troponin I 0.024 ng/ml 10/12/25 13:53
Xis-J-Twamsknnwag Pept 4200 pg/ml 10/12/25 13:53
Physical Exam
General: Well Developed, Well Nourished, No Apparent Distress and Comfortable
HEENT: Normocephalic, Anicteric and Moist Mucous Membranes
Cardiac: S1/S2, Irregular Rhythm and Murmur; Negative Peripheral Edema or JVD
GI: Soft, Non Tender and Non Distended
Musculoskeletal: No Clubbing, No Cyanosis and No Edema
Skin: Warm and Dry
Neuro: Awake, Alert, Oriented and AO x 3
Impression / Plan
-
Card: Ayad
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
- Still with dyspnea
- He had goal weight at 66.2 kg.
- On Lasix (now PO), metoprolol ER 75 mg daily
- Midodrine for BP support
- Can retry GDMT (perhaps SGLT2-i or low dose MRA, will review with his physician office specialist, Dr. Lion
AFib and AT (perhaps an atypical flutter
- History of A-fib ablation in July 2020.
- Remained in sinus. Now started having atypical flutters.
- Patient is high risk for any interventions and will remain with rate controlled A-fib flutter.
- Patient's plan was switched to rate control back in September 2025- no more rhythm control attempts
- His dofetilide was discontinued in September 2025 in favor of rate control.
- Last cardioversion just 08/16/2025 => no more cardioversions
- Warfarin, continue
S/p AVR, good fxn on echo 07/01/2025
Severe TR
Lymphedema:
-Lt>rt,improving
-rula wraps
HTN - stable on meds, continue to monitor with diuresis.
COPD - oxygen dependent 3L NC. SEVERE
Aortic aneurysm with dissection, Asc Ao 9.4 cm => med rx
DNR
Data Reviewed
-
EKG: Tracing Personally Visualized and interpreted and Report Reviewed by me
Radiology: Report Reviewed by me
Labs: Labs Reviewed by me, Discussed with Physician and Discussed with Nurse
Old Records: Reviewed
--- NOTE | 2025-10-13 13:25 | W.PN.HOSP.TC ---
Today's Communication/Plan
-
Assessment / Plan
Assessment / Plan
General: No Apparent Distress, somnolent but arousable
HEENT: NormoCephalic, Moist mucous membranes, Atraumatic
Respiratory: Clear and Non Labored Respirations
Cardiac: S1/S2 and Regular Rhythm; No Rub or Gallop
GI: Soft, Non Tender, Non Distended and Normal Bowel Sounds
Musculoskeletal: Bilateral lower extremity edema, no deformity
Skin: Warm and dry
: NO [place]
Neuro: Somnolent but arousable, Nonfocal/grossly intact
Psych: Calm and cooperative
Mr. Kirk is an 80-year-old male with a medical history of HFpEF, infective endocarditis (bioprosthetic AVR 2018), severe thoracic aortic aneurysm, DeBakey type I aortic dissection (not a surgical candidate), severe COPD (2 L O2 at night), pulmonary
hypertension, RCC (status post left nephrectomy), permanent A-fib/flutter (status post PVI and CTI, no longer on rhythm control), PUD with GIB, and orthostatic hypotension who presented from [facility] with dyspnea and hypoxia. He was started
on BiPAP in the ED and admitted to the IMU for further evaluation and management.
Acute on chronic hypoxic respiratory failure:
- Initially requiring BiPAP, now transitioned to 4 L via nasal cannula and saturating appropriately
- Doubt infection, procalcitonin undetectable
- Likely progression of severe COPD, continue scheduled breathing treatments with additional as needed
- Patient is well-known to the pulmonary team here, they discussed goals of care and patient confirms he would not want aggressive measures, patient considering palliative care
- Mild lower extremity edema on exam, close to his dry weight and overall appears euvolemic, given a dose of IV Lasix in the ED, will continue p.o. Lasix, cardiology following
- Continue daily prednisone 5 mg
- Continue supportive care, monitor
Chronic HFpEF:
- Currently appears euvolemic
- Continue home Lasix 40 mg p.o. daily
- Beta-blockade with home metoprolol succinate 50 mg daily
- No afterload reduction medications due to baseline orthostatic hypotension, on midodrine
- Cardiology following
A-fib:
- Currently rate controlled no longer attempting rhythm control, last cardioversion 08/16/2025 with no further cardioversions planned
- Continue rate control with home metoprolol succinate 50 mg daily
- Anticoagulation with warfarin, INR goal 2-3
Orthostatic hypotension:
- Continue home midodrine 5 mg p.o. 3 times daily
DVT prophylaxis: Warfarin
CODE STATUS: DNR
Anticipated Discharge: > 48 hours
Subjective/Interval History
-
Date of Service: October 13, 2025
Patient was seen and examined at bedside. Currently breathing comfortably and saturating appropriately on 3 to 4 L nasal cannula.
Objective Data
-
Labs:
Laboratory Results
10/13/25
04:49
WBC 4.6 L
Hgb 13.2
Hct 42.1
Plt Count 117 L
Sodium 138
Potassium 4.5
Chloride 102
Carbon Dioxide 28
BUN 30 H
Creatinine 1.0
Glucose 100 H
Calcium 9.3
Vital Signs:
Vital Signs
Temp Pulse Resp BP Pulse Ox
97.7 F 73 18 114/79 92
10/13/25 11:00 10/13/25 11:21 10/13/25 11:21 10/13/25 10:00 10/13/25 11:21
I&O
10/12/25 10/13/25 10/14/25
06:59 06:59 06:59
Output Total 900 / 900 50 / 50
Balance -900 / -900 -50 / -50
Review of Systems
-
Unable to obtain full review of systems at this time due to: Acuity
Physical Exam
-
General: No Apparent Distress and Appears Chronically Ill
--- NOTE | 2025-10-13 17:37 | PTCARENOTE ---
Pt refusing dinner
[2025-10-13] MEDS: SINGULAIR 10 MG PO (20:54)
--- NOTE | 2025-10-13 22:58 | PTCARENOTE ---
assumed care of patient. pt is AAOx3, forgetful, able to make needs known. bed alarm on. 6L NC 94%. pt able to stand at side of the bed to use urinal. oxygen dropping with ambulation but recovers once back in bed. pt is a x1 assist to stand at side
of bed. SOB on exertion, no complaints of pain. pt can at times be agitated with care. care ongoing.
[2025-10-14] VITALS (28 sets, daily range): BP systolic 61–132; BP diastolic 42–116; PULSE 2–107; BMI 17.9; BMI 23.2
[2025-10-14 06:28] LABS: INR 3.57; PT 36.0 Sec (11.4-14.6)
[2025-10-14 06:35] LABS: Blood Urea Nitrogen 30 mg/dl (9-20); Calcium 9.3 mg/dl (8.4-10.2); Carbon Dioxide 30 mmol/L (22-30); Chloride 103 mmol/L (98-107); Estimated Creatinine Clearance 51 ml/min; Glucose 85 mg/dl (70-99); Potassium 4.4 mmol/L (3.5-5.1); Sodium 140 mmol/L (135-145); eGFR > 60.00
[2025-10-14 06:53] LABS: Hematocrit 46.6 % (39.0-52.0); Hemoglobin 13.7 g/dL (13.0-18.0); Mean Corp Hgb Conc. 29.4 g/dL (33.0-37.0); Mean Corpuscular Volume 97.9 fL (80.0-94.0); Nucleated Red Blood Cells % 0 % (-); Platelet Count 119 10^3/uL (130-400); Red Cell Dist. Width 15.8 % (11.5-14.5)
[2025-10-14] MEDS: PULMICORT 0.5 MG INH (07:29)
[2025-10-14] MEDS: DUONEB 3 ML INH ×3 (07:29→15:14)
--- NOTE | 2025-10-14 07:31 | W.PN.HOSP.TC ---
Today's Communication/Plan
-
comfort care measures
Hospice Eval in AM
Assessment / Plan
Assessment / Plan
General: in respiratory distress requiring BIPAP to maintain saturations
HEENT: NormoCephalic, Moist mucous membranes, Atraumatic
Respiratory: bibasilar crackles
Cardiac: S1/S2 and Regular Rhythm; No Rub or Gallop
GI: Soft, Non Tender, Non Distended and Normal Bowel Sounds
Musculoskeletal: Bilateral lower extremity edema +2
Skin: Warm and dry
: NO [place]
Neuro/psych: very lethargic, communications via head gestures if any communications at all.
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
permanent A-fib/flutter (status post PVI and CTI, no longer on rhythm control), PUD with GIB, and orthostatic hypotension who presented from [facility] with dyspnea and hypoxia. He was started on BiPAP in the ED and admitted to the IMU for
further evaluation and management.
Acute on chronic hypoxic respiratory failure:
- Requiring BiPAP briefly transitioned to 4 L via nasal cannula, since acutely worsened required BIPAP continuously 10/14/25
- initial procalcitonin negative however patient later developed fever 100.6 tachycardia concerning for Sepsis w/ end organ damage respiratory failure and Encephalopathy
- Likely progression severe COPD end stage
Possible Hospital Associated Pneumonia Sepsis as above
-received prn rectal Tylenol, unable to tolerate PO d/t AMS continuous BIPAP as above
-Levophed support was started, requiring increasing dose to maintain MAP>65
-started stress dose steroids hydrocortisone 50mg Q6H
-empiric Vanc Zosyn started
Possible Acute on Chronic HFpEF contributing
- Home Lasix was briefly switched to IV Lasix 40 mg daily while on continuous BIPAP as above
- Beta-blockade with home metoprolol succinate 50 mg daily prior to continuous BIPAP as above
- No afterload reduction medications due to baseline orthostatic hypotension, on midodrine (subsequently held d/t lethargy need for continuous BIPAP as above)
- Cardiology eval appreciated
A-fib:
- no longer attempting rhythm control, last cardioversion 08/16/2025 with no further cardioversions planned
- home metoprolol succinate 50 mg daily as above
- Anticoagulation with warfarin, INR goal 2-3 (placed on hold w/ supratherapeutic INR 3.5)
Orthostatic hypotension:
- Continue home midodrine 5 mg p.o. 3 times daily held as above
DVT prophylaxis: Supratherapeutic INR
CODE STATUS: DNR
10/14 Goals of care discussion: Discussed with TISHA Hernandez, at patient's bedside, progressively decline despite maximal therapy with conservative tx, confirmed DNR/DNI status, poor prognosis (days if not less) likely end stage disease COPD with
significant comorbidities including heart failure, on continuous BIPAP, developing shock. Following discussion, raymundo GILES expressed interest and agreement with pursuing comfort care/hospice. Unclear how much patient himself understands d/t AMS
Encephalopathy. However patient appeared to be in agreement with son's decision. Care subsequently updated to comfort care measures accordingly with plans for hospice evaluation in the morning.
I spent a total of 50 minutes with the patient or on the floor. More than 50% of this time involved counseling and coordination of care.
Anticipated Discharge: Within 24 hours
Subjective/Interval History
-
Date of Service: October 14, 2025
confused, in respiratory distress on BIPAP this morning. Limited communications via head gestures. accessory muscles of respiration noted saturating low 90s. Patient progressively worsen towards the end of day with fever tachycardia and
hypotension requiring pressor support.
Objective Data
-
Labs:
Laboratory Results
10/14/25
05:54
WBC 4.9
Hgb 13.7
Hct 46.6
Plt Count 119 L
PT 36.0 H
INR 3.57
Sodium 140
Potassium 4.4
Chloride 103
Carbon Dioxide 30
BUN 30 H
Creatinine 0.9
Glucose 85
Calcium 9.3
Vital Signs:
Vital Signs
Temp Pulse Resp BP Pulse Ox
97.4 F 80 21 108/75 91
10/14/25 03:00 10/14/25 06:00 10/14/25 06:00 10/14/25 06:00 10/14/25 06:00
I&O
10/13/25 10/14/25 10/15/25
06:59 06:59 06:59
Output Total 900 / 900 650 / 650
Balance -900 / -900 -650 / -650
[2025-10-14] MEDS: TYLENOL 650 MG PO (08:13)
[2025-10-14] MEDS: DELTASONE 5 MG PO (08:13)
[2025-10-14] MEDS: TOPROL XL 50 MG PO (08:13)
--- NOTE | 2025-10-14 08:49 | W.PN.PUL.V3 ---
Today's Communication / Plan
-
Supplemental oxygen
Check ABG
BiPAP encouraged
Diuresis as tolerated
Goals of care discussion ongoing
Assessment
-
Patient is an 80 year old male past medical history of CHF, AVR, A-fib, COPD on supplemental oxygen, pulmonary hypertension, orthostatic hypotension, BPH and depression who presents with hypoxia. Patient resides at [facility]. Today he was
noted by staff to be hypoxic. Patient received multiple nebulizer treatments at the facility. Upon EMS arrival patient's pulse ox was 82% and he was placed on a non-rebreather. He was placed on BiPAP in the emergency department for continued
increased work of breath. He has had recent history of frequent admission for similar. Admitted to IMU for CHF on BIPAP.
Acute hypoxic respiratory failure
Acute on chronic SOB
Acute on chronic CHF exacerbation, proBNP�4200
Leukopenia
Thrombocytopenia
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
Multiple pulmonary nodules, waxing and waning, s/p CT needle biopsy 07/11/2018 of RLL nodule w/ noncaseating granuloma with focal giant cells and negative for fungal and AFB.
c/b pneumothorax/Chest tube placement
Bilateral pulmonary infiltrates, negative bronchoscopy 2000 with decreased size in nodules.
COPD/asthma, with a 25-pack year smoking history and severely reduced FEV1 with significant bronchodilator response.
Follows with Dr Turcios, recent spirometry reveals severe obstruction and restriction. He has stage IV COPD, maintained on 5mg prednisone daily.
Nocturnal hypoxemia, Oxygen 2 L at night
Former smoker, quit age 40
Status post Strep viridans aortic valve endocarditis
ACC/AHA stage C chronic systolic heart failure
AVR bioprosthetic, currently on chronic Coumadin, 04/2018.
History of renal cell carcinoma, status post nephrectomy left side 2010.
Hypertension.
Paroxysmal atrial fibrillation.
GERD.
BPH, status post TURP.
Obstructive sleep apnea resolved with weight loss.
Allergies.
History of duodenal ulcer.
Idiopathic hypersomnia.
Depression
Moderate MR
Stage 3b chronic kidney disease
Plan
Respiratory status remains tenuous-more somnolent this morning
Outpatient spirometry with severe obstruction-follows with Dr. Turcios
Supplemental oxygen as needed
Prednisone 5 mg daily
BiPAP as tolerated-refused last night-spoke to HEALTH INFORMATION SPECIALIST
Check VBG or ABG for suspected hypercapnia-ABG 10/14/2025 on BiPAP / cm--58/62/7.36
DuoNebs and budesonide nebulizers
Singulair continues
Mucolytic's as needed
Mucus clearing devices if needed
Baseline use of 2 L of oxygen at nighttime
Diuresis as tolerated-frequent admissions for heart failure-previous discharges 09/30/25, 07/03/25, 12/12/24
Goal weight had been 146 pound but now today 142.8 kg (64.9 kg)
Monitor renal function, electrolytes, intake/output, lower extremity edema and weight
Replace electrolytes as needed
Atrial fibrillation rate controlled
Chronic anticoagulation on warfarin-INR goal 2-3
Midodrine continues for orthostatic hypotension
DVT prophylaxis-on Coumadin
Nutrition
Early mobilization
Goals of care discussion ongoing
Reviewed with hospitalist
Outpatient pulmonary follow-up with Dr. Turcios
Diagnostic Data
CXR 06/30/25- There is a slightly increased small right pleural effusion with adjacent airspace opacity, likely chronic atelectasis. Cardiomegaly with known thoracic aortic aneurysm, similar to prior.
CT CHEST 12/10/24: No evidence of pulmonary embolus. Known aortic dissection. Stable. Known ascending aortic aneurysm measuring 9.4 cm. Stable. Small right pleural effusion. Progressed. Oval hypodense splenic lesion likely a cyst or hemangioma. Stable
ECHO 07/01/25- 1. Normal left ventricular function. 2. Ejection fraction is 50-55% by visual assessment. 3. Diastolic flattening of the interventricular septum consistent with right ventricular volume overload. 4. Right ventricular cavity size is
moderately dilated. 5. Right ventricular systolic function is mildly decreased.
6. Moderately dilated left atrium left atrium. 7. Severely dilated right atrium. 8. Bioprosthetic aortic valve prosthesis is noted. Aortic prosthesis appears to be functioning normally. Aortic prosthesis is stable and well seated. 9. Severe
tricuspid regurgitation. 10. Ascending Aorta 9.1-9.8cm. 11. Tricuspid valve opens normally. Severe tricuspid regurgitation. Estimated pulmonary artery pressure of 45 mmHg assuming a right atrial pressure of 15 mmHg. 12. Severely dilated IVC with
absent inspiratory collapse. 13. Compared to a prior transthoracic echocardiogram study from 08/21/2024 The ascending aorta has become further dilated from 8.9 cm to 9.1-9.8 cm.
08/21/24- Normal LV size with mildly reduced systolic function. LVEF is 45-50% by visual estimation. Mild global hypokinesis. Moderate concentric LVH. Severely dilated right ventricle with mildly reduced systolic function. Severely dilated right
atrium. Mild mitral regurgitation. Bioprosthetic aortic valve replacement with peak/mean gradients of 18/9 mmHg. No aortic regurgitation is seen. Severe tricuspid regurgitation. Estimated pulmonary artery pressure of 40 mmHg assuming a right
atrial pressure of 15 mmHg (likely underestimated due to severity of tricuspid regurgitation). Severely dilated ascending aorta. (8.9 cm) The IVC is severely dilated and does not collapse. Compared to prior echo from January 11, 2023, ascending aorta
now measures 8.9 cm previously 8.6 cm.
Reports and relevant images were personally reviewed.
.
Subjective Data
-
Date of Service:
Date of Service: October 14, 2025
Chief Complaint: Pulmonary Follow Up and Dyspnea Follow Up
Subjective:
Somnolent this morning, refused BiPAP, some chest congestion, difficulties mobilizing secretions, no chest pain or abdominal pain
Review of Systems
General: Other
Objective Data
Data Reviewed
Vital Signs / I&O:
Vital Signs
Temp Pulse Resp BP Pulse Ox
98 F 71 18 108/75 93
10/14/25 07:34 10/14/25 07:31 10/14/25 07:31 10/14/25 06:00 10/14/25 07:31
Intake and Output
10/13/25 10/14/25 10/15/25
06:59 06:59 06:59
Output Total 900 / 900 650 / 650
Balance -900 / -900 -650 / -650
SaO2: 93
Nasal Cannula flow liters per minute: 4
Physical Exam
General: Respiratory Distress (n) and Comfortable
HEENT: Normocephalic, Anicteric and Moist Mucous Membranes
Cardiovascular: Regular Rhythm
Respiratory: Wheeze (n), Crackles ( basilar right greater than left), Rhonchi, Non-Labored Respirations, Accessory Resp Muscle Use (n) and Stridor (n)
GI: Soft, Non Distended and Non Tender
Neurology: Awake, Alert, No Motor Deficits and Lethargic
Skin: Warm, Good Color, Cyanosis (n) and Jaundice (n)
Labs/Micro/Reports
Lab Data
10/14/25 05:54
10/14/25 05:54
Laboratory Results
10/14/25
05:54
PT 36.0 H
INR 3.57
Microbiology
10/13/25 04:49 Nose MRSA Screen - Final
No Methicillin Resistant Staphylococcus aureus isolated.
10/12/25 13:59 Nasal Swab Influenza Types A & B (PRESTON) - Final
Negative for Influenza A & B, NAAT
Negative results must be combined with clinical observations
and patient history.
Nucleic Acid Amplification test (NAAT)performed on the
[employer] platform.
[2025-10-14] MEDS: LASIX 40 MG IV (10:45)
--- NOTE | 2025-10-14 10:48 | PTCARENOTE ---
Addendum entered by Elizabeth Sales 10/14/25 16:48:
Pt remains on Bipap 10/11 with 10L. Sats in the low 90's. Remains somnolent at this time. Dr. Jaffe aware.
Original Note:
Pt OOB to chair. Becoming more somnolent throughout the morning. Assisted back to bed. Pulse ox dropping to 70's. Dr. Sequeira and Dr. Jaffe aware. RT notified and to bedside-pt placed on bipap 10/11 with 15L. Sats recovered to low 90's. ABG obtained
by RT. XR at bedside.
[2025-10-14 10:53] LABS: B.E. 5.5 mmol/L; HCO3 32.8 mmol/L (21-28); O2 Saturation % 91.4 % (94-98); PCO2 58 mmHg (35-48); PO2 62 mmHg (83-108)
--- NOTE | 2025-10-14 11:33 | W.PN.CD ---
Today's Communication / Plan
-
Fow now continue IV Lasix one time daily
Impression / Plan
-
Card: Ayad
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
- Still with dyspnea
- He had goal weight at 66.2 kg. He was 66.2 kg on 10/14/2025,
- Today's weight seems off as 54.9 kg seems unlikely
- On Lasix (now PO), metoprolol ER daily
- Midodrine for BP support
- Can retry GDMT (perhaps SGLT2-i or low dose MRA, will review with his quality control engineering technician, Dr. Lion
AFib and AT (perhaps an atypical flutter
- History of A-fib ablation in July 2020.
- Remained in sinus. Now started having atypical flutters.
- Patient is high risk for any interventions and will remain with rate controlled A-fib flutter.
- Patient's plan was switched to rate control back in September 2025- no more rhythm control attempts
- His dofetilide was discontinued in September 2025 in favor of rate control.
- Last cardioversion just 08/16/2025 => no more cardioversions
- Warfarin, continue
S/p AVR, good fxn on echo 07/01/2025
Severe TR
Lymphedema:
-Lt>rt,improving
-rula wraps
HTN - stable on meds, continue to monitor with diuresis.
COPD - oxygen dependent 3L NC. SEVERE
Aortic aneurysm with dissection, Asc Ao 9.4 cm => med rx
DNR
Physical Exam
Vital Signs/Labs
Vital Signs
Temp Pulse Resp BP Pulse Ox
99.6 F 95 18 108/75 93
10/14/25 11:12 10/14/25 11:09 10/14/25 07:31 10/14/25 06:00 10/14/25 08:49
10/13/25 10/14/25 10/15/25
06:59 06:59 06:59
Actual Weight 66.224 kg 54.9 kg
10/14/25 05:54
10/14/25 05:54
PT 36.0 Sec (11.4-14.6) H 10/14/25 05:54
INR 3.57 10/14/25 05:54
10/12/25
13:53
Tcs-R-[id number] Pept 4200
LAB Results
10/12/25
13:53
Troponin I 0.024
Physical Exam
Constitutional: No acute distress
EENT: Anicteric
Cardiovascular: Rhythm/rate is irregular
Respiratory: Respiratory effort normal and Lungs clear to auscul.
GI: Soft and Distention absent
Neuro/Psych: Alert
Data Reviewed
-
Date of Service: October 14, 2025
[2025-10-14] MEDS: TYLENOL/FEVERALL 650 MG RECTAL (16:42)
[2025-10-14] MEDS: LEVOPHED 250 IV (17:09)
--- NOTE | 2025-10-14 17:11 | PTCARENOTE ---
Pt hypotensive with SBP 60-70's. Dr Jaffe notified. Order received to start Levo- initiated per order. MD to bedside.
--- NOTE | 2025-10-14 17:16 | PHA.VAN.IN ---
Assessment
- Assessment
Renal Function: Appears similar to baseline
Concomitant Antimicrobials: piperacillin/tazobactam
AUC Dosing Plan
- Dosing Variables
Dosing Weight (kg): 71.1
Dosing CrCl (ml/min): 51
Vd coefficient (L/kg): 0.7
- Empiric Dosing
Initial / Loading Dose: vanc 1500mg
Maintenance Regimen: vanc 1000mg Q24H
Estimated AUC (mcg*h/mL): 440
Estimated Peak (mcg*h/mL): 29.8
Estimated Trough (mcg/ml): 10.2
Estimated Half Life (H): 14.8
- Monitoring
No levels ordered at this time: consider levels in next few days
Pharmacokinetics Vancomycin I
- -
Patient Age: 80
Patient Sex: Male
Vancomycin Day #: 1
Indication: Pulmonary/Respiratory
Requesting Provider: Dr. Jaffe
Pertinent Antimicrobial Allergies:
no pertinent antimicrobial allergies
Height / Weight:
Height 5 ft 9 in
Actual Weight 71.1 kg
Pertinent Past Medical History: hx infective endocarditis, COPD on chronic O2 HS
- Vital Signs / Lab Results
Temp Pulse Resp BP Pulse Ox
100.6 F H 97 25 112/87 91
10/14/25 15:05 10/14/25 15:15 10/14/25 15:15 10/14/25 08:14 10/14/25 15:15
Lab Results - Hematology
10/12/25 10/13/25 10/14/25
13:53 04:49 05:54
WBC 5.7 4.6 L 4.9
Lab Results - Chemistry
10/12/25 10/13/25 10/14/25
13:53 04:49 05:54
BUN 30 H 30 H 30 H
Creatinine 0.9 1.0 0.9
Estimated Creat Clear 55 51
Albumin 4.4
Microbiology Results
10/13/25 04:49 MRSA Screen - Final
Nose No Methicillin Resistant Staphylococcus aureus isolated.
10/12/25 13:59 Influenza Types A & B ([facility]STON) - Final
Nasal Swab Negative for Influenza A & B, NAAT
Negative results must be combined with clinical observations
and patient history.
Nucleic Acid Amplification test (NAAT)performed on the
[employer] platform.
[2025-10-14] MEDS: LEXAPRO PO (17:26)
[2025-10-14] MEDS: SOLU-CORTEF 50 MG IV (17:44)
[2025-10-14] MEDS: VANCOCIN 530 MG IV (17:46)
--- NOTE | 2025-10-14 18:17 | CM ---
F/U: Son is interested in Hospice, consult placed, so patient will be watched overnight than likely evaluated tomorrow if this decision stays. PLAN: TBD, Hospice likely.
[2025-10-14] MEDS: ZOSYN 50 IV (18:45)
[2025-10-14] MEDS: NSS (PRESERVATIVE FREE) 0.25 ML IV (20:34)
[2025-10-14] MEDS: ATIVAN 0.5 MG IV (20:34)
--- NOTE | 2025-10-14 21:52 | PTCARENOTE ---
Assumed care of Pt from day RN. Pt was on Levo gtt at 6, Bipap in place. Pt Son a bed side having conversation with Dr Jaffe about comfort. Pt Son choosing comfort. per Dr Jaffe note 'comfort care measures Hospice Eval in AM'. Pt given prn medication
for anxiety. Bipap removed pt currently on 6L for comfort. Son and daughter inlaw bed side. Pt respiration even unlabored appearing to be resting comfortably at this time.
--- NOTE | 2025-10-14 22:25 | W.PN.DEATH ---
Pronouncement of
-
Called to see patient to pronounce.
No spontaneous heart tones or respirations noted.
Patient not responsive to verbal stimuli.
Patient is pronounced .
Time of : 22:20
Date of : 10/14/25
Cause of : Acute on chronic hypoxic respiratory failure, Acute on Chronic heart failure, atrial fibrillation
Family Notified: Yes (Son at bedside )
--- NOTE | 2025-10-14 23:21 | PTCARENOTE ---
Pt passed at 2219 T[employer] CAR ATTENDANT pronounced, son at bed side. Emotional support given. Gift of life called.
--- NOTE | 2025-10-15 04:55 | W.DCSUMMARY ---
Discharge Summary
Discharge Data
Date of Admission: 10/12/25
Date of Discharge: 10/14/25
-
Pending Results: No
Hospital Course
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
permanent A-fib/flutter (status post PVI and CTI, no longer on rhythm control), PUD with GIB, and orthostatic hypotension, presented from [facility] with dyspnea and hypoxia. He was started on BiPAP in the ED and admitted to the IMU for
further evaluation and management. Acute on chronic hypoxic respiratory failure, required BiPAP briefly transitioned to 4 L via nasal cannula, since acutely worsened required BIPAP continuously 10/14/25. Initial procalcitonin negative however
patient later developed fever 100.6 tachycardia concerning for Sepsis w/ end organ damage respiratory failure and Encephalopathy. Likely progression severe COPD end stage. Possible Hospital Associated Pneumonia Sepsis, received prn rectal Tylenol,
unable to tolerate PO d/t AMS continuous BIPAP. Levophed support was started, required increasing dose to maintain MAP>65. Started stress dose steroids hydrocortisone 50mg Q6H. Empiric Vanc Zosyn started. Possible Acute on Chronic HFpEF
contributing. Home Lasix was briefly switched to IV Lasix 40 mg daily while on continuous BIPAP as above. Beta-blockade with home metoprolol succinate 50 mg daily prior to continuous BIPAP as above. No afterload reduction medications due to
baseline orthostatic hypotension, on midodrine (subsequently held d/t lethargy need for continuous BIPAP as above). Cardiology eval appreciated. A-fib, no longer attempting rhythm control, last cardioversion 08/16/2025 with no further
cardioversions planned. Anticoagulation with warfarin, INR goal 2-3 (placed on hold w/ supratherapeutic INR 3.5). 10/14 Goals of care discussion: Discussed with POArnie fonseca David, at patient's bedside, progressively declining despite maximal therapy
with conservative tx, confirmed DNR/DNI status, poor prognosis (days if not less) likely end stage disease COPD with significant comorbidities including heart failure, on continuous BIPAP, developing shock. Following discussion, son TISHA expressed
interest and agreement with pursuing comfort care/hospice. Unclear how much patient himself understood d/t AMS Encephalopathy. However patient appeared to be in agreement with son's decision. Care subsequently updated to comfort care measures,
patient soon passed overnight. Condolences extended.
Discharge Plan
-
Patient Disposition:
Date/Time
Date/Time: 10/14/25 22:20
Discharge Date and Time
Discharge Date/Time: 10/14/25 22:20
Print Language: SPANISH
== END 2025-10-14 22:20 | disposition expired | DRG 291 ==
LOC: IMU 16:58
PROVIDERS: Internal Medicine; Physician Assistant; Physician Assistant Medical; ADMITTING PHYSICIAN Internal Medicine; ATTENDING PHYSICIAN Internal Medicine; CONSULT PHYSICIAN Internal Medicine; CONSULT PHYSICIAN Internal Medicine Cardiovascular Disease; EMERGENCY PHYSICIAN Emergency Medicine; FAMILY PHYSICIAN Student in an Organized Health Care Education/Training Program
PROC: 5A09357 Assistance with Respiratory Ventilation, Less than 24 Consecutive Hours, Continuous Positive Airway Pressure (ICD-10-PCS; 2025-10-12)
DX: I13.0 Hypertensive heart and chronic kidney disease with heart failure and stage 1 through stage 4 chronic kidney disease, or unspecified chronic kidney disease (principal); A41.9 Sepsis, unspecified organism; J96.21 Acute and chronic respiratory failure with hypoxia; I71.010 Dissection of ascending aorta; I50.33 Acute on chronic diastolic (congestive) heart failure; R65.20 Severe sepsis without septic shock; J18.9 Pneumonia, unspecified organism; I48.21 Permanent atrial fibrillation; G93.40 Encephalopathy, unspecified; J44.0 Chronic obstructive pulmonary disease with (acute) lower respiratory infection; Z51.5 Encounter for palliative care; I71.20 Thoracic aortic aneurysm, without rupture, unspecified; K21.9 Gastro-esophageal reflux disease without esophagitis; N40.0 Benign prostatic hyperplasia without lower urinary tract symptoms; I27.20 Pulmonary hypertension, unspecified; I95.1 Orthostatic hypotension; F32.A Depression, unspecified; I07.1 Rheumatic tricuspid insufficiency; D69.6 Thrombocytopenia, unspecified; D72.819 Decreased white blood cell count, unspecified; G47.33 Obstructive sleep apnea (adult) (pediatric); N18.32 Chronic kidney disease, stage 3b; G47.11 Idiopathic hypersomnia with long sleep time; R91.8 Other nonspecific abnormal finding of lung field; F41.9 Anxiety disorder, unspecified; I89.0 Lymphedema, not elsewhere classified; Z66 Do not resuscitate; Z79.01 Long term (current) use of anticoagulants; Z99.81 Dependence on supplemental oxygen; Z90.5 Acquired absence of kidney; Z85.528 Personal history of other malignant neoplasm of kidney; Z87.891 Personal history of nicotine dependence; Z87.11 Personal history of peptic ulcer disease; Z95.3 Presence of xenogenic heart valve; Z86.79 Personal history of other diseases of the circulatory system; Z87.19 Personal history of other diseases of the digestive system; Z88.5 Allergy status to narcotic agent; Z88.8 Allergy status to other drugs, medicaments and biological substances; Z91.048 Other nonmedicinal substance allergy status; Z79.899 Other long term (current) drug therapy; Z79.52 Long term (current) use of systemic steroids; Z90.79 Acquired absence of other genital organ(s)
CPT/HCPCS: 36600; 71045; 80048; 80053; 82805; 83880; 84145; 84484; 85025; 85027; 85610; 87070; 87502; 87811; 93005; 94640; 94660; 96374; 96375; 99291